=== PATIENT | male | born 1960 | race Hispanic/Latino ===

== ENCOUNTER 2017-09-05 22:15 | Emergency (ER) | payer MEDICARE ==
[2017-09-05 23:22] LABS: #Eosinphils 0.1 thou/uL (0.0-0.7); #Lymphocytes 0.7 thou/uL (1.20-3.40); #Monocytes 0.5 thou/uL (0.11-0.59); #Neutrophils 9.5 thou/uL (1.40-6.50); %Basophils 0.3 % (0.0-1.0); %Eosinophils 0.7 % (0.0-10.0); %Lymphocytes 6.1 % (21.0-51.0); %Monocytes 4.8 % (0.0-10.0); Hematocrit 33.8 % (42.0-52.0); Mean Platelet Volume 7.9 fL (7.4-10.4); Red Blood Cell (RBC) Count 3.98 mill/uL (4.70-6.10); White Blood Cell (WBC) Count 10.8 thou/uL (4.8-10.8)
[2017-09-05 23:44] LABS: ALT (SGPT) 11 U/L (8-55); AST (SGOT) 11 U/L (5-34); Alkaline Phosphatase 149 U/L (40-150); Anion Gap 16 mmol/L (10-20); BUN (Urea Nitrogen) 24 mg/dL (8.4-25.7); Bilirubin, Total 0.8 mg/dL (0.2-1.2); Calc. Creatinine Clearance 0 mL/min (70-130); Calcium 9.4 mg/dL (7.8-10.44); Carbon Dioxide 32 mmol/L (22-29); Chloride 92 mmol/L (98-107); Estimated GFR-MDRD 13; Globulin 4.5 g/dL (2.4-3.5); Protein, Total 8.4 g/dL (6.0-8.3)
[2017-09-05 23:46] LABS: Lactic Acid - Sepsis 1.7 mmol/L (0.5-2.2)
--- NOTE | 2017-09-05 23:46 | RAD ---
TWO VIEWS RIGHT HIP: History: Trauma. FINDINGS: AP and frogleg views obtained. No evidence of right hip fractures, subluxations, or bony lesions see n. IMPRESSION: Normal two views right hip. POS: [facility]
--- NOTE | 2017-09-05 23:46 | RAD ---
AP CHEST: History: Fever. FINDINGS: There is a right subclavian endovascular stent in place. The lungs are well aerated. No evidence of active intrathoracic disease seen. No evidence of effusio ns, pneumonia or pneumothorax seen. IMPRESSION: Cardiomegaly. POS: [facility]
== END 2017-09-06 00:24 | disposition home or self-care (01) ==
LOC: ERS 22:15
DX: R53.1 Weakness (principal); R50.9 Fever, unspecified; E11.9 Type 2 diabetes mellitus without complications; I10 Essential (primary) hypertension; Z86.73 Personal history of transient ischemic attack (TIA), and cerebral infarction without residual deficits; Z99.2 Dependence on renal dialysis
CPT/HCPCS: 71010; 80053; 83605; 85025; 87040

== ENCOUNTER 2017-10-08 13:02 | Emergency (ER) | payer MEDICARE ==
--- NOTE | 2017-10-08 15:43 | RAD ---
THREE VIEWS LEFT FOOT: DATE: 10/08/17. HISTORY: Left foot injury. FINDINGS: Lisfranc joint is normally aligned. There is no evidence of a fracture or dislocation. Mild osteoar thritis involving the interphalangeal joint of the great toe with nonspecific minimal soft tissue pro minence adjacent to the interphalangeal joint of the great toe. No other osseous abnormality is seen . Vascular calcifications are seen about the ankle and foot. IMPRESSION: 1. No acute osseous abnormality of the left foot. 2. Vascular calcifications. POS: [facility]
--- NOTE | 2017-10-08 16:08 | RAD ---
TWO VIEWS LEFT TIBIA AND FIBULA 10/08/17 HISTORY: Injury to distal left lower extremity and foot after losing balance and falling at home last p.m. Pat ient complains of left foot pain. FINDINGS: There is a nondisplaced fracture involving the proximal left fibula. No additional fracture is apprec iated. There is no evidence of a dislocation. Vascular calcifications are seen about the knee. IMPRESSION: Nondisplaced obliquely oriented fracture involving the proximal left fibula. POS: [facility]
== END 2017-10-08 16:05 | disposition home or self-care (01) ==
LOC: ERS 13:02
DX: S82.832A Other fracture of upper and lower end of left fibula, initial encounter for closed fracture (principal); E11.9 Type 2 diabetes mellitus without complications; I10 Essential (primary) hypertension; W18.30XA Fall on same level, unspecified, initial encounter
CPT/HCPCS: 29505

== ENCOUNTER 2018-06-06 10:46 | Inpatient (IN) | payer MEDICARE ==
[2018-06-06] MEDS ORDERED: Ondansetron HCl/PF 4 MG/2 ML Vial ONE (11:48)
[2018-06-06] MEDS ORDERED: Fentanyl 100 MCG/2 ML VIAL ONE (11:48)
[2018-06-06 12:00] LABS: #Basophils 0.1 thou/uL (0.0-0.2); #Eosinphils 0.2 thou/uL (0.0-0.7); #Lymphocytes 1.4 thou/uL (1.20-3.40); #Neutrophils 13.6 thou/uL (1.40-6.50); %Basophils 0.5 % (0.0-1.0); %Eosinophils 1.3 % (0.0-10.0); %Lymphocytes 8.9 % (21.0-51.0); %Monocytes 5.9 % (0.0-10.0); %Neutrophils 83.5 % (42.0-75.0); Hemoglobin 9.8 g/dL (14.0-18.0); Mean Corpuscular HGB CONC 30.2 g/dL (32.0-36.0); Mean Corpuscular Volume 89.2 fL (78.0-98.0); Mean Platelet Volume 6.3 fL (7.4-10.4); Platelet Count 454 thou/uL (130-400); RBC Distribution Width 14.3 % (11.5-14.5); Red Blood Cell (RBC) Count 3.64 mill/uL (4.70-6.10); White Blood Cell (WBC) Count 16.3 thou/uL (4.8-10.8)
[2018-06-06 12:23] LABS: ALT (SGPT) 20 U/L (8-55); AST (SGOT) 15 U/L (5-34); Albumin 3.3 g/dL (3.5-5.0); Alkaline Phosphatase 361 U/L (40-150); Anion Gap 16 mmol/L (10-20); BUN (Urea Nitrogen) 25 mg/dL (8.4-25.7); Bilirubin, Total 0.6 mg/dL (0.2-1.2); CK (CPK) 65 U/L (30-200); Calc. Creatinine Clearance 0 mL/min (70-130); Calcium 9.7 mg/dL (7.8-10.44); Carbon Dioxide 34 mmol/L (22-29); Chloride 92 mmol/L (98-107); Estimated GFR-MDRD 10; Globulin 4.5 g/dL (2.4-3.5); Glucose 163 mg/dL (70-105); Lipase 10 U/L (8-78); Potassium 4.3 mmol/L (3.5-5.1); Protein, Total 7.8 g/dL (6.0-8.3); Sodium 138 mmol/L (136-145)
[2018-06-06 12:26] LABS: CKMB 0.9 ng/mL (0-6.6); Troponin I Less than 0.010 ng/mL (< 0.028)
[2018-06-06] MEDS ORDERED: Sodium Chloride 0.9% 100 ML ONE (12:37)
[2018-06-06] MEDS ORDERED: Cefepime 2 GM VIAL ONE (12:37)
--- NOTE | 2018-06-06 12:43 | RAD ---
PA AND LATERAL CHEST X-RAY: 06/06/2018 HISTORY: Right-sided pneumonia. Dyspnea. COMPARISON: 06/06/2018 at 1008 hours. FINDINGS: Again noted are patchy parenchymal changes in the right upper lobe, likely related to pneumonia. The re is also a patchy parenchymal opacity seen at the medial aspect of the left lung base, within the l eft lower lobe, also worrisome for pneumonia. The cardiac silhouette and pulmonary vasculature are w ithin normal limits. A vascular stent overlies the right subclavian vessels. IMPRESSION: Multifocal pneumonia within the right upper lobe and left lower lobe. Followup to complete resolutio n is recommended to exclude the possibility of a neoplastic process. POS: [facility]
--- NOTE | 2018-06-06 15:55 | NM ---
RADIONUCLIDE VENTILATION PERFUSION LUNG SCAN 06/06/18 HISTORY: Chest pain. Dyspnea. FINDINGS: Ventilation images show heterogeneous uptake throughout each lung. No significant air trapping. Perfusion images show poor perfusion gradient and heterogeneous uptake. Subsegmental perfusion defect is noted at the medial aspect of the right lung apex in region of opacity on corresponding chest rad iograph. IMPRESSION: Small subsegmental triple match at the medial aspect of the right lung apex. While there is certainly an abnormality at the right apex, the exam remains low probability for clinically significant pulmon licha embolus. POS: [facility]
[2018-06-06] MEDS ORDERED: Bisacodyl 5 MG TAB PO PRN (16:34)
[2018-06-06] MEDS ORDERED: Dextrose 5% in Water 1,000 ML IV PRN (16:34)
[2018-06-06] MEDS ORDERED: Dextrose 50% Abboject 50 ML SYRINGE SLOW IVP PRN (16:34)
[2018-06-06] MEDS ORDERED: Acetaminophen 325 MG TAB PO PRN (16:34)
[2018-06-06] MEDS ORDERED: Benzonatate 100 MG CAP PO PRN (16:36)
[2018-06-06] MEDS ORDERED: Vancomycin HCl 1 GM in Premix Bag 1 BAG IVPB SCH (16:45)
--- NOTE | 2018-06-06 16:51 | HP ---
PRIMARY CARE PROVIDER: Dr. Zhang Schneider. CHIEF COMPLAINT: Cough. HISTORY OF PRESENT ILLNESS: Mr. Pacheco is a pleasant 57-year-old gentleman who was seen at [facility] on 06/06/2018. Approximately 1.5-2 weeks ago, he developed a runny nose whi ch was followed by cough and diarrhea. He subsequently started having fevers and chills as well as s weating. He also developed fatigue and poor appetite. The cough was initially nonproductive, but he is productive of brownish sputum since yesterday. One week ago, [facility] and received cough medications. He was advised to go back if there was no improvement. They returned to [facility] and they did a chest x-ray th . He was told to go to the emergency room because of an abnormality of the chest x-ray. REVIEW OF SYSTEMS: All other systems reviewed and found to be negative. PAST MEDICAL HISTORY: Significant for end-stage renal disease on hemodialysis Tuesday, Tuesday, Tue, had dialysis yesterday afternoon, hypertension, dyslipidemia, cerebrovascular accident, diabetes mellitus type 2, bacteremia with Staphylococcus lugdunensis as well as bacteremia with Enterococcus faecalis. PAST SURGICAL HISTORY: Appendectomy, cholecystectomy, tonsillectomy, right toe amputation, right arm fistula SOCIAL HISTORY: The patient denies any tobacco use, alcohol use or recreational drug use. FAMILY HISTORY: His father from myocardial infarction at age 59. ALLERGIES: CODEINE, HEPARIN and PHENERGAN. CURRENT MEDICATIONS: Tramadol 50-100 mg every 4 hours as needed, metoprolol 100 mg 2 times a day, gl ipizide 20 mg 2 times a day, clonidine 0.2 mg as needed, Valium 5 mg every 6 hours as needed, meclizi ne 25 mg every 4 hours as needed, nifedipine 30 mg daily, vitamin D3 2000 units daily, atorvastatin 4 0 mg daily, Jacky aspirin 325 mg daily and Tessalon Perles 100 mg 3 times a day. PHYSICAL EXAMINATION: GENERAL: On examination, Mr. Pacheco is awake and alert, not in acute distress. VITAL SIGNS: Blood pressure is 151/62, pulse 83, respiratory rate 17 currently, was 22 earlier today in the emergency room, temperature 98 degrees Fahrenheit, and oxygen saturation 99% on room air. EYES: No scleral icterus. No conjunctival pallor. ENT: Moist mucosal membranes, no oropharyngeal erythema or exudates. NECK: Supple, nontender, trachea is midline. RESPIRATORY: Accessory muscles of breathing are not active. Chest wall movements are symmetric bila terally. LUNGS: Reveals bilateral bronchial breathing. CARDIOVASCULAR: S1 and S2 are heard, regular. Peripheral pulses palpable. No carotid bruit, no per icardial rub. ABDOMEN: Soft, nontender, bowel sounds are heard, no hepatomegaly, no splenomegaly. NEUROLOGIC: Cranial nerves II-XII intact. Deep tendon reflexes are 2+. MUSCULOSKELETAL: Power is 5/5 in all 4 extremities. SKIN: He has a firm subcutaneous mass over the neck. It is erythematous. The patient reports that the mass has been present there for a while, but the erythema is new. LYMPHATIC: No cervical lymphadenopathy. PSYCHIATRIC: Normal mood, normal affect. The patient is oriented to person, place and time. IMAGING DATA AND LABORATORY DATA: Mr. Pacheco's labs and investigations were reviewed. I reviewed hi s electrocardiogram, which shows normal sinus rhythm, no ST changes to suggest an acute coronary synd marissa. I also reviewed his chest x-ray, which shows multifocal pulmonary infiltrates. He has leukocy tosis with 16,300 white cells, of which 83.5% are neutrophils, normocytic anemia with hemoglobin 9.8, elevated platelet count of 454,000, he had normal platelet count in 08/2017. D-dimer elevated at 2. 08, normal sodium, normal potassium, normal blood urea nitrogen and elevated creatinine of 5.93. BNP is elevated at 445. Alkaline phosphatase is elevated at 361, was elevated in the past as well, but the last value was normal in 08/2017. Lipase is normal. Troponin I is normal. ASSESSMENT AND PLAN: Mr. Pacheco is a pleasant 57-year-old gentleman who was seen at [facility] on 06/06/2018. His problem list includes: 1. Sepsis: Mr. Pacheco is presenting with sepsis, most likely secondary to pneumonia. He will be ad mitted to the hospital for further management. 2. Pneumonia: We will treat him with levofloxacin, cefepime and vancomycin. We will follow culture s and narrow down antibiotic coverage as needed. 3. Neck mass: Appears to be a benign mass. He does not feel fluctuant. The skin overlying the mas s is erythematous. We will consult General Surgery for opinion. 4. Hypertension: Monitor vital signs, titrate antihypertensives as needed. 5. Dyslipidemia: Continue statin. Many thanks for allowing me to participate in your patient's care. Please feel free to contact me wi th any questions or concerns. LEVEL OF RISK: High. LEVEL OF COMPLEXITY: High.
[2018-06-06 16:54] LABS: Troponin I Less than 0.010 ng/mL (< 0.028)
[2018-06-06 19:39] VITALS: BMI 33.0
[2018-06-06 20:08] LABS: Troponin I Less than 0.010 ng/mL (< 0.028)
[2018-06-06] MEDS ORDERED: Ondansetron HCl/PF 4 MG/2 ML Vial IVP PRN (21:21)
[2018-06-06] MEDS: cloNIDine 0.2 MG TAB PO SCH (21:47)
[2018-06-06] MEDS: Atorvastatin Calcium 40 MG TAB PO SCH (21:48)
[2018-06-06] MEDS: Metoprolol Tartrate 100 MG TAB PO SCH (21:48)
--- NOTE | 2018-06-07 01:59 | CON ---
DATE OF CONSULTATION: 06/06/2018 CONSULTING PHYSICIAN: Violeta Haq MD REQUESTING PHYSICIAN: Galileo Barnes MD REASON FOR CONSULTATION: Need for maintenance hemodialysis. IMPRESSION: 1. End-stage renal disease; hemodialysis dependent on a Tuesday, Tuesday, Tuesday schedule. 2. Multifocal pneumonia, on treatment. 3. History of cerebrovascular accident. 4. Possible infected cyst overlying the neck area. PLAN: 1. Renal replacement therapy; Tuesday, Tuesday, Tuesday per patient's schedule with ultrafiltration as tolerated by hemodynamics. 2. Renally dose all medications. 3. Consider surgical consult to evaluate the lump on the neck of this patient, as it seems to be inf ected. HISTORY OF PRESENT ILLNESS: History is that of a 57-year-old gentleman with end-stage renal disease, hemodialysis dependent on a Tuesday, Tuesday, Tuesday who presented here with cough persistent and g ot diagnosed with multifocal pneumonia. The patient also does have an area of tenderness that is lum py overlying the neck area, red, somewhat erythematous and tender to touch. As a result of the need for maintenance hemodialysis, decision has been taken to involve Renal in the management of this case . PAST MEDICAL HISTORY: Significant for end-stage renal disease, type 2 diabetes, CVA, dyslipidemia, h ypertension. MEDICATIONS: Reviewed as documented on [employer]. SOCIAL HISTORY: . No alcohol, no tobacco, no illicit drug use. FAMILY HISTORY: None significantly related to presenting illness. ALLERGIES: CODEINE, HEPARIN and PHENERGAN. REVIEW OF SYSTEMS: As documented in the body of the history. All the other systems were reviewed an d found not to be significantly related to presenting illness. PHYSICAL EXAMINATION: GENERAL: The patient was noted to be coughing persistently and noted with the following vital signs. VITAL SIGNS: Afebrile with temperature 99.4, pulse 83, respiratory rate of 18, O2 sat of 93% with a blood pressure 115/73. HEENT: Unremarkable with moist oral mucosa. NECK: Supple. No conjunctival injection or icterus. CARDIOVASCULAR SYSTEM: First and second heart sounds were heard. RESPIRATORY SYSTEM: Showed some rales. DIGESTIVE SYSTEM: Revealed a benign abdomen. EXTREMITIES: No peripheral edema. SKIN/MUSCULOSKELETAL SYSTEM: Revealed a 2 x 4 lump overlying the neck area that is erythematous and tender to touch. SUMMARY: A 57-year-old gentleman with end-stage renal disease, hemodialysis dependent, who presented here with multifocal pneumonia. Thank you for this consultation. We will follow with you.
[2018-06-07 05:37] LABS: #Basophils 0.1 thou/uL (0.0-0.2); #Eosinphils 0.1 thou/uL (0.0-0.7); #Lymphocytes 1.6 thou/uL (1.20-3.40); #Monocytes 0.7 thou/uL (0.11-0.59); #Neutrophils 12.4 thou/uL (1.40-6.50); %Basophils 0.5 % (0.0-1.0); %Eosinophils 0.9 % (0.0-10.0); %Lymphocytes 10.4 % (21.0-51.0); %Neutrophils 83.2 % (42.0-75.0); Hemoglobin 9.6 g/dL (14.0-18.0); Mean Corpuscular HGB CONC 31.8 g/dL (32.0-36.0); Mean Corpuscular Hemoglobin 27.9 pg (27.0-31.0); Mean Corpuscular Volume 87.6 fL (78.0-98.0); Platelet Count 460 thou/uL (130-400); RBC Distribution Width 14.4 % (11.5-14.5); Red Blood Cell (RBC) Count 3.43 mill/uL (4.70-6.10); White Blood Cell (WBC) Count 14.9 thou/uL (4.8-10.8)
[2018-06-07 05:45] LABS: Anion Gap 19 mmol/L (10-20); BUN (Urea Nitrogen) 38 mg/dL (8.4-25.7); Calc. Creatinine Clearance 15 mL/min (70-130); Calcium 9.4 mg/dL (7.8-10.44); Carbon Dioxide 29 mmol/L (22-29); Chloride 91 mmol/L (98-107); Estimated GFR-MDRD 8; Glucose 209 mg/dL (70-105); Potassium 3.7 mmol/L (3.5-5.1); Sodium 135 mmol/L (136-145)
[2018-06-07] MEDS: HumaLOG 300 UNITS/3 ML VIAL SC PRN ×2 (06:40→20:37)
[2018-06-07] MEDS: NIFEdipine XL 30 MG TAB PO SCH (09:06)
[2018-06-07] MEDS: Metoprolol Tartrate 100 MG TAB PO SCH ×2 (09:06→20:31)
[2018-06-07] MEDS: Aspirin 325 mg Enteric Coated Tablet PO SCH (09:06)
[2018-06-07] MEDS: cloNIDine 0.2 MG TAB PO SCH ×3 (09:07→20:32)
[2018-06-07] MEDS ORDERED: Vancomycin HCl 1.25 GM in Sodium Chloride 0.9% 250 ML 250 ML IVPB SCH (11:00)
[2018-06-07] MEDS ORDERED: Vancomycin HCl 750 MG in Sodium Chloride 0.9% 250 ML 250 ML IVPB SCH (11:00)
[2018-06-07] MEDS ORDERED: Vancomycin HCl 1 GM in Premix Bag 1 BAG IVPB SCH (11:00)
[2018-06-07] MEDS ORDERED: Vancomycin HCl 500 MG in Sodium Chloride 0.9% 100 ML IVPB SCH (11:00)
[2018-06-07] MEDS ORDERED: HOLD VANCOMYCIN FOR LEVEL >20 FS SCH (11:00)
[2018-06-07 12:43] LABS: Vancomycin, Random 22.9 ug/mL (See Comment)
--- NOTE | 2018-06-07 14:35 | PDOC.PN ---
- Subjective Encounter Start Date: 06/07/18 Encounter Start Time: 07:00 Patient seen for followup re: sepsis. Denies chest pain, shortness of breath, fevers or chills. - Objective MAR Reviewed: Yes Vital Signs & Weight: Vital Signs (12 hours) Temp Pulse Resp BP BP Pulse Ox 06/07/18 09:07 139/62 06/07/18 09:06 74 139/62 06/07/18 08:32 74 16 96 06/07/18 08:05 99.4 F 74 16 92 L 06/07/18 07:51 99.4 F 97 16 139/62 92 L 06/07/18 04:00 99.6 F 77 20 141/65 H 98 Weight Weight 217 lb 1.6 oz I&O: 06/06/18 06/07/18 06/08/18 06:59 06:59 06:59 Intake Total 502 Balance 502 Result Diagrams: 06/07/18 05:17 06/07/18 05:17 Additional Labs: Accuchecks 06/07/18 06/06/18 06:06 21:34 POC Glucose 196 H 204 H Labs reviewed by me Phys Exam - Physical Examination Obese HEENT: moist MMs, sclera anicteric, oral pharynx no lesions, 2+ tonsils Neck: no nodes, no JVD, supple, full ROM neck mass Respiratory: no wheezing, no rhonchi jared crackles Cardiovascular: RRR, no rub S1, S2 Gastrointestinal: soft, non-tender, no distention, positive bowel sounds Neurological: moves all 4 limbs Psychiatric: normal affect, A&O x 3 Deviation from normal: erythema over neck mass Dx/Plan (1) Sepsis Code(s): A41.9 - SEPSIS, UNSPECIFIED ORGANISM Status: Acute Comment: secondary to pneumonia/cellulitis (2) Pneumonia Code(s): J18.9 - PNEUMONIA, UNSPECIFIED ORGANISM Status: Acute Comment: continue IV cefepime, levaquin and vancomycin (3) Cellulitis Code(s): L03.90 - CELLULITIS, UNSPECIFIED Status: Acute Comment: continue IV cefepime, levaquin and vancomycin (4) Neck mass Code(s): R22.1 - LOCALIZED SWELLING, MASS AND LUMP, NECK Status: Acute Comment: consult surgery (5) Diabetes Code(s): E11.9 - TYPE 2 DIABETES MELLITUS WITHOUT COMPLICATIONS Status: Chronic Comment: continue accuchecks, insulin sliding scale (6) ESRD (end stage renal disease) on dialysis Code(s): N18.6 - END STAGE RENAL DISEASE; Z99.2 - DEPENDENCE ON RENAL DIALYSIS Status: Chronic Comment: dialysis per nephrology service (7) HLD (hyperlipidemia) Code(s): E78.5 - HYPERLIPIDEMIA, UNSPECIFIED Status: Chronic Comment: continue statin (8) HTN (hypertension) Code(s): I10 - ESSENTIAL (PRIMARY) HYPERTENSION Status: Chronic Comment: controlled - Plan continue antibiotics, out of bed/ambulate * . Review of Systems - Review of Systems Constitutional: negative: fever, chills, sweats, weakness, malaise Respiratory: Cough, Sputum. negative: Dry, Shortness of Breath, Hemoptysis, SOB with Excertion, Pleuritic Pain, Wheezing Cardiovascular: negative: chest pain, palpitations, orthopnea, paroxysmal nocturnal dyspnea, edema, light headedness Gastrointestinal: negative: Nausea, Vomiting, Abdominal Pain, Diarrhea, Constipation, Melena, Hematochezia Genitourinary: negative: Dysuria, Frequency, Incontinence, Hematuria, Retention Skin: negative: Rash, Lesions, Charly, Bruising - Medications/Allergies Allergies/Adverse Reactions: Allergies Allergy/AdvReac Type Severity Reaction Status Date / Time codeine Allergy Nausea Verified 06/06/18 19:54 heparin Allergy EYES Verified 06/06/18 19:54 BLEEDING promethazine [From Phenergan] Allergy Verified 06/06/18 19:55 Medications: Current Medications Acetaminophen (Tylenol) 650 mg PO Q4H PRN PRN Reason: Headache/Fever or Pain Albuterol/Ipratropium (Duoneb) 3 ml NEB [id number] [facility] Last Admin: 06/07/18 11:22 Dose: 3 ml Albuterol/Ipratropium (Duoneb) 3 ml NEB Q6H PRN PRN Reason: SOB &/or Wheezing Last Admin: 06/06/18 21:39 Dose: 3 ml Aspirin (Ecotrin) 325 mg PO QAM [facility] Last Admin: 06/07/18 09:06 Dose: 325 mg Atorvastatin Calcium (Lipitor) 40 mg PO HS [facility] Last Admin: 06/06/18 21:48 Dose: 40 mg Benzonatate (Tessalon) 100 mg PO TIDPRN PRN PRN Reason: Cough Bisacodyl (Dulcolax) 10 mg PO DAILYPRN PRN PRN Reason: Constipation Clonidine (Catapres) 0.2 mg PO TID [facility] Last Admin: 06/07/18 09:07 Dose: Not Given Dextrose/Water (Dextrose 50%) 25 gm SLOW IVP PRN PRN PRN Reason: Hypoglycemia Glucagon (Glucagon) 1 mg IM PRN PRN PRN Reason: Hypoglycemia Cefepime HCl 1 gm/ Sodium (Chloride) 100 mls @ 200 mls/hr IVPB 1800 HANSA Levofloxacin 500 mg/ Device 100 mls @ 100 mls/hr IVPB Q2D@1600 HANSA Dextrose/Water (D5w) 1,000 mls @ 0 mls/hr IV .Q0M PRN; As Directed PRN Reason: Hypoglycemia Vancomycin HCl 1.25 gm/ Sodium (Chloride) 250 mls @ 166.667 mls/hr IVPB WILLCALL [facility] Vancomycin HCl 1 gm/ Device 200 mls @ 200 mls/hr IVPB WILLCALL [facility] Vancomycin HCl 750 mg/ Sodium (Chloride) 250 mls @ 250 mls/hr IVPB WILLCALL [facility] Vancomycin HCl 500 mg/ Sodium (Chloride) 100 mls @ 100 mls/hr IVPB WILLCALL [facility] Insulin Human Lispro (Humalog) 0 units SC .MILD SLIDING SCALE PRN PRN Reason: Mild Correctional Scale Last Admin: 06/07/18 06:40 Dose: 2 unit Metoprolol Tartrate (Lopressor) 100 mg PO BID [facility] Last Admin: 06/07/18 09:06 Dose: 100 mg Miscellaneous Medication (Pharmacy To Dose) 1 each IVPB ONE PRN PRN Reason: Pharmacy to dose Stop: 07/06/18 16:32 Nifedipine (Procardia Xl) 30 mg PO DAILY [facility] Last Admin: 06/07/18 09:06 Dose: 30 mg Hold Vancomycin For (Level >20) 0 each FS .AT DIALYSIS [facility] Ondansetron HCl (Zofran) 4 mg IVP Q6H PRN PRN Reason: Nausea/Vomiting Last Admin: 06/06/18 21:35 Dose: 4 mg Sodium Chloride (Flush - Normal Saline) 10 ml IVF Q12HR [facility] Last Admin: 06/07/18 09:07 Dose: 10 ml Sodium Chloride (Flush - Normal Saline) 10 ml IVF PRN PRN PRN Reason: Saline Flush
[2018-06-07] MEDS: Cefepime 1 GM in Sodium Chloride 0.9% 100 ML IVPB SCH (17:44)
--- NOTE | 2018-06-07 18:05 | HP ---
HISTORY OF PRESENT ILLNESS: Jose Guadalupe Pacheco is a 57-year-old male dialyzes Tuesday, Tuesday, and Tue, end-stage renal disease. I placed a right arm fistula in 2010, amputated one of his toes in and have not seen him since that time. He is admitted on this occasion for pneumonia. He is insul in dependent diabetic. He has been treated with vancomycin and Levaquin. I have been treated with v ancomycin, Levaquin, and cefepime. I have been asked to see him regarding a right shoulder/base of n timbo tender mass. He has had this for many years, but has become larger and more painful. PHYSICAL EXAMINATION: 6-8 cm infected sebaceous cyst base of neck over the right trapezius. We woul d recommend continued intravenous antibiotics in the hospital, converted to oral antibiotics as an ou tpatient and follow up in my office in a week and a half to 2 weeks for excision in the office. If t his gets worse over the next few days, please call us back and he may need incision and drainage in [facility], but hopefully this can be done as an outpatient with formal excision.
[2018-06-07] MEDS: Atorvastatin Calcium 40 MG TAB PO SCH (20:31)
--- NOTE | 2018-06-07 23:13 | PRG ---
DATE OF SERVICE: 06/06/2018 SUBJECTIVE: The patient was seen and examined today at dialysis, seems to be doing much better, note d with the following vital signs. PHYSICAL EXAMINATION: VITAL SIGNS: Afebrile with temperature 98.2, pulse 78, respiratory rate of 18, O2 saturation of 97%, blood pressure 141/56. HEENT: Unremarkable. CARDIOVASCULAR: First and second heart sounds were heard. RESPIRATORY: Clear to auscultation. DIGESTIVE: Revealed a benign abdomen with positive bowel sounds. EXTREMITIES: No peripheral edema. SKIN: No new gross rash. LYMPHATICS: No peripheral lymphadenopathy. LABORATORY INVESTIGATION: Showed a white count of 14,900, hemoglobin 9.6. Chemistry showed a creati nine of 7.18 with BUN of 38. IMPRESSION: 1. End-stage renal disease, on hemodialysis. 2. Pneumonia. PLAN: 1. The patient to continue with current regimen of hemodialysis. 2. Further management to be dependent on the clinical course.
[2018-06-08] MEDS ORDERED: Fentanyl 100 MCG/2 ML VIAL SLOW IVP SCH ×2 (02:45→06:45)
[2018-06-08] MEDS: HumaLOG 300 UNITS/3 ML VIAL SC PRN ×2 (06:25→17:05)
[2018-06-08] MEDS: Metoprolol Tartrate 100 MG TAB PO SCH ×2 (08:05→21:41)
[2018-06-08] MEDS: cloNIDine 0.2 MG TAB PO SCH ×3 (08:06→21:42)
[2018-06-08] MEDS: NIFEdipine XL 30 MG TAB PO SCH (08:06)
[2018-06-08] MEDS: Aspirin 325 mg Enteric Coated Tablet PO SCH (08:06)
--- NOTE | 2018-06-08 09:33 | PQF ---
CLINICAL DOCUMENTATION IMPROVEMENT CLARIFICATION FORM: ICD-10 Updated PLEASE DO AN ADDENDUM TO THE PROGRESS NOTE WITH ANY DOCUMENTATION UPDATES OR ADDITIONS AND CARRY THROUGH TO DC SUMMARY. THANK YOU. DATE: 06/08, 06/09 ATTN: DR. MONIE NAVARRO / DR. Case PALOMINO Please exercise your independent, professional judgment in responding to the clarification form. Clinical indicators are provided on the bottom of this form for your review. Please check appropriate box(s): [ x ] Empirically treating Gram Negative Pneumonia [ ] Empirically treating Anaerobic Pneumonia [ ] Pneumonia secondary to (specify organism / underlying disease) [ ] Simple Pneumonia (community acquired - nosocomial) [ ] Bronchopneumonia [ ] Pneumonia of unknown etiology [ ] Other diagnosis [ ] Unable to determine For continuity of documentation, please document condition throughout progress notes and discharge summary. Thank You. CLINICAL INDICATORS - SIGNS / SYMPTOMS / LABS ER PHYSICIAN DIAGNOSES 06/06: MULTILOBAR PNEUMONIA CXR 06/06: IMPRESSION: MULTIFOCAL PNEUMONIA WITHIN THE RUL & LLL PHYSICIAN H&P 06/06: HX OF PRESENT ILLNESS: APPROXIMATELY 1.5 - 2 WEEKS AGO DEVELOPED RUNNY NOSE FOLLOWED BY COUGH & DIARRHEA. ...THE COUGH WAS INITIALLY NONPRODUCTIVE, BUT HE IS PRODUCTIVE OF BROWNISH SPUTUM SINCE YESTERDAY. IMPRESSION: 2) PNEUMONIA, WE WILL TREAT HIM WITH LEVOFLOXACIN, CEFEPIME & VANCOMYCIN PN 06/07: DX/PLAN: 2) PNEUMONIA, UNSPECIFIED ORGANISM; CONTINUE IV CEFEPIME, LEVAQUIN & VANCOMYCIN RISK FACTORS: ESRD ON DIALYSIS TREATMENTS: IV ANTIBIOTICS (CEFEPIME, LEVOFLOXACIN, VANCOMYCIN 06/06 - PRESENT) THANK YOU! Kaylie (This form is maintained as a part of the permanent medical record) 2014 [employer]. All Rights Reserved Kaylie Fortune RN, BSN [email or web address] Office: [phone] [facility]
[2018-06-08] MEDS ORDERED: Fentanyl 100 MCG/2 ML VIAL SLOW IVP PRN ×2 (10:06→15:33)
[2018-06-08] MEDS: traMADol HCl 50 MG TAB PO PRN (16:35)
[2018-06-08] MEDS: Cefepime 1 GM in Sodium Chloride 0.9% 100 ML IVPB SCH (18:28)
[2018-06-08] MEDS: Atorvastatin Calcium 40 MG TAB PO SCH (21:41)
--- NOTE | 2018-06-08 22:59 | PDOC.PN ---
- Subjective Encounter Start Date: 06/08/18 Encounter Start Time: 18:00 Subjective: nsg notes rev shayne ovn, and son at bedside, no new c/o -: pt seen s/p I&D by Dr. Robles, states neck pain is now sig improv - Objective Vital Signs & Weight: Vital Signs (12 hours) Temp Pulse Resp BP BP BP Pulse Ox 06/08/18 21:42 179/73 H 06/08/18 20:00 98.1 F 77 16 95 06/08/18 19:46 98.1 F 77 16 160/70 H 95 06/08/18 16:00 98.1 F 69 20 169/75 H 93 L 06/08/18 15:31 179/73 H 06/08/18 12:00 97.5 F L 68 20 179/73 H 96 Weight Weight 217 lb 1.6 oz I&O: 06/07/18 06/08/18 06/09/18 06:59 06:59 06:59 Intake Total 502 840 Output Total 3000 Balance 502 -2160 Result Diagrams: 06/07/18 05:17 06/07/18 05:17 Additional Labs: Accuchecks 06/08/18 06/08/18 06/08/18 20:11 16:14 11:36 POC Glucose 171 H 307 H 172 H 06/08/18 06/07/18 05:43 11:52 POC Glucose 208 H 251 H Phys Exam - Physical Examination Constitutional: NAD seated in hospital chair HEENT: PERRLA, moist MMs Respiratory: no wheezing, no rales, no rhonchi, clear to auscultation bilateral no conversational dyspnea on RA Cardiovascular: RRR, no rub 3/5 MERY murmur LSB Gastrointestinal: positive bowel sounds Psychiatric: normal affect Dx/Plan - Plan cont current plan of care, plan discussed w/ family, continue antibiotics (1) Sepsis Code(s): A41.9 - SEPSIS, UNSPECIFIED ORGANISM Status: Acute Comment: secondary to pneumonia/cellulitis will likely need o/p abx either with HD or orally (2) Pneumonia Code(s): J18.9 - PNEUMONIA, UNSPECIFIED ORGANISM Status: Acute Comment: continue IV cefepime, levaquin and vancomycin (3) Cellulitis Code(s): L03.90 - CELLULITIS, UNSPECIFIED Status: Acute Comment: continue IV cefepime, levaquin and vancomycin (4) Neck mass Code(s): R22.1 - LOCALIZED SWELLING, MASS AND LUMP, NECK Status: Acute Comment: consult surgery apprec sig imprv pain s/p I&D (5) Diabetes Code(s): E11.9 - TYPE 2 DIABETES MELLITUS WITHOUT COMPLICATIONS Status: Chronic Comment: continue accuchecks, insulin sliding scale (6) ESRD (end stage renal disease) on dialysis Code(s): N18.6 - END STAGE RENAL DISEASE; Z99.2 - DEPENDENCE ON RENAL DIALYSIS Status: Chronic Comment: dialysis per nephrology service (7) HLD (hyperlipidemia) Code(s): E78.5 - HYPERLIPIDEMIA, UNSPECIFIED Status: Chronic Comment: continue statin (8) HTN (hypertension) Code(s): I10 - ESSENTIAL (PRIMARY) HYPERTENSION Status: Chronic Comment: controlled d/w pt and family. if continued improvement w/o further IV pain regimen, t/c d/ c with o/p abx Review of Systems - Medications/Allergies Allergies/Adverse Reactions: Allergies Allergy/AdvReac Type Severity Reaction Status Date / Time codeine Allergy Nausea Verified 06/06/18 19:54 heparin Allergy EYES Verified 06/06/18 19:54 BLEEDING promethazine [From Phenergan] Allergy Verified 06/06/18 19:55 Medications: Current Medications Acetaminophen (Tylenol) 650 mg PO Q4H PRN PRN Reason: Headache/Fever or Pain Last Admin: 06/07/18 23:53 Dose: 650 mg Albuterol/Ipratropium (Duoneb) 3 ml NEB [id number] SCH Last Admin: 06/07/18 17:52 Dose: Not Given Albuterol/Ipratropium (Duoneb) 3 ml NEB Q6H PRN PRN Reason: SOB &/or Wheezing Last Admin: 06/07/18 19:48 Dose: 3 ml Aspirin (Ecotrin) 325 mg PO QAM [facility] Last Admin: 06/08/18 08:06 Dose: 325 mg Atorvastatin Calcium (Lipitor) 40 mg PO HS [facility] Last Admin: 06/08/18 21:41 Dose: 40 mg Benzonatate (Tessalon) 100 mg PO TIDPRN PRN PRN Reason: Cough Bisacodyl (Dulcolax) 10 mg PO DAILYPRN PRN PRN Reason: Constipation Clonidine (Catapres) 0.2 mg PO TID [facility] Last Admin: 06/08/18 21:42 Dose: Not Given Dextrose/Water (Dextrose 50%) 25 gm SLOW IVP PRN PRN PRN Reason: Hypoglycemia Fentanyl (Sublimaze) 5 mcg SLOW IVP ONE PRN PRN Reason: Pain Stop: 06/08/18 23:59 Last Admin: 06/08/18 16:35 Dose: 5 mcg Glucagon (Glucagon) 1 mg IM PRN PRN PRN Reason: Hypoglycemia Cefepime HCl 1 gm/ Sodium (Chloride) 100 mls @ 200 mls/hr IVPB 1800 [facility] Last Admin: 06/08/18 18:28 Dose: 100 mls Levofloxacin 500 mg/ Device 100 mls @ 100 mls/hr IVPB Q2D@1600 [facility] Last Admin: 06/08/18 16:36 Dose: 100 mls Dextrose/Water (D5w) 1,000 mls @ 0 mls/hr IV .Q0M PRN; As Directed PRN Reason: Hypoglycemia Vancomycin HCl 1.25 gm/ Sodium (Chloride) 250 mls @ 166.667 mls/hr IVPB [facility] Vancomycin HCl 1 gm/ Device 200 mls @ 200 mls/hr [facility] Vancomycin HCl 750 mg/ Sodium (Chloride) 250 mls @ 250 mls/hr [facility] Vancomycin HCl 500 mg/ Sodium (Chloride) 100 mls @ 100 mls/hr IVPB [facility] Insulin Human Lispro (Humalog) 0 units SC .MILD SLIDING SCALE PRN PRN Reason: Mild Correctional Scale Last Admin: 06/08/18 17:05 Dose: 5 unit Metoprolol Tartrate (Lopressor) 100 mg PO BID [facility] Last Admin: 06/08/18 21:41 Dose: 100 mg Miscellaneous Medication (Pharmacy To Dose) 1 each IVPB ONE PRN PRN Reason: Pharmacy to dose Stop: 07/06/18 16:32 Nifedipine (Procardia Xl) 30 mg PO DAILY [facility] Last Admin: 06/08/18 08:06 Dose: 30 mg Hold Vancomycin For (Level >20) 0 each FS .AT DIALYSIS [facility] Ondansetron HCl (Zofran) 4 mg IVP Q6H PRN PRN Reason: Nausea/Vomiting Last Admin: 06/06/18 21:35 Dose: 4 mg Sodium Chloride (Flush - Normal Saline) 10 ml IVF Q12HR [facility] Last Admin: 06/08/18 21:42 Dose: 10 ml Sodium Chloride (Flush - Normal Saline) 10 ml IVF PRN PRN PRN Reason: Saline Flush Last Admin: 06/07/18 17:44 Dose: 10 ml Tramadol HCl (Ultram) 25 mg PO Q12HR PRN PRN Reason: Pain Last Admin: 06/08/18 16:35 Dose: 25 mg
[2018-06-09] MEDS: traMADol HCl 50 MG TAB PO PRN (06:21)
[2018-06-09] MEDS: HumaLOG 300 UNITS/3 ML VIAL SC PRN ×3 (06:26→21:52)
[2018-06-09] MEDS: Aspirin 325 mg Enteric Coated Tablet PO SCH (08:41)
[2018-06-09] MEDS: Metoprolol Tartrate 100 MG TAB PO SCH ×2 (08:42→20:30)
[2018-06-09] MEDS: NIFEdipine XL 30 MG TAB PO SCH (08:42)
[2018-06-09] MEDS: cloNIDine 0.2 MG TAB PO SCH ×3 (08:42→20:29)
--- NOTE | 2018-06-09 09:00 | OP ---
PREOPERATIVE DIAGNOSIS: Infected sebaceous cyst, right trapezius area. POSTOPERATIVE DIAGNOSIS: Infected sebaceous cyst, right trapezius area. PROCEDURE: Incision and drainage of infected sebaceous cyst through the previous area. ANESTHESIA: 0.5% Marcaine with epinephrine, 20 mL, mixed with 1% Xylocaine with epinephrine, 20 mL PROCEDURE: At the patient's bedside in his room, his right shoulder trapezius area base of the neck prepared with alcohol pad. Local anesthetic infiltrated into skin and subcutaneous tissue. Incision made, carried down to skin and subcutaneous tissue into the infected sebaceous cyst, evacuating the sebaceous material and purulent material and saline wet-to-dry and a gauze dressing. Plans for hemos tasis. The patient tolerated the procedure well without complications.
--- NOTE | 2018-06-09 14:06 | PDOC.PN ---
- Subjective Encounter Start Date: 06/09/18 Encounter Start Time: 07:00 Pt seen for followup re: pneumonia. Cough is better. Sputum+. No nausea or vomiting. - Objective MAR Reviewed: Yes Vital Signs & Weight: Vital Signs (12 hours) Temp Pulse Resp BP BP Pulse Ox 06/09/18 12:00 98 F 76 20 163/72 H 96 06/09/18 09:50 80 16 94 L 06/09/18 08:42 72 144/64 H 06/09/18 08:00 98.0 F 72 20 144/64 H 95 06/09/18 06:23 78 18 Weight Admit Weight 217 lb 1.6 oz Weight 217 lb 1.6 oz I&O: 06/08/18 06/09/18 06/10/18 06:59 06:59 06:59 Intake Total 840 480 Output Total 3000 Balance -2160 480 Result Diagrams: 06/10/18 05:16 06/10/18 05:16 Additional Labs: Accuchecks 06/09/18 06/09/18 06/08/18 11:12 05:45 20:11 POC Glucose 204 H 198 H 171 H 06/08/18 06/07/18 16:14 11:52 POC Glucose 307 H 251 H Labs reviewed by me Phys Exam - Physical Examination Obese HEENT: moist MMs Neck: supple Eliezer crackles Cardiovascular: RRR Gastrointestinal: soft Neurological: moves all 4 limbs Psychiatric: normal affect Dx/Plan (1) Pneumonia Code(s): J18.9 - PNEUMONIA, UNSPECIFIED ORGANISM Status: Acute Qualifiers: Pneumonia type: due to other aerobic Gram-negative bacteria Comment: continue IV cefepime, levaquin and vancomycin, follow cultures. (2) Cellulitis Code(s): L03.90 - CELLULITIS, UNSPECIFIED Status: Acute Comment: s/p I&D of underlying sebaceous cyst yesterday (3) Neck mass Code(s): R22.1 - LOCALIZED SWELLING, MASS AND LUMP, NECK Status: Resolved Comment: s/p I&D of sebaceous cyst (4) Diabetes Code(s): E11.9 - TYPE 2 DIABETES MELLITUS WITHOUT COMPLICATIONS Status: Chronic Comment: accuchecks, insulin sliding scale (5) ESRD (end stage renal disease) on dialysis Code(s): N18.6 - END STAGE RENAL DISEASE; Z99.2 - DEPENDENCE ON RENAL DIALYSIS Status: Chronic Comment: dialysis per nephrology service (6) HLD (hyperlipidemia) Code(s): E78.5 - HYPERLIPIDEMIA, UNSPECIFIED Status: Chronic Comment: on statin (7) HTN (hypertension) Code(s): I10 - ESSENTIAL (PRIMARY) HYPERTENSION Status: Chronic Comment: monitor vital signs, titrate antihypertensives as needed (8) Sepsis Code(s): A41.9 - SEPSIS, UNSPECIFIED ORGANISM Status: Resolved Comment: secondary to pneumonia and cellulitis - Plan continue antibiotics, out of bed/ambulate * . Review of Systems - Review of Systems Respiratory: Cough, Sputum. negative: Dry, Shortness of Breath, Hemoptysis, SOB with Excertion, Pleuritic Pain, Wheezing Cardiovascular: negative: chest pain, palpitations, orthopnea, paroxysmal nocturnal dyspnea, edema, light headedness Gastrointestinal: negative: Nausea, Vomiting, Abdominal Pain, Diarrhea, Constipation, Melena, Hematochezia - Medications/Allergies Allergies/Adverse Reactions: Allergies Allergy/AdvReac Type Severity Reaction Status Date / Time codeine Allergy Nausea Verified 06/06/18 19:54 heparin Allergy EYES Verified 06/06/18 19:54 BLEEDING promethazine [From Phenergan] Allergy Verified 06/06/18 19:55 Medications: Current Medications Acetaminophen (Tylenol) 650 mg PO Q4H PRN PRN Reason: Headache/Fever or Pain Last Admin: 06/07/18 23:53 Dose: 650 mg Albuterol/Ipratropium (Duoneb) 3 ml NEB [id number] SCH Last Admin: 06/09/18 09:50 Dose: 3 ml Albuterol/Ipratropium (Duoneb) 3 ml NEB Q6H PRN PRN Reason: SOB &/or Wheezing Last Admin: 06/07/18 19:48 Dose: 3 ml Aspirin (Ecotrin) 325 mg PO QAM [facility] Last Admin: 06/09/18 08:41 Dose: 325 mg Atorvastatin Calcium (Lipitor) 40 mg PO HS [facility] Last Admin: 06/08/18 21:41 Dose: 40 mg Benzonatate (Tessalon) 100 mg PO TIDPRN PRN PRN Reason: Cough Bisacodyl (Dulcolax) 10 mg PO DAILYPRN PRN PRN Reason: Constipation Clonidine (Catapres) 0.2 mg PO TID [facility] Last Admin: 06/09/18 08:42 Dose: Not Given Dextrose/Water (Dextrose 50%) 25 gm SLOW IVP PRN PRN PRN Reason: Hypoglycemia Glucagon (Glucagon) 1 mg IM PRN PRN PRN Reason: Hypoglycemia Cefepime HCl 1 gm/ Sodium (Chloride) 100 mls @ 200 mls/hr IVPB 1800 [facility] Last Admin: 06/08/18 18:28 Dose: 100 mls Levofloxacin 500 mg/ Device 100 mls @ 100 mls/hr IVPB Q2D@1600 [facility] Last Admin: 06/08/18 16:36 Dose: 100 mls Dextrose/Water (D5w) 1,000 mls @ 0 mls/hr IV .Q0M PRN; As Directed PRN Reason: Hypoglycemia Vancomycin HCl 1.25 gm/ Sodium (Chloride) 250 mls @ 166.667 mls/hr IVPB [facility] Vancomycin HCl 1 gm/ Device 200 mls @ 200 mls/hr [facility] Vancomycin HCl 750 mg/ Sodium (Chloride) 250 mls @ 250 mls/hr [facility] Vancomycin HCl 500 mg/ Sodium (Chloride) 100 mls @ 100 mls/hr IVPB [facility] Insulin Human Lispro (Humalog) 0 units SC .MILD SLIDING SCALE PRN PRN Reason: Mild Correctional Scale Last Admin: 06/09/18 11:26 Dose: 3 unit Metoprolol Tartrate (Lopressor) 100 mg PO BID [facility] Last Admin: 06/09/18 08:42 Dose: 100 mg Miscellaneous Medication (Pharmacy To Dose) 1 each IVPB ONE PRN PRN Reason: Pharmacy to dose Stop: 07/06/18 16:32 Nifedipine (Procardia Xl) 30 mg PO DAILY [facility] Last Admin: 06/09/18 08:42 Dose: 30 mg Hold Vancomycin For (Level >20) 0 each FS .AT DIALYSIS [facility] Ondansetron HCl (Zofran) 4 mg IVP Q6H PRN PRN Reason: Nausea/Vomiting Last Admin: 06/06/18 21:35 Dose: 4 mg Sodium Chloride (Flush - Normal Saline) 10 ml IVF Q12HR [facility] Last Admin: 06/08/18 21:42 Dose: 10 ml Sodium Chloride (Flush - Normal Saline) 10 ml IVF PRN PRN PRN Reason: Saline Flush Last Admin: 06/07/18 17:44 Dose: 10 ml Tramadol HCl (Ultram) 25 mg PO Q12HR PRN PRN Reason: Pain Last Admin: 06/09/18 06:21 Dose: 25 mg
[2018-06-09 15:10] LABS: Vancomycin, Random 15.9 ug/mL (See Comment)
[2018-06-09] MEDS: Cefepime 1 GM in Sodium Chloride 0.9% 100 ML IVPB SCH (18:58)
[2018-06-09] MEDS: Atorvastatin Calcium 40 MG TAB PO SCH (20:30)
[2018-06-10 05:27] LABS: #Basophils 0.1 thou/uL (0.0-0.2); #Eosinphils 0.3 thou/uL (0.0-0.7); #Lymphocytes 1.5 thou/uL (1.20-3.40); #Monocytes 0.7 thou/uL (0.11-0.59); #Neutrophils 10.1 thou/uL (1.40-6.50); %Basophils 0.6 % (0.0-1.0); %Eosinophils 2.1 % (0.0-10.0); %Lymphocytes 12.1 % (21.0-51.0); %Monocytes 5.1 % (0.0-10.0); %Neutrophils 80.1 % (42.0-75.0); Hemoglobin 10.2 g/dL (14.0-18.0); Mean Corpuscular HGB CONC 31.8 g/dL (32.0-36.0); Mean Corpuscular Hemoglobin 27.9 pg (27.0-31.0); Mean Corpuscular Volume 87.7 fL (78.0-98.0); Mean Platelet Volume 6.1 fL (7.4-10.4); Platelet Count 436 thou/uL (130-400); RBC Distribution Width 14.5 % (11.5-14.5); Red Blood Cell (RBC) Count 3.65 mill/uL (4.70-6.10); White Blood Cell (WBC) Count 12.7 thou/uL (4.8-10.8)
[2018-06-10 05:39] LABS: Anion Gap 16 mmol/L (10-20); BUN (Urea Nitrogen) 28 mg/dL (8.4-25.7); Calc. Creatinine Clearance 21 mL/min (70-130); Calcium 9.7 mg/dL (7.8-10.44); Carbon Dioxide 30 mmol/L (22-29); Chloride 93 mmol/L (98-107); Estimated GFR-MDRD 11; Glucose 275 mg/dL (70-105); Potassium 4.2 mmol/L (3.5-5.1); Sodium 135 mmol/L (136-145)
[2018-06-10] MEDS: HumaLOG 300 UNITS/3 ML VIAL SC PRN ×2 (06:05→11:40)
[2018-06-10] MEDS: NIFEdipine XL 30 MG TAB PO SCH (08:42)
[2018-06-10] MEDS: Metoprolol Tartrate 100 MG TAB PO SCH (08:42)
[2018-06-10] MEDS: Aspirin 325 mg Enteric Coated Tablet PO SCH (08:42)
[2018-06-10] MEDS: cloNIDine 0.2 MG TAB PO SCH ×2 (08:44→15:00)
[2018-06-10 13:00] VITALS: TEMP 97.8
--- NOTE | 2018-06-10 13:49 | PDOC.PN ---
- Subjective Encounter Start Date: 06/10/18 Encounter Start Time: 07:00 Pt seen for followup re: pneumonia. Feels better. Still coughing, still has sputum. No nausea or vomiting or diarrhea. - Objective MAR Reviewed: Yes Vital Signs & Weight: Vital Signs (12 hours) Temp Pulse Resp BP BP BP Pulse Ox 06/10/18 12:00 97.8 F 77 16 158/68 H 97 06/10/18 10:10 73 20 06/10/18 08:44 155/77 H 06/10/18 08:42 83 155/77 H 06/10/18 08:00 97.9 F 83 18 155/77 H 93 L 06/10/18 06:05 74 12 06/10/18 03:24 97.9 F 79 16 143/67 H 97 Weight Admit Weight 217 lb 1.6 oz Weight 217 lb 1.6 oz I&O: 06/09/18 06/10/18 06/11/18 06:59 06:59 06:59 Intake Total 480 1400 Balance 480 1400 Result Diagrams: 06/10/18 05:16 06/10/18 05:16 Additional Labs: Accuchecks 06/10/18 06/10/18 06/09/18 11:33 05:18 21:25 POC Glucose 251 H 259 H 337 H 06/09/18 18:55 POC Glucose 140 H Labs reviewed by me Phys Exam - Physical Examination Constitutional: NAD HEENT: moist MMs Neck: supple Respiratory: clear to auscultation bilateral Cardiovascular: RRR Gastrointestinal: soft Neurological: moves all 4 limbs Psychiatric: normal affect Dx/Plan (1) Pneumonia Code(s): J18.9 - PNEUMONIA, UNSPECIFIED ORGANISM Status: Acute Qualifiers: Pneumonia type: due to other aerobic Gram-negative bacteria Comment: blood cultures negative so far, deescalate antibiotics. Pt has been afebrile. (2) Cellulitis Code(s): L03.90 - CELLULITIS, UNSPECIFIED Status: Acute Comment: continue levaquin (3) Diabetes Code(s): E11.9 - TYPE 2 DIABETES MELLITUS WITHOUT COMPLICATIONS Status: Chronic Comment: change to moderate sliding scale (4) ESRD (end stage renal disease) on dialysis Code(s): N18.6 - END STAGE RENAL DISEASE; Z99.2 - DEPENDENCE ON RENAL DIALYSIS Status: Chronic Comment: dialysis per nephrology service (5) HLD (hyperlipidemia) Code(s): E78.5 - HYPERLIPIDEMIA, UNSPECIFIED Status: Chronic Comment: on statin (6) HTN (hypertension) Code(s): I10 - ESSENTIAL (PRIMARY) HYPERTENSION Status: Chronic Comment: monitor vital signs, titrate antihypertensives as needed (7) Sepsis Code(s): A41.9 - SEPSIS, UNSPECIFIED ORGANISM Status: Resolved Comment: secondary to pneumonia and cellulitis (8) Neck mass Code(s): R22.1 - LOCALIZED SWELLING, MASS AND LUMP, NECK Status: Resolved - Plan * . Review of Systems - Review of Systems Respiratory: Cough, Sputum. negative: Dry, Shortness of Breath, Hemoptysis, SOB with Excertion, Pleuritic Pain, Wheezing Cardiovascular: negative: chest pain, palpitations, orthopnea, paroxysmal nocturnal dyspnea, edema, light headedness - Medications/Allergies Allergies/Adverse Reactions: Allergies Allergy/AdvReac Type Severity Reaction Status Date / Time codeine Allergy Nausea Verified 06/06/18 19:54 heparin Allergy EYES Verified 06/06/18 19:54 BLEEDING promethazine [From Phenergan] Allergy Verified 06/06/18 19:55 Medications: Current Medications Acetaminophen (Tylenol) 650 mg PO Q4H PRN PRN Reason: Headache/Fever or Pain Last Admin: 06/07/18 23:53 Dose: 650 mg Albuterol/Ipratropium (Duoneb) 3 ml NEB [id number] SCH Last Admin: 06/10/18 10:10 Dose: 3 ml Albuterol/Ipratropium (Duoneb) 3 ml NEB Q6H PRN PRN Reason: SOB &/or Wheezing Last Admin: 06/07/18 19:48 Dose: 3 ml Aspirin (Ecotrin) 325 mg PO QAM [facility] Last Admin: 06/10/18 08:42 Dose: 325 mg Atorvastatin Calcium (Lipitor) 40 mg PO HS [facility] Last Admin: 06/09/18 20:30 Dose: 40 mg Benzonatate (Tessalon) 100 mg PO TIDPRN PRN PRN Reason: Cough Bisacodyl (Dulcolax) 10 mg PO DAILYPRN PRN PRN Reason: Constipation Clonidine (Catapres) 0.2 mg PO TID [facility] Last Admin: 06/10/18 08:44 Dose: Not Given Dextrose/Water (Dextrose 50%) 25 gm SLOW IVP PRN PRN PRN Reason: Hypoglycemia Glucagon (Glucagon) 1 mg IM PRN PRN PRN Reason: Hypoglycemia Cefepime HCl 1 gm/ Sodium (Chloride) 100 mls @ 200 mls/hr IVPB 1800 [facility] Last Admin: 06/09/18 18:58 Dose: 100 mls Levofloxacin 500 mg/ Device 100 mls @ 100 mls/hr IVPB Q2D@1600 [facility] Last Admin: 06/08/18 16:36 Dose: 100 mls Dextrose/Water (D5w) 1,000 mls @ 0 mls/hr IV .Q0M PRN; As Directed PRN Reason: Hypoglycemia Vancomycin HCl 1.25 gm/ Sodium (Chloride) 250 mls @ 166.667 mls/hr IVPB [facility] Vancomycin HCl 1 gm/ Device 200 mls @ 200 mls/hr [facility] Vancomycin HCl 750 mg/ Sodium (Chloride) 250 mls @ 250 mls/hr IVPB [facility] Vancomycin HCl 500 mg/ Sodium (Chloride) 100 mls @ 100 mls/hr IVPB [facility] Last Admin: 06/09/18 17:28 Dose: 100 mls Insulin Human Lispro (Humalog) 0 units SC .MILD SLIDING SCALE PRN PRN Reason: Mild Correctional Scale Last Admin: 06/10/18 11:40 Dose: 4 unit Metoprolol Tartrate (Lopressor) 100 mg PO BID [facility] Last Admin: 06/10/18 08:42 Dose: 100 mg Miscellaneous Medication (Pharmacy To Dose) 1 each IVPB ONE PRN PRN Reason: Pharmacy to dose Stop: 07/06/18 16:32 Nifedipine (Procardia Xl) 30 mg PO DAILY [facility] Last Admin: 06/10/18 08:42 Dose: 30 mg Hold Vancomycin For (Level >20) 0 each FS .AT DIALYSIS [facility] Ondansetron HCl (Zofran) 4 mg IVP Q6H PRN PRN Reason: Nausea/Vomiting Last Admin: 06/06/18 21:35 Dose: 4 mg Sodium Chloride (Flush - Normal Saline) 10 ml IVF Q12HR [facility] Last Admin: 06/10/18 11:42 Dose: 10 ml Sodium Chloride (Flush - Normal Saline) 10 ml IVF PRN PRN PRN Reason: Saline Flush Last Admin: 06/07/18 17:44 Dose: 10 ml Tramadol HCl (Ultram) 25 mg PO Q12HR PRN PRN Reason: Pain Last Admin: 06/09/18 06:21 Dose: 25 mg
--- NOTE | 2018-06-10 13:56 | EKG ---
Test Reason : Blood Pressure : / mmHG Vent. Rate : 069 BPM Atrial Rate : 069 BPM P-R Int : 182 ms QRS Dur : 106 ms QT Int : 464 ms P-R-T Axes : -03 -50 049 degrees QTc Int : 497 ms Normal sinus rhythm Left anterior fascicular block Prolonged QT Abnormal ECG Confirmed by ELICEO OG D.O. ([id number]), editor newspaper MARTITA EDEN ([id number]) on 06/10/2018 1:56:25 PM Referred By: Confirmed By:ELICEO OG D.O.
[2018-06-10] MEDS ORDERED: HumaLOG 300 UNITS/3 ML VIAL SC PRN ×2 (13:58)
[2018-06-10] MEDS ORDERED: RENALLY ADJUST ABX IVPB PRN (15:00)
[2018-06-10 15:01] VITALS: BP 155/77
--- NOTE | 2018-06-11 00:55 | DIS ---
PRIMARY CARE PROVIDER: Zhang Schneider M.D. DATE OF ADMISSION: 06/06/2018 DATE OF DISCHARGE: 06/10/2018 DISCHARGE DIAGNOSES: 1. Sepsis. 2. Pneumonia secondary to presumed gram-negative bacteria. 3. Infected sebaceous cyst. CONSULTATIONS DURING THIS HOSPITALIZATION: Nephrology, Dr. Haq; General Surgery, Dr. Robles. CONDITION OF PATIENT ON THE DAY OF DISCHARGE: Stable. I assessed Mr. Pacheco on the day of discharge . Please refer to my daily progress note for further details regarding this [id number] encounter. HOSPITAL COURSE: Mr. Pacheco is a pleasant 57-year-old gentleman who was admitted to [facility] on 06/06/2018 for pneumonia and sepsis. He also had a VQ scan on the day of admiss ion, which showed a small subsegmental triple match at the medial aspect of the right lung apex. The exam still remained low probability for clinically significant pulmonary embolus. He was initially treated with intravenous antibiotics. He continued to improve clinically. He is be ing discharged home in a stable condition. Mr. Pacheco underwent incision and drainage of an infected sebaceous cyst on his neck by General Surge ry Service. He also received maintenance hemodialysis from Nephrology Service. DISCHARGE MEDICATIONS: Levofloxacin 500 mg every other day, 5 more doses. Otherwise, no change was made to his home medications as dictated on my history and physical note dated 06/06/2018. On the day of discharge, he has white count 12,700, hemoglobin 10.2, platelet count 436,000, sodium 1 35, blood urea nitrogen 28 and creatinine 5.18. At the time of this dictation, final blood cultures are pending. Preliminary blood cultures are nega tive at 48 hours. Final respiratory culture showed normal respiratory adan. He is advised to follo w up with his primary care provider for final blood culture result. Many thanks for allowing me to participate in your patient's care. Please feel free to contact me wi th any questions or concerns. DISCHARGE DESTINATION: Home. TOTAL AMOUNT OF TIME SPENT COORDINATING THIS DISCHARGE: 33 minutes.
== END 2018-06-10 16:26 | disposition home or self-care (01) | DRG 853 ==
LOC: ERS 10:46 → ONC 17:17
PROVIDERS: ADMIT Internal Medicine; ATTEND Internal Medicine
PROC: 5A1D70Z Performance of Urinary Filtration, Intermittent, Less than 6 Hours Per Day (ICD-10-PCS; 2018-06-07)
PROC: 0J970ZZ Drainage of Back Subcutaneous Tissue and Fascia, Open Approach (ICD-10-PCS; principal; 2018-06-08)
PROC: 5A1D70Z Performance of Urinary Filtration, Intermittent, Less than 6 Hours Per Day (ICD-10-PCS; 2018-06-09)
DX: A41.50 Gram-negative sepsis, unspecified (principal); N18.6 End stage renal disease; J15.6 Pneumonia due to other Gram-negative bacteria; I12.0 Hypertensive chronic kidney disease with stage 5 chronic kidney disease or end stage renal disease; L03.312 Cellulitis of back [any part except buttock and flank]; L72.3 Sebaceous cyst; E11.22 Type 2 diabetes mellitus with diabetic chronic kidney disease; E78.5 Hyperlipidemia, unspecified; Z99.2 Dependence on renal dialysis; Z88.5 Allergy status to narcotic agent; Z88.8 Allergy status to other drugs, medicaments and biological substances; Z86.73 Personal history of transient ischemic attack (TIA), and cerebral infarction without residual deficits
CPT/HCPCS: 36415; 36416; 71046; 78582; 80048; 80053; 80202; 82550; 82553; 83605; 83690; 83880; 84484; 85025; 85379; 87040; 87070; 87102; 87205; 87206; 93005; 94640; 96361; 96365; A4216; A9540; A9558; J0692; J1956; J2405; J3010; J3370; J7050; J7620

== ENCOUNTER 2018-11-22 20:24 | Inpatient (IN) | payer MEDICARE ==
[2018-11-22] MEDS ORDERED: Piperacillin/Tazobactam 4.5 GM VIAL ONE ×2 (20:59→21:24)
--- NOTE | 2018-11-22 21:07 | RAD ---
PORTABLE CHEST 11/22/18 PROVIDED CLINICAL HISTORY: Fever. FINDINGS: Comparison 09/05/17. The cardiac and mediastinal silhouette is unchanged in appearance. Vascular stent material overlies t he right upper lung zone. No focal consolidation, pleural fluid or pneumothorax apparent. IMPRESSION: No evidence for an acute cardiopulmonary process. POS: [facility]
[2018-11-22 21:10] LABS: Lactate 2.11 mmol/L (0.50-2.20)
[2018-11-22 21:12] LABS: Mean Corpuscular HGB CONC 33.7 g/dL (32.0-36.0); Mean Corpuscular Hemoglobin 30.1 pg (27.0-31.0); Mean Corpuscular Volume 89.2 fL (78.0-98.0); Mean Platelet Volume 9.1 fL (7.4-10.4); Platelet Count 268 thou/uL (130-400); RBC Distribution Width 15.2 % (11.5-14.5); Red Blood Cell (RBC) Count 3.67 mill/uL (4.70-6.10); White Blood Cell (WBC) Count 19.5 thou/uL (4.8-10.8)
[2018-11-22 21:27] LABS: Band 10 % (5-11); Lymphocytes 5 % (21-51); MDiff Complete? YES; Monocytes 2 % (0-10); Neutrophil 83 % (42-75)
[2018-11-22 21:31] LABS: ALT (SGPT) 16 U/L (8-55); AST (SGOT) 39 U/L (5-34); Albumin 3.9 g/dL (3.5-5.0); Alkaline Phosphatase 142 U/L (40-150); Anion Gap 21 mmol/L (10-20); BUN (Urea Nitrogen) 25 mg/dL (8.4-25.7); Bilirubin, Total 1.2 mg/dL (0.2-1.2); CK (CPK) 72 U/L (30-200); Calc. Creatinine Clearance 0 mL/min (70-130); Calcium 9.3 mg/dL (7.8-10.44); Carbon Dioxide 27 mmol/L (22-29); Chloride 91 mmol/L (98-107); Estimated GFR-MDRD 11; Globulin 4.6 g/dL (2.4-3.5); Glucose 176 mg/dL (70-105); Lipase 18 U/L (8-78); Potassium 4.7 mmol/L (3.5-5.1); Protein, Total 8.5 g/dL (6.0-8.3); Sodium 134 mmol/L (136-145)
[2018-11-23] MEDS ORDERED: Acetaminophen 325 MG TAB PO PRN (00:13)
[2018-11-23] MEDS ORDERED: Ondansetron PF 4 MG/2 ML Vial IVP PRN (00:13)
[2018-11-23] MEDS ORDERED: Ondansetron ODT 4 MG TAB SL PRN (00:13)
[2018-11-23] MEDS ORDERED: Acetaminophen 500 MG TAB PO PRN (00:21)
[2018-11-23] MEDS ORDERED: traMADol HCl 50 MG TAB PO PRN (00:21)
[2018-11-23] MEDS ORDERED: Diazepam 5 MG TAB PO PRN (00:21)
[2018-11-23] MEDS ORDERED: Meclizine HCl 25 MG TAB PO PRN (00:21)
[2018-11-23] MEDS ORDERED: Senokot S 8.6-50 MG TAB PO PRN (00:22)
[2018-11-23] MEDS ORDERED: Zolpidem Tartrate 5 MG TAB PO PRN (00:22)
[2018-11-23] MEDS ORDERED: Dextrose 50% Abboject 50 ML SYRINGE SLOW IVP PRN (00:22)
[2018-11-23] MEDS ORDERED: Guaifenesin DM 100-10/5 ML UDCUP PO PRN (00:22)
[2018-11-23] MEDS ORDERED: Bisacodyl 5 MG TAB PO PRN (00:22)
[2018-11-23] MEDS ORDERED: Dextrose 5% in Water 1,000 ML IV PRN (00:22)
[2018-11-23] MEDS ORDERED: Vancomycin HCl 750 MG in Sodium Chloride 0.9% 250 ML 250 ML IVPB SCH (01:15)
[2018-11-23] MEDS ORDERED: Vancomycin HCl 1.25 GM in Sodium Chloride 0.9% 250 ML 250 ML IVPB SCH (01:15)
[2018-11-23] MEDS ORDERED: HOLD VANCOMYCIN FOR LEVEL >20 FS SCH (01:15)
[2018-11-23] MEDS ORDERED: Vancomycin HCl 1.5 GM in Sodium Chloride 0.9% 250 ML 300 ML IVPB SCH (01:15)
[2018-11-23] MEDS ORDERED: Vancomycin HCl 1 GM in Premix Bag 1 BAG IVPB SCH (01:15)
[2018-11-23 01:47] LABS: Lactic Acid 1.6 mmol/L (0.5-2.2)
[2018-11-23] MEDS ORDERED: Ondansetron PF 4 MG/2 ML Vial ONE (03:24)
[2018-11-23 03:56] LABS: ALT (SGPT) 13 U/L (8-55); AST (SGOT) 16 U/L (5-34); Albumin 3.6 g/dL (3.5-5.0); Alkaline Phosphatase 133 U/L (40-150); Anion Gap 19 mmol/L (10-20); BUN (Urea Nitrogen) 30 mg/dL (8.4-25.7); Bilirubin, Total 1.5 mg/dL (0.2-1.2); Calc. Creatinine Clearance 0 mL/min (70-130); Calcium 9.1 mg/dL (7.8-10.44); Carbon Dioxide 29 mmol/L (22-29); Chloride 93 mmol/L (98-107); Estimated GFR-MDRD 10; Globulin 3.8 g/dL (2.4-3.5); Glucose 208 mg/dL (70-105); Potassium 4.2 mmol/L (3.5-5.1); Protein, Total 7.4 g/dL (6.0-8.3); Sodium 137 mmol/L (136-145)
[2018-11-23 03:58] LABS: #Lymphocytes 1.1 thou/uL (1.20-3.40); #Monocytes 0.6 thou/uL (0.11-0.59); #Neutrophils 16.3 thou/uL (1.40-6.50); %Basophils 0.2 % (0.0-1.0); %Eosinophils 0.2 % (0.0-10.0); %Lymphocytes 6.2 % (21.0-51.0); %Monocytes 3.2 % (0.0-10.0); %Neutrophils 90.2 % (42.0-75.0); Hemoglobin 10.8 g/dL (14.0-18.0); Mean Corpuscular Hemoglobin 30.1 pg (27.0-31.0); Mean Corpuscular Volume 91.1 fL (78.0-98.0); Mean Platelet Volume 9.1 fL (7.4-10.4); Platelet Count 223 thou/uL (130-400); RBC Distribution Width 15.3 % (11.5-14.5); White Blood Cell (WBC) Count 18.1 thou/uL (4.8-10.8)
[2018-11-23] MEDS ORDERED: Sodium Chloride 0.65% Nasal 44 ML BOT EA NARE PRN (07:28)
[2018-11-23] MEDS ORDERED: Cepastat Lozenges 1 LOZ PO PRN (07:28)
[2018-11-23] MEDS ORDERED: hydrALAZINE 20 MG/ML VIAL SLOW IVP PRN (07:28)
[2018-11-23] MEDS ORDERED: Loperamide HCl 2 MG CAP PO PRN (07:28)
[2018-11-23] MEDS ORDERED: Loratadine 10 MG TAB PO PRN (07:28)
[2018-11-23] MEDS ORDERED: Artificial Tears 18 DROP/0.9 ML EA EYE PRN (07:28)
[2018-11-23] MEDS ORDERED: Diabetic Tussin 200 MG/10 ML UDCUP PO PRN (07:28)
[2018-11-23] MEDS ORDERED: Eucerin (Mineral Oil/Petrolatum,White) 30 gm Jar TOP PRN (07:28)
[2018-11-23] MEDS ORDERED: Piperacillin/Tazobactam 2.25 GM in Sodium Chloride 0.9% 100 ML IVPB SCH (09:00)
[2018-11-23] MEDS ORDERED: NIFEdipine XL 30 MG TAB PO SCH (09:00)
[2018-11-23] MEDS: Saccharomyces boulardii 250 MG CAP PO SCH (09:25)
[2018-11-23] MEDS: Metoprolol Tartrate 100 MG TAB PO SCH ×2 (09:25→20:06)
[2018-11-23] MEDS: cloNIDine 0.2 MG TAB PO SCH ×3 (09:25→15:39)
[2018-11-23] MEDS: Piperacillin/Tazobactam 2.25 GM in Sodium Chloride 0.9% 100 ML IVPB SCH ×2 (09:27→20:06)
--- NOTE | 2018-11-23 09:48 | HP ---
CHIEF COMPLAINT: Fever during dialysis. 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 Per the patient, during dialysis, he spiked a fever of 101.6 and he started getting chills and he vomited during dialysis. Due to this, the patient was sent to the hospital to be evaluated. In addition to the patient's acute symptoms of fever, the patient is also endorsing hematuria, which has been going on for a couple of days prior to this visit. The patient states that he has been urinating blood and this was also witnessed in our ED when the nurse tried to straight cath the patient. The patient has gross hematuria, which was noted. At this time, the patient denies any shortness of breath, chest pain, palpitations, abdominal pain, nausea, vomiting, dysuria, hematochezia, or melena. REVIEW OF SYSTEMS: Positive for hematuria, fever, chills, vomitus x1. Otherwise as documented in the HPI. All other systems have been reviewed and are negative. 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 FAMILY HISTORY: Reviewed and noncontributory to this visit. PAST SURGICAL HISTORY: Right great toe amputation in 2011, appendectomy, cholecystectomy, tonsillectomy, right upper arm fistula. PSYCHIATRIC HISTORY: No psych history. SOCIAL HISTORY: The patient denies any illicit drug use and the patient denies any smoking history. CURRENT MEDICATIONS: The patient takes; 1. Ultram 50 mg. 2. Metoprolol 100 mg. 3. Glipizide 20 mg. 4. Clonidine 0.2 mg. 5. Valium. 6. Meclizine. 7. Nifedipine 30 mg. 8. Vitamin D3. 9. Atorvastatin 40 mg. 10. Aspirin 325 mg. 11. Tessalon Perles. ALLERGIES: THE PATIENT IS ALLERGIC TO CODEINE, SULFATE, AND PHENERGAN. PHYSICAL EXAMINATION: VITAL SIGNS: The patient's blood pressure is 139/57, pulse of 81, respiratory rate of 20, temperature 99.7, oxygen saturation of 94. GENERAL: The patient is a morbidly obese male, lying in bed on his right side. The patient does not appear to be in any distress. The patient is able to speak to me in full sentences. HEENT: Normocephalic, atraumatic. Pupils are equally round and reactive to light. Extraocular movements are intact. Mucous Membranes are moist. NECK: The patient does have a large neck circumference. Trachea is midline. Full range of motion. No JVD. LUNGS: Clear to auscultation bilaterally. No wheezing, no rales, no rhonchi appreciated. CARDIAC: Positive S1 and S2. Regular rate and rhythm. No murmurs, no gallops, no rubs appreciated. ABDOMEN: Obese abdomen. Soft, nontender, and nondistended. Positive bowel sounds in all quadrants. GENITOURINARY: The patient does have some gross blood at the penile meatus and the patient has mild erythema at the meatus. There is no ulceration noted. EXTREMITIES: The patient has a right upper arm AV fistula with a palpable thrill. The patient is able to move both extremities bilaterally. The patient does have some weakness that is noted in the right upper extremity. The patient has good radial pulses bilaterally. Lower extremity; the patient has 5/5 lower extremity strength and trace edema noted at the lower extremity. The weakness that are noted was on the right hand. The patient has weakness at the right arm. SKIN: Warm, dry, and intact. NEUROLOGIC: Cranial nerves 2 through 12 grossly intact. No neurologic deficits noted. IMAGING DATA: EKG that was done showed sinus rhythm with a rate of 81 with premature supraventricular complexes. LABORATORY DATA: WBC is 19.5, hemoglobin is 11, hematocrit is 32.8, platelet count is 268. Sodium is 134, potassium is 4.7, chloride is 91, carbon dioxide of 27, anion gap of 21, BUN is 25, creatinine is 5.4, glucose is 176. AST is 39, and ALT 16. Troponin is 0.014. BNP is 276. ASSESSMENT AND PLAN: This is a 58-year-old male being admitted for; 1. Sepsis likely due to possible infection. At this point, we do not have a source of infection at this time, we have ordered cultures, we follow up on cultures, and we will continue the patient on broad-spectrum antibiotics. We are giving the patient gentle hydration. We will just complete a bag of fluids and we will hold off all fluids at this time since the patient is an end-stage renal disease patient. Nephrology has been consulted. We will follow up with their recommendation regarding any further treatment. 2. Hematuria: The patient has been having gross blood in his urine. At this time, we have consulted Urology for further workup. We will follow up with Urology regarding any further treatment. 3. End-stage renal disease, on hemodialysis Tuesday, Wednesdays and Fridays. At this time, Nephrology has been consulted. We will keep the patient in the hospital and we will dialyze the patient based on his hemodialysis schedule. 4. History of diabetes mellitus type 2. We will continue the patient on insulin sliding scale. We will monitor the patient closely. We will keep the patient's blood glucose between 140 to 180. 5. Hypertension. We will monitor the patient's blood pressure closely and we will treat accordingly. 6. Deep vein thrombosis and gastrointestinal prophylaxis. Job ID: [id number]
--- NOTE | 2018-11-23 10:10 | PDOC.PN ---
- Subjective Encounter Start Date: 11/23/18 Encounter Start Time: 09:55 -: old records requested/rev Patient seen and examined. No new complaints. No overnight events he has gross hematuria - Objective Resuscitation Status - Order Detail: 11/23/18 00:22 Resuscitation Status Routine Resuscitation Status: FULL: Full Resuscitation MAR Reviewed: Yes Result Diagrams: 11/23/18 00:52 11/23/18 00:52 Additional Labs: Accuchecks 11/23/18 06:40 POC Glucose 157 H EKG Reviewed by me: Yes (nsr) Phys Exam - Physical Examination Constitutional: NAD HEENT: PERRLA, moist MMs, sclera anicteric Neck: no JVD, supple Respiratory: no wheezing, no rales, no rhonchi Cardiovascular: RRR, no significant murmur, no rub Gastrointestinal: soft, non-tender, no distention, positive bowel sounds Musculoskeletal: no edema, pulses present Neurological: non-focal, normal sensation Lymphatic: no nodes Psychiatric: normal affect, A&O x 3 Skin: no rash, normal turgor Dx/Plan (1) Gross hematuria Status: Acute (2) Sepsis Code(s): A41.9 - SEPSIS, UNSPECIFIED ORGANISM Status: Acute (3) Diabetes type 2, controlled Code(s): E11.9 - TYPE 2 DIABETES MELLITUS WITHOUT COMPLICATIONS Status: Chronic (4) ESRD (end stage renal disease) on dialysis Code(s): N18.6 - END STAGE RENAL DISEASE; Z99.2 - DEPENDENCE ON RENAL DIALYSIS Status: Chronic Comment: dialysis per nephrology service (5) HLD (hyperlipidemia) Code(s): E78.5 - HYPERLIPIDEMIA, UNSPECIFIED Status: Chronic Comment: on statin (6) HTN (hypertension) Code(s): I10 - ESSENTIAL (PRIMARY) HYPERTENSION Status: Chronic Comment: monitor vital signs, titrate antihypertensives as needed - Plan cont current plan of care, continue antibiotics * medication reviewed as below * symptomatic treatment * continue vancomycin and zosyn * urology consulted, may need cysto * nephrology consulted for HD * will follow culture * hemodynemically stable * repeat labs tomorrow. Review of Systems - Review of Systems ENT: negative: Ear Pain, Ear Discharge, Nose Pain, Nose Discharge, Nose Congestion, Mouth Pain, Mouth Swelling, Throat Pain, Throat Swelling, Other Respiratory: negative: Cough, Dry, Shortness of Breath, Hemoptysis, SOB with Excertion, Pleuritic Pain, Sputum, Wheezing Cardiovascular: negative: chest pain, palpitations, orthopnea, paroxysmal nocturnal dyspnea, edema, light headedness, other Gastrointestinal: negative: Nausea, Vomiting, Abdominal Pain, Diarrhea, Constipation, Melena, Hematochezia, Other Genitourinary: Hematuria. negative: Dysuria, Frequency, Incontinence, Retention , Other Musculoskeletal: negative: Neck Pain, Shoulder Pain, Arm Pain, Back Pain, Hand Pain, Leg Pain, Foot Pain, Other - Medications/Allergies Allergies/Adverse Reactions: Allergies Allergy/AdvReac Type Severity Reaction Status Date / Time codeine Allergy Nausea Verified 06/06/18 19:54 heparin Allergy EYES Verified 06/06/18 19:54 BLEEDING promethazine [From Phenergan] Allergy Verified 06/06/18 19:55 Medications: Current Medications Acetaminophen (Tylenol) 500 mg PO Q4H PRN PRN Reason: Mild Pain (1-3) Artificial Tears (Tears Naturale) 2 drop EA EYE PRN PRN PRN Reason: Dry Eyes Atorvastatin Calcium (Lipitor) 40 mg PO HS HANSA Bisacodyl (Dulcolax) 10 mg PO DAILYPRN PRN PRN Reason: Constipation Cholecalciferol (Vitamin D3) 2,000 units PO DAILY [facility] Clonidine (Catapres) 0.2 mg PO TID [facility] Last Admin: 11/23/18 09:30 Dose: Not Given Dextrose/Water (Dextrose 50%) 25 gm SLOW IVP PRN PRN PRN Reason: Hypoglycemia Diazepam (Valium) 5 mg PO QIDPRN PRN PRN Reason: Anxiety Glucagon (Glucagon) 1 mg IM PRN PRN PRN Reason: Hypoglycemia Guaifenesin (Robitussin Sf) 200 mg PO Q4H PRN PRN Reason: Cough Guaifenesin/Dextromethorphan (Robitussin Dm) 15 ml PO Q4H PRN PRN Reason: Cough Hydralazine HCl (Apresoline) 10 mg SLOW IVP Q4H PRN PRN Reason: SBP > 180 and HR < 70 Dextrose/Water (D5w) 1,000 mls @ 0 mls/hr IV .Q0M PRN PRN Reason: Hypoglycemia Piperacillin Sod/Tazobactam (Sod 2.25 gm/ Sodium Chloride) 100 mls @ 200 mls/ hr IVPB Q12HR [facility] Last Admin: 11/23/18 09:27 Dose: 100 mls Vancomycin HCl 1.5 gm/ Sodium (Chloride) 300 mls @ 200 mls/hr IVPB WILLCALL [facility] Vancomycin HCl 1.25 gm/ Sodium (Chloride) 250 mls @ 166.667 mls/hr IVPB WILLCALL [facility] Vancomycin HCl 1 gm/ Device 200 mls @ 200 mls/hr IVPB [facility] Vancomycin HCl 750 mg/ Sodium (Chloride) 250 mls @ 250 mls/hr IVPB [facility] Insulin Human Lispro (Humalog) 0 units SC .MILD SLIDING SCALE PRN PRN Reason: Mild Correctional Scale Insulin Human Lispro (Humalog) 0 units SC .BEDTIME SLIDING SC PRN PRN Reason: Bedtime Correctional Scale Loperamide HCl (Imodium) 2 mg PO PRN PRN PRN Reason: Diarrhea/Loose Stools Loratadine (Claritin) 10 mg PO DAILYPRN PRN PRN Reason: Sinus Symptoms Meclizine HCl (Antivert) 25 mg PO QIDPRN PRN PRN Reason: Agitation Metoprolol Tartrate (Lopressor) 100 mg PO BID [facility] Last Admin: 11/23/18 09:25 Dose: 100 mg Mineral Oil/White Petrolatum (Eucerin Cream) 0 gm TOP BIDPRN PRN PRN Reason: Dry Skin Miscellaneous Medication (Pharmacy To Dose) 1 each IVPB PRN PRN PRN Reason: Pharmacy to dose Nifedipine (Procardia Xl) 30 mg PO DAILY [facility] Hold Vancomycin For (Level >20) 0 each FS .AT DIALYSIS [facility] Saccharomyces Boulardii (Florastor) 250 mg PO DAILY [facility] Last Admin: 11/23/18 09:25 Dose: 250 mg Senna/Docusate Sodium (Senokot S) 2 tab PO BIDPRN PRN PRN Reason: Constipation Sodium Chloride (Flush - Normal Saline) 10 ml IVF Q12HR [facility] Last Admin: 11/23/18 09:30 Dose: 10 ml Sodium Chloride (Flush - Normal Saline) 10 ml IVF PRN PRN PRN Reason: Saline Flush Sodium Chloride ([place] Nasal [place] 0.65%) 0 ml EA NARE QIDPRN PRN PRN Reason: Nasal Congestion Throat Lozenges (Cepastat Lozenges) 1 vanessa PO Q2H PRN PRN Reason: Sore Throat Tramadol HCl (Ultram) 50 mg PO Q4H PRN PRN Reason: Moderate Pain (4-6) Zolpidem Tartrate (Ambien) 5 mg PO HSPRN PRN PRN Reason: Insomnia
--- NOTE | 2018-11-23 10:56 | CT ---
CT ABDOMEN AND PELVIS WITHOUT CONTRAST: Date: 11/23/18 COMPARISON: 12/17/15. HISTORY: Hematuria, fever, and vomiting. TECHNIQUE: Multiple contiguous axial images were obtained in a CT of the abdomen and pelvis without contrast. Co kasey reformats were performed. FINDINGS: The patient is status post cholecystectomy. The kidneys are small in size. There are hypodensities in the bilateral kidneys, which are too small to definitely characterize, but likely represent small cy sts. The liver, adrenal glands, spleen, and pancreas are unremarkable. The large and small bowel are unremarkable. The urinary bladder is contracted. There is apparent thickening of the urinary bladder wall with surr ounding stranding change. This could be artifactual, but cystitis is a possibility. No calcifications are seen in either ureter or the urinary bladder. No abdominal or pelvic lymphadenopathy seen. Ather osclerotic calcifications are seen in the aorta. Degenerative changes are seen in the spine. The abdominal wall soft tissues are unremarkable. IMPRESSION: 1. Possible urinary bladder cystitis versus artifact. Correlate with urinalysis. 2. Bilateral renal cysts. POS: TPC
[2018-11-23] MEDS ORDERED: HumaLOG 300 UNITS/3 ML VIAL ONE (11:12)
[2018-11-23] MEDS: HumaLOG 300 UNITS/3 ML VIAL SC PRN ×2 (11:39→21:10)
[2018-11-23] MEDS ORDERED: NIFEdipine XL 30 MG TAB ONE (11:45)
[2018-11-23 13:44] VITALS: BMI 33.3
[2018-11-23] MEDS: Atorvastatin Calcium 40 MG TAB PO SCH (20:06)
--- NOTE | 2018-11-24 00:40 | CON ---
DATE OF CONSULTATION: 11/23/2018 TYPE OF CONSULTATION: Urology Inpatient Consultation. SERVICE: Urology. REASON FOR CONSULTATION: Gross hematuria. HISTORY OF PRESENT ILLNESS: Mr. Pacheco is a 58-year-old male with history of end-stage renal disease secondary to diabetic nephropathy, who presented with a 2-day history of gross hematuria. The patient also states that he has had dysuria throughout this time as well. He has had urinary hesitancy and urgency. He does not void much at home at baseline, describes his urinary stream as a trickle 3 to 4 times throughout the day. He denies any gross hematuria in the past. No smoking history. No family history of genitourinary malignancy. No history of kidney stones. No flank pain. In the emergency department, the patient was started empirically on antibiotic therapy for suspected urinary tract infection. It does not appear that a urine was obtained per the medical record. No other complaints. REVIEW OF SYSTEMS: Full 12-point review of systems was performed. Positive only for hematuria, chills, and nausea and vomiting x1 prior to his presentation to the emergency department. 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 FAMILY HISTORY: Noncontributory. PAST SURGICAL HISTORY: Right great toe amputation in 2011, appendectomy, cholecystectomy, tonsillectomy, right upper arm AV fistula. SOCIAL HISTORY: No alcohol, tobacco, or illicit drugs. MEDICATIONS: 1. Ultram. 2. Metoprolol. 3. Glipizide. 4. Clonidine. 5. Valium. 6. Meclizine. 7. Nifedipine. 8. Vitamin D3. 9. Atorvastatin. 10. Aspirin 325 mg. 11. Tessalon Perles as needed. ALLERGIES: CODEINE, SULFA, PHENERGAN. PHYSICAL EXAMINATION: VITAL SIGNS: Temperature 99, pulse 89, respirations 15, and oxygen saturation 97% on 3.5 L nasal cannula, blood pressure 101/50. GENERAL: He is awake, alert, and oriented x3, in no apparent distress. HEENT: Normocephalic and atraumatic. NECK: Supple, no masses or lymphadenopathy. CARDIAC: Regular rate and rhythm. PULMONARY: Breathing unlabored. ABDOMEN: Obese, soft, nontender/nondistended. No masses or organomegaly. No suprapubic tenderness to palpation. No CVA tenderness. GENITOURINARY: No blood at the meatus, normal penis without concerning lesion, no palpable masses, scrotum normal, testes palpably normal bilaterally other than bilateral atrophy. EXTREMITIES: Warm and well perfused. No edema. Right upper arm AV fistula with palpable thrill. NEUROLOGIC: No focal deficits. LABORATORY DATA: White blood cell count 18.1, hemoglobin 10.8, hematocrit 32.8, and platelets 223. Sodium 137, potassium 4.2, chloride 93, bicarb 29, BUN 30, creatinine 6. RADIOLOGY DATA: CT of the abdomen and pelvis without contrast was reviewed. There is no hydronephrosis, no renal masses. There are bilateral renal cysts present, bilateral renal atrophy is present, bladder wall thickening consistent with possible cystitis. ASSESSMENT: A 58-year-old male with gross hematuria, end-stage renal disease, likely urinary tract infection and cystitis. PLAN: The etiology of the patient's gross hematuria at this point is likely secondary to cystitis. I discussed potential etiologies including infection, inflammation, urolithiasis, malignancy. No stones or masses were identified on his CT scan. His bladder wall does appear to be very thick and have some surrounding inflammatory changes on the CT. I expect his hematuria will resolve with antibiotic therapy. It does not appear that a urine has been obtained to this point. I would suggest sending urine for culture. The patient will require follow up with Urology as an outpatient. If his hematuria worsens, Urology can be reconsulted during this inpatient stay as necessary. Thank you for allowing me to participate in the care of this patient. Job ID: [id number]
--- NOTE | 2018-11-24 01:34 | CON ---
DATE OF CONSULTATION: CONSULTING PHYSICIAN: Violeta Haq MD REQUESTING PHYSICIAN: Dr. Guy. REASON FOR CONSULTATION: End-stage renal disease, need for maintenance hemodialysis. IMPRESSION: 1. End-stage renal disease, on Tuesday, Tuesday, and Tuesday dialysis. 2. Fever, query cause, possibly related to urinary tract infection. 3. Gross hematuria, query cause. Hopefully, this is related to cystitis. However, in a dialysis patient with hematuria, urologic workup strongly recommended to rule out renal malignancy. PLAN: 1. The patient is to continue with the current Tuesday, Tuesday, and Tuesday scheduled dialysis. 2. Urologic evaluation of this hematuria vis-a-vis ruling out renal malignancy. 3. Broad-spectrum antibiotics for now. HISTORY: A 58-year-old gentleman with end-stage renal disease, severe, hemodialysis dependent, who shows some rigors on dialysis and unable to complete his dialysis, necessitating the need to be transfer to the hospital. The patient did give history of having some hematuria for the past couple of days. PAST MEDICAL HISTORY: Significant for type 2 diabetes, hypertension, end-stage renal disease, CVA with right-sided hemiparesis, and hypertension. FAMILY HISTORY: Not significantly related to presenting illness. SOCIAL HISTORY: He is . Denies alcohol, tobacco, or illicit drug use. REVIEW OF SYSTEMS: As documented in the body of history, all other systems were reviewed and found not to be significantly related to present illness. ALLERGIES: 1. CODEINE. 2. PHENERGAN. PHYSICAL EXAMINATION: GENERAL: The patient was found not to be in any obvious distress. VITAL SIGNS: Noted with the following vital signs; afebrile at temperature 99, pulse 89, respiratory rate of 15, O2 saturation 97% with a blood pressure of 84/40. HEENT: Unremarkable. Moist oral mucosa. NECK: Supple. No conjunctival injection or icterus. CARDIOVASCULAR SYSTEM: First and second heart sounds were heard. RESPIRATORY SYSTEM: Clear to auscultation. DIGESTIVE SYSTEM: Revealed a benign abdomen with positive bowel sounds. EXTREMITIES: No peripheral edema. SKIN: No new gross rash. LYMPHATICS: No peripheral lymphadenopathy. SUMMARY: A 58-year-old gentleman with end-stage renal disease, who presented here with chills and rigors and noted with hematuria and somewhat hypotensive. We will recommend holding on all antihypertensive medication in this patient until the hemodynamics improve. Job ID: [id number]
[2018-11-24 06:29] LABS: #Eosinphils 0.1 thou/uL (0.0-0.7); #Lymphocytes 1.1 thou/uL (1.20-3.40); #Monocytes 0.9 thou/uL (0.11-0.59); #Neutrophils 13.5 thou/uL (1.40-6.50); %Basophils 0.2 % (0.0-1.0); %Eosinophils 0.5 % (0.0-10.0); %Lymphocytes 7.3 % (21.0-51.0); %Monocytes 5.8 % (0.0-10.0); %Neutrophils 86.3 % (42.0-75.0); Mean Corpuscular HGB CONC 32.6 g/dL (32.0-36.0); Mean Corpuscular Volume 91.8 fL (78.0-98.0); Platelet Count 208 thou/uL (130-400); RBC Distribution Width 15.3 % (11.5-14.5); Red Blood Cell (RBC) Count 3.35 mill/uL (4.70-6.10); White Blood Cell (WBC) Count 15.7 thou/uL (4.8-10.8)
[2018-11-24 06:48] LABS: ALT (SGPT) 18 U/L (8-55); AST (SGOT) 19 U/L (5-34); Albumin 3.3 g/dL (3.5-5.0); Alkaline Phosphatase 172 U/L (40-150); Anion Gap 24 mmol/L (10-20); BUN (Urea Nitrogen) 56 mg/dL (8.4-25.7); Bilirubin, Total 1.1 mg/dL (0.2-1.2); Calc. Creatinine Clearance 13 mL/min (70-130); Calcium 9.1 mg/dL (7.8-10.44); Carbon Dioxide 23 mmol/L (22-29); Chloride 92 mmol/L (98-107); Estimated GFR-MDRD 6; Globulin 3.8 g/dL (2.4-3.5); Glucose 156 mg/dL (70-105); Potassium 4.5 mmol/L (3.5-5.1); Protein, Total 7.1 g/dL (6.0-8.3); Sodium 134 mmol/L (136-145)
--- NOTE | 2018-11-24 10:29 | PDOC.PN ---
- Subjective Encounter Start Date: 11/24/18 Encounter Start Time: 07:30 -: old records requested/rev pt seen in dialysis room, he is doing well, tolerating HD, now his BP is stable but still relatively low Patient seen and examined. No new complaints. No overnight events still has hematuria - Objective Resuscitation Status - Order Detail: 11/23/18 00:22 Resuscitation Status Routine Resuscitation Status: FULL: Full Resuscitation MAR Reviewed: Yes Vital Signs & Weight: Vital Signs (12 hours) Temp Pulse Resp BP BP Pulse Ox 11/24/18 08:50 100 11/24/18 07:45 98.1 F 107 H 18 105/48 L 100 11/24/18 03:29 98.5 F 73 19 115/55 L 93 L 11/23/18 23:20 99.4 F 72 18 129/59 L 95 Weight Weight 219 lb I&O: 11/23/18 11/24/18 11/25/18 06:59 06:59 06:59 Intake Total 258 Output Total 0 Balance 258 Result Diagrams: 11/24/18 05:43 11/24/18 05:43 Additional Labs: Accuchecks 11/23/18 11/23/18 11/23/18 20:39 16:53 16:34 POC Glucose 252 H 202 H 195 H 11/23/18 11:07 POC Glucose 258 H Radiology Reviewed by me: Yes (CT abdomen reviewed) EKG Reviewed by me: Yes (nsr) Phys Exam - Physical Examination Constitutional: NAD HEENT: moist MMs, sclera anicteric Neck: no JVD, supple Respiratory: no wheezing, no rales, no rhonchi Cardiovascular: RRR, no significant murmur, no rub Gastrointestinal: soft, non-tender, no distention, positive bowel sounds Musculoskeletal: no edema, pulses present Neurological: non-focal, normal sensation, moves all 4 limbs Lymphatic: no nodes Psychiatric: normal affect, A&O x 3 Skin: no rash, normal turgor Dx/Plan (1) Sepsis associated hypotension Code(s): A41.9 - SEPSIS, UNSPECIFIED ORGANISM; I95.9 - HYPOTENSION, UNSPECIFIED Status: Acute (2) Sepsis Code(s): A41.9 - SEPSIS, UNSPECIFIED ORGANISM Status: Acute (3) Gross hematuria Status: Acute Comment: due to likely cystitis (4) Diabetes type 2, controlled Code(s): E11.9 - TYPE 2 DIABETES MELLITUS WITHOUT COMPLICATIONS Status: Chronic (5) ESRD (end stage renal disease) on dialysis Code(s): N18.6 - END STAGE RENAL DISEASE; Z99.2 - DEPENDENCE ON RENAL DIALYSIS Status: Chronic Comment: dialysis per nephrology service (6) HLD (hyperlipidemia) Code(s): E78.5 - HYPERLIPIDEMIA, UNSPECIFIED Status: Chronic Comment: on statin (7) HTN (hypertension) Code(s): I10 - ESSENTIAL (PRIMARY) HYPERTENSION Status: Chronic Comment: (8) Anemia of renal disease Code(s): N18.9 - CHRONIC KIDNEY DISEASE, UNSPECIFIED; D63.1 - ANEMIA IN CHRONIC KIDNEY DISEASE Status: Chronic - Plan cont current plan of care, continue antibiotics * will change antibiotic to rocephin and Cipro IV * will continue to hold all BP meds today and monitor his vitals * medication reviewed as below * symptomatic treatment * HD as per nephrology * ambulate as tolerated. * urology and nephrology recommendation noted * add nephrovite Review of Systems - Review of Systems ENT: negative: Ear Pain, Ear Discharge, Nose Pain, Nose Discharge, Nose Congestion, Mouth Pain, Mouth Swelling, Throat Pain, Throat Swelling, Other Respiratory: negative: Cough, Dry, Shortness of Breath, Hemoptysis, SOB with Excertion, Pleuritic Pain, Sputum, Wheezing Cardiovascular: negative: chest pain, palpitations, orthopnea, paroxysmal nocturnal dyspnea, edema, light headedness, other Gastrointestinal: negative: Nausea, Vomiting, Abdominal Pain, Diarrhea, Constipation, Melena, Hematochezia, Other Genitourinary: Hematuria. negative: Dysuria, Frequency, Incontinence, Retention , Other Musculoskeletal: negative: Neck Pain, Shoulder Pain, Arm Pain, Back Pain, Hand Pain, Leg Pain, Foot Pain, Other Skin: negative: Rash, Lesions, Charly, Bruising, Other - Medications/Allergies Allergies/Adverse Reactions: Allergies Allergy/AdvReac Type Severity Reaction Status Date / Time codeine Allergy Nausea Verified 06/06/18 19:54 heparin Allergy EYES Verified 06/06/18 19:54 BLEEDING promethazine [From Phenergan] Allergy Verified 06/06/18 19:55 Medications: Current Medications Acetaminophen (Tylenol) 500 mg PO Q4H PRN PRN Reason: Mild Pain (1-3) Artificial Tears (Tears Naturale) 2 drop EA EYE PRN PRN PRN Reason: Dry Eyes Atorvastatin Calcium (Lipitor) 40 mg PO HS [facility] Last Admin: 11/23/18 20:06 Dose: 40 mg Bisacodyl (Dulcolax) 10 mg PO DAILYPRN PRN PRN Reason: Constipation Cholecalciferol (Vitamin D3) 2,000 units PO DAILY [facility] Last Admin: 11/23/18 15:38 Dose: Not Given Dextrose/Water (Dextrose 50%) 25 gm SLOW IVP PRN PRN PRN Reason: Hypoglycemia Diazepam (Valium) 5 mg PO QIDPRN PRN PRN Reason: Anxiety Glucagon (Glucagon) 1 mg IM PRN PRN PRN Reason: Hypoglycemia Guaifenesin (Robitussin Sf) 200 mg PO Q4H PRN PRN Reason: Cough Guaifenesin/Dextromethorphan (Robitussin Dm) 15 ml PO Q4H PRN PRN Reason: Cough Hydralazine HCl (Apresoline) 10 mg SLOW IVP Q4H PRN PRN Reason: SBP > 180 and HR < 70 Dextrose/Water (D5w) 1,000 mls @ 0 mls/hr IV .Q0M PRN PRN Reason: Hypoglycemia Ciprofloxacin/Dextrose 200 mg/ (Device) 100 mls @ 100 mls/hr IVPB Q12HR [facility] Ceftriaxone Sodium 1 gm/ (Sodium Chloride) 100 mls @ 200 mls/hr IVPB Q24HR [facility] Insulin Human Lispro (Humalog) 0 units SC .MILD SLIDING SCALE PRN PRN Reason: Mild Correctional Scale Last Admin: 11/23/18 11:39 Dose: 4 unit Insulin Human Lispro (Humalog) 0 units SC .BEDTIME SLIDING SC PRN PRN Reason: Bedtime Correctional Scale Last Admin: 11/23/18 21:10 Dose: 2 unit Loperamide HCl (Imodium) 2 mg PO PRN PRN PRN Reason: Diarrhea/Loose Stools Loratadine (Claritin) 10 mg PO DAILYPRN PRN PRN Reason: Sinus Symptoms Meclizine HCl (Antivert) 25 mg PO QIDPRN PRN PRN Reason: Agitation Mineral Oil/White Petrolatum (Eucerin Cream) 0 gm TOP BIDPRN PRN PRN Reason: Dry Skin Miscellaneous Medication (Pharmacy To Dose) 1 each IVPB PRN PRN PRN Reason: Pharmacy to dose Hold Vancomycin For (Level >20) 0 each FS .AT DIALYSIS [facility] Saccharomyces Boulardii (Florastor) 250 mg PO DAILY [facility] Last Admin: 11/23/18 09:25 Dose: 250 mg Senna/Docusate Sodium (Senokot S) 2 tab PO BIDPRN PRN PRN Reason: Constipation Sodium Chloride (Flush - Normal Saline) 10 ml IVF Q12HR [facility] Last Admin: 11/23/18 20:07 Dose: 10 ml Sodium Chloride (Flush - Normal Saline) 10 ml IVF PRN PRN PRN Reason: Saline Flush Sodium Chloride ([place] Nasal [place] 0.65%) 0 ml EA NARE QIDPRN PRN PRN Reason: Nasal Congestion Throat Lozenges (Cepastat Lozenges) 1 vanessa PO Q2H PRN PRN Reason: Sore Throat Tramadol HCl (Ultram) 50 mg PO Q4H PRN PRN Reason: Moderate Pain (4-6) Vitamin B Complex/Vit C/Folic Acid (Nephro-Rosey Tablet) 1 tab PO DAILY [facility] Zolpidem Tartrate (Ambien) 5 mg PO HSPRN PRN PRN Reason: Insomnia
[2018-11-24] MEDS: Acetaminophen 500 MG TAB PO PRN (11:52)
[2018-11-24] MEDS: cefTRIAXone\\ROCEPHIN 1 GM in Sodium Chloride 0.9% 100 ML IVPB SCH (13:11)
[2018-11-24] MEDS: Saccharomyces boulardii 250 MG CAP PO SCH (13:11)
[2018-11-24] MEDS: Folic Acid/Vit B Comp W-C PO SCH (13:11)
[2018-11-24] MEDS: Ciprofloxacin Lactate/D5W 200 MG in Premix Bag 1 BAG IVPB SCH ×2 (13:17→19:52)
[2018-11-24] MEDS: HumaLOG 300 UNITS/3 ML VIAL SC PRN ×2 (17:30→20:56)
[2018-11-24] MEDS: Atorvastatin Calcium 40 MG TAB PO SCH (19:52)
--- NOTE | 2018-11-24 20:14 | PRG ---
DATE OF SERVICE: 11/24/2018 SUBJECTIVE: The patient was seen and examined with no new complaint noted with the following vital signs. OBJECTIVE: VITAL SIGNS: Afebrile. Temperature 97.7, pulse 70, respiratory rate of 16, O2 saturations are 96%. HEENT: Unremarkable. CARDIOVASCULAR SYSTEM: First and second heart sounds were heard. RESPIRATORY SYSTEM: Clear to auscultation. DIGESTIVE SYSTEM: Revealed a benign abdomen. Positive bowel sounds. EXTREMITIES: No peripheral edema. SKIN: No new gross rash. LYMPHATICS: No peripheral lymphadenopathy. IMPRESSION: 1. End-stage renal disease, hemodialysis dependent. 2. Hematuria. 3. Urinary tract infection. PLAN: 1. The patient to continue dialysis on a Tuesday, Tuesday, and Tuesday schedule. 2. Further management will be dependent on the clinical course. Job ID: [id number]
[2018-11-25] MEDS: Acetaminophen 500 MG TAB PO PRN (00:51)
[2018-11-25 06:29] LABS: #Eosinphils 0.1 thou/uL (0.0-0.7); #Lymphocytes 1.3 thou/uL (1.20-3.40); #Monocytes 0.8 thou/uL (0.11-0.59); #Neutrophils 5.8 thou/uL (1.40-6.50); %Basophils 0.2 % (0.0-1.0); %Eosinophils 1.4 % (0.0-10.0); %Lymphocytes 16.4 % (21.0-51.0); %Monocytes 9.8 % (0.0-10.0); %Neutrophils 72.2 % (42.0-75.0); Mean Corpuscular HGB CONC 32.9 g/dL (32.0-36.0); Mean Corpuscular Hemoglobin 30.2 pg (27.0-31.0); Mean Corpuscular Volume 91.7 fL (78.0-98.0); Mean Platelet Volume 8.6 fL (7.4-10.4); Platelet Count 220 thou/uL (130-400); RBC Distribution Width 15.2 % (11.5-14.5); Red Blood Cell (RBC) Count 3.31 mill/uL (4.70-6.10); White Blood Cell (WBC) Count 8.1 thou/uL (4.8-10.8)
[2018-11-25 06:50] LABS: Albumin 3.1 g/dL (3.5-5.0); Anion Gap 16 mmol/L (10-20); BUN (Urea Nitrogen) 38 mg/dL (8.4-25.7); BUN/Creatinine Ratio 6.53; Calc. Creatinine Clearance 19 mL/min (70-130); Calcium 8.9 mg/dL (7.8-10.44); Carbon Dioxide 26 mmol/L (22-29); Chloride 97 mmol/L (98-107); Estimated GFR-MDRD 10; Glucose 190 mg/dL (70-105); Phosphorus 4.9 mg/dL (2.3-4.7); Potassium 4.3 mmol/L (3.5-5.1); Sodium 135 mmol/L (136-145)
[2018-11-25] MEDS ORDERED: Metoclopramide HCl 10 MG/2 ML VIAL IVP PRN (07:35)
[2018-11-25] MEDS ORDERED: cloNIDine 0.1 MG TAB PO PRN (07:35)
[2018-11-25] MEDS: Folic Acid/Vit B Comp W-C PO SCH (10:08)
[2018-11-25] MEDS: Saccharomyces boulardii 250 MG CAP PO SCH (10:09)
[2018-11-25] MEDS: NIFEdipine XL 30 MG TAB PO SCH (10:10)
[2018-11-25] MEDS: Metoprolol Tartrate 50 MG TAB PO SCH ×2 (10:10→21:30)
[2018-11-25] MEDS: Ciprofloxacin Lactate/D5W 200 MG in Premix Bag 1 BAG IVPB SCH ×2 (10:25→21:26)
--- NOTE | 2018-11-25 10:56 | PDOC.PN ---
- Subjective Encounter Start Date: 11/25/18 Encounter Start Time: 07:40 Patient seen and examined. No new complaints. No overnight events he still has hematuria - Objective Resuscitation Status - Order Detail: 11/23/18 00:22 Resuscitation Status Routine Resuscitation Status: FULL: Full Resuscitation MAR Reviewed: Yes Vital Signs & Weight: Vital Signs (12 hours) Temp Pulse Resp BP BP Pulse Ox 11/25/18 10:10 70 11/25/18 07:58 97.5 F L 70 16 164/69 H 98 11/25/18 03:37 98.2 F 76 18 176/72 H 94 L Weight Weight 219 lb I&O: 11/24/18 11/25/18 11/26/18 06:59 06:59 06:59 Intake Total 258 550 100 Output Total 0 2000 Balance 258 -1450 100 Result Diagrams: 11/25/18 05:43 11/25/18 05:43 Additional Labs: Accuchecks 11/24/18 11/24/18 11/24/18 20:37 16:08 05:30 POC Glucose 229 H 258 H 157 H Phys Exam - Physical Examination Constitutional: NAD HEENT: PERRLA, moist MMs, sclera anicteric Neck: no JVD, supple Respiratory: no wheezing, no rales, no rhonchi Cardiovascular: RRR, no significant murmur, no rub Gastrointestinal: soft, non-tender, no distention, positive bowel sounds Musculoskeletal: no edema, pulses present Neurological: non-focal, normal sensation Lymphatic: no nodes Psychiatric: normal affect, A&O x 3 Skin: no rash, normal turgor Dx/Plan (1) Sepsis associated hypotension Code(s): A41.9 - SEPSIS, UNSPECIFIED ORGANISM; I95.9 - HYPOTENSION, UNSPECIFIED Status: Acute (2) Sepsis Code(s): A41.9 - SEPSIS, UNSPECIFIED ORGANISM Status: Acute (3) Gross hematuria Status: Acute Comment: due to likely cystitis (4) Diabetes type 2, controlled Code(s): E11.9 - TYPE 2 DIABETES MELLITUS WITHOUT COMPLICATIONS Status: Chronic (5) ESRD (end stage renal disease) on dialysis Code(s): N18.6 - END STAGE RENAL DISEASE; Z99.2 - DEPENDENCE ON RENAL DIALYSIS Status: Chronic Comment: dialysis per nephrology service (6) HLD (hyperlipidemia) Code(s): E78.5 - HYPERLIPIDEMIA, UNSPECIFIED Status: Chronic Comment: on statin (7) HTN (hypertension) Code(s): I10 - ESSENTIAL (PRIMARY) HYPERTENSION Status: Chronic Comment: (8) Anemia of renal disease Code(s): N18.9 - CHRONIC KIDNEY DISEASE, UNSPECIFIED; D63.1 - ANEMIA IN CHRONIC KIDNEY DISEASE Status: Chronic - Plan cont current plan of care, continue antibiotics * continue rocephin and cipro * now add procardia xl 30 mg and metoprolol 50 mg po bid * he will need eventual cystoscopy once treated for cystitis * medication reviewed as below * symptomatic treatment. * add glipizide 5 mg po bid * dc tele * transfer to medical Review of Systems - Review of Systems Constitutional: negative: fever, chills, sweats, weakness, malaise, other Eyes: negative: Pain, Vision Change, Conjunctivae Inflammation, Eyelid Inflammation, Redness, Other ENT: negative: Ear Pain, Ear Discharge, Nose Pain, Nose Discharge, Nose Congestion, Mouth Pain, Mouth Swelling, Throat Pain, Throat Swelling, Other Respiratory: negative: Cough, Dry, Shortness of Breath, Hemoptysis, SOB with Excertion, Pleuritic Pain, Sputum, Wheezing Cardiovascular: negative: chest pain, palpitations, orthopnea, paroxysmal nocturnal dyspnea, edema, light headedness, other Gastrointestinal: negative: Nausea, Vomiting, Abdominal Pain, Diarrhea, Constipation, Melena, Hematochezia, Other Genitourinary: Hematuria. negative: Dysuria, Frequency, Incontinence, Retention , Other Musculoskeletal: negative: Neck Pain, Shoulder Pain, Arm Pain, Back Pain, Hand Pain, Leg Pain, Foot Pain, Other Skin: negative: Rash, Lesions, Charly, Bruising, Other - Medications/Allergies Allergies/Adverse Reactions: Allergies Allergy/AdvReac Type Severity Reaction Status Date / Time codeine Allergy Nausea Verified 06/06/18 19:54 heparin Allergy EYES Verified 06/06/18 19:54 BLEEDING promethazine [From Phenergan] Allergy Verified 06/06/18 19:55 Medications: Current Medications Acetaminophen (Tylenol) 500 mg PO Q4H PRN PRN Reason: Mild Pain (1-3) Last Admin: 11/25/18 00:51 Dose: 500 mg Artificial Tears (Tears Naturale) 2 drop EA EYE PRN PRN PRN Reason: Dry Eyes Atorvastatin Calcium (Lipitor) 40 mg PO HS [facility] Last Admin: 11/24/18 19:52 Dose: 40 mg Bisacodyl (Dulcolax) 10 mg PO DAILYPRN PRN PRN Reason: Constipation Cholecalciferol (Vitamin D3) 2,000 units PO DAILY [facility] Last Admin: 11/25/18 10:10 Dose: 2,000 units Clonidine (Catapres) 0.1 mg PO Q4H PRN PRN Reason: SBP Greater Than 170 Dextrose/Water (Dextrose 50%) 25 gm SLOW IVP PRN PRN PRN Reason: Hypoglycemia Diazepam (Valium) 5 mg PO QIDPRN PRN PRN Reason: Anxiety Glipizide (Glucotrol) 5 mg PO BID-[facility] Glucagon (Glucagon) 1 mg IM PRN PRN PRN Reason: Hypoglycemia Guaifenesin (Robitussin Sf) 200 mg PO Q4H PRN PRN Reason: Cough Guaifenesin/Dextromethorphan (Robitussin Dm) 15 ml PO Q4H PRN PRN Reason: Cough Hydralazine HCl (Apresoline) 10 mg SLOW IVP Q4H PRN PRN Reason: SBP > 180 and HR < 70 Dextrose/Water (D5w) 1,000 mls @ 0 mls/hr IV .Q0M PRN PRN Reason: Hypoglycemia Ciprofloxacin/Dextrose 200 mg/ (Device) 100 mls @ 100 mls/hr IVPB Q12HR [facility] Last Admin: 11/25/18 10:25 Dose: 100 mls Ceftriaxone Sodium 1 gm/ (Sodium Chloride) 100 mls @ 200 mls/hr IVPB Q24HR [facility] Last Admin: 11/24/18 13:11 Dose: 100 mls Insulin Human Lispro (Humalog) 0 units SC .MILD SLIDING SCALE PRN PRN Reason: Mild Correctional Scale Last Admin: 11/24/18 17:30 Dose: 4 unit Insulin Human Lispro (Humalog) 0 units SC .BEDTIME SLIDING SC PRN PRN Reason: Bedtime Correctional Scale Last Admin: 11/24/18 20:56 Dose: 2 unit Loperamide HCl (Imodium) 2 mg PO PRN PRN PRN Reason: Diarrhea/Loose Stools Loratadine (Claritin) 10 mg PO DAILYPRN PRN PRN Reason: Sinus Symptoms Meclizine HCl (Antivert) 25 mg PO QIDPRN PRN PRN Reason: Agitation Metoclopramide HCl (Reglan) 5 mg IVP Q4H PRN PRN Reason: Nausea Metoprolol Tartrate (Lopressor) 50 mg PO BID [facility] Last Admin: 11/25/18 10:10 Dose: 50 mg Mineral Oil/White Petrolatum (Eucerin Cream) 0 gm TOP BIDPRN PRN PRN Reason: Dry Skin Miscellaneous Medication (Pharmacy To Dose) 1 each IVPB PRN PRN PRN Reason: Pharmacy to dose Nifedipine (Procardia Xl) 30 mg PO DAILY [facility] Last Admin: 11/25/18 10:10 Dose: 30 mg Hold Vancomycin For (Level >20) 0 each FS .AT DIALYSIS [facility] Saccharomyces Boulardii (Florastor) 250 mg PO DAILY [facility] Last Admin: 11/25/18 10:09 Dose: 250 mg Senna/Docusate Sodium (Senokot S) 2 tab PO BIDPRN PRN PRN Reason: Constipation Sodium Chloride (Flush - Normal Saline) 10 ml IVF Q12HR [facility] Last Admin: 11/25/18 10:08 Dose: 10 ml Sodium Chloride (Flush - Normal Saline) 10 ml IVF PRN PRN PRN Reason: Saline Flush Sodium Chloride ([place] Nasal [place] 0.65%) 0 ml EA NARE QIDPRN PRN PRN Reason: Nasal Congestion Throat Lozenges (Cepastat Lozenges) 1 vanessa PO Q2H PRN PRN Reason: Sore Throat Tramadol HCl (Ultram) 50 mg PO Q4H PRN PRN Reason: Moderate Pain (4-6) Vitamin B Complex/Vit C/Folic Acid (Nephro-Rosey Tablet) 1 tab PO DAILY [facility] Last Admin: 11/25/18 10:08 Dose: 1 tab Zolpidem Tartrate (Ambien) 5 mg PO HSPRN PRN PRN Reason: Insomnia Last Admin: 11/25/18 00:51 Dose: 5 mg
[2018-11-25] MEDS: HumaLOG 300 UNITS/3 ML VIAL SC PRN ×3 (13:13→21:25)
[2018-11-25] MEDS: cefTRIAXone\\ROCEPHIN 1 GM in Sodium Chloride 0.9% 100 ML IVPB SCH (13:15)
[2018-11-25] MEDS: glipiZIDE 5 MG TAB PO SCH (17:00)
[2018-11-25] MEDS: Atorvastatin Calcium 40 MG TAB PO SCH (21:29)
--- NOTE | 2018-11-25 23:00 | EKG ---
Test Reason : Blood Pressure : / mmHG Vent. Rate : 081 BPM Atrial Rate : 081 BPM P-R Int : 196 ms QRS Dur : 092 ms QT Int : 418 ms P-R-T Axes : 025 -52 059 degrees QTc Int : 485 ms Sinus rhythm with Premature supraventricular complexes Left anterior fascicular block Prolonged QT Abnormal ECG Confirmed by GRACIELA PARRY, BRETT ([id number]), script editor MICHAEL LUIS ([id number]) on 11/25/2018 10:59:21 PM Referred By: Confirmed By:BRETT OWENS MD
[2018-11-26] MEDS: HumaLOG 300 UNITS/3 ML VIAL SC PRN (06:40)
[2018-11-26 08:25] VITALS: TEMP 97.9
[2018-11-26] MEDS: Metoprolol Tartrate 50 MG TAB PO SCH (08:37)
[2018-11-26] MEDS: glipiZIDE 5 MG TAB PO SCH (08:37)
[2018-11-26] MEDS: NIFEdipine XL 30 MG TAB PO SCH (08:37)
[2018-11-26] MEDS: Saccharomyces boulardii 250 MG CAP PO SCH (08:37)
[2018-11-26] MEDS: Folic Acid/Vit B Comp W-C PO SCH (09:30)
[2018-11-26] MEDS: Ciprofloxacin Lactate/D5W 200 MG in Premix Bag 1 BAG IVPB SCH (09:30)
--- NOTE | 2018-11-26 09:50 | DIS ---
DATE OF ADMISSION: 11/22/2018 DATE OF DISCHARGE: 11/26/2018 PRIMARY CARE PHYSICIAN: Zhang Schneider MD DISCHARGE DISPOSITION: Home. PRIMARY DISCHARGE DIAGNOSES: 1. Gross hematuria, likely due to acute cystitis. 2. Sepsis associated hypotension, resolved. 3. Sepsis due to urinary tract infection. 4. Urinary tract infection due to Serratia. SECONDARY DISCHARGE DIAGNOSES: Hypertension; dyslipidemia; end-stage renal disease on hemodialysis; diabetes type 2; anemia of renal disease. PRIMARY PROCEDURE/OPERATION: Maintenance hemodialysis. RADIOLOGICAL INVESTIGATION: Chest x-ray normal. Abdomen and pelvis CT scan showed cystitis type of picture. SIGNIFICANT LABORATORY DATA: WBC 8.1, hemoglobin 10.0, platelet 212. Sodium 135, potassium 4.3, BUN 38, creatinine 5.82, glucose 190, phosphorus 4.9, albumin 3.1. Urine culture grew Serratia. Blood culture negative. Influenza and respiratory virus panel negative. DISCHARGE MEDICATIONS: 1. Cipro 250 mg p.o. b.i.d. for 10 days. 2. Procardia XL 30 mg daily. 3. Lopressor 100 mg b.i.d. 4. Glucotrol 10 mg two tablets b.i.d. 5. Clonidine 0.2 mg p.r.n. 6. Vitamin D3 of 2000 units p.o. daily. 7. Lipitor 40 mg p.o. daily. 8. Aspirin 325 mg p.o. daily. CONTRAINDICATION: None. CODE STATUS: Full code. INPATIENT MANAGER VEHICLE: Dr. Mcdaniel for maintenance hemodialysis. Dr. Alon Kamara, Urology for hematuria. TEST RESULTS PENDING ON DISCHARGE: None. ALLERGIES: CODEINE, HEPARIN, AND PROMETHAZINE. DISCHARGE PLAN: Posthospital, the patient will follow up with Dr. Alon Kamara in 1 or 2 weeks. He will make appointment with Dr. Zhang Schneider in one week. HOSPITAL COURSE: A 58-year-old male, who was admitted by Dr. Guy, please see his H and P for further details. On admission, he was having sepsis due to UTI. He had gross hematuria. He was also having lower abdominal discomfort and the patient's clinical picture was consistent with UTI and sepsis with hypotension. He was admitted to telemetry floor. We consulted Urology and Urology recommended that this patient will need outpatient cystoscopy once cystitis clears up. Dr. Mcdaniel was following for maintenance hemodialysis. While in the hospital, after admission when he was given clonidine, he developed hypotension and that is why kenisha briceño was called, but that resolved with Trendelenburg position and giving small amount of fluid. We gradually introduced blood pressure medication when his hypotension resolved. He was initially given Zosyn, but subsequently we changed to Rocephin and Cipro based on culture result. While in the hospital, he is hemodynamically stable. He is doing excellent. He will follow up with Dr. Alon Kamara for hematuria workup. The patient wants to go home today. I have seen this patient and examined at bedside. All review of systems reviewed with him and negative. PHYSICAL EXAMINATION: VITAL SIGNS: His vitals currently, temperature 97.9, pulse 65, respiratory rate 16, saturation 94%, blood pressure 164/74, and weight 219 pounds. GENERAL: The patient is currently alert and awake, no obvious acute distress. HEENT: Head; normocephalic and atraumatic. Eyes; pupils are round and reactive to light. Extraocular muscles intact. ENT, oropharynx within normal limits. LUNGS: Clear without any rhonchi or rales. CARDIAC: S1 and S2 regular without any murmur. ABDOMEN: Soft and benign. EXTREMITIES: No edema. NEUROLOGIC: Nonfocal examination. The patient is medically stable for discharge today. Job ID: [id number]
[2018-11-26 11:25] VITALS: BP 168/88
[2018-11-26] MEDS ORDERED: cefTRIAXone\\ROCEPHIN 1 GM in Sodium Chloride 0.9% 100 ML IVPB SCH (13:00)
--- NOTE | 2018-11-27 07:59 | PRG ---
DATE OF SERVICE: 11/26/2018 The patient is noted with the following vital signs. VITAL SIGNS: Afebrile, temperature 97.5, pulse 69, respiratory rate of 18, and O2 saturation 100% . HEENT: Unremarkable. CARDIOVASCULAR SYSTEM: First and second heart sounds were heard. RESPIRATORY SYSTEM: Clear to auscultation. DIGESTIVE SYSTEM: Revealed a benign abdomen. EXTREMITIES: No peripheral edema. SKIN: No new gross rash. LYMPHATIC: No peripheral lymphadenopathy. IMPRESSION: 1. End-stage renal disease, on hemodialysis. 2. Hematuria, likely in the context of cystitis. 3. Hypertension. PLAN: 1. We will continue current renal replacement therapy schedule. 2. Hematuria management by Urology. 3. Further management will be dependent on the clinical course. Job ID: [id number]
== END 2018-11-26 11:40 | disposition home or self-care (01) | DRG 871 ==
LOC: ERS 20:24 → 2NO 22:29 → ERHOLD 22:29 → 2NO 11-23 13:28 → ONC 11-25 16:08
PROVIDERS: ADMIT Internal Medicine; ATTEND Internal Medicine
PROC: 5A1D70Z Performance of Urinary Filtration, Intermittent, Less than 6 Hours Per Day (ICD-10-PCS; principal; 2018-11-24)
DX: A41.53 Sepsis due to Serratia (principal); N18.6 End stage renal disease; I12.0 Hypertensive chronic kidney disease with stage 5 chronic kidney disease or end stage renal disease; N30.01 Acute cystitis with hematuria; E11.22 Type 2 diabetes mellitus with diabetic chronic kidney disease; D63.1 Anemia in chronic kidney disease; I95.9 Hypotension, unspecified; E78.5 Hyperlipidemia, unspecified; I69.331 Monoplegia of upper limb following cerebral infarction affecting right dominant side; Z99.2 Dependence on renal dialysis; Z88.5 Allergy status to narcotic agent; Z88.8 Allergy status to other drugs, medicaments and biological substances; Z79.84 Long term (current) use of oral hypoglycemic drugs; Z79.82 Long term (current) use of aspirin; Z79.899 Other long term (current) drug therapy; Z89.411 Acquired absence of right great toe
CPT/HCPCS: 36415; 36416; 51701; 71045; 74176; 80053; 80069; 80202; 82550; 83605; 83690; 83880; 84484; 85025; 87040; 87077; 87086; 87186; 87633; 87804; 93005; 96365; 96366; 96367; 96368; 96375; J0696; J0744; J1956; J2405; J2543; J3370; J7050

== ENCOUNTER 2018-12-10 12:40 | Inpatient (IN) | payer MEDICARE ==
[2018-12-10 13:41] LABS: #Basophils 0.2 thou/uL (0.0-0.2); #Eosinphils 0.3 thou/uL (0.0-0.7); #Lymphocytes 1.6 thou/uL (1.20-3.40); #Monocytes 0.8 thou/uL (0.11-0.59); #Neutrophils 8.8 thou/uL (1.40-6.50); %Basophils 1.3 % (0.0-1.0); %Eosinophils 2.4 % (0.0-10.0); %Monocytes 6.4 % (0.0-10.0); %Neutrophils 75.9 % (42.0-75.0); Mean Corpuscular HGB CONC 32.2 g/dL (32.0-36.0); Mean Corpuscular Volume 93.2 fL (78.0-98.0); Mean Platelet Volume 8.5 fL (7.4-10.4); Platelet Count 279 thou/uL (130-400); RBC Distribution Width 15.6 % (11.5-14.5); Red Blood Cell (RBC) Count 3.32 mill/uL (4.70-6.10); White Blood Cell (WBC) Count 11.6 thou/uL (4.8-10.8)
[2018-12-10 13:47] LABS: PTT 24.6 SEC (22.9-36.1); Prothrombin Time 13.4 SEC (12.0-14.7)
[2018-12-10 13:59] LABS: Anion Gap 18 mmol/L (10-20); BUN (Urea Nitrogen) 47 mg/dL (8.4-25.7); Calc. Creatinine Clearance 0 mL/min (70-130); Carbon Dioxide 27 mmol/L (22-29); Chloride 97 mmol/L (98-107); Estimated GFR-MDRD 6; Glucose 215 mg/dL (70-105); Potassium 5.3 mmol/L (3.5-5.1); Sodium 137 mmol/L (136-145)
[2018-12-10] MEDS ORDERED: CEFAZOLIN/Water 2 GM/20 ML SYRINGE SLOW IVP SCH (16:00)
[2018-12-10] MEDS ORDERED: CEFAZOLIN 2 GM/50 ML-DEXTROSE 2 GM in Premix Bag 1 BAG IVPB SCH (16:00)
[2018-12-10 22:12] VITALS: BMI 34.2
--- NOTE | 2018-12-10 22:41 | HP ---
CHIEF COMPLAINT: Bleeding. HISTORY: Mr. Pacheco is a 58-year-old diabetic male with end-stage renal failure on dialysis. He has had problems with bleeding and oozing from his right upper arm AV fistula off and on for the past week or so. Dr. Mcdaniel saw him last week and put a stitch in the area and planning to take [facility] for procedure. While he was at home today working on his computer, the stitch "popped off" and he had profuse arterial bleeding from the site. He had a large amount of blood loss. EMS arrived and placed the tourniquet above the bleeding site, which transiently made the bleeding worse and then placed a second tourniquet and apparently got control of it. He was brought to the emergency room and by the time Dr. Mcdaniel saw him and was no longer bleeding. He dressed the site with Coban and the patient still has good thrill in his fistula. The patient states that his nurses were concerned about the appearance of the site last week and thought that it might be infected, but he has not had any fevers or chills. He was in the hospital 2 weeks ago with sepsis, but this was attributed to UTI. He had gross hematuria and a urine culture that was positive for Serratia. His fistula has been present for about 7 years and was placed by Dr. Rangel Robles originally and has not really caused any problems with bleeding prior to this. He has not had any solid food today, had a few sips of coffee without creamer at 11:30. PAST MEDICAL HISTORY: Diabetes, stroke with fairly dense right hemiparesis, although he is able to ambulate with a cane, hypertension, and end-stage renal failure. MEDICATIONS: Metoprolol, glipizide, clonidine, Valium, meclizine, nifedipine, vitamin D, atorvastatin, aspirin, Tessalon Perles, and Ultram. ALLERGIES: ADVERSE DRUG REACTIONS TO CODEINE, HEPARIN, AND PHENERGAN. PAST SURGICAL HISTORY: Right great toe amputation in 2011, appendectomy, cholecystectomy, tonsillectomy, and right upper arm fistula. SOCIAL HISTORY: The patient does not smoke, drink, or use illicit drugs. FAMILY HISTORY: Heart disease and a brother on dialysis who has since received a kidney transplant. REVIEW OF SYSTEMS: Ten-system review of systems is negative except per HPI and the following, the patient does report some lightheadedness since the bleeding episode. He denies any chest pain or shortness of breath however. PHYSICAL EXAMINATION: VITAL SIGNS: Heart rate 68, blood pressure 177/78, respirations 18, 98% saturated on room air, and temperature 98.1. GENERAL: Reveals a pleasant gentleman, in no acute distress. He does appear somewhat pale and tired. HEENT: Unremarkable. NECK: Supple without lymphadenopathy or thyroid nodules. He has a left EJ IV in place. HEART: Regular in its rate and rhythm without murmurs, rubs, or gallops. LUNGS: Clear to auscultation bilaterally. ABDOMEN: Soft, nontender, nondistended without palpable masses or hernias. EXTREMITIES: Warm and well perfused. His right arm is swollen, which his family states is chronic. The previous bleeding area is no longer bleeding, but the skin is very unhealthy and eroded, and there was an adherent clot. There was a good thrill above and below this area. He has normal capillary refill but dense weakness in his right hand, which is also chronic. LABORATORY DATA: White count 11.6, hematocrit 31. Potassium 5.3, BUN and creatinine 47 and 8.79. He last dialyzed on Tuesday. ASSESSMENT: Right arteriovenous fistula with bleeding and eroded skin. This will require revision and repair. The underlying fistula appears to be salvageable. He does not have a large pseudoaneurysm at this location and hopefully, this can be primarily repaired although a patch may be necessary. I believe that we will be able to get primary coverage with a Z-plasty and simply exclude this area from dialysis access until he heals. If the fistula appears to be compromised, then placement of a tunneled dialysis catheter may be necessary, but hopefully the fistula can be salvaged. The procedure and its inherent risks were discussed with the patient and his family. These risks include, but are not limited to, bleeding, infection, risks of anesthesia, damage to the fistula, and loss of the fistula. Risks of the tunneled catheter include hemothorax, pneumothorax, and blood clots. They understand and accept these risks and wished to proceed. All other questions were answered. He has been proceeded for the operating room. Job ID: [id number]
[2018-12-11] MEDS: Metoprolol Tartrate 100 MG TAB PO SCH ×2 (05:54→21:07)
[2018-12-11 06:40] LABS: #Basophils 0.1 thou/uL (0.0-0.2); #Eosinphils 0.2 thou/uL (0.0-0.7); #Lymphocytes 1.6 thou/uL (1.20-3.40); #Monocytes 0.5 thou/uL (0.11-0.59); %Basophils 1.4 % (0.0-1.0); %Eosinophils 2.4 % (0.0-10.0); %Lymphocytes 16.4 % (21.0-51.0); %Monocytes 5.6 % (0.0-10.0); %Neutrophils 74.2 % (42.0-75.0); Mean Corpuscular HGB CONC 31.7 g/dL (32.0-36.0); Mean Corpuscular Hemoglobin 29.4 pg (27.0-31.0); Mean Corpuscular Volume 92.9 fL (78.0-98.0); Mean Platelet Volume 8.8 fL (7.4-10.4); Platelet Count 277 thou/uL (130-400); RBC Distribution Width 15.5 % (11.5-14.5); Red Blood Cell (RBC) Count 3.05 mill/uL (4.70-6.10); White Blood Cell (WBC) Count 9.4 thou/uL (4.8-10.8)
[2018-12-11 07:02] LABS: Anion Gap 20 mmol/L (10-20); BUN (Urea Nitrogen) 56 mg/dL (8.4-25.7); Calc. Creatinine Clearance 11 mL/min (70-130); Calcium 8.9 mg/dL (7.8-10.44); Carbon Dioxide 27 mmol/L (22-29); Chloride 95 mmol/L (98-107); Estimated GFR-MDRD 5; Glucose 402 mg/dL (70-105); Potassium 5.3 mmol/L (3.5-5.1); Sodium 137 mmol/L (136-145)
[2018-12-11] MEDS ORDERED: CEFAZOLIN 2 GM/50 ML BAG ONE (08:05)
[2018-12-11] MEDS ORDERED: Lidocaine 2% PF 5 ML VIAL ONE (08:37)
[2018-12-11] MEDS ORDERED: Bupivacaine HCl 0.25%/Epi 0.0005/PF 10 ML VIAL FS ONE (08:37)
[2018-12-11] MEDS ORDERED: Protamine Sulfate 50 MG/5 ML VIAL ONE (08:37)
[2018-12-11] MEDS ORDERED: Heparin 5,000 UNITS/ML VIAL ONE (08:37)
[2018-12-11] MEDS ORDERED: Ioversol 68 % 50 ML VIAL ONE (08:37)
[2018-12-11] MEDS ORDERED: Fentanyl 100 MCG/2 ML VIAL ONE (08:40)
[2018-12-11] MEDS ORDERED: Famotidine/PF 20 mg/2ml Vial ONE (08:40)
[2018-12-11] MEDS ORDERED: Ondansetron HCl/PF 4 MG/2 ML Vial IVP PRN (11:15)
[2018-12-11] MEDS ORDERED: traMADol HCl 50 MG TAB PO PRN ×2 (11:55→12:12)
[2018-12-11] MEDS ORDERED: Ondansetron PF 4 MG/2 ML Vial SLOW IVP PRN (13:47)
[2018-12-11] MEDS ORDERED: Ondansetron PF 4 MG/2 ML Vial SLOW IVP SCH (14:15)
[2018-12-11] MEDS ORDERED: PHENYLEPHRINE-NS 100 MCG/ML 10 ML SYRINGE ONE (14:20)
[2018-12-11] MEDS ORDERED: PROPOFOL 200 MG/20 ML VIAL ONE (14:20)
[2018-12-11] MEDS ORDERED: Ondansetron PF 4 MG/2 ML Vial ONE (14:20)
[2018-12-11] MEDS ORDERED: ePHEDrine/0.9% NaCl/PF SYRINGE 50 mg/10 ml ONE (14:20)
[2018-12-11] MEDS ORDERED: Lidocaine 1% PF 5 ML VIAL ONE (14:20)
[2018-12-12 08:15] LABS: #Basophils 0.1 thou/uL (0.0-0.2); #Eosinphils 0.2 thou/uL (0.0-0.7); #Lymphocytes 1.2 thou/uL (1.20-3.40); #Monocytes 0.5 thou/uL (0.11-0.59); %Basophils 1.4 % (0.0-1.0); %Eosinophils 1.9 % (0.0-10.0); %Lymphocytes 14.8 % (21.0-51.0); %Neutrophils 75.9 % (42.0-75.0); Hemoglobin 8.4 g/dL (14.0-18.0); Mean Corpuscular HGB CONC 30.9 g/dL (32.0-36.0); Mean Corpuscular Hemoglobin 28.9 pg (27.0-31.0); Mean Corpuscular Volume 93.7 fL (78.0-98.0); Mean Platelet Volume 8.6 fL (7.4-10.4); Platelet Count 227 thou/uL (130-400); RBC Distribution Width 15.4 % (11.5-14.5); Red Blood Cell (RBC) Count 2.91 mill/uL (4.70-6.10); White Blood Cell (WBC) Count 7.9 thou/uL (4.8-10.8)
[2018-12-12 08:25] VITALS: BP 180/78; TEMP 97.8
[2018-12-12] MEDS: Metoprolol Tartrate 100 MG TAB PO SCH (08:29)
[2018-12-12 08:40] LABS: Anion Gap 16 mmol/L (10-20); BUN (Urea Nitrogen) 24 mg/dL (8.4-25.7); Calc. Creatinine Clearance 18 mL/min (70-130); Calcium 8.9 mg/dL (7.8-10.44); Carbon Dioxide 30 mmol/L (22-29); Chloride 99 mmol/L (98-107); Estimated GFR-MDRD 9; Glucose 135 mg/dL (70-105); Sodium 140 mmol/L (136-145)
--- NOTE | 2018-12-12 09:02 | PDOC.OP ---
Operative Note - Operative Note Operative Note: PROCEDURE: Right fifth toe ray amputation DATE OF PROCEDURE: 12/11/2018 SURGEON: Sheeba Leon M.D. PREOPERATIVE DIAGNOSES: Chronic ulcer with exposed bone at base of right fifth toe POSTOPERATIVE DIAGNOSIS: Chronic ulcer with exposed bone at base of right fifth toe HISTORY: Patient with chronic callus at the site of a right fifth metatarsal head amputation. This began to crack and drain recently and once the callus was debrided and an underlying ulcer was identified. After couple days of mechanical debridement of the wound with dressing changes, bone was visible in the base of the wound and amputation was recommended. PROCEDURE IN DETAIL: After informed consent was obtained and appropriate preoperative antibiotics continued the patient was taken to the operating room she was placed in supine position and general anesthesia was administered. She was prepped and draped in a standard sterile fashion and local anesthesia was infused the skin and subcutaneous tissues around the base of her right fifth toe for a field block. A paddle-shaped incision was made incorporating the toe and the ulcer and dissection carried down to the level of the metatarsal head. This was transected with bone louisa and the specimen was passed from the table. The metatarsal bone at this level was somewhat spongy so this was rongeured back to healthy-appearing cancellous bone with normal texture. Bone chips were sent at this level for bone culture. Electrocautery was used to obtain hemostasis. The tissues appeared pink and viable but there was no pulsatile bleeding from the digital artery. The wound was copiously irrigated and the soft tissues partially reapproximated at each end of the wound. The skin incision was partially closed at each end and a VAC dressing was placed to the open central portion. The patient was extubated and taken to recovery in good condition. Estimated blood loss was minimal. There were no complications. Specimen is right fifth toe and metatarsal bone chips for bone culture.
--- NOTE | 2018-12-12 11:19 | PDOC.OP ---
Operative Note - Operative Note Operative Note: PROCEDURE: Repair of eroded pseudoaneurysm of right arm AV fistula repair of eroded pseudoaneurysm of right arm AV fistula DATE OF PROCEDURE: 12/11/2018 SURGEON: Sheeba Leon M.D. PREOPERATIVE DIAGNOSES: Bleeding AV fistula due to skin erosion. POSTOPERATIVE DIAGNOSIS: Bleeding AV fistula due to skin erosion from underlying pseudoaneurysm HISTORY: Patient with intermittent bleeding from an area near the antecubital fossa of his right AV fistula. This was sutured last week. The overlying skin has become quite unhealthy in appearance and he suddenly began bleeding at home with a large amount of blood loss. EMS was called and the bleeding was controlled when I saw him in the emergency room there was no ongoing bleeding. He was admitted and placed on the operating room schedule for repair of the bleeding AV fistula. PROCEDURE IN DETAIL: After informed consent was obtained and appropriate preoperative antibiotics administered the patient was taken to the operating room he was placed in a supine position and general anesthesia by LMA was administered. He was prepped and draped in standard sterile fashion and local anesthesia infused circumferentially for a field block. Elliptical incision was made around the eroded skin in the direction of the underlying fistula. Dissection was carried down proximal to the erosion to identify the inflow. The patient was found to have a large pseudoaneurysm underlying with the inflow coming from directly beneath. It was felt that a payment poster vein had been used to create the arteriovenous anastomosis. A second branch into the forearm cephalic vein was identified and the outflow into the upper arm cephalic vein was identified distally. Dissection in this area was very difficult due to being in a previously operated field which had been multiply accessed in dialysis. There was a large amount of fibrosis but all of the structures of note were able to be identified. The upper part of the pseudoaneurysm appeared to be eroding through the skin, but there was enough redundant vein that a clamp was able to be placed across the top of the pseudoaneurysm without disrupting the flow through the fistula itself. The entire pseudoaneurysm could not be resected due to the underlying anatomy, but the portion adjacent to the skin was resected. The resulting defect in the vein wall was closed with a running 4-0 Prolene suture with excellent technical result. The pseudoaneurysm was rotated slightly and the closure site was tacked down to the subcutaneous tissues proximally to avoid having the suture line directly underlying the skin. The skin was then incised proximally and distally at 45 degree angles for a Z-plasty closure and the 2 resulting triangles of skin rotated past each other and secured with 3-0 subcutaneous and deep dermal sutures. The entire skin incision was then closed with a running subcuticular 4-0 Monocryl suture and Dermabond dressings applied. An Sloan wrap was placed and the patient was extubated and taken to recovery in good condition. Estimated blood loss was minimal. There were no complications. Specimen is eroded pseudoaneurysm.
== END 2018-12-12 10:25 | disposition home or self-care (01) | DRG 252 ==
LOC: ERS 12:40 → SURG A 20:09
PROVIDERS: ADMIT Surgery; ATTEND Surgery
PROC: 03LY0ZZ Occlusion of Upper Artery, Open Approach (ICD-10-PCS; principal; 2018-12-11)
PROC: 0Y6X0Z0 Detachment at Right 5th Toe, Complete, Open Approach (ICD-10-PCS; 2018-12-11)
DX: T82.838A Hemorrhage due to vascular prosthetic devices, implants and grafts, initial encounter (principal); N18.6 End stage renal disease; I69.351 Hemiplegia and hemiparesis following cerebral infarction affecting right dominant side; I12.0 Hypertensive chronic kidney disease with stage 5 chronic kidney disease or end stage renal disease; Z99.2 Dependence on renal dialysis; E11.22 Type 2 diabetes mellitus with diabetic chronic kidney disease; Z79.899 Other long term (current) drug therapy; Z79.82 Long term (current) use of aspirin; Z79.891 Long term (current) use of opiate analgesic; Z89.411 Acquired absence of right great toe; L89.899 Pressure ulcer of other site, unspecified stage
CPT/HCPCS: 36415; 80048; 85025; 85610; 85730; 88304; 89060; 99285; J1644; J2001; J2405; J2704; J2720; J3010; Q9967; S0028

== ENCOUNTER 2019-04-10 20:56 | Observation (INO) | payer MEDICARE ==
--- NOTE | 2019-04-10 22:46 | RAD ---
RIGHT SHOULDER 2 VIEWS: Date: 04/10/19 HISTORY: Fall with injury to right shoulder. FINDINGS: The glenohumeral joint appears normally positioned with degenerative change present. The AC joint is normally aligned. The scapula Y view shows evidence of a fracture involving the blade of the scapula. Recommend dedicat ed scapula exam. IMPRESSION: Evidence of fracture of the blade of the scapula seen on the scapula Y view only. POS: [facility]
[2019-04-10] MEDS ORDERED: Fentanyl 100 MCG/2 ML VIAL ONE (22:55)
--- NOTE | 2019-04-10 23:52 | CT ---
CT HEAD WITHOUT CONTRAST: Date: 04/10/19 Multiple axial tomograms obtained through head without IV enhancement. INDICATION: Fall. COMPARISON: 03/31/17. FINDINGS: Mild cortical volume loss. Ventricles have normal size and position. No intracranial hemorrhage ident ified. No mass or infarct. IMPRESSION: No acute findings. POS: [facility]
--- NOTE | 2019-04-10 23:53 | CT ---
CT CERVICAL SPINE: Date: 04/10/19 Multiple axial tomograms obtained through cervical spine with multiplanar reconstruction. INDICATION: Fall with injury to neck. FINDINGS: Cervical vertebral maintain height and alignment. No evidence of fracture. Posterior spondylosis is p rominent at C4, C5, and C6. These changes impinge on the anterior thecal sac. No acute fracture identified. IMPRESSION: Degenerative changes. No acute fracture. POS: [facility]
--- NOTE | 2019-04-10 23:55 | CT ---
CT THORACIC SPINEE: Date: 04/10/19 Multiple axial tomograms obtained through thoracic spine with multiplanar reconstructions. INDICATION: Fall with back pain. FINDINGS: Thoracic vertebra maintain normal height and alignment. There is scattered lucency seen throughout numerous thoracic vertebra. These punched out lucencies ar e worrisome for infiltrative process such as multiple myeloma. This should be excluded medically. There is no evidence of acute compression fracture. Degenerative changes are noted. IMPRESSION: No evidence of acute fracture. There are scattered focal lucencies seen in several thoracic vertebra. Multiple myeloma should be excluded clinically. POS: [facility]
--- NOTE | 2019-04-11 07:02 | CT ---
CT RIGHT UPPER EXTREMITY WITHOUT CONTRAST: Date: 04/10/19 HISTORY: 58-year-old male status post fall with right shoulder pain. COMPARISON: Right shoulder radiographs dated 04/10/19. FINDINGS: The mildly displaced right scapular body fracture is unchanged in position to the comparison radiogra ph. Glenohumeral joint alignment appears within normal limits. The proximal right humerus is intact. There is no evidence of fracture extension into the glenoid region nor into the acromial spine. The r ight clavicle is intact. Visualized right lung is clear. There is an endovascular stent within the ri ght subclavian vein and proximal right axillary vein. There is some subsegmental volume loss within t he right lower lobe. IMPRESSION: Stable mildly displaced inferior right scapular body fracture. POS: [facility]
[2019-04-11] MEDS ORDERED: Acetaminophen 325 MG TAB PO PRN (07:17)
[2019-04-11] MEDS ORDERED: Ondansetron ODT 4 MG TAB PO PRN (07:17)
[2019-04-11] MEDS ORDERED: Ondansetron PF 4 MG/2 ML Vial IVP PRN (07:17)
[2019-04-11 07:37] VITALS: BMI 34.0
[2019-04-11] MEDS ORDERED: cloNIDine 0.2 MG TAB PO PRN (09:17)
[2019-04-11] MEDS ORDERED: NIFEdipine XL 30 MG TAB PO SCH (10:15)
[2019-04-11] MEDS ORDERED: Metoprolol Tartrate 100 MG TAB PO SCH ×2 (10:15→21:00)
[2019-04-11] MEDS ORDERED: Dextrose 50% Abboject 50 ML SYRINGE SLOW IVP PRN (11:01)
[2019-04-11] MEDS ORDERED: Dextrose 5% in Water 1,000 ML IV PRN (11:01)
[2019-04-11] MEDS ORDERED: HumaLOG 300 UNITS/3 ML VIAL SC PRN ×2 (11:01)
--- NOTE | 2019-04-11 12:15 | RAD ---
RIGHT HUMERUS 2 VIEWS HISTORY: Fall right arm pain FINDINGS: The right humerus is intact.
[2019-04-11 16:14] VITALS: BP 147/67; TEMP 98.3
--- NOTE | 2019-04-11 20:32 | CON ---
DATE OF CONSULTATION: CONSULTING PHYSICIAN: Violeta Haq MD REQUESTING PHYSICIAN: Hospitalist Program. REASON FOR CONSULTATION: Need for maintenance dialysis. IMPRESSION: 1. End-stage renal disease, on hemodialysis Tuesday, Tuesday, and Tuesday due for dialysis today. 2. Couple of fracture, status post fall. 3. History of cerebrovascular accident. PLAN: 1. Arrangements are to be made to have this patient dialyzed as an outpatient, but this cannot be pulled off and the patient will receive hemodialysis here prior to being discharged. 2. Further management will be dependent on the clinical course. HISTORY OF PRESENT ILLNESS: History is that of 58-year-old gentleman with end-stage renal disease on hemodialysis, who took a fall at home and sustained fracture of the right scapula blade. The patient's right upper extremity is in splint and the need for maintenance hemodialysis necessitated this Renal consultation. PAST MEDICAL HISTORY: Significant for CVA, hypertension, dyslipidemia, end-stage renal disease, and diabetes. MEDICATIONS: Reviewed as documented on [facility]. ALLERGIES: HEPARIN, CODEINE, AND PROMETHAZINE. REVIEW OF SYSTEMS: As documented in the body of the history. All the other systems were reviewed and found not to be significantly related to present illness. FAMILY HISTORY: Not significantly with presenting complaint. SOCIAL HISTORY: . No alcohol. No tobacco. No illicit drug use. PHYSICAL EXAMINATION: GENERAL: The patient was found not to be in any respiratory distress. VITAL SIGNS: Noted with the following vital signs; afebrile, temperature 97.7, pulse 65, respiratory rate of 16, O2 saturations are 94% with blood pressure 152/68. HEENT: Unremarkable. Moist oral mucosa. NECK: Supple. No conjunctival injection or icterus. CARDIOVASCULAR SYSTEM: First and second heart sounds were heard. RESPIRATORY SYSTEM: Clear to auscultation. DIGESTIVE SYSTEM: Revealed a benign abdomen with positive bowel sounds. EXTREMITIES: No peripheral edema. SKIN: No new gross rash. LYMPHATICS: No peripheral lymphadenopathy. SUMMARY: A 58-year-old gentleman with end-stage renal disease, who took a fall and sustained right scapular blade fracture. Thank you for this consultation. We will follow with you. Job ID: [id number]
[2019-04-11] MEDS ORDERED: Atorvastatin Calcium 40 MG TAB PO SCH (21:00)
[2019-04-11] MEDS ORDERED: Famotidine 20 MG TAB PO SCH (21:00)
[2019-04-12] MEDS ORDERED: NIFEdipine XL 30 MG TAB PO SCH (09:00)
--- NOTE | 2019-04-12 12:10 | CON ---
DATE OF CONSULTATION: 04/11/2019 CONSULTING PHYSICIAN: Sp Joyce MD REASON FOR CONSULTATION: Right inferior scapular wing fracture. BRIEF CLINICAL HISTORY: Jose Guadalupe is a 58-year-old male, who was admitted to the Medicine Service after he fell earlier today, resulting in a right-sided inferior scapular wing nondisplaced fracture. We were consulted for orthopedic management of this problem. The patient incidentally has had a stroke on the right side, which has left him with a right hemiparesis. This happened in 2008. Otherwise, the fall he remembers very well. He remembers falling backwards down the stairs because he forgot to put his AFO on and apparently tripped and fell. RADIOGRAPHS: CT scan had been obtained and also incidentally noted on CT of the thoracic spine with some lytic lesions in vertebral body with a question of myeloma. PHYSICAL EXAMINATION: Visual inspection of right upper extremity demonstrates tenderness noted inferiorly at the wing of the scapula. Range of motion of the shoulders, limited. They also have discomfort in the brachium. Some fullness of the skin consistent with edema is noted in the distal third lateral arm just above the elbow and is slightly tender, but he has limited range of motion of the digits due to underlying hemiparesis. No breaks in skin are identified, and I get no crepitus or limited range of motion due to limited shoulder excursion. IMAGING STUDIES: Two-view right shoulder demonstrates inferior third scapular body fracture. No involvement of the neck. CT examination confirms this finding. IMPRESSION: Nondisplaced inferior scapular wing fracture in a patient with residual hemiparesis on the right side. PLAN: Sling for comfort. Try to limit weightbearing as possible. He can be discharged home when stable from Medicine standpoint. We will see him back in clinic in 3 to 4 weeks for repeat radiographs. Job ID: [id number]
== END 2019-04-11 16:19 | disposition home or self-care (01) ==
LOC: ERS 20:56 → 2SW 04-11 04:08
PROVIDERS: ADMIT Hospitalist; ATTEND Hospitalist
DX: S42.111A Displaced fracture of body of scapula, right shoulder, initial encounter for closed fracture (principal); I69.351 Hemiplegia and hemiparesis following cerebral infarction affecting right dominant side; M47.812 Spondylosis without myelopathy or radiculopathy, cervical region; I12.0 Hypertensive chronic kidney disease with stage 5 chronic kidney disease or end stage renal disease; E11.22 Type 2 diabetes mellitus with diabetic chronic kidney disease; N18.6 End stage renal disease; M21.379 Foot drop, unspecified foot; E78.5 Hyperlipidemia, unspecified; Z79.82 Long term (current) use of aspirin; Z79.84 Long term (current) use of oral hypoglycemic drugs; Z79.899 Other long term (current) drug therapy; Z88.5 Allergy status to narcotic agent; Z88.8 Allergy status to other drugs, medicaments and biological substances; Z99.2 Dependence on renal dialysis; W10.9XXA Fall (on) (from) unspecified stairs and steps, initial encounter
CPT/HCPCS: 70450; 72125; 72128; 73030; 73060; 73200; 82962; 96372; 97139; 99285; G0378 ×2; 36416; J3010

== ENCOUNTER 2020-11-24 19:40 | Inpatient (IN) | payer MEDICARE, OTHER ==
[~2020-11-24 19:40] MED LIST: Iopamidol-370 76% 500 ML 1 ML ONE; PROPOFOL 200 MG/20 ML VIAL ONE; Succinylcholine 200 MG/10 ml SYRINGE FS ONE
--- NOTE | 2020-11-24 20:14 | RAD ---
Frontal radiograph chest: 11/24/2020 COMPARISON: 11/22/2018 HISTORY: Shortness of breath FINDINGS: Vascular stent material noted in the right subclavian region. There is new dense airspace d isease in the left perihilar region and the lateral aspect of the left upper and left mid lung zones. In the right perihilar/suprahilar region there is new airspace disease/groundglass opacity. No pneumothorax or pleural fluid. IMPRESSION: Extensive prominent left-sided airspace disease and subtle right perihilar groundglass op acity. These findings are nonspecific and are suspicious for multi lobar infectious pneumonitis, including Covid pneumonia.
[2020-11-24 20:29] LABS: #Lymphocytes 0.6 thou/uL (1.20-3.40); #Monocytes 0.2 thou/uL (0.11-0.59); %Basophils 0.2 % (0.0-1.0); %Eosinophils 0.1 % (0.0-10.0); %Lymphocytes 10.4 % (21.0-51.0); %Monocytes 2.8 % (0.0-10.0); %Neutrophils 86.6 % (42.0-75.0); Hemoglobin 11.9 g/dL (14.0-18.0); Mean Corpuscular HGB CONC 32.6 g/dL (32.0-36.0); Mean Corpuscular Hemoglobin 29.5 pg (27.0-31.0); Mean Corpuscular Volume 90.4 fL (78.0-98.0); Mean Platelet Volume 8.5 fL (7.4-10.4); Platelet Count 206 thou/uL (130-400); RBC Distribution Width 14.2 % (11.5-14.5); Red Blood Cell (RBC) Count 4.03 mill/uL (4.70-6.10); White Blood Cell (WBC) Count 5.8 thou/uL (4.8-10.8)
[2020-11-24 20:49] LABS: ALT (SGPT) 27 U/L (8-55); AST (SGOT) 43 U/L (5-34); Albumin 3.9 g/dL (3.4-4.8); Alkaline Phosphatase 287 U/L (40-110); Anion Gap 21 mmol/L (10-20); BUN (Urea Nitrogen) 27 mg/dL (8.4-25.7); Bilirubin, Total 0.6 mg/dL (0.2-1.2); CK (CPK) 259 U/L (30-200); Calc. Creatinine Clearance 0 mL/min (70-130); Carbon Dioxide 33 mmol/L (23-31); Chloride 91 mmol/L (98-107); Globulin 3.9 g/dL (2.4-3.5); Glucose 179 mg/dL (80-115); Lipase 56 U/L (8-78); Potassium 3.8 mmol/L (3.5-5.1); Protein, Total 7.8 g/dL (5.8-8.1); Sodium 141 mmol/L (136-145)
[2020-11-24] MEDS ORDERED: Aspirin Chewable 81 MG TAB ONE (21:12)
[2020-11-24] MEDS ORDERED: Enoxaparin Sodium 100 MG/ML SYRINGE ONE (21:12)
[2020-11-24] MEDS ORDERED: Cefepime 2 GM VIAL ONE (21:12)
[2020-11-24] MEDS ORDERED: Levofloxacin 500 mg/D5W 100 ml Premix Bag ONE (21:12)
[2020-11-24 21:20] LABS: CKMB 1.7 ng/mL (0-6.6)
--- NOTE | 2020-11-24 22:04 | CT ---
CT angiogram of the chest: 11/24/2020 HISTORY: Shortness of breath, assess for pulmonary arterial embolism TECHNIQUE: Axial CT imaging at 2.5 mm intervals from the thoracic inlet through the upper abdomen wit h IV contrast using CT angiogram protocol with coronal and sagittal 3-D reformatted imaging FINDINGS: The visualized upper abdomen demonstrates cholecystectomy clips. There is epiglottic calcif ication of the abdominal aorta and its branches. No axillary mediastinal or hilar lymphadenopathy. No pleural, pericardial, or mediastinal fluid. Coronary arterial calcification noted. Extensive dense consolidation within the left upper lobe noted with a posterior superior predominance . There is multifocal consolidative change within the right and the left lower lobe, most prominent on the left. Extensive multifocal airspace disease/groundglass opacity noted within the medial aspect of the right middle lobe and extensively involving the right upper lobe. No evidence for pulmonary arterial embolism. No acute osseous abnormality. There are T7-8 erosive end plate changes present, progressed since the 04/10/2019 examination, nonspecific in nature. The slow progression since March 2019 are used against an acute inflammatory process. This could be related to a myloidosis given history of hemodialysis. IMPRESSION: Extensive multifocal severe airspace disease/consolidation. No evidence for pulmonary art erial embolism. These findings are suspicious for but not specific for severe multilobar Covid pneumonia.
[2020-11-24 23:59] LABS: SARS-CoV-2 NAA Rapid Test DETECTED (NotDetected)
[2020-11-25] MEDS ORDERED: Vancomycin 1 GM/200 ML BAG ONE (00:02)
[2020-11-25] MEDS ORDERED: Acetaminophen 325 MG TAB PO PRN (01:15)
[2020-11-25] MEDS ORDERED: Ondansetron PF 4 MG/2 ML Vial IVP PRN (01:15)
[2020-11-25] MEDS ORDERED: Ondansetron ODT 4 MG TAB SL PRN (01:15)
[2020-11-25] MEDS ORDERED: Acetaminophen 650 MG Suppository PR PRN (02:07)
[2020-11-25] MEDS ORDERED: Dextrose 5% in Water 1,000 ML IV PRN (02:24)
[2020-11-25] MEDS ORDERED: Dexamethasone 4 mg/ml Vial SLOW IVP SCH ×2 (02:30→09:00)
--- NOTE | 2020-11-25 02:39 | PDOC.HHP ---
Hospitalist HPI - History of Present Illness History of Present Illness: ADMISSION DATE: 11/25/2020 TIME OF ASSESSMENT: 0100 CHIEF COMPLAINT: Shortness of breath HPI: This is a 60-year-old gentleman who was brought into the emergency department from dialysis due to shortness of breath with hypoxia. The patient states he was undergoing dialysis when he began to feel generally unwell. His sats were checked and he was noted to be hypoxic to 70% on room air therefore placed on 3 L by nasal cannula but his O2 sat improved to 87% therefore oxygen was bumped up further to 6 L after which he was maintaining at 93%. He had 1.8 L removed with dialysis today. Denies having any difficulties in the last few days. States that he was in his usual state of health when he got up this morning. He has had an occasional cough that is nonproductive. Denies any chest pain or palpitations. No recent fevers chills or sweats. No headaches or dizziness. He reports having a normal appetite. Denies any nausea or vomiting. No abdominal pain or cramping. Has not had any lower extremity swelling or edema. Denies any urinary symptoms or bowel changes. All other review systems are negative. ED COURSE: He had an EKG done which showed a normal sinus rhythm with a incomplete right bundle branch block. No ST changes or T wave abnormalities present. Heart rate of 96. Labs showed a white cell count of 5.8, hemoglobin 11.9, hematocrit 36.4, platelets 206, neutrophils 86.6%. Sodium 141, BUN 27, creatinine 5.17, GFR 11, glucose 179, alkaline phosphatase 37, AST 43, ALT 27, total bilirubin 0.6. D- dimer elevated at 1.36. CK 259. Lipase 56. Lactic acid 1.9. Troponin 0 0.217. Chest x-ray showed extensive prominent left-sided airspace disease and subtle right perihilar groundglass opacity. Findings nonspecific but suspicious for multi lobar infectious pneumonitis including Covid pneumonia. CT angiogram of the chest showed extensive multifocal severe airspace disease/consolidation. No evidence of PE. Findings are suspicious but not specific for severe multilobar Covid pneumonia. The patient was started on IV antibiotics with vancomycin and cefepime as well as Levaquin. He was given full dose Lovenox and 324 mg of aspirin. PAST MEDICAL HISTORY: 1. Type 2 diabetes mellitus 2. Hypertension 3. History of CVA with residual right-sided paralysis 4. End-stage renal disease on hemodialysis PAST SURGICAL HISTORY: 1. Right great toe surgery 2. Amputations of 3 toes total 3. Appendectomy 4. Cholecystectomy 5. Tonsillectomy 6. Right arm fistula for dialysis 7. Bilateral cataract surgery SOCIAL HISTORY: Patient states he lives with his . He is able to walk with the help of a cane. Denies any tobacco use, alcohol consumption or drug use FAMILY HISTORY: Noncontributory ALLERGIES: Codeine sulfate, heparin, Phenergan and promethazine CURRENT MEDICATIONS: Glipizide 20 mg p.o. twice daily Clonidine 0.2 mg p.o. as needed Nifedipine 30 mg p.o. daily Vitamin D3 2000 units p.o. daily Atorvastatin 40 mg p.o. daily Aspirin 325 mg p.o. daily Apple cider vinegar 300 mg p.o. twice daily Calcium acetate 667 mg p.o. 3 times daily Fish oil 1000 mg p.o. daily Lisinopril 20 mg p.o. twice daily Metoprolol succinate ER 100 mg p.o. twice daily Simvastatin 5 mg p.o. daily - Exam General Appearance: NAD General - other findings: VS: Temp 99.6, HR 75, RR 20, O2 sat 94% on high flow Eye: PERRL, anicteric sclera ENT: normocephalic atraumatic, no oropharyngeal lesions Neck: supple, no lymphadenopathy Heart: RRR, normal peripheral pulses Respiratory: CTAB, no wheezes, no rales, normal chest expansion, no tachypnea Gastrointestinal: soft, non-tender, non-distended, normal bowel sounds Extremities: no edema Skin: normal turgor, no rashes Neurological: cranial nerve grossly intact, normal sensation to touch Musculoskeletal - other findings: right sided weakness due to hx of CVA Psychiatric: normal affect, normal behavior, A&O x 3 Hospitalist Results - Labs Result Diagrams: 11/24/20 20:16 11/24/20 20:16 Lab results: WBC 5.8 thou/uL (4.8-10.8) 11/24/20 20:16 Hgb 11.9 g/dL (14.0-18.0) L 11/24/20 20:16 Hct 36.4 % (42.0-52.0) L 11/24/20 20:16 MCV 90.4 fL (78.0-98.0) 11/24/20 20:16 Plt Count 206 thou/uL (130-400) 11/24/20 20:16 Neutrophils % 86.6 % (42.0-75.0) H 11/24/20 20:16 Sodium 141 mmol/L (136-145) 11/24/20 20:16 Potassium 3.8 mmol/L (3.5-5.1) 11/24/20 20:16 Chloride 91 mmol/L (98-107) L 11/24/20 20:16 Carbon Dioxide 33 mmol/L (23-31) H 11/24/20 20:16 BUN 27 mg/dL (8.4-25.7) H 11/24/20 20:16 Creatinine 5.17 mg/dL (0.7-1.3) H 11/24/20 20:16 Glucose 179 mg/dL (80-115) H 11/24/20 20:16 Lactic Acid 1.9 mmol/L (0.5-2.2) 11/24/20 20:43 Calcium 9.0 mg/dL (7.8-10.44) 11/24/20 20:16 Total Bilirubin 0.6 mg/dL (0.2-1.2) 11/24/20 20:16 AST 43 U/L (5-34) H 11/24/20 20:16 ALT 27 U/L (8-55) 11/24/20 20:16 Alkaline Phosphatase 287 U/L (40-110) H 11/24/20 20:16 Creatine Kinase 259 U/L (30-200) H 11/24/20 20:16 CK-MB (CK-2) 1.7 ng/mL (0-6.6) 11/24/20 20:16 Troponin I 0.200 ng/mL (< 0.028) H 11/25/20 00:49 B-Natriuretic Peptide 413.1 pg/mL (0-100) H 11/24/20 20:16 Serum Total Protein 7.8 g/dL (5.8-8.1) 11/24/20 20:16 Albumin 3.9 g/dL (3.4-4.8) 11/24/20 20:16 Lipase 56 U/L (8-78) 11/24/20 20:16 - Radiology Interpretation CT scan - chest Status: report reviewed by me Hospitalist H&P A/P - Problem (1) Hypoxia Code(s): R09.02 - HYPOXEMIA Status: Acute (2) Pneumonia due to COVID-19 virus Code(s): U07.1 - COVID-19; J12.82 - PNEUMONIA DUE TO CORONAVIRUS DISEASE 2018 Status: Acute (3) History of CVA with residual deficit Code(s): I69.30 - UNSPECIFIED SEQUELAE OF CEREBRAL INFARCTION Status: Chronic (4) Diabetes type 2, controlled Code(s): E11.9 - TYPE 2 DIABETES MELLITUS WITHOUT COMPLICATIONS Status: Chronic (5) ESRD (end stage renal disease) on dialysis Code(s): N18.6 - END STAGE RENAL DISEASE; Z99.2 - DEPENDENCE ON RENAL DIALYSIS Status: Chronic (6) HLD (hyperlipidemia) Code(s): E78.5 - HYPERLIPIDEMIA, UNSPECIFIED Status: Chronic (7) HTN (hypertension) Code(s): I10 - ESSENTIAL (PRIMARY) HYPERTENSION Status: Chronic - Plan Plan: Continuous O2 sat monitoring Dexamethasone 6 mg IV Hold further antibiotics, afebrile, normal lactic acid Albuterol INH prn Vitamin C and Zinc started Nephrology consult placed for ESRD/HD Monitor margarita Accu-cheks ISS initiated Venous doppler DVT Prophylaxis with Lovenox Resume home meds as appropriate once verified CODE STATUS FULL Case discussed with attending who agrees with plan as above.
[2020-11-25] MEDS: Acetaminophen 325 MG TAB PO PRN ×2 (03:24→08:45)
[2020-11-25 04:55] LABS: #Lymphocytes 0.5 thou/uL (1.20-3.40); #Monocytes 0.2 thou/uL (0.11-0.59); #Neutrophils 3.9 thou/uL (1.40-6.50); %Lymphocytes 10.3 % (21.0-51.0); %Monocytes 4.6 % (0.0-10.0); Hemoglobin 10.1 g/dL (14.0-18.0); Mean Corpuscular HGB CONC 32.4 g/dL (32.0-36.0); Mean Corpuscular Hemoglobin 29.3 pg (27.0-31.0); Mean Corpuscular Volume 90.4 fL (78.0-98.0); Mean Platelet Volume 8.3 fL (7.4-10.4); Platelet Count 195 thou/uL (130-400); Red Blood Cell (RBC) Count 3.45 mill/uL (4.70-6.10); White Blood Cell (WBC) Count 4.6 thou/uL (4.8-10.8)
[2020-11-25 05:06] LABS: Lactic Acid 1.2 mmol/L (0.5-2.2)
[2020-11-25 05:15] LABS: Troponin I 0.223 ng/mL (< 0.028)
[2020-11-25 05:17] LABS: Anion Gap 21 mmol/L (10-20); BUN (Urea Nitrogen) 32 mg/dL (8.4-25.7); Calc. Creatinine Clearance 17 mL/min (70-130); Calcium 8.5 mg/dL (7.8-10.44); Carbon Dioxide 26 mmol/L (23-31); Chloride 92 mmol/L (98-107); Glucose 183 mg/dL (80-115); Magnesium 1.8 mg/dL (1.6-2.6); Potassium 3.5 mmol/L (3.5-5.1); Sodium 135 mmol/L (136-145)
[2020-11-25] MEDS: HumaLOG 300 UNITS/3 ML VIAL SC PRN ×4 (06:14→20:14)
[2020-11-25] MEDS: Ascorbic Acid 500 mg Chewable Tablet PO SCH (08:41)
[2020-11-25] MEDS: Enoxaparin Sodium 30 MG/0.3 ML SYRINGE SC SCH (08:42)
[2020-11-25] MEDS ORDERED: Zinc Sulfate 220 MG CAP PO SCH (09:00)
--- NOTE | 2020-11-25 09:55 | ULT ---
US Venous Doppler Bilat History: Pain and edema Comparison: None. Findings: Real-time grayscale, color and spectral analysis of the bilateral lower extremity venous sy stem was performed. The common femoral, femoral, proximal portions greater saphenous and deep femoral veins as well as the popliteal and posterior tibial veins were interrogated. Normal flow, augmentation and compression. Impression: No deep venous thrombosis.
--- NOTE | 2020-11-25 13:31 | CON ---
DATE OF CONSULTATION: HISTORY OF PRESENT ILLNESS: Jose Guadalupe Pacheco is a 60-year-old end-stage renal disease patient who developed shortness of breath during dialysis. Apparently, he is hypoxic, sats are 70s, eventually placed on 3 L, improved to 87. X-ray in the ER shows diffuse pulmonary infiltrates, unclear whether this is fluid overload, but he was positive for coronavirus, now in the hospital. No coughing or wheezing. PAST MEDICAL HISTORY: Pertinent for end-stage renal disease, diabetes, dialysis. History of fracture of the scapula. Previous CVA with right-sided weakness. Hypertension. PREVIOUS SURGERIES: Access, appendix, gallbladder, tonsils. SOCIAL HISTORY: No alcohol or tobacco. HOME MEDICATIONS: 1. Amlodipine 5. 2. Lisinopril 20. 3. Glucotrol 2 tablets. 4. Catapres. 5. Nifedipine. 6. Metoprolol. 7. Aspirin. ALLERGIES: CODEINE, HEPARIN. PHYSICAL EXAMINATION: VITAL SIGNS: His sats on flow rate 40, 60% FiO2 are 95%, temperature 99, pulse 72, respirations 18. CHEST: No wheezing. No crackles. CARDIAC: Normal S1. No gallops. ABDOMEN: No masses. LABORATORY DATA: White count 4000, H and H 10.1 and 31.2, platelet count 185. Creatinine is 6. ASSESSMENT AND PLAN: Respiratory failure secondary to urias positive pneumonia, end-stage renal disease, markedly elevated C-reactive protein of 33. Empiric antibiotics, convalescent plasma, high-dose steroids, supportive care. Consultation note, 70 minutes, 50% direct patient care. Job ID: [id number]
--- NOTE | 2020-11-25 14:57 | PDOC.HOSPP ---
- Subjective Encounter Date: 11/25/20 Encounter Time: 12:00 Subjective: sob is better on high flow O2 says he got sob during HD, his children x 2 were +ve last tuesday and he tested -ve then - Objective Vital Signs & Weight: Vital Signs (12 hours) Temp Pulse Resp BP Pulse Ox 11/25/20 11:17 98.6 F 75 20 152/67 H 92 L 11/25/20 08:00 95 11/25/20 07:35 99.0 F 72 18 152/61 H 95 11/25/20 06:02 99.0 F 74 20 144/63 H 93 L Weight Admit Weight 210 lb 15.68 oz Weight 210 lb 15.718 oz I&O: 11/24/20 11/25/20 11/26/20 06:59 06:59 06:59 Intake Total 500 0 Balance 500 0 Result Diagrams: 11/25/20 04:41 11/25/20 04:41 Additional Labs: Accuchecks 11/25/20 11/25/20 11:19 04:33 POC Glucose 198 H 171 H Hospitalist ROS - Medication Medications: Active Medications Generic Name Dose Route Start Last Admin Trade Name Freq PRN Reason Stop Dose Admin Acetaminophen 650 mg 11/25/20 02:07 11/25/20 08:45 Acetaminophen 325 Mg Tab PO 650 mg Q4H PRN Administration Headache/Fever/Mild Pain (1-3) Ascorbic Acid 1,000 mg 11/25/20 09:00 11/25/20 08:41 Ascorbic Acid 500 Mg Chewable Tablet PO 1,000 mg DAILY HANSA Administration Enoxaparin Sodium 30 mg 11/25/20 09:00 11/25/20 08:42 Enoxaparin Sodium 30 Mg/0.3 Ml Syringe SC 30 mg 0900 HANSA Administration Doxycycline Hyclate 100 mg/ 100 mls @ 100 mls/hr 11/25/20 11:00 11/25/20 11:58 Sodium Chloride IVPB 100 mls 1100,2300 HANSA Administration Insulin Human Lispro 0 units 11/25/20 02:24 11/25/20 12:10 Humalog 300 Units/3 Ml Vial SC 2 unit .MILD SLIDING SCALE PRN Administration Mild Correctional Scale - Exam General Appearance: awake alert Eye: PERRL, anicteric sclera ENT: no oropharyngeal lesions, moist mucosa Neck: supple, no JVD Heart: RRR, no murmur Respiratory: no wheezes, rales, rhonchi Gastrointestinal: soft, non-tender, non-distended, normal bowel sounds Extremities - other findings: right UE edema++, has HD access right UE Neurological: cranial nerve grossly intact, no new deficit Neurological - other findings: chronic right hemiparesis Psychiatric: normal affect, A&O x 3 Hosp A/P (1) Acute respiratory failure with hypoxia Code(s): J96.01 - ACUTE RESPIRATORY FAILURE WITH HYPOXIA Status: Acute (2) Pneumonia due to COVID-19 virus Code(s): U07.1 - COVID-19; J12.82 - PNEUMONIA DUE TO CORONAVIRUS DISEASE 2018 Status: Acute (3) History of CVA with residual deficit Code(s): I69.30 - UNSPECIFIED SEQUELAE OF CEREBRAL INFARCTION Status: Chronic (4) Anemia of renal disease Code(s): N18.9 - CHRONIC KIDNEY DISEASE, UNSPECIFIED; D63.1 - ANEMIA IN CHRONIC KIDNEY DISEASE Status: Chronic (5) Diabetes type 2, controlled Code(s): E11.9 - TYPE 2 DIABETES MELLITUS WITHOUT COMPLICATIONS Status: Chronic Qualifiers: Diabetes mellitus fci insulin use: without fci use Diabetes mellitus complication status: with kidney complications Diabetes mellitus complication detail: with chronic kidney disease Chronic kidney disease stage: on chronic dialysis Qualified Code(s): E11.22 - Type 2 diabetes mellitus with diabetic chronic kidney disease; N18.6 - End stage renal disease; Z99.2 - Dependence on renal dialysis (6) ESRD (end stage renal disease) on dialysis Code(s): N18.6 - END STAGE RENAL DISEASE; Z99.2 - DEPENDENCE ON RENAL DIALYSIS Status: Chronic (7) HLD (hyperlipidemia) Code(s): E78.5 - HYPERLIPIDEMIA, UNSPECIFIED Status: Chronic (8) HTN (hypertension) Code(s): I10 - ESSENTIAL (PRIMARY) HYPERTENSION Status: Chronic Qualifiers: Hypertension type: essential hypertension Qualified Code(s): I10 - Essential (primary) hypertension - Plan is on high flow O2, dexamethasone, alb inh, dulera inh, convalescent plasma, is not a candidate for remdesivir due to esrd appreciate help from [employer] as tolerated d/w patient and Mrs.Ybarra Ruiz over phone and gave full updates, discussed codes status, they want to be full code for now hemostable
[2020-11-25] MEDS: Mometasone 200 MCG/Formoterol 5 MCG 120 PUFF INHALER INH SCH (17:49)
[2020-11-25] MEDS: Dexamethasone 4 mg/ml Vial SLOW IVP SCH (20:14)
[2020-11-26] MEDS: Albuterol 200 PUFF (6.7GM INHALER) INH PRN ×2 (05:00→08:38)
[2020-11-26] MEDS: Mometasone 200 MCG/Formoterol 5 MCG 120 PUFF INHALER INH SCH ×2 (05:55→17:43)
[2020-11-26] MEDS: HumaLOG 300 UNITS/3 ML VIAL SC PRN ×3 (05:56→16:26)
--- NOTE | 2020-11-26 07:10 | CON ---
DATE OF CONSULTATION: CONSULTING PHYSICIAN: Violeta Haq MD REQUESTING PHYSICIAN: Hospitalist program, Dr. Muniz. REASON FOR CONSULTATION: Need for maintenance hemodialysis. IMPRESSION: 1. End-stage renal disease, on hemodialysis, on Tuesday, Tuesday, and Tuesday, but missed dialysis yesterday. 2. Respiratory failure in the context of #3. 3. COVID pneumonitis. 4. Hypertension. PLAN: 1. The patient to be dialyzed today on ultrafiltration and then tomorrow the patient will go back to his regular scheduled dialysis with ultrafiltration as tolerated by hemodynamics. 2. Further management to be dependent on the clinical course. HISTORY OF PRESENT ILLNESS: History is that of 60-year-old gentleman with end-stage renal disease, on dialysis, who presented for regular dialysis on Tuesday and was noted to be altered and very lethargic. Clinical evaluation of the oxygen saturation proved to be in the hypoxic range. As a result, I did advise the dialysis personnel to send the patient to the ER for proper evaluation. On further clinical evaluation in the hospital, the patient was noted to have evidence of COVID pneumonitis and is now being admitted. The patient could not undergo any dialysis because of the respiratory status. The need for continued hemodialysis has now necessitated Renal consultation. PAST MEDICAL HISTORY: As documented in the body of the history. Others include type 2 diabetes, hypertension, CVA with right-sided paralysis, hemiparesis. MEDICATIONS: Reviewed as documented on [employer]. SOCIAL HISTORY: . No alcohol. No tobacco. No illicit drug use. FAMILY HISTORY: Nonsignificantly related to present illness. ALLERGIES: CODEINE, HEPARIN, PHENERGAN AND PROMETHAZINE. REVIEW OF SYSTEMS: As documented in the body of history. All the other systems were reviewed and found not to be significantly related to presenting illness. PHYSICAL EXAMINATION: GENERAL: The patient is noted with the following vital signs; afebrile, temperature 98.6, pulse 75, respiratory rate of 20, O2 saturation of 92% to 99% on 60% high-flow nasal cannula, blood pressure 152/67. HEENT: Unremarkable. CARDIOVASCULAR SYSTEM: First and second heart sounds were heard. RESPIRATORY SYSTEM: Clear to auscultation. DIGESTIVE SYSTEM: Revealed a benign abdomen with positive bowel sounds. EXTREMITIES: No peripheral edema. SKIN: No new gross rash. LYMPHATICS: No peripheral lymphadenopathy. SUMMARY: A 60-year-old gentleman with end-stage renal disease, who presented here due to respiratory failure in the context of COVID pneumonitis. Thank you for this consultation. We will follow with you. Job ID: [id number]
[2020-11-26] MEDS: Ascorbic Acid 500 mg Chewable Tablet PO SCH (08:37)
[2020-11-26] MEDS: Dexamethasone 4 mg/ml Vial SLOW IVP SCH ×2 (08:38→20:22)
[2020-11-26] MEDS: Enoxaparin Sodium 30 MG/0.3 ML SYRINGE SC SCH (08:40)
--- NOTE | 2020-11-26 12:39 | PRG ---
DATE OF SERVICE: 11/26/2020 OBJECTIVE: VITAL SIGNS: Temperature 98, pulse 70, respiratory rate 20, sats 92% on flow rate of 40 at 60%. Blood pressure . CHEST: No wheezing. No crackles. CARDIAC: Normal S1, S2. IMPRESSION: Hair positive pneumonia, respiratory failure, renal failure. PLAN: He is going to get a bag of plasma. Otherwise, continue supportive care. Renal is following the patient. Continue Decadron and steroids. Job ID: [id number]
--- NOTE | 2020-11-26 15:10 | PDOC.HOSPP ---
- Subjective Encounter Date: 11/26/20 Encounter Time: 08:15 Subjective: is comfortable on high flow O2 feels better had HD yesterday and will have another one today - Objective Vital Signs & Weight: Vital Signs (12 hours) Temp Pulse Resp BP Pulse Ox Pulse Ox Pulse Ox 11/26/20 11:28 97.9 F 73 22 H 159/70 H 92 L 11/26/20 10:31 90 L 90 L 11/26/20 08:00 92 L 11/26/20 07:23 98.0 F 73 20 159/73 H 92 L 11/26/20 05:29 98.5 F 73 20 137/70 90 L Weight Admit Weight 210 lb 15.68 oz Weight 210 lb 15.718 oz I&O: 11/25/20 11/26/20 11/27/20 06:59 06:59 06:59 Intake Total 500 240 Balance 500 240 Result Diagrams: 11/25/20 04:41 11/25/20 04:41 Additional Labs: Accuchecks 11/25/20 11/25/20 19:58 15:39 POC Glucose 307 H 265 H Hospitalist ROS - Medication Medications: Active Medications Generic Name Dose Route Start Last Admin Trade Name Freq PRN Reason Stop Dose Admin Acetaminophen 650 mg 11/25/20 02:07 11/25/20 08:45 Acetaminophen 325 Mg Tab PO 650 mg Q4H PRN Administration Headache/Fever/Mild Pain (1-3) Albuterol Sulfate 2 puff 11/25/20 02:18 11/26/20 08:38 Albuterol 200 Puff (6.7gm Inhaler) INH 2 puff [id number] PRN Administration Wheezing Ascorbic Acid 1,000 mg 11/25/20 09:00 11/26/20 08:37 Ascorbic Acid 500 Mg Chewable Tablet PO 1,000 mg DAILY HANSA Administration Dexamethasone 6 mg 11/25/20 21:00 11/26/20 08:38 Dexamethasone 4 Mg/Ml Vial SLOW IVP 6 mg BID HANSA Administration Enoxaparin Sodium 30 mg 11/25/20 09:00 11/26/20 08:40 Enoxaparin Sodium 30 Mg/0.3 Ml Syringe SC 30 mg 0900 HANSA Administration Doxycycline Hyclate 100 mg/ 100 mls @ 100 mls/hr 11/25/20 11:00 11/26/20 11:12 Sodium Chloride IVPB 100 mls 1100,2300 HANSA Administration Insulin Human Lispro 0 units 11/25/20 02:24 11/26/20 11:59 Humalog 300 Units/3 Ml Vial SC 5 unit .MILD SLIDING SCALE PRN Administration Mild Correctional Scale Insulin Human Lispro 0 units 11/25/20 02:24 11/25/20 20:14 Humalog 300 Units/3 Ml Vial SC 4 unit .BEDTIME SLIDING SC PRN Administration Bedtime Correctional Scale Mometasone Furoate/Formoterol Fumar 2 puff 11/25/20 18:30 11/26/20 05:55 Mometasone 200 Mcg/Formoterol 5 Mcg 120 Puff Inhaler INH 2 puff BID-RT HANSA Administration Sodium Chloride 10 ml 11/25/20 02:07 11/25/20 20:44 Flush - Normal Saline 10 Ml Syringe IVF 10 ml Q12HR PRN Administration Saline Flush - Exam General Appearance: awake alert Eye: PERRL, anicteric sclera ENT: no oropharyngeal lesions, moist mucosa Neck: supple, no JVD Heart: RRR, no murmur Respiratory: no wheezes, rales, rhonchi Gastrointestinal: soft, non-tender, non-distended, normal bowel sounds Extremities: no cyanosis, no edema Neurological: cranial nerve grossly intact Neurological - other findings: right hemiparesis, right UE edema chronic Psychiatric: normal affect, A&O x 3 Hosp A/P (1) Acute respiratory failure with hypoxia Code(s): J96.01 - ACUTE RESPIRATORY FAILURE WITH HYPOXIA Status: Acute (2) Pneumonia due to COVID-19 virus Code(s): U07.1 - COVID-19; J12.82 - PNEUMONIA DUE TO CORONAVIRUS DISEASE 2019 Status: Acute (3) History of CVA with residual deficit Code(s): I69.30 - UNSPECIFIED SEQUELAE OF CEREBRAL INFARCTION Status: Chronic (4) Anemia of renal disease Code(s): N18.9 - CHRONIC KIDNEY DISEASE, UNSPECIFIED; D63.1 - ANEMIA IN CHRONIC KIDNEY DISEASE Status: Chronic (5) Diabetes type 2, controlled Code(s): E11.9 - TYPE 2 DIABETES MELLITUS WITHOUT COMPLICATIONS Status: Chronic Qualifiers: Diabetes mellitus halfway insulin use: without halfway use Diabetes mellitus complication status: with kidney complications Diabetes mellitus complication detail: with chronic kidney disease Chronic kidney disease stage: on chronic dialysis Qualified Code(s): E11.22 - Type 2 diabetes mellitus with diabetic chronic kidney disease; N18.6 - End stage renal disease; Z99.2 - Dependence on renal dialysis (6) ESRD (end stage renal disease) on dialysis Code(s): N18.6 - END STAGE RENAL DISEASE; Z99.2 - DEPENDENCE ON RENAL DIALYSIS Status: Chronic (7) HLD (hyperlipidemia) Code(s): E78.5 - HYPERLIPIDEMIA, UNSPECIFIED Status: Chronic (8) HTN (hypertension) Code(s): I10 - ESSENTIAL (PRIMARY) HYPERTENSION Status: Chronic Qualifiers: Hypertension type: essential hypertension Qualified Code(s): I10 - Ess ential (primary) hypertension - Plan is on high flow O2, dexamethasone, alb inh, dulera inh, doxy, convalescent plasma, is not a candidate for remdesivir due to esrd appreciate help from [employer] as tolerated d/w patient and Mrs.Ybarra Ruiz over phone and gave full updates, discussed codes status, they want to be full code for now, 11/25, 11/26. hemostable cxr in am to see if volume removal with back to back hemodialysis made any change.
--- NOTE | 2020-11-26 17:52 | PRG ---
DATE OF SERVICE: 11/26/2020 OBJECTIVE: VITAL SIGNS: The patient noted with following vital signs; temperature 97.9, pulse 67, respiratory rate 20, blood pressure 117/67, O2 saturation 90% on high-flow nasal cannula. HEENT: Unremarkable. CARDIOVASCULAR: First and second heart sounds. RESPIRATORY SYSTEM: Revealed a lot of transmitted sounds. DIGESTIVE SYSTEM: Revealed a benign abdomen. EXTREMITIES: No peripheral edema. SKIN: No new gross rash. LYMPHATICS: No peripheral lymphadenopathy. IMPRESSION: 1. End-stage renal disease, on dialysis. 2. COVID pneumonitis. 3. Respiratory failure. PLAN: 1. The patient to be dialyzed today with ultrafiltration as tolerated by hemodynamics. 2. Further management will be dependent on the clinical course. Job ID: [id number]
[2020-11-26] MEDS: Acetaminophen 325 MG TAB PO PRN (20:25)
[2020-11-26] MEDS ORDERED: Famotidine 20 MG TAB PO SCH (21:00)
[2020-11-27] MEDS: HumaLOG 300 UNITS/3 ML VIAL SC PRN ×4 (04:47→20:22)
--- NOTE | 2020-11-27 06:12 | PRG ---
DATE OF SERVICE: 11/26/2020 SUBJECTIVE: Jose Guadalupe Pacheco is a 60-year-old gentleman, urias positive pneumonia. OBJECTIVE: VITAL SIGNS: Temperature is 97, pulse 73, respirations 22, sats are 92% on 60, FiO2 , blood pressure 159/70. He was dialyzed, he received plasma. CHEST: No wheezing. No crackles. CARDIAC: Normal S1, S2. IMPRESSION AND PLAN: Renal failure, on dialysis, urias positive pneumonia, respiratory failure. Continue steroids, supportive care, PT. We will follow. Job ID: [id number]
[2020-11-27] MEDS: Mometasone 200 MCG/Formoterol 5 MCG 120 PUFF INHALER INH SCH ×2 (06:18→17:55)
[2020-11-27 06:42] LABS: #Lymphocytes 0.5 thou/uL (1.20-3.40); #Monocytes 0.3 thou/uL (0.11-0.59); #Neutrophils 7.6 thou/uL (1.40-6.50); %Basophils 0.2 % (0.0-1.0); %Lymphocytes 5.8 % (21.0-51.0); %Monocytes 3.5 % (0.0-10.0); %Neutrophils 90.5 % (42.0-75.0); Hemoglobin 11.6 g/dL (14.0-18.0); Mean Corpuscular HGB CONC 30.6 g/dL (32.0-36.0); Mean Corpuscular Hemoglobin 27.5 pg (27.0-31.0); Mean Corpuscular Volume 89.9 fL (78.0-98.0); Mean Platelet Volume 8.4 fL (7.4-10.4); Platelet Count 301 thou/uL (130-400); RBC Distribution Width 14.4 % (11.5-14.5); Red Blood Cell (RBC) Count 4.23 mill/uL (4.70-6.10); White Blood Cell (WBC) Count 8.4 thou/uL (4.8-10.8)
[2020-11-27 07:04] LABS: Anion Gap 23 mmol/L (10-20); BUN (Urea Nitrogen) 48 mg/dL (8.4-25.7); CRP (Inflammatory) 26.33 mg/dL (= or < 0.5); Calc. Creatinine Clearance 17 mL/min (70-130); Calcium 9.7 mg/dL (7.8-10.44); Carbon Dioxide 24 mmol/L (23-31); Chloride 91 mmol/L (98-107); Glucose 353 mg/dL (80-115); Sodium 134 mmol/L (136-145)
[2020-11-27] MEDS: Ondansetron PF 4 MG/2 ML Vial IVP PRN (08:20)
--- NOTE | 2020-11-27 08:39 | RAD ---
Exam: Chest one view HISTORY:COVID pneumonia. Follow-up exam. Comparison: 11/24/2020 FINDINGS: Cardiac silhouette: Normal Aorta: Unremarkable Pulmonary vessels: Normal Costophrenic angles: Clear LUNGS: Improved aeration left lung parenchyma. Worsening opacification of the right lung. Persistent multi lobar interstitial and alveolar opacities. Pneumothorax: None Osseous abnormalities: None IMPRESSION: Improved aeration left lung. However, there are increased interstitial and alveolar opaci ties in the right lung. Multi lobar COVID pneumonia.
[2020-11-27] MEDS ORDERED: Metoprolol Tartrate 100 MG TAB PO SCH (09:00)
[2020-11-27] MEDS: Dexamethasone 4 mg/ml Vial SLOW IVP SCH ×2 (09:23→20:19)
[2020-11-27] MEDS: Enoxaparin Sodium 30 MG/0.3 ML SYRINGE SC SCH (09:24)
[2020-11-27] MEDS: Insulin Glargine 15 UNITS in Pre-Filled Syringe 1 EACH SC SCH ×2 (09:24→21:37)
[2020-11-27] MEDS: NIFEdipine XL 30 MG TAB PO SCH (09:39)
[2020-11-27] MEDS: glipiZIDE 5 MG TAB PO SCH (09:39)
[2020-11-27] MEDS: Aspirin 325 mg Enteric Coated Tablet PO SCH (09:39)
[2020-11-27] MEDS: Metoprolol Tartrate 25 MG TAB PO SCH ×2 (09:40→20:30)
[2020-11-27] MEDS: Ascorbic Acid 500 mg Chewable Tablet PO SCH (09:40)
--- NOTE | 2020-11-27 10:08 | PRG ---
DATE OF SERVICE: 11/27/2020 SUBJECTIVE: Jose Guadalupe Pacheco is a 60-year-old gentleman. OBJECTIVE: VITAL SIGNS: Temperature , saturations 90% on flow rate of 55, FiO2 of 70%, blood pressure 140/65. GENERAL: Sitting on the side of the bed. LUNGS: No wheezing, no crackles. CARDIAC: Normal S1, S2. No gallops. LABORATORY DATA: Pertinent for creatinine 5.9. ASSESSMENT: Hair positive pneumonia, respiratory failure, renal failure. PLAN: Continue high-dose steroids, Lovenox, supportive care, PT, empiric antibiotics. We will follow. Job ID: [id number]
--- NOTE | 2020-11-27 14:47 | PDOC.HOSPP ---
- Subjective Encounter Date: 11/27/20 Encounter Time: 08:15 Subjective: is on high flow O2, feels better had some nausea this am, feels better now - Objective Vital Signs & Weight: Vital Signs (12 hours) Temp Pulse Resp BP Pulse Ox 11/27/20 08:33 22 H 90 L 11/27/20 08:00 90 L 11/27/20 07:04 98.6 F 76 22 H 146/65 H 87 L 11/27/20 04:55 98 F 79 20 146/64 H 96 Weight Admit Weight 210 lb 15.68 oz Weight 210 lb 15.718 oz I&O: 11/26/20 11/27/20 11/28/20 06:59 06:59 06:59 Intake Total 240 510 Balance 240 510 Result Diagrams: 11/27/20 06:01 11/27/20 06:01 Additional Labs: Accuchecks 11/27/20 11/27/20 11/26/20 11:19 04:27 19:29 POC Glucose 331 H 308 H 195 H 11/26/20 15:54 POC Glucose 285 H Hospitalist ROS - Medication Medications: Active Medications Generic Name Dose Route Start Last Admin Trade Name Freq PRN Reason Stop Dose Admin Acetaminophen 650 mg 11/25/20 02:07 11/26/20 20:25 Acetaminophen 325 Mg Tab PO 650 mg Q4H PRN Administration Headache/Fever/Mild Pain (1-3) Albuterol Sulfate 2 puff 11/25/20 02:18 11/26/20 08:38 Albuterol 200 Puff (6.7gm Inhaler) INH 2 puff [id number] PRN Administration Wheezing Ascorbic Acid 1,000 mg 11/25/20 09:00 11/27/20 09:40 Ascorbic Acid 500 Mg Chewable Tablet PO 1,000 mg DAILY HANSA Administration Aspirin 325 mg 11/27/20 09:00 11/27/20 09:39 Aspirin 325 Mg Enteric Coated Tablet PO 325 mg QAM HANSA Administration Dexamethasone 6 mg 11/25/20 21:00 11/27/20 09:23 Dexamethasone 4 Mg/Ml Vial SLOW IVP 6 mg BID HANSA Administration Enoxaparin Sodium 30 mg 11/25/20 09:00 11/27/20 09:24 Enoxaparin Sodium 30 Mg/0.3 Ml Syringe SC 30 mg 0900 HANSA Administration Famotidine 20 mg 11/26/20 21:00 11/26/20 20:21 Famotidine 20 Mg Tab PO 20 mg HS HANSA Administration Glipizide 5 mg 11/27/20 09:00 11/27/20 09:39 Glipizide 5 Mg Tab PO 5 mg DAILY HANSA Administration Doxycycline Hyclate 100 mg/ 100 mls @ 100 mls/hr 11/25/20 11:00 11/27/20 10:42 Sodium Chloride IVPB 100 mls 1100,2300 HANSA Administration Insulin Glargine 15 units/ 0.15 mls @ 0 mls/hr 11/27/20 09:00 11/27/20 09:24 Miscellaneous Medication SC 0.15 mls BID HANSA Administration Insulin Human Lispro 0 units 11/25/20 02:24 11/27/20 04:47 Humalog 300 Units/3 Ml Vial SC 5 unit .MILD SLIDING SCALE PRN Administration Mild Correctional Scale Insulin Human Lispro 0 units 11/25/20 02:24 11/25/20 20:14 Humalog 300 Units/3 Ml Vial SC 4 unit .BEDTIME SLIDING SC PRN Administration Bedtime Correctional Scale Metoprolol Tartrate 25 mg 11/27/20 09:00 11/27/20 09:40 Metoprolol Tartrate 25 Mg Tab PO 25 mg BID HANSA Administration Mometasone Furoate/Formoterol Fumar 2 puff 11/25/20 18:30 11/27/20 06:18 Mometasone 200 Mcg/Formoterol 5 Mcg 120 Puff Inhaler INH 2 puff BID-RT HANSA Administration Nifedipine 30 mg 11/27/20 09:00 11/27/20 09:39 Nifedipine Xl 30 Mg Tab PO 30 mg DAILY HANSA Administration Ondansetron HCl 4 mg 11/27/20 08:20 11/27/20 08:20 Ondansetron Pf 4 Mg/2 Ml Vial IVP 4 mg Q6H PRN Administration Nausea/Vomiting Sodium Chloride 10 ml 11/25/20 02:07 11/25/20 20:44 Flush - Normal Saline 10 Ml Syringe IVF 10 ml Q12HR PRN Administration Saline Flush - Exam General Appearance: awake alert Eye: PERRL, anicteric sclera ENT: no oropharyngeal lesions, moist mucosa Neck: supple, no JVD Heart: RRR, no murmur Respiratory: no wheezes, rales, rhonchi Gastrointestinal: soft, non-tender, non-distended, normal bowel sounds Extremities: no cyanosis Extremities - other findings: right UE edema++ Neurological: cranial nerve grossly intact Neurological - other findings: right hemiparesis Psychiatric: normal affect, A&O x 3 Hosp A/P (1) Acute respiratory failure with hypoxia Code(s): J96.01 - ACUTE RESPIRATORY FAILURE WITH HYPOXIA Status: Acute (2) Pneumonia due to COVID-19 virus Code(s): U07.1 - COVID-19; J12.82 - PNEUMONIA DUE TO CORONAVIRUS DISEASE 2018 Status: Acute (3) History of CVA with residual deficit Code(s): I69.30 - UNSPECIFIED SEQUELAE OF CEREBRAL INFARCTION Status: Chronic (4) Anemia of renal disease Code(s): N18.9 - CHRONIC KIDNEY DISEASE, UNSPECIFIED; D63.1 - ANEMIA IN CHRONIC KIDNEY DISEASE Status: Chronic (5) Diabetes type 2, controlled Code(s): E11.9 - TYPE 2 DIABETES MELLITUS WITHOUT COMPLICATIONS Status: [employer] Qualifiers: Diabetes mellitus fpc insulin use: without fpc use Diabetes mellitus complication status: with kidney complications Diabetes mellitus complication detail: with chronic kidney disease Chronic kidney disease stage: on chronic dialysis Qualified Code(s): E11.22 - Type 2 diabetes mellitus with diabetic chronic kidney disease; N18.6 - End stage renal disease; Z99.2 - Dependence on renal dialysis (6) ESRD (end stage renal disease) on dialysis Code(s): N18.6 - END STAGE RENAL DISEASE; Z99.2 - DEPENDENCE ON RENAL DIALYSIS Status: Chronic (7) HLD (hyperlipidemia) Code(s): E78.5 - HYPERLIPIDEMIA, UNSPECIFIED Status: Chronic (8) HTN (hypertension) Code(s): I10 - ESSENTIAL (PRIMARY) HYPERTENSION Status: Chronic Qualifiers: Hypertension type: essential hypertension Qualified Code(s): I10 - Essential (primary) hypertension - Plan is on high flow O2, dexamethasone, alb inh, dulera inh, doxy, convalescent plasma, is not a candidate for remdesivir due to esrd appreciate help from Dr.Amin rosas as tolerated d/w patient and Mrs.Ybarra Ruiz over phone and gave full updates, discussed codes status, they want to be full code for now, 11/25, 11/26, 11/27. hemostable cxr done today shows improvement in aeration, crp is slowly trending down, his ferritin is severely elevated? (not sure if he is getting iron infusion with HD in the outpt setting)
--- NOTE | 2020-11-27 18:09 | PRG ---
DATE OF SERVICE: 11/27/2020 OBJECTIVE: VITAL SIGNS: The patient is noted with the following vital signs; afebrile, temperature 98.6, pulse 76, respiratory rate of 22, blood pressure 142/65, O2 saturations of 98%. HEENT: Unremarkable. CARDIOVASCULAR SYSTEM: First and second heart sounds were heard. RESPIRATORY SYSTEM: Clear to auscultation. DIGESTIVE SYSTEM: Revealed a benign abdomen. EXTREMITIES: No peripheral edema. SKIN: No new gross rash. LYMPHATICS: No peripheral lymphadenopathy. IMPRESSION: 1. End-stage renal disease, on hemodialysis. 2. Respiratory failure in the context to coronavirus disease pneumonitis. 3. Coronavirus disease pneumonitis. PLAN: We will continue hemodialysis per schedule Tuesday, Tuesday, Tuesday with ultrafiltration as tolerated by hemodynamics. Further management will be dependent on the clinical course. Job ID: [id number]
[2020-11-27] MEDS: Atorvastatin Calcium 40 MG TAB PO SCH (20:19)
[2020-11-27] MEDS: Acetaminophen 325 MG TAB PO PRN (20:19)
[2020-11-28] MEDS: HumaLOG 300 UNITS/3 ML VIAL SC PRN ×4 (05:36→20:31)
[2020-11-28] MEDS: Mometasone 200 MCG/Formoterol 5 MCG 120 PUFF INHALER INH SCH ×2 (06:10→17:45)
[2020-11-28 06:20] LABS: #Lymphocytes 0.5 thou/uL (1.20-3.40); #Monocytes 0.5 thou/uL (0.11-0.59); #Neutrophils 8.7 thou/uL (1.40-6.50); %Eosinophils 0.1 % (0.0-10.0); %Lymphocytes 5.6 % (21.0-51.0); %Monocytes 5.2 % (0.0-10.0); %Neutrophils 89.2 % (42.0-75.0); Mean Corpuscular Hemoglobin 28.7 pg (27.0-31.0); Mean Corpuscular Volume 89.6 fL (78.0-98.0); Platelet Count 309 thou/uL (130-400); RBC Distribution Width 14.2 % (11.5-14.5); Red Blood Cell (RBC) Count 3.84 mill/uL (4.70-6.10); White Blood Cell (WBC) Count 9.8 thou/uL (4.8-10.8)
[2020-11-28 06:44] LABS: Anion Gap 26 mmol/L (10-20); BUN (Urea Nitrogen) 83 mg/dL (8.4-25.7); Calc. Creatinine Clearance 14 mL/min (70-130); Calcium 9.2 mg/dL (7.8-10.44); Carbon Dioxide 23 mmol/L (23-31); Chloride 88 mmol/L (98-107); Glucose 385 mg/dL (80-115); Iron 123 ug/dL (65-175); Iron Binding Capacity, Total 123 mcg/dL (261-462); Potassium 4.6 mmol/L (3.5-5.1); Sodium 132 mmol/L (136-145)
[2020-11-28 06:45] LABS: Iron 122 ug/dL (65-175); Iron Binding Capacity, Total 123 mcg/dL (261-462)
[2020-11-28] MEDS: NIFEdipine XL 30 MG TAB PO SCH (08:39)
[2020-11-28] MEDS: Enoxaparin Sodium 30 MG/0.3 ML SYRINGE SC SCH (08:39)
[2020-11-28] MEDS: Insulin Glargine 15 UNITS in Pre-Filled Syringe 1 EACH SC SCH ×2 (08:40→20:30)
[2020-11-28] MEDS: Dexamethasone 4 mg/ml Vial SLOW IVP SCH ×2 (08:40→20:30)
[2020-11-28] MEDS: glipiZIDE 5 MG TAB PO SCH (13:19)
[2020-11-28] MEDS: Metoprolol Tartrate 25 MG TAB PO SCH ×2 (13:19→20:30)
[2020-11-28] MEDS: Aspirin 325 mg Enteric Coated Tablet PO SCH (13:19)
[2020-11-28] MEDS: Ascorbic Acid 500 mg Chewable Tablet PO SCH (13:19)
--- NOTE | 2020-11-28 14:44 | PDOC.HOSPP ---
- Subjective Encounter Date: 11/28/20 Encounter Time: 08:15 Subjective: saw him around 8 am, he was feeling better, was sitting with legs dangling and comfortable kenisha briceño was called around 11 with pt accidentally removing his high flow, momentary desaturations and confusion, he is slowly coming around and is moving all extremities following verbal stimuli has finished HD around the time kenisha briceño was called. - Objective Vital Signs & Weight: Vital Signs (12 hours) Temp Pulse Resp BP Pulse Ox 11/28/20 12:12 70 22 H 124/74 91 L 11/28/20 12:00 73 24 H 164/66 H 91 L 11/28/20 08:00 97.6 F 73 22 H 130/62 88 L Weight Admit Weight 210 lb 15.68 oz Weight 210 lb 15.718 oz I&O: 11/27/20 11/28/20 11/29/20 06:59 06:59 06:59 Intake Total 510 Balance 510 Result Diagrams: 11/28/20 06:01 11/28/20 06:01 Additional Labs: Accuchecks 11/28/20 11/28/20 11/28/20 12:12 11:49 04:32 POC Glucose 261 H 193 H 367 H 11/27/20 11/27/20 19:28 16:34 POC Glucose 269 H 277 H Hospitalist ROS - Medication Medications: Active Medications Generic Name Dose Route Start Last Admin Trade Name Freq PRN Reason Stop Dose Admin Acetaminophen 650 mg 11/25/20 02:07 11/27/20 20:19 Acetaminophen 325 Mg Tab PO 650 mg Q4H PRN Administration Headache/Fever/Mild Pain (1-3) Albuterol Sulfate 2 puff 11/25/20 02:18 11/26/20 08:38 Albuterol 200 Puff (6.7gm Inhaler) INH 2 puff [id number] PRN Administration Wheezing Ascorbic Acid 1,000 mg 11/25/20 09:00 11/28/20 13:19 Ascorbic Acid 500 Mg Chewable Tablet PO 1,000 mg DAILY HANSA Administration Aspirin 325 mg 11/27/20 09:00 11/28/20 13:19 Aspirin 325 Mg Enteric Coated Tablet PO 325 mg QAM HANSA Administration Atorvastatin Calcium 40 mg 11/27/20 21:00 11/27/20 20:19 Atorvastatin Calcium 40 Mg Tab PO 40 mg HS HANSA Administration Dexamethasone 6 mg 11/25/20 21:00 11/28/20 08:40 Dexamethasone 4 Mg/Ml Vial SLOW IVP 6 mg BID HANSA Administration Enoxaparin Sodium 30 mg 11/25/20 09:00 11/28/20 08:39 Enoxaparin Sodium 30 Mg/0.3 Ml Syringe SC 30 mg 0900 HANSA Administration Glipizide 5 mg 11/27/20 09:00 11/28/20 13:19 Glipizide 5 Mg Tab PO 5 mg DAILY HANSA Administration Doxycycline Hyclate 100 mg/ 100 mls @ 100 mls/hr 11/25/20 11:00 11/27/20 22:49 Sodium Chloride IVPB 100 mls 1100,2300 HANSA Administration Insulin Glargine 15 units/ 0.15 mls @ 0 mls/hr 11/27/20 09:00 11/28/20 08:40 Miscellaneous Medication SC 0.15 mls BID HANSA Administration Insulin Human Lispro 0 units 11/25/20 02:24 11/28/20 13:20 Humalog 300 Units/3 Ml Vial SC 4 unit .MILD SLIDING SCALE PRN Administration Mild Correctional Scale Insulin Human Lispro 0 units 11/25/20 02:24 11/27/20 20:22 Humalog 300 Units/3 Ml Vial SC 3 unit .BEDTIME SLIDING SC PRN Administration Bedtime Correctional Scale Metoprolol Tartrate 25 mg 11/27/20 09:00 11/28/20 13:19 Metoprolol Tartrate 25 Mg Tab PO 25 mg BID HANSA Administration Mometasone Furoate/Formoterol Fumar 2 puff 11/25/20 18:30 11/28/20 06:10 Mometasone 200 Mcg/Formoterol 5 Mcg 120 Puff Inhaler INH 2 puff BID-RT HANSA Administration Nifedipine 30 mg 11/27/20 09:00 11/28/20 08:39 Nifedipine Xl 30 Mg Tab PO 30 mg DAILY HANSA Administration Ondansetron HCl 4 mg 11/27/20 08:20 11/27/20 08:20 Ondansetron Pf 4 Mg/2 Ml Vial IVP 4 mg Q6H PRN Administration Nausea/Vomiting Pantoprazole Sodium 40 mg 11/28/20 09:00 11/28/20 13:19 Pantoprazole 40 Mg Tab PO 40 mg DAILY HANSA Administration Sodium Chloride 10 ml 11/25/20 02:07 11/27/20 20:20 Flush - Normal Saline 10 Ml Syringe IVF 10 ml Q12HR PRN Administration Saline Flush - Exam General Appearance: awake alert Eye: PERRL, anicteric sclera ENT: no oropharyngeal lesions, moist mucosa Neck: supple, no JVD Heart: RRR, no murmur Respiratory: no wheezes, rales, rhonchi Gastrointestinal: soft, non-tender, non-distended, normal bowel sounds Extremities - other findings: right UE edema is slowly resolving with elevation over pillows Neurological: cranial nerve grossly intact Neurological - other findings: chr right hemiparesis Hosp A/P (1) Acute respiratory failure with hypoxia Code(s): J96.01 - ACUTE RESPIRATORY FAILURE WITH HYPOXIA Status: Acute (2) Pneumonia due to COVID-19 virus Code(s): U07.1 - COVID-19; J12.82 - PNEUMONIA DUE TO CORONAVIRUS DISEASE 2018 Status: Acute (3) History of CVA with residual deficit Code(s): I69.30 - UNSPECIFIED SEQUELAE OF CEREBRAL INFARCTION Status: Chronic (4) Anemia of renal disease Code(s): N18.9 - CHRONIC KIDNEY DISEASE, UNSPECIFIED; D63.1 - ANEMIA IN CHRONIC KIDNEY DISEASE Status: Chronic (5) Diabetes type 2, controlled Code(s): E11.9 - TYPE 2 DIABETES MELLITUS WITHOUT COMPLICATIONS Status: Chronic Qualifiers: Diabetes mellitus long term care phlebotomist insulin use: without penitentiary use Diabetes mellitus complication status: with kidney complications Diabetes mellitus complication detail: with chronic kidney disease Chronic kidney disease stage: on chronic dialysis Qualified Code(s): E11.22 - Type 2 diabetes mellitus with diabetic chronic kidney disease; N18.6 - End stage renal disease; Z99.2 - Dependence on renal dialysis (6) ESRD (end stage renal disease) on dialysis Code(s): N18.6 - END STAGE RENAL DISEASE; Z99.2 - DEPENDENCE ON RENAL DIALYSIS Status: Chronic (7) HLD (hyperlipidemia) Code(s): E78.5 - HYPERLIPIDEMIA, UNSPECIFIED Status: Chronic (8) HTN (hypertension) Code(s): I10 - ESSENTIAL (PRIMARY) HYPERTENSION Status: Chronic Qualifiers: Hypertension type: essential hypertension Qualified Code(s): I10 - Essential (primary) hypertension - Plan is on high flow O2, dexamethasone, alb inh, dulera inh, doxy, convalescent plasma, is not a candidate for remdesivir due to esrd Post code green this am he is slowly coming around and oriented back to baseline. 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 d/w patient and Mrs.Ybarra Ruiz over phone and gave full updates, discussed codes status, they want to be full code for now, 11/25, 11/26, 11/27, gave her regular update plus informed about code green with pt removing his high flow accidentally and desaturating. hemostable crp is slowly trending down, his ferritin is severely elevated? DELBERT with reflux pending, tibc is 123, % sat is high at 100, will need outpt w/u.
--- NOTE | 2020-11-28 16:58 | PRG ---
DATE OF SERVICE: 11/28/2020 SUBJECTIVE: The patient noted with the following vital signs. OBJECTIVE: VITAL SIGNS: Afebrile, temperature 97.6, pulse 70, respiratory rate of 22, O2 saturation of 91% on 60% high-flow nasal cannula. HEENT: Unremarkable. CARDIOVASCULAR SYSTEM: First and second heart sounds were heard. RESPIRATORY SYSTEM: Clear to auscultation. DIGESTIVE SYSTEM: Revealed a benign abdomen with positive bowel sounds. EXTREMITIES: No peripheral edema. SKIN: No new gross rash. LYMPHATICS: No peripheral lymphadenopathy. IMPRESSION: 1. End-stage renal disease, hemodialysis dependent. 2. COVID pneumonitis. 3. Respiratory failure. PLAN: 1. The patient will be dialyzed today in accordance with his schedule dialysis. 2. Further management will be dependent on the clinical course. Job ID: [id number]
[2020-11-28] MEDS: Acetaminophen 325 MG TAB PO PRN (20:29)
[2020-11-28] MEDS: Atorvastatin Calcium 40 MG TAB PO SCH (20:30)
[2020-11-29] MEDS: HumaLOG 300 UNITS/3 ML VIAL SC PRN ×4 (05:47→20:56)
[2020-11-29] MEDS: Mometasone 200 MCG/Formoterol 5 MCG 120 PUFF INHALER INH SCH ×2 (06:06→17:43)
--- NOTE | 2020-11-29 06:40 | PRG ---
DATE OF SERVICE: 11/28/2020 SUBJECTIVE: Jose Guadalupe Pacheco is a 60-year-old gentleman. OBJECTIVE: Vitals: Temperature 97, pulse 73, respiratory rate 22, sats are 88 in 60% flow rate, 90% FiO2, blood pressure 130/62. CHEST: No wheezing. No crackles. CARDIAC: Normal S1. ABDOMEN: No masses. LABORATORY DATA: Creatinine 7, BUN 83. IMPRESSION: 1. Renal failure. 2. Hair positive pneumonia, respiratory failure, still requiring high-flow. PLAN: Hopefully, with hemodialysis, oxygen requirement will decrease. Otherwise, we are going to continue supportive care with steroids, antibiotics. X-ray still shows bilateral infiltrates. Job ID: [id number]
[2020-11-29] MEDS: Dexamethasone 4 mg/ml Vial SLOW IVP SCH ×2 (08:06→20:54)
[2020-11-29] MEDS: Aspirin 325 mg Enteric Coated Tablet PO SCH (08:06)
[2020-11-29] MEDS: Enoxaparin Sodium 30 MG/0.3 ML SYRINGE SC SCH (08:06)
[2020-11-29] MEDS: glipiZIDE 5 MG TAB PO SCH (08:06)
[2020-11-29] MEDS: Ascorbic Acid 500 mg Chewable Tablet PO SCH (08:06)
[2020-11-29] MEDS: Metoprolol Tartrate 25 MG TAB PO SCH ×2 (08:06→20:54)
[2020-11-29] MEDS: NIFEdipine XL 30 MG TAB PO SCH (08:07)
[2020-11-29] MEDS: Insulin Glargine 15 UNITS in Pre-Filled Syringe 1 EACH SC SCH (08:07)
[2020-11-29 08:14] LABS: #Lymphocytes 0.7 thou/uL (1.20-3.40); #Monocytes 0.6 thou/uL (0.11-0.59); #Neutrophils 13.1 thou/uL (1.40-6.50); %Basophils 0.1 % (0.0-1.0); %Eosinophils 0.1 % (0.0-10.0); %Lymphocytes 4.6 % (21.0-51.0); %Monocytes 4.1 % (0.0-10.0); %Neutrophils 91.1 % (42.0-75.0); Hemoglobin 12.3 g/dL (14.0-18.0); Mean Corpuscular HGB CONC 32.3 g/dL (32.0-36.0); Mean Corpuscular Hemoglobin 28.8 pg (27.0-31.0); Mean Corpuscular Volume 89.3 fL (78.0-98.0); Mean Platelet Volume 8.1 fL (7.4-10.4); Platelet Count 303 thou/uL (130-400); RBC Distribution Width 14.2 % (11.5-14.5); Red Blood Cell (RBC) Count 4.28 mill/uL (4.70-6.10); White Blood Cell (WBC) Count 14.3 thou/uL (4.8-10.8)
[2020-11-29 08:30] LABS: Anion Gap 26 mmol/L (10-20); BUN (Urea Nitrogen) 72 mg/dL (8.4-25.7); CRP (Inflammatory) 10.74 mg/dL (= or < 0.5); Calc. Creatinine Clearance 16 mL/min (70-130); Calcium 9.4 mg/dL (7.8-10.44); Carbon Dioxide 20 mmol/L (23-31); Chloride 94 mmol/L (98-107); Glucose 295 mg/dL (80-115); Potassium 4.2 mmol/L (3.5-5.1); Sodium 136 mmol/L (136-145)
--- NOTE | 2020-11-29 14:47 | PDOC.HOSPP ---
- Subjective Encounter Date: 11/29/20 Encounter Time: 14:45 Subjective: Mr. Pacheco was seen today in follow-up of COVID pneumonia and respiratory failure. He says he is feeling better. He is sitting up in bed on high flow oxygen. He denies chest pain, denies diarrhea. He says his appetite is ok. - Objective Vital Signs & Weight: Vital Signs (12 hours) Temp Pulse Resp BP BP Pulse Ox 11/29/20 12:19 98.1 F 72 20 148/62 H 100 11/29/20 08:25 93 L 11/29/20 08:07 69 145/69 H 11/29/20 07:34 97.7 F 69 20 145/69 H 93 L Weight Admit Weight 210 lb 15.68 oz Weight 210 lb 15.718 oz I&O: 11/28/20 11/29/20 11/30/20 06:59 06:59 06:59 Intake Total 300 Balance 300 Result Diagrams: 11/29/20 08:02 11/29/20 08:02 Additional Labs: Accuchecks 11/29/20 11/29/20 11/28/20 11:35 05:39 19:49 POC Glucose 437 H 338 H 356 H 11/28/20 15:51 POC Glucose 305 H Hospitalist ROS - Medication Medications: Active Medications Generic Name Dose Route Start Last Admin Trade Name Freq PRN Reason Stop Dose Admin Acetaminophen 650 mg 11/25/20 02:07 11/27/20 20:19 Acetaminophen 325 Mg Tab PO 650 mg Q4H PRN Administration Headache/Fever/Mild Pain (1-3) Albuterol Sulfate 2 puff 11/25/20 02:18 11/26/20 08:38 Albuterol 200 Puff (6.7gm Inhaler) INH 2 puff [id number] PRN Administration Wheezing Ascorbic Acid 1,000 mg 11/25/20 09:00 11/29/20 08:06 Ascorbic Acid 500 Mg Chewable Tablet PO 1,000 mg DAILY HANSA Administration Aspirin 325 mg 11/27/20 09:00 11/29/20 08:06 Aspirin 325 Mg Enteric Coated Tablet PO 325 mg QAM HANSA Administration Atorvastatin Calcium 40 mg 11/27/20 21:00 11/28/20 20:30 Atorvastatin Calcium 40 Mg Tab PO 40 mg HS HANSA Administration Dexamethasone 6 mg 11/25/20 21:00 11/29/20 08:06 Dexamethasone 4 Mg/Ml Vial SLOW IVP 6 mg BID HANSA Administration Enoxaparin Sodium 30 mg 11/25/20 09:00 11/29/20 08:06 Enoxaparin Sodium 30 Mg/0.3 Ml Syringe SC 30 mg 0900 HANSA Administration Glipizide 5 mg 11/27/20 09:00 11/29/20 08:06 Glipizide 5 Mg Tab PO 5 mg DAILY HANSA Administration Insulin Glargine 15 units/ 0.15 mls @ 0 mls/hr 11/27/20 09:00 11/29/20 08:07 Miscellaneous Medication SC 0.15 mls BID HANSA Administration Doxycycline Hyclate 100 mg/ 100 mls @ 100 mls/hr 11/28/20 16:00 11/29/20 03:32 Sodium Chloride IVPB 100 mls 0400,1600 HANSA Administration Insulin Human Lispro 0 units 11/25/20 02:24 11/29/20 12:39 Humalog 300 Units/3 Ml Vial SC 6 unit .MILD SLIDING SCALE PRN Administration Mild Correctional Scale Insulin Human Lispro 0 units 11/25/20 02:24 11/28/20 20:31 Humalog 300 Units/3 Ml Vial SC 5 unit .BEDTIME SLIDING SC PRN Administration Bedtime Correctional Scale Metoprolol Tartrate 25 mg 11/27/20 09:00 11/29/20 08:06 Metoprolol Tartrate 25 Mg Tab PO 25 mg BID HANSA Administration Mometasone Furoate/Formoterol Fumar 2 puff 11/25/20 18:30 11/29/20 06:06 Mometasone 200 Mcg/Formoterol 5 Mcg 120 Puff Inhaler INH 2 puff BID-RT HANSA Administration Nifedipine 30 mg 11/27/20 09:00 11/29/20 08:07 Nifedipine Xl 30 Mg Tab PO 30 mg DAILY HANSA Administration Ondansetron HCl 4 mg 11/27/20 08:20 11/27/20 08:20 Ondansetron Pf 4 Mg/2 Ml Vial IVP 4 mg Q6H PRN Administration Nausea/Vomiting Pantoprazole Sodium 40 mg 11/28/20 09:00 11/29/20 08:06 Pantoprazole 40 Mg Tab PO 40 mg DAILY HANSA Administration Sodium Chloride 10 ml 11/25/20 02:07 11/27/20 20:20 Flush - Normal Saline 10 Ml Syringe IVF 10 ml Q12HR PRN Administration Saline Flush - Exam Eye: PERRL, anicteric sclera ENT: normocephalic atraumatic Heart: RRR, no murmur, no gallops, no rubs, normal peripheral pulses Respiratory: no wheezes, no ronchi, rales (at both bases) Gastrointestinal: soft, non-tender, non-distended, normal bowel sounds, no palpable masses, no hepatomegaly Extremities: no cyanosis, no edema (pulses are absent, bilaterally, but his feet are warm, no lesions. he is missing the !st,3rd abd 4th toes on the right foot) Hosp A/P (1) Acute respiratory failure with hypoxia Code(s): J96.01 - ACUTE RESPIRATORY FAILURE WITH HYPOXIA Status: Acute (2) Pneumonia due to COVID-19 virus Code(s): U07.1 - COVID-19; J12.82 - PNEUMONIA DUE TO CORONAVIRUS DISEASE 2019 Status: Acute (3) History of CVA with residual deficit Code(s): I69.30 - UNSPECIFIED SEQUELAE OF CEREBRAL INFARCTION Status: Chronic (4) Anemia of renal disease Code(s): N18.9 - CHRONIC KIDNEY DISEASE, UNSPECIFIED; D63.1 - ANEMIA IN CHRONIC KIDNEY DISEASE Status: Chronic (5) Diabetes type 2, controlled Code(s): E11.9 - TYPE 2 DIABETES MELLITUS WITHOUT COMPLICATIONS Status: Chronic Qualifiers: Diabetes mellitus fci insulin use: without fci use Diabetes mellitus complication status: with kidney complications Diabetes mellitus complication detail: with chronic kidney disease Chronic kidney disease stage: on chronic dialysis Qualified Code(s): E11.22 - Type 2 diabetes mellitus with diabetic chronic kidney disease; N18.6 - End stage renal disease; Z99.2 - Dependence on renal dialysis (6) ESRD (end stage renal disease) on dialysis Code(s): N18.6 - END STAGE RENAL DISEASE; Z99.2 - DEPENDENCE ON RENAL DIALYSIS Status: Chronic (7) HLD (hyperlipidemia) Code(s): E78.5 - HYPERLIPIDEMIA, UNSPECIFIED Status: Chronic (8) HTN (hypertension) Code(s): I10 - ESSENTIAL (PRIMARY) HYPERTENSION Status: Chronic Qualifiers: Hypertension type: essential hypertension Qualified Code(s): I10 - Essential (primary) hypertension - Plan * Acute respiratory failure due to COVID pneumonia- continue Decadron IV * He remains on high flow oxygen * Continue DVT prophylaxis, but will change to Heparin due to dialysis * HTN- blood pressure is stable * DM - blood glucose is elevated- will titrate the dose of Lantus * ESRD- continue dialysis per Nephrology
[2020-11-29] MEDS ORDERED: Heparin 5,000 UNITS/ML VIAL SC SCH (15:00)
[2020-11-29 16:32] LABS: ANA Symphony (Qualitative) Negative (Negative); ANA Symphony (Quantitative) 0.3 Ratio (< 0.7 Negative)
--- NOTE | 2020-11-29 19:00 | PRG ---
DATE OF SERVICE: 11/29/2020 OBJECTIVE: VITAL SIGNS: The patient noted with the following vital signs. Afebrile, temperature 98.1, pulse 72, respiratory rate of 20, O2 saturation of 100%, blood pressure 148/62. HEENT: Unremarkable. CARDIOVASCULAR SYSTEM: First and second heart sounds were heard. RESPIRATORY SYSTEM: Clear to auscultation. DIGESTIVE SYSTEM: Revealed a benign abdomen with positive bowel sounds. EXTREMITIES: No peripheral edema. SKIN: No new gross rash. LYMPHATICS: No peripheral lymphadenopathy. IMPRESSION: 1. End-stage renal disease, on dialysis. 2. COVID pneumonitis. PLAN: 1. The patient to be continued with dialysis with ultrafiltration as tolerated by hemodynamics based on schedule of this patient. 2. Further management to be dependent on the clinical course. Job ID: [id number]
[2020-11-29] MEDS: Atorvastatin Calcium 40 MG TAB PO SCH (20:54)
[2020-11-29] MEDS: Insulin Glargine 25 UNITS in Pre-Filled Syringe 1 EACH SC SCH (20:54)
[2020-11-30] MEDS: HumaLOG 300 UNITS/3 ML VIAL SC PRN ×3 (05:17→16:59)
[2020-11-30] MEDS: Mometasone 200 MCG/Formoterol 5 MCG 120 PUFF INHALER INH SCH ×2 (05:17→20:11)
[2020-11-30] MEDS: NIFEdipine XL 30 MG TAB PO SCH (08:46)
[2020-11-30] MEDS: Ascorbic Acid 500 mg Chewable Tablet PO SCH (08:46)
[2020-11-30] MEDS: Aspirin 325 mg Enteric Coated Tablet PO SCH (08:46)
[2020-11-30] MEDS: glipiZIDE 5 MG TAB PO SCH (08:46)
[2020-11-30] MEDS: Dexamethasone 4 mg/ml Vial SLOW IVP SCH ×2 (08:46→20:12)
[2020-11-30] MEDS: Insulin Glargine 25 UNITS in Pre-Filled Syringe 1 EACH SC SCH ×2 (08:47→20:11)
[2020-11-30] MEDS: Metoprolol Tartrate 25 MG TAB PO SCH ×2 (08:47→20:12)
--- NOTE | 2020-11-30 17:27 | PDOC.HOSPP ---
- Subjective Encounter Date: 11/30/20 Encounter Time: 17:25 Subjective: Mr. Pacheco was seen today in follow-up of COVID pneumonia. He says he is beginning to feel better. He is less short of breath and wants to be downgraded off high flow oxygen. He does not have any other complaints. - Objective Vital Signs & Weight: Vital Signs (12 hours) Temp Pulse Resp BP BP BP Pulse Ox 11/30/20 12:00 98.0 F 71 20 142/62 H 100 11/30/20 08:54 92 L 11/30/20 08:46 71 153/69 H 11/30/20 08:15 97.8 F 71 20 153/69 H 92 L Weight Admit Weight 210 lb 15.68 oz Weight 210 lb 15.718 oz I&O: 11/29/20 11/30/20 12/01/20 06:59 06:59 06:59 Intake Total 300 1490 Balance 300 1490 Result Diagrams: 11/29/20 08:02 11/29/20 08:02 Additional Labs: Accuchecks 11/30/20 11/30/20 11/30/20 16:32 11:06 04:59 POC Glucose 199 H 184 H 244 H 11/29/20 19:48 POC Glucose 398 H Hospitalist ROS - Medication Medications: Active Medications Generic Name Dose Route Start Last Admin Trade Name Freq PRN Reason Stop Dose Admin Acetaminophen 650 mg 11/25/20 02:07 11/27/20 20:19 Acetaminophen 325 Mg Tab PO 650 mg Q4H PRN Administration Headache/Fever/Mild Pain (1-3) Albuterol Sulfate 2 puff 11/25/20 02:18 11/26/20 08:38 Albuterol 200 Puff (6.7gm Inhaler) INH 2 puff [id number] PRN Administration Wheezing Ascorbic Acid 1,000 mg 11/25/20 09:00 11/30/20 08:46 Ascorbic Acid 500 Mg Chewable Tablet PO 1,000 mg DAILY HANSA Administration Aspirin 325 mg 11/27/20 09:00 11/30/20 08:46 Aspirin 325 Mg Enteric Coated Tablet PO 325 mg QAM HANSA Administration Atorvastatin Calcium 40 mg 11/27/20 21:00 11/29/20 20:54 Atorvastatin Calcium 40 Mg Tab PO 40 mg HS HANSA Administration Dexamethasone 6 mg 11/25/20 21:00 11/30/20 08:46 Dexamethasone 4 Mg/Ml Vial SLOW IVP 6 mg BID HANSA Administration Glipizide 5 mg 11/27/20 09:00 11/30/20 08:46 Glipizide 5 Mg Tab PO 5 mg DAILY HANSA Administration Doxycycline Hyclate 100 mg/ 100 mls @ 100 mls/hr 11/28/20 16:00 11/30/20 15:43 Sodium Chloride IVPB 100 mls 0400,1600 HANSA Administration Insulin Glargine 25 units/ 0.25 mls @ 0 mls/hr 11/29/20 21:00 11/29/20 20:54 Miscellaneous Medication SC 0.25 mls HS HANSA Administration Insulin Glargine 25 units/ 0.25 mls @ 0 mls/hr 11/30/20 09:00 11/30/20 08:47 Miscellaneous Medication SC 0.25 mls QAM HANSA Administration Insulin Human Lispro 0 units 11/25/20 02:24 11/30/20 16:59 Humalog 300 Units/3 Ml Vial SC 2 unit .MILD SLIDING SCALE PRN Administration Mild Correctional Scale Insulin Human Lispro 0 units 11/25/20 02:24 11/29/20 20:56 Humalog 300 Units/3 Ml Vial SC 5 unit .BEDTIME SLIDING SC PRN Administration Bedtime Correctional Scale Metoprolol Tartrate 25 mg 11/27/20 09:00 11/30/20 08:47 Metoprolol Tartrate 25 Mg Tab PO 25 mg BID HANSA Administration Mometasone Furoate/Formoterol Fumar 2 puff 11/25/20 18:30 11/30/20 05:17 Mometasone 200 Mcg/Formoterol 5 Mcg 120 Puff Inhaler INH 2 puff BID-RT HANSA Administration Nifedipine 30 mg 11/27/20 09:00 11/30/20 08:46 Nifedipine Xl 30 Mg Tab PO 30 mg DAILY HANSA Administration Ondansetron HCl 4 mg 11/27/20 08:20 11/27/20 08:20 Ondansetron Pf 4 Mg/2 Ml Vial IVP 4 mg Q6H PRN Administration Nausea/Vomiting Pantoprazole Sodium 40 mg 11/28/20 09:00 11/30/20 08:46 Pantoprazole 40 Mg Tab PO 40 mg DAILY HANSA Administration Sodium Chloride 10 ml 11/25/20 02:07 11/27/20 20:20 Flush - Normal Saline 10 Ml Syringe IVF 10 ml Q12HR PRN Administration Saline Flush - Exam Eye: PERRL, anicteric sclera Heart: RRR, no murmur, no gallops, no rubs, normal peripheral pulses Respiratory: CTAB, no wheezes, no rales, no ronchi, normal chest expansion, no tachypnea, normal percussion Gastrointestinal: soft, non-tender, non-distended, normal bowel sounds, no palpable masses, no hepatomegaly Extremities: no cyanosis, no edema Hosp A/P (1) Acute respiratory failure with hypoxia Code(s): J96.01 - ACUTE RESPIRATORY FAILURE WITH HYPOXIA Status: Acute (2) Pneumonia due to COVID-19 virus Code(s): U07.1 - COVID-19; J12.82 - PNEUMONIA DUE TO CORONAVIRUS DISEASE 2019 Status: Acute (3) History of CVA with residual deficit Code(s): I69.30 - UNSPECIFIED SEQUELAE OF CEREBRAL INFARCTION Status: Chronic (4) Anemia of renal disease Code(s): N18.9 - CHRONIC KIDNEY DISEASE, UNSPECIFIED; D63.1 - ANEMIA IN CHRONIC KIDNEY DISEASE Status: Chronic (5) Diabetes type 2, controlled Code(s): E11.9 - TYPE 2 DIABETES MELLITUS WITHOUT COMPLICATIONS Status: Chronic Qualifiers: Diabetes mellitus snf insulin use: without terminologist use Diabetes mellitus complication status: with kidney complications Diabetes mellitus complication detail: with chronic kidney disease Chronic kidney disease stage: on chronic dialysis Qualified Code(s): E11.22 - Type 2 diabetes mellitus with diabetic chronic kidney disease; N18.6 - End stage renal disease; Z99.2 - Dependence on renal dialysis (6) ESRD (end stage renal disease) on dialysis Code(s): N18.6 - END STAGE RENAL DISEASE; Z99.2 - DEPENDENCE ON RENAL DIALYSIS Status: Chronic (7) HLD (hyperlipidemia) Code(s): E78.5 - HYPERLIPIDEMIA, UNSPECIFIED Status: Chronic (8) HTN (hypertension) Code(s): I10 - ESSENTIAL (PRIMARY) HYPERTENSION Status: Chronic Qualifiers: Hypertension type: essential hypertension Qualified Code(s): I10 - Essential (primary) hypertension - Plan * Acute respiratory failure due to COVID pneumonia- continue Decadron IV * Wean oxygen as tolerated * Continue DVT prophylaxis, He says he is allergic to Heparin. He says it cau ses his eyes to bleed. He tells me it happened when he was on dialysis. He can't remember all of the details. I spoke with the pharmacist regarding the use of Lovenox. There is no guidance regarding patient's on hemodilaysis, as it is not removed via dialysis and can accumulate, as per Fundoparinux, and Eliquis is not recommended for use. Will consult Hematology for the safest option for DVT prophylaxis * HTN- blood pressure is stable * DM - blood glucose is elevated- but trending down- will monitor * ESRD- continue dialysis per Nephrology
--- NOTE | 2020-11-30 17:37 | PRG ---
DATE OF SERVICE: 11/30/2020 OBJECTIVE: VITAL SIGNS: The patient noted with the following vital signs; afebrile, temperature 98.0, pulse 71, respiratory rate of 20, O2 saturation 100%, blood pressure 142/62. HEENT: Unremarkable. CARDIOVASCULAR SYSTEM: First and second heart sounds were heard. RESPIRATORY SYSTEM: Clear to auscultation. DIGESTIVE SYSTEM: Benign abdomen. Positive bowel sounds. EXTREMITIES: No peripheral edema. SKIN: No new gross rash. LYMPHATICS: No peripheral lymphadenopathy. IMPRESSION: 1. End-stage renal disease, on dialysis. 2. COVID pneumonitis. 3. Respiratory failure in the context of #2. PLAN: 1. The patient to continue with hemodialysis schedule of Tuesday, Tuesday and Tuesday with ultrafiltration as tolerated by hemodynamics. 2. Further management will be dependent on the clinical course. Job ID: [id number]
[2020-11-30] MEDS: Atorvastatin Calcium 40 MG TAB PO SCH (20:12)
[2020-12-01] MEDS: Mometasone 200 MCG/Formoterol 5 MCG 120 PUFF INHALER INH SCH ×2 (06:17→19:51)
[2020-12-01] MEDS: Dexamethasone 4 mg/ml Vial SLOW IVP SCH ×2 (08:16→19:58)
[2020-12-01] MEDS: NIFEdipine XL 30 MG TAB PO SCH (08:17)
[2020-12-01] MEDS: glipiZIDE 5 MG TAB PO SCH (08:17)
[2020-12-01] MEDS: Aspirin 325 mg Enteric Coated Tablet PO SCH (08:17)
[2020-12-01] MEDS: Ascorbic Acid 500 mg Chewable Tablet PO SCH (08:17)
[2020-12-01] MEDS: Metoprolol Tartrate 25 MG TAB PO SCH ×2 (08:17→19:57)
[2020-12-01] MEDS: Insulin Glargine 25 UNITS in Pre-Filled Syringe 1 EACH SC SCH ×2 (09:40→21:44)
--- NOTE | 2020-12-01 11:13 | PRG ---
DATE OF SERVICE: 12/01/2020 OBJECTIVE: VITAL SIGNS: Temperature 97, pulse 70, respirations 15, saturations are 95% on high-flow 60 with FiO2 of 75%, blood pressure 120/75. CHEST: No wheezing. No crackles. CARDIAC: Normal S1, normal S2. IMPRESSION: Hair positive pneumonia, respiratory failure, renal failure. PLAN: Continue supportive care and high-dose steroids. Hopefully can get him down to lesser requirement of FiO2. Job ID: [id number]
[2020-12-01] MEDS: HumaLOG 300 UNITS/3 ML VIAL SC PRN (12:48)
--- NOTE | 2020-12-01 15:41 | CON ---
DATE OF CONSULTATION: REASON FOR CONSULT: Anticoagulation. HISTORY OF PRESENT ILLNESS: Mr. Pacheco is a 60-year-old gentleman, who presented to the emergency room with shortness of breath and hypoxia. He was diagnosed with COVID pneumonia. He remains on high-dose steroids. He is requiring anticoagulation DVT prophylaxis. He apparently has an allergy to heparin. PAST MEDICAL HISTORY: 1. End-stage renal disease, on dialysis. 2. Type 2 diabetes. 3. Hypertension. 4. History of CVA with residual right-sided paralysis. PAST SURGICAL HISTORY: Toe surgery with amputation, appendectomy, cholecystectomy, fistula placement, cataract surgery. ALLERGIES: TO CODEINE, SULFA, HEPARIN, PHENERGAN. HOME MEDICATIONS: 1. Glipizide. 2. Clonidine. 3. Nifedipine. 4. Vitamin D. 5. Atorvastatin. 6. Aspirin. 7. Calcium. 8. Fish oil. 9. Lisinopril. 10. Metoprolol. 11. Simvastatin. FAMILY HISTORY: Noncontributory. SOCIAL HISTORY: Lives with his . PHYSICAL EXAMINATION: VITAL SIGNS: Temperature is 97.8, pulse is 70, respiratory rate 15, blood pressure is 153/71. ASSESSMENT: Prolonged hospitalization requiring anticoagulation for DVT prophylaxis in the setting of adverse event with heparin. DISCUSSION: According to medical record review, the patient had heparin in the past and it has made his eyes bleed. We will avoid heparin at this time, although it is not a true allergy but a unusual side effect. Would recommend renal dosed Xarelto 15 mg daily. Case has been discussed in detail with Dr. Fontana. Thank you for the consult. Job ID: [id number] MTDD
--- NOTE | 2020-12-01 16:58 | PDOC.HOSPP ---
- Subjective Encounter Date: 12/01/20 Encounter Time: 16:56 Subjective: Mr. Pacheco was seen today in follow-up of COVID pneumonia. He says he is feeling better. He is asking about his son, who is next dose admitted with COVID pneumonia as well. - Objective Vital Signs & Weight: Vital Signs (12 hours) Temp Pulse Resp BP BP Pulse Ox 12/01/20 15:23 20 93 L 12/01/20 11:44 70 153/71 H 89 L 12/01/20 08:18 95 12/01/20 08:17 70 12/01/20 07:28 97.8 F 70 15 149/75 H 95 Weight Admit Weight 210 lb 15.68 oz Weight 210 lb 15.718 oz I&O: 11/30/20 12/01/20 12/02/20 06:59 06:59 06:59 Intake Total 1490 610 Balance 1490 610 Result Diagrams: 11/29/20 08:02 11/29/20 08:02 Additional Labs: Accuchecks 12/01/20 12/01/20 12/01/20 16:24 11:47 03:42 POC Glucose 148 H 197 H 150 H 11/30/20 19:37 POC Glucose 227 H Hospitalist ROS - Medication Medications: Active Medications Generic Name Dose Route Start Last Admin Trade Name Freq PRN Reason Stop Dose Admin Acetaminophen 650 mg 11/25/20 02:07 11/27/20 20:19 Acetaminophen 325 Mg Tab PO 650 mg Q4H PRN Administration Headache/Fever/Mild Pain (1-3) Albuterol Sulfate 2 puff 11/25/20 02:18 11/26/20 08:38 Albuterol 200 Puff (6.7gm Inhaler) INH 2 puff [id number] PRN Administration Wheezing Ascorbic Acid 1,000 mg 11/25/20 09:00 12/01/20 08:17 Ascorbic Acid 500 Mg Chewable Tablet PO 1,000 mg DAILY HANSA Administration Aspirin 325 mg 11/27/20 09:00 12/01/20 08:17 Aspirin 325 Mg Enteric Coated Tablet PO 325 mg QAM HANSA Administration Atorvastatin Calcium 40 mg 11/27/20 21:00 11/30/20 20:12 Atorvastatin Calcium 40 Mg Tab PO 40 mg HS HANSA Administration Dexamethasone 6 mg 11/25/20 21:00 12/01/20 08:16 Dexamethasone 4 Mg/Ml Vial SLOW IVP 6 mg BID HANSA Administration Glipizide 5 mg 11/27/20 09:00 12/01/20 08:17 Glipizide 5 Mg Tab PO 5 mg DAILY HANSA Administration Doxycycline Hyclate 100 mg/ 100 mls @ 100 mls/hr 11/28/20 16:00 12/01/20 04:33 Sodium Chloride IVPB 100 mls 0400,1600 HANSA Administration Insulin Glargine 25 units/ 0.25 mls @ 0 mls/hr 11/29/20 21:00 11/30/20 20:11 Miscellaneous Medication SC 0.25 mls HS HNASA Administration Insulin Glargine 25 units/ 0.25 mls @ 0 mls/hr 11/30/20 09:00 12/01/20 09:40 Miscellaneous Medication SC 0.25 mls QAM HANSA Administration Insulin Human Lispro 0 units 11/25/20 02:24 12/01/20 12:48 Humalog 300 Units/3 Ml Vial SC 2 unit .MILD SLIDING SCALE PRN Administration Mild Correctional Scale Insulin Human Lispro 0 units 11/25/20 02:24 11/29/20 20:56 Humalog 300 Units/3 Ml Vial SC 5 unit .BEDTIME SLIDING SC PRN Administration Bedtime Correctional Scale Metoprolol Tartrate 25 mg 11/27/20 09:00 12/01/20 08:17 Metoprolol Tartrate 25 Mg Tab PO 25 mg BID HANSA Administration Mometasone Furoate/Formoterol Fumar 2 puff 11/25/20 18:30 12/01/20 06:17 Mometasone 200 Mcg/Formoterol 5 Mcg 120 Puff Inhaler INH 2 puff BID-RT HANSA Administration Nifedipine 30 mg 11/27/20 09:00 12/01/20 08:17 Nifedipine Xl 30 Mg Tab PO 30 mg DAILY HANSA Administration Ondansetron HCl 4 mg 11/27/20 08:20 11/27/20 08:20 Ondansetron Pf 4 Mg/2 Ml Vial IVP 4 mg Q6H PRN Administration Nausea/Vomiting Pantoprazole Sodium 40 mg 11/28/20 09:00 12/01/20 08:17 Pantoprazole 40 Mg Tab PO 40 mg DAILY HANSA Administration Sodium Chloride 10 ml 11/25/20 02:07 11/27/20 20:20 Flush - Normal Saline 10 Ml Syringe IVF 10 ml Q12HR PRN Administration Saline Flush - Exam Eye: PERRL, anicteric sclera Heart: RRR, no murmur, no gallops, no rubs, normal peripheral pulses Respiratory: no wheezes, no ronchi, rales (at both bases) Gastrointestinal: soft, non-tender, non-distended, normal bowel sounds, no palpable masses, no hepatomegaly Extremities: no cyanosis, no edema Neurological: hemiplegia (right upper extremity weakness) Hosp A/P (1) Acute respiratory failure with hypoxia Code(s): J96.01 - ACUTE RESPIRATORY FAILURE WITH HYPOXIA Status: Acute (2) Pneumonia due to COVID-19 virus Code(s): U07.1 - COVID-19; J12.82 - PNEUMONIA DUE TO CORONAVIRUS DISEASE 2019 Status: Acute (3) History of CVA with residual deficit Code(s): I69.30 - UNSPECIFIED SEQUELAE OF CEREBRAL INFARCTION Status: Chronic (4) Anemia of renal disease Code(s): N18.9 - CHRONIC KIDNEY DISEASE, UNSPECIFIED; D63.1 - ANEMIA IN CHRONIC KIDNEY DISEASE Status: Chronic (5) Diabetes type 2, controlled Code(s): E11.9 - TYPE 2 DIABETES MELLITUS WITHOUT COMPLICATIONS Status: Chronic Qualifiers: Diabetes mellitus fci insulin use: without fci use Diabetes mellitus complication status: with kidney complications Diabetes mellitus complication detail: with chronic kidney disease Chronic kidney disease stage: on chronic dialysis Qualified Code(s): E11.22 - Type 2 diabetes mellitus with diabetic chronic kidney disease; N18.6 - End stage renal disease; Z99.2 - Dependence on renal dialysis (6) ESRD (end stage renal disease) on dialysis Code(s): N18.6 - END STAGE RENAL DISEASE; Z99.2 - DEPENDENCE ON RENAL DIALYSIS Status: Chronic (7) HLD (hyperlipidemia) Code(s): E78.5 - HYPERLIPIDEMIA, UNSPECIFIED Status: Chronic (8) HTN (hypertension) Code(s): I10 - ESSENTIAL (PRIMARY) HYPERTENSION Status: Chronic Qualifiers: Hypertension type: essential hypertension Qualified Code(s): I10 - Essential (primary) hypertension - Plan * Acute respiratory failure due to COVID pneumonia- continue Decadron IV- He continues to require high flow oxygen * Wean oxygen as tolerated * Continue DVT prophylaxis- Will place him on Xarelto 15 mg a day as per Hematology recommendations. Will lower the dose of aspirin to 81 mg a day * HTN- blood pressure is stable * DM - blood glucose is elevated- better- continue the current regimen * ESRD- continue dialysis per Nephrology
--- NOTE | 2020-12-01 18:52 | PRG ---
DATE OF SERVICE: 12/01/2020 SUBJECTIVE: The patient noted with the following vital signs. OBJECTIVE: Afebrile, blood pressure 165/71, O2 sat of 89% to 93% on 75% FiO2 high-flow nasal cannula. IMPRESSION: 1. End-stage renal disease, on dialysis. 2. COVID pneumonitis. 3. Respiratory failure. PLAN: 1. We will continue with hemodialysis with ultrafiltration as tolerated by hemodynamics. 2. Continue other renal supportive measures. 3. COVID infection as per the primary team. 4. Further management will be dependent on the clinical course. Job ID: [id number]
[2020-12-01] MEDS: Atorvastatin Calcium 40 MG TAB PO SCH (19:57)
[2020-12-01] MEDS: Acetaminophen 325 MG TAB PO PRN (19:58)
[2020-12-02] MEDS: HumaLOG 300 UNITS/3 ML VIAL SC PRN ×4 (05:54→20:04)
[2020-12-02] MEDS: Mometasone 200 MCG/Formoterol 5 MCG 120 PUFF INHALER INH SCH ×2 (06:00→17:47)
[2020-12-02] MEDS: NIFEdipine XL 30 MG TAB PO SCH (07:53)
[2020-12-02] MEDS: Ascorbic Acid 500 mg Chewable Tablet PO SCH (07:53)
[2020-12-02] MEDS: glipiZIDE 5 MG TAB PO SCH (07:53)
[2020-12-02] MEDS: Metoprolol Tartrate 25 MG TAB PO SCH ×2 (07:53→20:02)
[2020-12-02] MEDS: Aspirin 81 mg Enteric Coated Tablet PO SCH (07:53)
[2020-12-02] MEDS: Dexamethasone 4 mg/ml Vial SLOW IVP SCH ×2 (07:53→20:03)
[2020-12-02] MEDS: Rivaroxaban 15 MG TAB PO SCH (07:54)
[2020-12-02] MEDS: Insulin Glargine 25 UNITS in Pre-Filled Syringe 1 EACH SC SCH ×2 (08:00→20:05)
[2020-12-02 09:47] LABS: Hemoglobin 11.2 g/dL (14.0-18.0); Mean Corpuscular Hemoglobin 28.9 pg (27.0-31.0); Mean Corpuscular Volume 90.3 fL (78.0-98.0); Mean Platelet Volume 8.4 fL (7.4-10.4); Platelet Count 322 thou/uL (130-400); RBC Distribution Width 14.5 % (11.5-14.5); Red Blood Cell (RBC) Count 3.87 mill/uL (4.70-6.10); White Blood Cell (WBC) Count 20.8 thou/uL (4.8-10.8)
[2020-12-02 10:01] LABS: Anion Gap 27 mmol/L (10-20); BUN (Urea Nitrogen) 97 mg/dL (8.4-25.7); Calc. Creatinine Clearance 14 mL/min (70-130); Calcium 8.8 mg/dL (7.8-10.44); Carbon Dioxide 18 mmol/L (23-31); Chloride 94 mmol/L (98-107); Glucose 272 mg/dL (80-115); Potassium 4.4 mmol/L (3.5-5.1); Sodium 135 mmol/L (136-145)
[2020-12-02 10:15] LABS: Band 1 % (5-11); Lymphocytes 3 % (21-51); MDiff Complete? YES; Metamyelocyte 3 % (0-0); Monocytes 6 % (0-10); Myelocyte 3 % (0-0); Neutrophil 83 % (42-75); Platelet Morphology Comment Appears Adequate; Polychromasia SLIGHT = 2-3 cells (100X) (0-2/hpf); Reactive Lymphocytes 1 % (0-10)
--- NOTE | 2020-12-02 10:30 | PRG ---
DATE OF SERVICE: 12/02/2020 SUBJECTIVE: Jose Guadalupe Berger is sitting on the side of the bed without much distress. Still on high-flow. OBJECTIVE: VITAL SIGNS: Temperature 98, pulse 70, respiratory rate 20, sats are 93%, flow rate is 55, FiO2 65, blood pressure 156/67. CHEST: No wheezing. No crackles. CARDIAC: Normal S1 and S2. SUBJECTIVE: White count 20,000. Creatinine is 7, BUN is 97. ASSESSMENT: Renal failure, dialysis, respiratory failure, leukocytosis. X-ray is being ordered tomorrow. Otherwise, high-dose steroids, supportive care, empiric antibiotics. Job ID: [id number]
--- NOTE | 2020-12-02 17:48 | PRG ---
DATE OF SERVICE: 12/02/2020 OBJECTIVE: VITAL SIGNS: The patient noted with the following vital signs. Afebrile, temperature 98, pulse 78, respiratory rate of 20, O2 saturation of 93, blood pressure 150/87. HEENT: Remarkable for high-flow nasal cannula in place. CARDIOVASCULAR SYSTEM: First and second heart sounds were heard. RESPIRATORY SYSTEM: Transmitted sounds. IMPRESSION: 1. End-stage renal disease, on dialysis, due tomorrow. 2. COVID infection. 3. Respiratory failure requiring high-flow oxygen. PLAN: 1. The patient to be dialyzed tomorrow with ultrafiltration as tolerated by hemodynamics. 2. Further management to be dependent on the clinical course. Job ID: [id number]
[2020-12-02] MEDS: Atorvastatin Calcium 40 MG TAB PO SCH (20:02)
[2020-12-02] MEDS: Acetaminophen 325 MG TAB PO PRN (20:02)
[2020-12-02] MEDS: Albuterol 200 PUFF (6.7GM INHALER) INH PRN (20:03)
--- NOTE | 2020-12-02 23:53 | PDOC.BPN ---
- Brief Progress Note Encounter Date: 12/02/20 CODE BLUE was called patient was becoming hypoxic on maximal high flow oxygen- saturation was in the 60s. Respiratory therapy was consulted he was changed to BiPAP and saturation adequately. Patient was otherwise awake and alert. ANO x4 Decision was made to transfer him to [facility] for close monitoring. Basic labs CMP and CBC ordered.
--- NOTE | 2020-12-03 08:00 | RAD ---
Exam: Chest one view HISTORY:Virus. COVID pneumonia. Comparison: 11/27/2020 FINDINGS: Cardiac silhouette:Normal cardiac silhouette. Stable vascular stent projecting over the right clavicl e. Aorta: Unremarkable Pulmonary vessels: Normal Costophrenic angles: Clear LUNGS: Interstitial opacities, similar to the previous examination. Pneumothorax: None Osseous abnormalities: None IMPRESSION: Scattered interstitial opacities. Correlate for multi lobar COVID pneumonia.
[2020-12-03 08:30] LABS: Hemoglobin 10.4 g/dL (14.0-18.0); Mean Corpuscular HGB CONC 32.2 g/dL (32.0-36.0); Mean Corpuscular Volume 89.9 fL (78.0-98.0); Mean Platelet Volume 8.8 fL (7.4-10.4); Platelet Count 373 thou/uL (130-400); RBC Distribution Width 14.7 % (11.5-14.5); Red Blood Cell (RBC) Count 3.59 mill/uL (4.70-6.10); White Blood Cell (WBC) Count 20.1 thou/uL (4.8-10.8)
[2020-12-03] MEDS: glipiZIDE 5 MG TAB PO SCH (08:42)
[2020-12-03] MEDS: Aspirin 81 mg Enteric Coated Tablet PO SCH (08:42)
[2020-12-03] MEDS: Insulin Glargine 25 UNITS in Pre-Filled Syringe 1 EACH SC SCH ×2 (08:42→21:24)
[2020-12-03] MEDS: Dexamethasone 4 mg/ml Vial SLOW IVP SCH ×2 (08:42→20:41)
[2020-12-03] MEDS: Metoprolol Tartrate 25 MG TAB PO SCH ×2 (08:42→21:25)
[2020-12-03] MEDS: Ascorbic Acid 500 mg Chewable Tablet PO SCH (08:42)
[2020-12-03] MEDS: NIFEdipine XL 30 MG TAB PO SCH (08:42)
[2020-12-03 08:48] LABS: Anion Gap 29 mmol/L (10-20); Calc. Creatinine Clearance 12 mL/min (70-130); Calcium 8.8 mg/dL (7.8-10.44); Carbon Dioxide 19 mmol/L (23-31); Chloride 95 mmol/L (98-107); Glucose 114 mg/dL (80-115); Potassium 4.5 mmol/L (3.5-5.1); Sodium 138 mmol/L (136-145)
[2020-12-03 09:00] LABS: BUN (Urea Nitrogen) 127 mg/dL (8.4-25.7)
[2020-12-03 09:02] LABS: Band 6 % (5-11); Lymphocytes 4 % (21-51); MDiff Complete? YES; Metamyelocyte 2 % (0-0); Monocytes 1 % (0-10); Neutrophil 87 % (42-75); Platelet Morphology Comment Appears Adequate; Polychromasia SLIGHT = 2-3 cells (100X) (0-2/hpf)
[2020-12-03] MEDS: Rivaroxaban 15 MG TAB PO SCH (09:16)
--- NOTE | 2020-12-03 09:22 | PRG ---
DATE OF SERVICE: SUBJECTIVE: Day 9 in the hospital, transferred last night to the MICU having difficulty breathing. OBJECTIVE: VITAL SIGNS: His temperature is 98, pulse 70, sats on BiPAP 60%, low PEEP of 7, about 90%. Blood pressure 174/70. CHEST: Rhonchi and crackles. CARDIAC: Normal S1 and S2. No gallops. ABDOMEN: No masses. LABORATORY DATA: Creatinine 8.3, BUN 27. White count 10,000. X-ray still shows bilateral infiltrates. ASSESSMENT: Respiratory failure, Hair positive pneumonia, renal failure. PLAN: Continue broad-spectrum antibiotics. Supportive care, PT. One-half hour of critical care time. Job ID: [id number]
[2020-12-03] MEDS: Cefepime 0.5 GM in Sodium Chloride 0.9% 100 ML IVPB SCH ×2 (09:40→21:04)
--- NOTE | 2020-12-03 10:08 | PDOC.HOSPP ---
- Subjective Encounter Date: 12/03/20 Encounter Time: 10:07 Subjective: Mr. Pacheco was seen today in follow-up of COVID pneumonia. He is complaining of being hungry. He feels he is breathing ok. - Objective Vital Signs & Weight: Vital Signs (12 hours) Temp Pulse Resp BP Pulse Ox 12/03/20 08:42 70 12/03/20 08:00 92 L 12/03/20 07:49 70 12/03/20 01:00 98 12/02/20 23:45 80 96 12/02/20 23:25 98 F 98 22 H 180/87 H 95 12/02/20 22:12 92 L Weight Admit Weight 210 lb 15.68 oz Weight 210 lb 15.718 oz Most Recent Monitor Data Heart Rate from ECG 73 NIBP 184/75 NIBP BP-Mean 111 Respiration from ECG 19 SpO2 91 I&O: 12/02/20 12/03/20 12/04/20 06:59 06:59 06:59 Intake Total 800 720 100 Output Total 3000 0 Balance -2200 720 100 Result Diagrams: 12/03/20 08:00 12/03/20 08:00 Additional Labs: Accuchecks 12/03/20 12/03/20 12/02/20 09:39 05:34 19:53 POC Glucose 71 160 H 307 H 12/02/20 12/02/20 16:46 11:07 POC Glucose 284 H 277 H Hospitalist ROS - Medication Medications: Active Medications Generic Name Dose Route Start Last Admin Trade Name Freq PRN Reason Stop Dose Admin Acetaminophen 650 mg 11/25/20 02:07 12/02/20 20:02 Acetaminophen 325 Mg Tab PO 650 mg Q4H PRN Administration Headache/Fever/Mild Pain (1-3) Albuterol Sulfate 2 puff 11/25/20 02:18 12/02/20 20:03 Albuterol 200 Puff (6.7gm Inhaler) INH 2 puff [id number] PRN Administration Wheezing Ascorbic Acid 1,000 mg 11/25/20 09:00 12/03/20 08:42 Ascorbic Acid 500 Mg Chewable Tablet PO 1,000 mg DAILY HANSA Administration Aspirin 81 mg 12/02/20 09:00 12/03/20 08:42 Aspirin 81 Mg Enteric Coated Tablet PO 81 mg DAILY HANSA Administration Atorvastatin Calcium 40 mg 11/27/20 21:00 12/02/20 20:02 Atorvastatin Calcium 40 Mg Tab PO 40 mg HS HANSA Administration Dexamethasone 6 mg 11/25/20 21:00 12/03/20 08:42 Dexamethasone 4 Mg/Ml Vial SLOW IVP 6 mg BID HANSA Administration Glipizide 5 mg 11/27/20 09:00 12/03/20 08:42 Glipizide 5 Mg Tab PO 5 mg DAILY HANSA Administration Doxycycline Hyclate 100 mg/ 100 mls @ 100 mls/hr 11/28/20 16:00 12/03/20 04:31 Sodium Chloride IVPB 100 mls 0400,1600 HANSA Administration Insulin Glargine 25 units/ 0.25 mls @ 0 mls/hr 11/29/20 21:00 12/02/20 20:05 Miscellaneous Medication SC 0.25 mls HS HANSA Administration Insulin Glargine 25 units/ 0.25 mls @ 0 mls/hr 11/30/20 09:00 12/03/20 08:42 Miscellaneous Medication SC 0.25 mls QAM HANSA Administration Cefepime HCl 0.5 gm/ Sodium 100 mls @ 0 mls/hr 12/03/20 09:00 12/03/20 09:40 Chloride IVPB 100 mls Q12HR HANSA Administration Insulin Human Lispro 0 units 11/25/20 02:24 12/02/20 17:36 Humalog 300 Units/3 Ml Vial SC 4 unit .MILD SLIDING SCALE PRN Administration Mild Correctional Scale Insulin Human Lispro 0 units 11/25/20 02:24 12/02/20 20:04 Humalog 300 Units/3 Ml Vial SC 4 unit .BEDTIME SLIDING SC PRN Administration Bedtime Correctional Scale Metoprolol Tartrate 25 mg 11/27/20 09:00 12/03/20 08:42 Metoprolol Tartrate 25 Mg Tab PO 25 mg BID HANSA Administration Mometasone Furoate/Formoterol Fumar 2 puff 11/25/20 18:30 12/02/20 17:47 Mometasone 200 Mcg/Formoterol 5 Mcg 120 Puff Inhaler INH 2 puff BID-RT HANSA Administration Nifedipine 30 mg 11/27/20 09:00 12/03/20 08:42 Nifedipine Xl 30 Mg Tab PO 30 mg DAILY HANSA Administration Ondansetron HCl 4 mg 11/27/20 08:20 11/27/20 08:20 Ondansetron Pf 4 Mg/2 Ml Vial IVP 4 mg Q6H PRN Administration Nausea/Vomiting Pantoprazole Sodium 40 mg 11/28/20 09:00 12/03/20 08:42 Pantoprazole 40 Mg Tab PO 40 mg DAILY HANSA Administration Rivaroxaban 15 mg 12/02/20 09:00 12/03/20 09:16 Rivaroxaban 15 Mg Tab PO Not Given DAILY HANSA Sodium Chloride 10 ml 11/25/20 02:07 11/27/20 20:20 Flush - Normal Saline 10 Ml Syringe IVF 10 ml Q12HR PRN Administration Saline Flush - Exam Eye: PERRL, anicteric sclera Heart: RRR, no murmur, no gallops, no rubs, normal peripheral pulses Respiratory: no wheezes, no ronchi, rales (at both bases) Gastrointestinal: soft, non-tender, non-distended, normal bowel sounds, no palpable masses, no hepatomegaly Extremities: no cyanosis (pulses are palpable), 1+ LE edema Hosp A/P (1) Acute respiratory failure with hypoxia Code(s): J96.01 - ACUTE RESPIRATORY FAILURE WITH HYPOXIA Status: Acute (2) Pneumonia due to COVID-19 virus Code(s): U07.1 - COVID-19; J12.82 - PNEUMONIA DUE TO CORONAVIRUS DISEASE 2019 Status: Acute (3) History of CVA with residual deficit Code(s): I69.30 - UNSPECIFIED SEQUELAE OF CEREBRAL INFARCTION Status: Chronic (4) Anemia of renal disease Code(s): N18.9 - CHRONIC KIDNEY DISEASE, UNSPECIFIED; D63.1 - ANEMIA IN CHRONIC KIDNEY DISEASE Status: Chronic (5) Diabetes type 2, controlled Code(s): E11.9 - TYPE 2 DIABETES MELLITUS WITHOUT COMPLICATIONS Status: Chronic Qualifiers: Diabetes mellitus group home insulin use: without wax pattern repairer use Diabetes mellitus complication status: with kidney complications Diabetes mellitus complication detail: with chronic kidney disease Chronic kidney disease stage: on chronic dialysis Qualified Code(s): E11.22 - Type 2 diabetes mellitus with diabetic chronic kidney disease; N18.6 - End stage renal disease; Z99.2 - Dependence on renal dialysis (6) ESRD (end stage renal disease) on dialysis Code(s): N18.6 - END STAGE RENAL DISEASE; Z99.2 - DEPENDENCE ON RENAL DIALYSIS Status: Chronic (7) HLD (hyperlipidemia) Code(s): E78.5 - HYPERLIPIDEMIA, UNSPECIFIED Status: Chronic (8) HTN (hypertension) Code(s): I10 - ESSENTIAL (PRIMARY) HYPERTENSION Status: Chronic Qualifiers: Hypertension type: essential hypertension Qualified Code(s): I10 - Essential (primary) hypertension - Plan * Acute respiratory failure due to COVID pneumonia- He decompensated some last night. He began to require an increased level of oxygenation. He has been moved to the [facility], and has been placed on BiPAP. * Continue Decadron and * Continue DVT prophylaxis- Continue Xarelto * HTN- blood pressure is elevated- will increase the dose of Nifedipine, and add Labetolol prn * DM - blood glucose is elevated- better- continue the current regimen * ESRD- continue dialysis per Nephrology
[2020-12-03] MEDS ORDERED: NIFEdipine XL 30 MG TAB PO SCH (10:10)
[2020-12-03] MEDS ORDERED: Labetalol HCl 100 MG/20 ML VIAL SLOW IVP PRN (10:10)
[2020-12-03] MEDS ORDERED: NIFEdipine XL 60 MG TAB PO SCH (10:15)
--- NOTE | 2020-12-03 18:20 | PRG ---
DATE OF SERVICE: SUBJECTIVE: The patient noted with the following vital signs. OBJECTIVE: VITAL SIGNS: Blood pressure 146/66, heart rate of 67, O2 saturations are 97%. HEENT: Remarkable for high-flow nasal cannula in place. CARDIOVASCULAR SYSTEM: First and second heart sounds were heard. RESPIRATORY SYSTEM: Revealed a lot of transmitted sounds. DIGESTIVE SYSTEM: Revealed a benign abdomen. EXTREMITIES: No peripheral edema. IMPRESSION: 1. End-stage renal disease, hemodialysis dependent. 2. COVID pneumonitis. 3. Respiratory failure in the context of problem #2. PLAN: 1. The patient to be dialyzed today with emphasis on ultrafiltration. My target today will be to get 5 L of fluid off this patient; therefore, we will modify the dialysis prescription to achieve this goal. 2. Renally dose all medications. 3. Further management to be dependent on the clinical course. Job ID: [id number]
[2020-12-03] MEDS: Mometasone 200 MCG/Formoterol 5 MCG 120 PUFF INHALER INH SCH ×2 (19:33→19:46)
[2020-12-03] MEDS: Atorvastatin Calcium 40 MG TAB PO SCH (21:24)
[2020-12-04] MEDS: Dextrose 50% Abboject 50 ML SYRINGE SLOW IVP PRN ×2 (06:30→21:01)
[2020-12-04] MEDS: Mometasone 200 MCG/Formoterol 5 MCG 120 PUFF INHALER INH SCH ×2 (06:35→19:37)
[2020-12-04 07:51] LABS: Hemoglobin 11.2 g/dL (14.0-18.0); Mean Corpuscular HGB CONC 32.5 g/dL (32.0-36.0); Mean Corpuscular Hemoglobin 29.3 pg (27.0-31.0); Mean Corpuscular Volume 90.2 fL (78.0-98.0); Mean Platelet Volume 7.7 fL (7.4-10.4); Platelet Count 333 thou/uL (130-400); RBC Distribution Width 14.8 % (11.5-14.5); Red Blood Cell (RBC) Count 3.81 mill/uL (4.70-6.10); White Blood Cell (WBC) Count 17.5 thou/uL (4.8-10.8)
[2020-12-04 08:01] LABS: Anion Gap 25 mmol/L (10-20); BUN (Urea Nitrogen) 93 mg/dL (8.4-25.7); Calc. Creatinine Clearance 14 mL/min (70-130); Calcium 8.8 mg/dL (7.8-10.44); Carbon Dioxide 23 mmol/L (23-31); Chloride 96 mmol/L (98-107); Glucose 91 mg/dL (80-115); Potassium 4.7 mmol/L (3.5-5.1); Sodium 139 mmol/L (136-145)
[2020-12-04 08:31] LABS: Band 2 % (5-11); Lymphocytes 4 % (21-51); MDiff Complete? YES; Metamyelocyte 2 % (0-0); Monocytes 5 % (0-10); Myelocyte 1 % (0-0); Neutrophil 86 % (42-75); Platelet Morphology Comment Appears Adequate; Polychromasia SLIGHT = 2-3 cells (100X) (0-2/hpf)
[2020-12-04] MEDS: Dexamethasone 4 mg/ml Vial SLOW IVP SCH ×2 (08:32→20:41)
[2020-12-04] MEDS: Cefepime 0.5 GM in Sodium Chloride 0.9% 100 ML IVPB SCH ×2 (08:32→20:41)
[2020-12-04] MEDS: Ascorbic Acid 500 mg Chewable Tablet PO SCH (08:56)
[2020-12-04] MEDS: Metoprolol Tartrate 25 MG TAB PO SCH ×2 (08:57→22:19)
[2020-12-04] MEDS: NIFEdipine XL 60 MG TAB PO SCH (08:57)
[2020-12-04] MEDS: Rivaroxaban 15 MG TAB PO SCH (08:57)
[2020-12-04] MEDS: Aspirin 81 mg Enteric Coated Tablet PO SCH (08:57)
[2020-12-04] MEDS: Insulin Glargine 25 UNITS in Pre-Filled Syringe 1 EACH SC SCH (08:57)
[2020-12-04] MEDS: glipiZIDE 5 MG TAB PO SCH (08:57)
--- NOTE | 2020-12-04 09:43 | PDOC.HOSPP ---
- Subjective Encounter Date: 12/04/20 Encounter Time: 09:41 Subjective: Mr. Pacheco was seen today in follow-up of COVID pneumonia. He has been stable on BiPAP. His nurse noted some trouble with his swallowing. Mr. Pacheco appears fatigued. - Objective Vital Signs & Weight: Vital Signs (12 hours) Temp Pulse Resp Pulse Ox 12/04/20 08:57 81 12/04/20 07:36 93 L 12/04/20 06:35 81 20 91 L 12/04/20 06:33 83 91 L 12/04/20 04:00 98.3 F 12/04/20 02:50 63 12/04/20 00:00 98.6 F 12/03/20 22:21 71 Weight Admit Weight 210 lb 15.68 oz Weight 201 lb 0.985 oz Most Recent Monitor Data Heart Rate from ECG 68 NIBP 152/46 NIBP BP-Mean 81 Respiration from ECG 19 SpO2 95 I&O: 12/03/20 12/04/20 12/05/20 06:59 06:59 06:59 Intake Total 720 400 100 Output Total 0 0 Balance 720 400 100 Result Diagrams: 12/04/20 07:32 12/04/20 07:32 Additional Labs: Accuchecks 12/04/20 12/03/20 12/03/20 08:40 21:09 09:39 POC Glucose 72 68 L 71 Hospitalist ROS - Medication Medications: Active Medications Generic Name Dose Route Start Last Admin Trade Name Freq PRN Reason Stop Dose Admin Acetaminophen 650 mg 11/25/20 02:07 12/02/20 20:02 Acetaminophen 325 Mg Tab PO 650 mg Q4H PRN Administration Headache/Fever/Mild Pain (1-3) Albuterol Sulfate 2 puff 11/25/20 02:18 12/02/20 20:03 Albuterol 200 Puff (6.7gm Inhaler) INH 2 puff [id number] PRN Administration Wheezing Ascorbic Acid 1,000 mg 11/25/20 09:00 12/04/20 08:56 Ascorbic Acid 500 Mg Chewable Tablet PO Not Given DAILY HANSA Aspirin 81 mg 12/02/20 09:00 12/04/20 08:57 Aspirin 81 Mg Enteric Coated Tablet PO Not Given DAILY HANSA Atorvastatin Calcium 40 mg 11/27/20 21:00 12/03/20 21:24 Atorvastatin Calcium 40 Mg Tab PO Not Given HS HANSA Dexamethasone 6 mg 11/25/20 21:00 12/04/20 08:32 Dexamethasone 4 Mg/Ml Vial SLOW IVP 6 mg BID HANSA Administration Dextrose/Water 25 gm 11/25/20 02:24 12/04/20 06:30 Dextrose 50% Abboject 50 Ml Syringe SLOW IVP 25 gm PRN PRN Administration Hypoglycemia Glipizide 5 mg 11/27/20 09:00 12/04/20 08:57 Glipizide 5 Mg Tab PO Not Given DAILY HANSA Doxycycline Hyclate 100 mg/ 100 mls @ 100 mls/hr 11/28/20 16:00 12/04/20 03:05 Sodium Chloride IVPB 100 mls 0400,1600 HANSA Administration Insulin Glargine 25 units/ 0.25 mls @ 0 mls/hr 11/29/20 21:00 12/03/20 21:24 Miscellaneous Medication SC Not Given HS HANSA Insulin Glargine 25 units/ 0.25 mls @ 0 mls/hr 11/30/20 09:00 12/04/20 08:57 Miscellaneous Medication SC Not Given QAM HANSA Cefepime HCl 0.5 gm/ Sodium 100 mls @ 0 mls/hr 12/03/20 09:00 12/04/20 08:32 Chloride IVPB 100 mls Q12HR HANSA Administration Insulin Human Lispro 0 units 11/25/20 02:24 12/02/20 17:36 Humalog 300 Units/3 Ml Vial SC 4 unit .MILD SLIDING SCALE PRN Administration Mild Correctional Scale Insulin Human Lispro 0 units 11/25/20 02:24 12/02/20 20:04 Humalog 300 Units/3 Ml Vial SC 4 unit .BEDTIME SLIDING SC PRN Administration Bedtime Correctional Scale Metoprolol Tartrate 25 mg 11/27/20 09:00 12/04/20 08:57 Metoprolol Tartrate 25 Mg Tab PO Not Given BID HANSA Mometasone Furoate/Formoterol Fumar 2 puff 11/25/20 18:30 12/04/20 06:35 Mometasone 200 Mcg/Formoterol 5 Mcg 120 Puff Inhaler INH 2 puff BID-RT HANSA Administration Nifedipine 60 mg 12/04/20 09:00 12/04/20 08:57 Nifedipine Xl 60 Mg Tab PO Not Given DAILY [facility] Ondansetron HCl 4 mg 11/27/20 08:20 11/27/20 08:20 Ondansetron Pf 4 Mg/2 Ml Vial IVP 4 mg Q6H PRN Administration Nausea/Vomiting Pantoprazole Sodium 40 mg 11/28/20 09:00 12/04/20 08:57 Pantoprazole 40 Mg Tab PO Not Given DAILY [facility] Rivaroxaban 15 mg 12/02/20 09:00 12/04/20 08:57 Rivaroxaban 15 Mg Tab PO Not Given DAILY [facility] Sodium Chloride 10 ml 11/25/20 02:07 11/27/20 20:20 Flush - Normal Saline 10 Ml Syringe IVF 10 ml Q12HR PRN Administration Saline Flush - Exam Eye: PERRL, anicteric sclera Heart: RRR, no murmur, no gallops, no rubs, normal peripheral pulses Respiratory: no wheezes, no ronchi, rales Respiratory - other findings: at both bases Gastrointestinal: soft, non-tender, non-distended, normal bowel sounds, no palpable masses, no hepatomegaly Extremities: no cyanosis, 1+ LE edema Extremities - other findings: palpable pulses bilaterally Hosp A/P (1) Acute respiratory failure with hypoxia Code(s): J96.01 - ACUTE RESPIRATORY FAILURE WITH HYPOXIA Status: Acute (2) Pneumonia due to COVID-19 virus Code(s): U07.1 - COVID-19; J12.82 - PNEUMONIA DUE TO CORONAVIRUS DISEASE 2019 Status: Acute (3) History of CVA with residual deficit Code(s): I69.30 - UNSPECIFIED SEQUELAE OF CEREBRAL INFARCTION Status: Chronic (4) Anemia of renal disease Code(s): N18.9 - CHRONIC KIDNEY DISEASE, UNSPECIFIED; D63.1 - ANEMIA IN CHRONIC KIDNEY DISEASE Status: Chronic (5) Diabetes type 2, controlled Code(s): E11.9 - TYPE 2 DIABETES MELLITUS WITHOUT COMPLICATIONS Status: Chronic Qualifiers: Diabetes mellitus long term care phlebotomist insulin use: without fdc use Diabetes mellitus complication status: with kidney complications Diabetes mellitus complication detail: with chronic kidney disease Chronic kidney disease stage: on chronic dialysis Qualified Code(s): E11.22 - Type 2 diabetes mellitus with diabetic chronic kidney disease; N18.6 - End stage renal disease; Z99.2 - Dependence on renal dialysis (6) ESRD (end stage renal disease) on dialysis Code(s): N18.6 - END STAGE RENAL DISEASE; Z99.2 - DEPENDENCE ON RENAL DIALYSIS Status: Chronic (7) HLD (hyperlipidemia) Code(s): E78.5 - HYPERLIPIDEMIA, UNSPECIFIED Status: Chronic (8) HTN (hypertension) Code(s): I10 - ESSENTIAL (PRIMARY) HYPERTENSION Status: Chronic Qualifiers: Hypertension type: essential hypertension Qualified Code(s): I10 - Essential (primary) hypertension - Plan * Acute respiratory failure due to COVID pneumonia- continue BiPAP * Continue Decadron and other supportive care * Continue DVT prophylaxis- Continue Xarelto * Dysphagia- this may be due to muscle fatigue- will consult Speech Therapy- he may need alternate means of nutrition * HTN- blood pressure is elevated- will increase the dose of Nifedipine, and add Labetolol prn * DM - blood glucose is stable, but beginning to run on the lower side- will decrease the dose of Lantus * ESRD- continue dialysis per Nephrology
--- NOTE | 2020-12-04 09:47 | PRG ---
DATE OF SERVICE: 12/04/2020 SUBJECTIVE: Status post urias virus positive pneumonia, on BiPAP. OBJECTIVE: VITAL SIGNS: Saturations are 95%, blood pressure 140/46, respiratory rate 18. CHEST: No wheezing. No crackles. CARDIAC: Normal S1 and S2. No gallops. ABDOMEN: No masses. LABORATORY DATA: White count 17,000. Creatinine 6. ASSESSMENT: 1. Chronic renal failure, being dialyzed 3 times a week. 2. Respiratory failure with urias positive pneumonia. His x-ray looks somewhat stable. PLAN: We will continue empiric antibiotics and high-dose steroids. Job ID: [id number]
--- NOTE | 2020-12-04 17:11 | PRG ---
DATE OF SERVICE: 12/04/2020 SUBJECTIVE: The patient seems to be in ICU on BiPAP. OBJECTIVE: VITAL SIGNS: Noted with the following vital signs: Temperature 98.3, pulse 81 respiratory rate of 20, O2 saturation of 91% to 93%, blood pressure HEENT: Unremarkable. CARDIOVASCULAR SYSTEM: First and second heart sounds were heard. RESPIRATORY SYSTEM: . DIGESTIVE SYSTEM: Revealed a benign abdomen. Positive bowel sounds. EXTREMITIES: No peripheral edema. SKIN: No new gross rash. LYMPHATICS: No peripheral lymphadenopathy. IMPRESSION: 1. End-stage renal disease, on dialysis. 2. COVID pneumonitis, resolved. 3. Hypoxic respiratory failure. PLAN: 1. The patient is to continue with hemodialysis with ultrafiltration as tolerated by hemodynamics. 2. Further management to be dependent on the clinical course. Job ID: [id number]
[2020-12-04] MEDS: Albuterol 200 PUFF (6.7GM INHALER) INH PRN (19:36)
[2020-12-04] MEDS: Atorvastatin Calcium 40 MG TAB PO SCH (22:19)
[2020-12-04] MEDS: Insulin Glargine 15 UNITS in Pre-Filled Syringe 1 EACH SC SCH (22:19)
[2020-12-04] MEDS ORDERED: Dextrose 10% in Water 1,000 ML IV SCH (22:45)
[2020-12-05 04:21] LABS: Anion Gap 27 mmol/L (10-20); BUN (Urea Nitrogen) 122 mg/dL (8.4-25.7); Calc. Creatinine Clearance 12 mL/min (70-130); Calcium 8.7 mg/dL (7.8-10.44); Carbon Dioxide 19 mmol/L (23-31); Chloride 95 mmol/L (98-107); Glucose 139 mg/dL (80-115); Potassium 5.1 mmol/L (3.5-5.1); Sodium 136 mmol/L (136-145)
[2020-12-05 04:47] LABS: Hemoglobin 10.9 g/dL (14.0-18.0); Hypochromia SLIGHT = 6-15 cells (100X) (0-5/hpf); Lymphocytes 13 % (21-51); MDiff Complete? YES; Mean Corpuscular HGB CONC 33.3 g/dL (32.0-36.0); Mean Corpuscular Hemoglobin 30.1 pg (27.0-31.0); Mean Corpuscular Volume 90.3 fL (78.0-98.0); Mean Platelet Volume 7.9 fL (7.4-10.4); Monocytes 10 % (0-10); Neutrophil 77 % (42-75); Platelet Count 345 thou/uL (130-400); Platelet Morphology Comment Appears Adequate; RBC Distribution Width 14.6 % (11.5-14.5); Red Blood Cell (RBC) Count 3.63 mill/uL (4.70-6.10); White Blood Cell (WBC) Count 18.2 thou/uL (4.8-10.8)
--- NOTE | 2020-12-05 08:58 | PDOC.HOSPP ---
- Subjective Encounter Date: 12/05/20 Encounter Time: 08:53 Subjective: Mr. Pacheco was seen today in follow-up of COVID pneumonia. He says he is breathing better. He wants to eat. I have discussed with him the risks of doing so. - Objective Vital Signs & Weight: Vital Signs (12 hours) Temp Pulse Ox 12/05/20 04:00 98.8 F 12/05/20 02:09 93 L 12/05/20 00:00 98.5 F 12/04/20 22:56 89 L Weight Admit Weight 210 lb 15.68 oz Weight 201 lb 0.985 oz Most Recent Monitor Data Heart Rate from ECG 73 NIBP 160/81 NIBP BP-Mean 107 Respiration from ECG 22 SpO2 100 I&O: 12/04/20 12/05/20 12/06/20 06:59 06:59 06:59 Intake Total 400 562 Output Total 0 0 Balance 400 562 Result Diagrams: 12/05/20 03:43 12/05/20 03:30 Additional Labs: Accuchecks 12/05/20 12/05/20 12/04/20 05:36 01:13 20:57 POC Glucose 141 H 112 H 42 L* 12/04/20 12/04/20 16:19 06:16 POC Glucose 61 L 53 L* Hospitalist ROS - Medication Medications: Active Medications Generic Name Dose Route Start Last Admin Trade Name Freq PRN Reason Stop Dose Admin Acetaminophen 650 mg 11/25/20 02:07 12/02/20 20:02 Acetaminophen 325 Mg Tab PO 650 mg Q4H PRN Administration Headache/Fever/Mild Pain (1-3) Albuterol Sulfate 2 puff 11/25/20 02:18 12/04/20 19:36 Albuterol 200 Puff (6.7gm Inhaler) INH 2 puff [id number] PRN Administration Wheezing Ascorbic Acid 1,000 mg 11/25/20 09:00 12/04/20 08:56 Ascorbic Acid 500 Mg Chewable Tablet PO Not Given DAILY [facility]ANSA Aspirin 81 mg 12/02/20 09:00 12/04/20 08:57 Aspirin 81 Mg Enteric Coated Tablet PO Not Given DAILY [facility]ANSA Atorvastatin Calcium 40 mg 11/27/20 21:00 12/04/20 22:19 Atorvastatin Calcium 40 Mg Tab PO Not Given HS HANSA Dexamethasone 6 mg 11/25/20 21:00 12/04/20 20:41 Dexamethasone 4 Mg/Ml Vial SLOW IVP 6 mg BID HANSA Administration Dextrose/Water 25 gm 11/25/20 02:24 12/04/20 21:01 Dextrose 50% Abboject 50 Ml Syringe SLOW IVP 25 gm PRN PRN Administration Hypoglycemia Glipizide 5 mg 11/27/20 09:00 12/04/20 08:57 Glipizide 5 Mg Tab PO Not Given DAILY [facility]ANSA Doxycycline Hyclate 100 mg/ 100 mls @ 100 mls/hr 11/28/20 16:00 12/05/20 03:27 Sodium Chloride IVPB 100 mls 0400,1600 HANSA Administration Cefepime HCl 0.5 gm/ Sodium 100 mls @ 0 mls/hr 12/03/20 09:00 12/04/20 20:41 Chloride IVPB 100 mls Q12HR HANSA Administration Insulin Glargine 15 units/ 0.15 mls @ 0 mls/hr 12/04/20 21:00 12/04/20 22:19 Miscellaneous Medication SC Not Given HS HANSA Dextrose/Water 1,000 mls @ 50 mls/hr 12/04/20 22:45 12/04/20 22:48 Dextrose 10% In Water IV 1,000 mls .Q20H HANSA Administration Insulin Human Lispro 0 units 11/25/20 02:24 12/02/20 17:36 Humalog 300 Units/3 Ml Vial SC 4 unit .MILD SLIDING SCALE PRN Administration Mild Correctional Scale Insulin Human Lispro 0 units 11/25/20 02:24 12/02/20 20:04 Humalog 300 Units/3 Ml Vial SC 4 unit .BEDTIME SLIDING SC PRN Administration Bedtime Correctional Scale Metoprolol Tartrate 25 mg 11/27/20 09:00 12/04/20 22:19 Metoprolol Tartrate 25 Mg Tab PO Not Given BID HANSA Mometasone Furoate/Formoterol Fumar 2 puff 11/25/20 18:30 12/04/20 19:37 Mometasone 200 Mcg/Formoterol 5 Mcg 120 Puff Inhaler INH 2 puff BID-RT HANSA Administration Nifedipine 60 mg 12/04/20 09:00 12/04/20 08:57 Nifedipine Xl 60 Mg Tab PO Not Given DAILY [facility] Ondansetron HCl 4 mg 11/27/20 08:20 11/27/20 08:20 Ondansetron Pf 4 Mg/2 Ml Vial IVP 4 mg Q6H PRN Administration Nausea/Vomiting Pantoprazole Sodium 40 mg 11/28/20 09:00 12/04/20 08:57 Pantoprazole 40 Mg Tab PO Not Given DAILY [facility] Rivaroxaban 15 mg 12/02/20 09:00 12/04/20 08:57 Rivaroxaban 15 Mg Tab PO Not Given DAILY [facility] Sodium Chloride 10 ml 11/25/20 02:07 11/27/20 20:20 Flush - Normal Saline 10 Ml Syringe IVF 10 ml Q12HR PRN Administration Saline Flush - Exam Eye: PERRL, anicteric sclera Heart: RRR, no murmur, no gallops, no rubs, normal peripheral pulses Respiratory: no ronchi, rales (at the bases) Gastrointestinal: soft, non-tender, non-distended, normal bowel sounds, no palpable masses, no hepatomegaly Extremities: no cyanosis, no edema Hosp A/P (1) Acute respiratory failure with hypoxia Code(s): J96.01 - ACUTE RESPIRATORY FAILURE WITH HYPOXIA Status: Acute (2) Pneumonia due to COVID-19 virus Code(s): U07.1 - COVID-19; J12.82 - PNEUMONIA DUE TO CORONAVIRUS DISEASE 2019 Status: Acute (3) History of CVA with residual deficit Code(s): I69.30 - UNSPECIFIED SEQUELAE OF CEREBRAL INFARCTION Status: Chronic (4) Anemia of renal disease Code(s): N18.9 - CHRONIC KIDNEY DISEASE, UNSPECIFIED; D63.1 - ANEMIA IN CHRONIC KIDNEY DISEASE Status: Chronic (5) Diabetes type 2, controlled Code(s): E11.9 - TYPE 2 DIABETES MELLITUS WITHOUT COMPLICATIONS Status: Chronic Qualifiers: 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: without 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 installer use Diabetes mellitus complication status: with kidney complications Diabetes mellitus comp lication detail: with chronic kidney disease Chronic kidney disease stage: on chronic dialysis Qualified Code(s): E11.22 - Type 2 diabetes mellitus with diabetic chronic kidney disease; N18.6 - End stage renal disease; Z99.2 - Dependence on renal dialysis (6) ESRD (end stage renal disease) on dialysis Code(s): N18.6 - END STAGE RENAL DISEASE; Z99.2 - DEPENDENCE ON RENAL DIALYSIS Status: Chronic (7) HLD (hyperlipidemia) Code(s): E78.5 - HYPERLIPIDEMIA, UNSPECIFIED Status: Chronic (8) HTN (hypertension) Code(s): I10 - ESSENTIAL (PRIMARY) HYPERTENSION Status: Chronic Qualifiers: Hypertension type: essential hypertension Qualified Code(s): I10 - Essential (primary) hypertension - Plan * Acute respiratory failure due to COVID pneumonia- He has been wean off BiPAP, and now is on high flow * Continue Decadron and other supportive care * Continue DVT prophylaxis- Continue Xarelto * Dysphagia- this may be due to muscle fatigue- will consult Speech Therapy- he may need alternate means of nutrition * HTN- blood pressure is elevated- will increase the dose of Nifedipine, and add Labetolol prn * DM - monitor closely. Lantus dose was decreased. He had a low value last night. May need continued decrease, or increase his oral intake * ESRD- continue dialysis per Nephrology * Nutrition- He has not done well so far with swallowing- probably due to muscle weakness from the extended hospital stay. He has high flow oxygen which removes the option of placing a DHT. We have discussed this at length, and he still wants to eat. I have discussed the risk of possible aspiration, and . He would like to proceed with a diet with risks. Will see what diet is the "safest" from the Speech therapy team.
[2020-12-05] MEDS ORDERED: hydrALAZINE 25 MG TAB PER TUBE SCH (09:00)
[2020-12-05] MEDS: Mometasone 200 MCG/Formoterol 5 MCG 120 PUFF INHALER INH SCH ×2 (09:11→19:33)
[2020-12-05] MEDS: Aspirin 81 mg Enteric Coated Tablet PO SCH (09:38)
[2020-12-05] MEDS: NIFEdipine XL 60 MG TAB PO SCH (09:38)
[2020-12-05] MEDS: glipiZIDE 5 MG TAB PO SCH (09:38)
[2020-12-05] MEDS: Rivaroxaban 15 MG TAB PO SCH (09:38)
[2020-12-05] MEDS: Dexamethasone 4 mg/ml Vial SLOW IVP SCH ×2 (09:39→20:58)
[2020-12-05] MEDS: Metoprolol Tartrate 25 MG TAB PO SCH ×2 (09:39→20:58)
[2020-12-05] MEDS: Ascorbic Acid 500 mg Chewable Tablet PO SCH (09:39)
[2020-12-05] MEDS: Insulin Glargine 15 UNITS in Pre-Filled Syringe 1 EACH SC SCH ×2 (09:40→21:18)
--- NOTE | 2020-12-05 10:01 | PRG ---
DATE OF SERVICE: 12/05/2020 SUBJECTIVE: This morning, sitting on the side of the bed. OBJECTIVE: VITAL SIGNS: He is on high-flow FiO2 of 76, 60% flow rate, pulse 72, temperature is 98. GENERAL: He is in no distress . He is being dialyzed. CHEST: No wheezing. No crackles. CARDIAC: Normal S1 and S2. No gallops. ABDOMEN: No masses. LABORATORY DATA: WBCs 18.2. IMPRESSION: Hair positive pneumonia, respiratory failure, renal failure, deconditioning. PLAN: He is on empiric antibiotics, high-dose steroids. Appears to be stable enough to be transferred out of the MICU to monitored bed. Job ID: [id number]
[2020-12-05] MEDS: Cefepime 0.5 GM in Sodium Chloride 0.9% 100 ML IVPB SCH (10:31)
[2020-12-05] MEDS: HumaLOG 300 UNITS/3 ML VIAL SC PRN ×2 (16:41→23:59)
[2020-12-05] MEDS: Albuterol 200 PUFF (6.7GM INHALER) INH PRN (19:33)
[2020-12-05] MEDS: Cefepime 0.5 GM, Admixture Fee 1 EACH in Sodium Chloride 0.9% 100 ML IVPB SCH (20:58)
[2020-12-05] MEDS: Atorvastatin Calcium 40 MG TAB PO SCH (20:58)
[2020-12-06 04:25] LABS: Anion Gap 25 mmol/L (10-20); BUN (Urea Nitrogen) 89 mg/dL (8.4-25.7); Calc. Creatinine Clearance 16 mL/min (70-130); Carbon Dioxide 21 mmol/L (23-31); Chloride 95 mmol/L (98-107); Potassium 4.8 mmol/L (3.5-5.1); Sodium 136 mmol/L (136-145)
[2020-12-06 04:26] LABS: Calcium 8.6 mg/dL (7.8-10.44); Glucose 202 mg/dL (80-115)
[2020-12-06 05:25] LABS: Eosinophils 1 % (0-10); Hemoglobin 10.9 g/dL (14.0-18.0); Lymphocytes 3 % (21-51); MDiff Complete? YES; Mean Corpuscular HGB CONC 32.7 g/dL (32.0-36.0); Mean Corpuscular Hemoglobin 29.2 pg (27.0-31.0); Mean Corpuscular Volume 89.3 fL (78.0-98.0); Mean Platelet Volume 7.9 fL (7.4-10.4); Metamyelocyte 1 % (0-0); Monocytes 2 % (0-10); Neutrophil 93 % (42-75); Platelet Count 336 thou/uL (130-400); Platelet Morphology Comment Appears Adequate; RBC Distribution Width 14.4 % (11.5-14.5); RBC Morphology Normal; Red Blood Cell (RBC) Count 3.72 mill/uL (4.70-6.10); White Blood Cell (WBC) Count 21.7 thou/uL (4.8-10.8)
[2020-12-06] MEDS: Ondansetron PF 4 MG/2 ML Vial IVP PRN (05:30)
--- NOTE | 2020-12-06 05:34 | PRG ---
DATE OF SERVICE: 12/05/2020 SUBJECTIVE: The patient is noted with the following vital signs. OBJECTIVE: VITAL SIGNS: Blood pressure 117/101, heart rate of 76, afebrile, temperature 98.6. HEENT: Unremarkable. CARDIOVASCULAR SYSTEM: First and second heart sounds were heard. RESPIRATORY SYSTEM: Revealed transmitted sounds from the high-flow nasal oxygen. EXTREMITIES: No peripheral edema. SKIN: No new gross rash. LYMPHATICS: No peripheral lymphadenopathy. IMPRESSION: 1. End-stage renal disease, on dialysis. 2. Acute hypoxic respiratory failure secondary to problem #3. 3. COVID pneumonitis. 4. Dysphagia. 5. hypoglycemia due to poor p.o. intake. PLAN: 1. We will advise cautious use of antihypertensive medications so that his blood pressure does not get lower to the point that we will not be able to ultrafiltrate fluid out of this patient during dialysis. It is okay to allow the blood pressure to rise a little bit to create room for the ultrafiltration that is needed to help with his pulmonary status. 2. Renally dose all medications. 3. Further management to be dependent on the clinical course. 4. We will discontinue the 50% dextrose. We will recommend to team lowering the insulin supplementation until the patient resumes adequate p.o. intake. Job ID: [id number]
[2020-12-06] MEDS: Mometasone 200 MCG/Formoterol 5 MCG 120 PUFF INHALER INH SCH ×2 (07:59→18:47)
[2020-12-06] MEDS: NIFEdipine XL 60 MG TAB PO SCH (08:07)
[2020-12-06] MEDS: Rivaroxaban 15 MG TAB PO SCH (08:07)
[2020-12-06] MEDS: Aspirin 81 mg Enteric Coated Tablet PO SCH (08:08)
[2020-12-06] MEDS: Metoprolol Tartrate 25 MG TAB PO SCH ×2 (08:08→21:54)
[2020-12-06] MEDS: Ascorbic Acid 500 mg Chewable Tablet PO SCH (08:08)
[2020-12-06] MEDS: Insulin Glargine 15 UNITS in Pre-Filled Syringe 1 EACH SC SCH ×2 (08:08→21:53)
[2020-12-06] MEDS: Dexamethasone 4 mg/ml Vial SLOW IVP SCH ×2 (08:08→21:53)
[2020-12-06] MEDS: HumaLOG 300 UNITS/3 ML VIAL SC PRN (11:08)
[2020-12-06] MEDS ORDERED: Fentanyl CADD 100 ML ONE (13:53)
[2020-12-06] MEDS: Vecuronium 10 MG VIAL IV PRN (13:56)
[2020-12-06] MEDS: Propofol 1,000 MG/100 ML VIAL IV PRN ×2 (13:57→17:55)
[2020-12-06] MEDS: Lorazepam 2 MG/ML VIAL SLOW IVP PRN ×2 (13:57→16:13)
[2020-12-06] MEDS ORDERED: Propofol BOLUS 1,000 MG/100 ML VIAL IV PRN (14:00)
[2020-12-06] MEDS ORDERED: DISCONTINUE PREVIOUS NARCOTIC PAIN MEDICATIONS AND BENZODIAZEPINES FS SCH (14:00)
[2020-12-06] MEDS ORDERED: Fentanyl BOLUS 250 ML IVPB PRN (14:00)
--- NOTE | 2020-12-06 17:21 | PDOC.HOSPP ---
- Subjective Encounter Date: 12/06/20 Encounter Time: 17:25 Subjective: f/u for COVID PNA/hypoxic resp failure with mech ventilation after intubation this am. - Objective Vital Signs & Weight: Vital Signs (12 hours) Temp Pulse Resp BP Pulse Ox 12/06/20 16:00 20 100 12/06/20 14:15 63 97/43 L 12/06/20 11:28 67 12/06/20 09:05 77 12/06/20 08:07 75 12/06/20 08:00 92 L 12/06/20 07:00 98.8 F 12/06/20 06:06 99 F 12/06/20 06:00 99 F Weight Admit Weight 210 lb 15.68 oz Weight 201 lb 0.985 oz Most Recent Monitor Data Heart Rate from ECG 59 NIBP 111/32 NIBP BP-Mean 58 Respiration from ECG 20 SpO2 100 I&O: 12/05/20 12/06/20 12/07/20 06:59 06:59 06:59 Intake Total 562 635 600.5 Output Total 0 150 Balance 562 485 600.5 Result Diagrams: 12/06/20 03:27 12/06/20 03:27 Additional Labs: Accuchecks 12/06/20 12/06/20 12/05/20 11:04 05:37 21:00 POC Glucose 217 H 180 H 244 H Laboratory Tests 11/24/20 11/24/20 11/29/20 20:16 22:50 08:02 WBC D-Dimer 1.36 H Carbon Dioxide 20 L Ferritin Influenza A RNA INAAT Not Detected Influenza B RNA INAAT Not Detected SARS-CoV-2 Rap RNA(RT-PCR) DETECTED A* 11/29/20 11/30/20 11/30/20 08:02 11:48 11:48 WBC D-Dimer 5.04 H Carbon Dioxide Ferritin 6388.72 H 5310.39 H Influenza A RNA INAAT Influenza B RNA INAAT SARS-CoV-2 Rap RNA(RT-PCR) 12/02/20 12/02/20 12/02/20 09:16 09:16 09:16 WBC D-Dimer Greater than 20.00 H Carbon Dioxide 18 L Ferritin 5191.73 H Influenza A RNA INAAT Influenza B RNA INAAT SARS-CoV-2 Rap RNA(RT-PCR) 12/03/20 12/03/20 12/04/20 08:00 08:00 07:32 WBC 20.1 H D-Dimer Carbon Dioxide 19 L Ferritin 4062.41 H Influenza A RNA INAAT Influenza B RNA INAAT SARS-CoV-2 Rap RNA(RT-PCR) 12/04/20 12/04/20 12/04/20 07:32 07:32 07:32 WBC 17.5 H D-Dimer Greater than 20.00 H Carbon Dioxide 23 Ferritin Influenza A RNA INAAT Influenza B RNA INAAT SARS-CoV-2 Rap RNA(RT-PCR) 12/05/20 12/05/20 03:30 03:43 WBC 18.2 H D-Dimer Carbon Dioxide 19 L Ferritin Influenza A RNA INAAT Influenza B RNA INAAT SARS-CoV-2 Rap RNA(RT-PCR) EKG Reviewed by me: Yes (Tele - SR) Hospitalist ROS - Medication Medications: Active Medications Generic Name Dose Route Start Last Admin Trade Name Freq PRN Reason Stop Dose Admin Acetaminophen 650 mg 11/25/20 02:07 12/02/20 20:02 Acetaminophen 325 Mg Tab PO 650 mg Q4H PRN Administration Headache/Fever/Mild Pain (1-3) Albuterol Sulfate 2 puff 11/25/20 02:18 12/05/20 19:33 Albuterol 200 Puff (6.7gm Inhaler) INH 2 puff [id number] PRN Administration Wheezing Ascorbic Acid 1,000 mg 11/25/20 09:00 12/06/20 08:08 Ascorbic Acid 500 Mg Chewable Tablet PO 1,000 mg DAILY [facility]AN[facility] Administration Aspirin 81 mg 12/02/20 09:00 12/06/20 08:08 Aspirin 81 Mg Enteric Coated Tablet PO 81 mg DAILY [facility]ANSA Administration Atorvastatin Calcium 40 mg 11/27/20 21:00 12/05/20 20:58 Atorvastatin Calcium 40 Mg Tab PO 40 mg HS HANSA Administration Dexamethasone 6 mg 11/25/20 21:00 12/06/20 08:08 Dexamethasone 4 Mg/Ml Vial SLOW IVP 6 mg BID HANSA Administration Dextrose/Water 25 gm 11/25/20 02:24 12/04/20 21:01 Dextrose 50% Abboject 50 Ml Syringe SLOW IVP 25 gm PRN PRN Administration Hypoglycemia Doxycycline Hyclate 100 mg/ 100 mls @ 100 mls/hr 11/28/20 16:00 12/06/20 16:13 Sodium Chloride IVPB 12/08/20 04:59 100 mls 0400,1600 HANSA Administration Insulin Glargine 15 units/ 0.15 mls @ 0 mls/hr 12/04/20 21:00 12/05/20 21:18 Miscellaneous Medication SC 0.15 mls HS HANSA Administration Insulin Glargine 15 units/ 0.15 mls @ 0 mls/hr 12/05/20 09:00 12/06/20 08:08 Miscellaneous Medication SC 0.15 mls QAM HANSA Administration Cefepime HCl 0.5 gm/ 100 mls @ 0 mls/hr 12/05/20 21:00 12/05/20 20:58 Miscellaneous Medication 1 IVPB 100 mls each/ Sodium Chloride 2100 HANSA Administration Insulin Human Lispro 0 units 11/25/20 02:24 12/06/20 11:08 Humalog 300 Units/3 Ml Vial SC 3 unit .MILD SLIDING SCALE PRN Administration Mild Correctional Scale Insulin Human Lispro 0 units 11/25/20 02:24 12/05/20 23:59 Humalog 300 Units/3 Ml Vial SC 3 unit .BEDTIME SLIDING SC PRN Administration Bedtime Correctional Scale Lorazepam 2 mg 12/06/20 14:00 12/06/20 16:13 Lorazepam 2 Mg/Ml Vial SLOW IVP 01/05/21 14:00 2 mg Q1H PRN Administration Breakthrough agitation Metoprolol Tartrate 25 mg 11/27/20 09:00 12/06/20 08:08 Metoprolol Tartrate 25 Mg Tab PO 25 mg BID HANSA Administration Mometasone Furoate/Formoterol Fumar 2 puff 11/25/20 18:30 12/06/20 07:59 Mometasone 200 Mcg/Formoterol 5 Mcg 120 Puff Inhaler INH 2 puff BID-RT HANSA Administration Nifedipine 60 mg 12/04/20 09:00 12/06/20 08:07 Nifedipine Xl 60 Mg Tab PO 60 mg DAILY [facility]ANSA Administration Ondansetron HCl 4 mg 11/27/20 08:20 12/06/20 05:30 Ondansetron Pf 4 Mg/2 Ml Vial IVP 4 mg Q6H PRN Administration Nausea/Vomiting Pantoprazole Sodium 40 mg 11/28/20 09:00 12/06/20 08:07 Pantoprazole 40 Mg Tab PO 40 mg DAILY [facility]ANSA Administration Propofol 1,000 mg 12/06/20 14:00 12/06/20 13:57 Propofol 1,000 Mg/100 Ml Vial IV 01/05/21 14:00 1,000 mg INF PRN Administration TO ACHIEVE GOAL RASS Protocol Rivaroxaban 15 mg 12/02/20 09:00 12/06/20 08:07 Rivaroxaban 15 Mg Tab PO 15 mg DAILY HANSA Administration Sodium Chloride 10 ml 11/25/20 02:07 11/27/20 20:20 Flush - Normal Saline 10 Ml Syringe IVF 10 ml Q12HR PRN Administration Saline Flush Vecuronium [place] 10 mg 12/06/20 13:47 12/06/20 13:56 Vecuronium 10 Mg Vial IV 10 mg Q1H PRN Administration SEDATION/MOVEMENT - Exam General - other findings: sedate on mech vent Eye: anicteric sclera ENT: normocephalic atraumatic, no oropharyngeal lesions ENT - other findings: ETT in place Neck: supple, symmetric, no JVD, no thyromegaly Heart: RRR, no gallops, no rubs, normal peripheral pulses Heart - other findings: S1, S2 Respiratory: no wheezes Respiratory - other findings: diminished in base, occ rhonchi Gastrointestinal: soft, non-distended, normal bowel sounds Extremities: no cyanosis, no clubbing, no edema Skin: normal turgor Neurological - other findings: sedate on mech vent Musculoskeletal: generalized weakness Psychiatric: somnolent, lethargic Hosp A/P (1) Pneumonia due to COVID-19 virus Code(s): U07.1 - COVID-19; J12.82 - PNEUMONIA DUE TO CORONAVIRUS DISEASE 2019 Status: Acute Plan: Continue Cefepime/Doxycycline/Dexamethasone/Xarelto/Vit C/Zinc/Albuterol/Mech ventilation (2) Acute respiratory failure with hypoxia Code(s): J96.01 - ACUTE RESPIRATORY FAILURE WITH HYPOXIA Status: Acute Plan: Continue mech ventilation/serial PCXR/ABG's (3) ESRD (end stage renal disease) on dialysis Code(s): N18.6 - END STAGE RENAL DISEASE; Z99.2 - DEPENDENCE ON RENAL DIALYSIS Status: Chronic Plan: HD per Renal service (4) Anemia of renal disease Code(s): N18.9 - CHRONIC KIDNEY DISEASE, UNSPECIFIED; D63.1 - ANEMIA IN CHRONIC KIDNEY DISEASE Status: Chronic Plan: Stable, continue serial monitoring H/H (5) Diabetes type 2, controlled Code(s): E11.9 - TYPE 2 DIABETES MELLITUS WITHOUT COMPLICATIONS Status: Chronic Qualifiers: Diabetes mellitus mcfp insulin use: without mcfp use Diabetes mellitus complication status: with kidney complications Diabetes mellitus complication detail: with chronic kidney disease Chronic kidney disease stage: on chronic dialysis Qualified Code(s): E11.22 - Type 2 diabetes mellitus with diabetic chronic kidney disease; N18.6 - End stage renal disease; Z99.2 - Dependence on renal dialysis Plan: Intermittent hypoglycemia, monitor glucose trend closely, labile overall given Dexamethasone (6) HTN (hypertension) Code(s): I10 - ESSENTIAL (PRIMARY) HYPERTENSION Status: Chronic Qualifiers: Hypertension type: essential hypertension Qualified Code(s): I10 - Essential (primary) hypertension - Plan continue antibiotics, PT/OT, social psychologist, respiratory therapy, DVT proph w/SCDs Consults: Palliative Care Continue critical support Continue mech ventilation/prone position Continue Cefepime/Doxycycline Continue Dexamethasone continue Xarelto HD per Renal service AM lab: BMP, CBC
--- NOTE | 2020-12-06 18:00 | PRG ---
DATE OF SERVICE: 12/06/2020 SUBJECTIVE: Jose Guadalupe Pacheco is very tenuous this morning. Intubation was recommended. His hemodynamics have been stable since then. OBJECTIVE: VITAL SIGNS: Blood pressure 111/32, heart rate 60, respiratory rate is 20, oximetry is 100%. LUNGS: Remarkable for equal breath sounds. HEART: Regular rhythm. ABDOMEN: Soft. LABORATORY DATA: White count 21, hemoglobin 10, platelets 336. Sodium 136, potassium 4.8, chloride 95, bicarb 21, BUN 89, creatinine 6.37. IMPRESSION: 1. End-stage renal disease. 2. COVID pneumonia, requiring mechanical ventilation. 3. Diabetes. 4. Deconditioning. PLAN: Continue supportive care. Job ID: [id number]
[2020-12-06] MEDS: Atorvastatin Calcium 40 MG TAB PO SCH (21:53)
[2020-12-06] MEDS: Cefepime 0.5 GM, Admixture Fee 1 EACH in Sodium Chloride 0.9% 100 ML IVPB SCH (21:56)
[2020-12-07 04:38] LABS: Anion Gap 24 mmol/L (10-20); BUN (Urea Nitrogen) 116 mg/dL (8.4-25.7); Calc. Creatinine Clearance 13 mL/min (70-130); Calcium 8.6 mg/dL (7.8-10.44); Carbon Dioxide 24 mmol/L (23-31); Chloride 94 mmol/L (98-107); Glucose 117 mg/dL (80-115); Potassium 5.5 mmol/L (3.5-5.1); Sodium 136 mmol/L (136-145)
[2020-12-07 05:01] LABS: Band 3 % (5-11); Hemoglobin 10.2 g/dL (14.0-18.0); Hypochromia SLIGHT = 6-15 cells (100X) (0-5/hpf); MDiff Complete? YES; Mean Corpuscular HGB CONC 31.9 g/dL (32.0-36.0); Mean Corpuscular Hemoglobin 28.6 pg (27.0-31.0); Mean Corpuscular Volume 89.9 fL (78.0-98.0); Mean Platelet Volume 8.1 fL (7.4-10.4); Monocytes 24 % (0-10); Neutrophil 73 % (42-75); Platelet Count 298 thou/uL (130-400); Platelet Morphology Comment Appears Adequate; RBC Distribution Width 14.6 % (11.5-14.5); Red Blood Cell (RBC) Count 3.58 mill/uL (4.70-6.10); White Blood Cell (WBC) Count 19.1 thou/uL (4.8-10.8)
--- NOTE | 2020-12-07 05:38 | PRG ---
DATE OF SERVICE: 12/06/2020 SUBJECTIVE: The patient was seen and noted with the following vial signs. OBJECTIVE: VITAL SIGNS: Afebrile, temperature 98.1, pulse , respiratory rate is 16, O2 saturation with blood pressure . HEENT: Unremarkable. CARDIOVASCULAR SYSTEM: First and second heart sounds were heard. RESPIRATORY SYSTEM: . DIGESTIVE SYSTEM: Revealed a benign abdomen. Positive bowel sounds. EXTREMITIES: . IMPRESSION: 1. End-stage renal disease, on hemodialysis. 2. Respiratory failure . 3. . PLAN: 1. The patient got intubated because of worsening hypoxic respiratory failure. 2. hemodialysis . 3. Further management to be dependent on the clinical course. Job ID: [id number]
[2020-12-07] MEDS: Mometasone 200 MCG/Formoterol 5 MCG 120 PUFF INHALER INH SCH ×2 (07:35→18:35)
[2020-12-07] MEDS: Vecuronium 10 MG VIAL IV PRN ×4 (08:11→13:56)
[2020-12-07] MEDS: Lorazepam 2 MG/ML VIAL SLOW IVP PRN ×3 (08:11→21:28)
[2020-12-07] MEDS: Aspirin 81 mg Enteric Coated Tablet PO SCH (08:59)
[2020-12-07] MEDS: Metoprolol Tartrate 25 MG TAB PO SCH ×2 (09:00→21:28)
[2020-12-07] MEDS: Ascorbic Acid 500 mg Chewable Tablet PO SCH (09:00)
[2020-12-07] MEDS: NIFEdipine XL 60 MG TAB PO SCH (09:01)
[2020-12-07] MEDS: Insulin Glargine 15 UNITS in Pre-Filled Syringe 1 EACH SC SCH ×2 (09:01→21:30)
[2020-12-07] MEDS: Rivaroxaban 15 MG TAB PO SCH (09:01)
[2020-12-07] MEDS: Dexamethasone 4 mg/ml Vial SLOW IVP SCH ×2 (09:02→21:28)
[2020-12-07] MEDS ORDERED: Fentanyl CADD 100 ML ONE (10:06)
[2020-12-07] MEDS: Propofol 1,000 MG/100 ML VIAL IV PRN (12:18)
--- NOTE | 2020-12-07 15:57 | PRG ---
DATE OF SERVICE: 12/07/2020 SUBJECTIVE: Jose Guadalupe Pacheco remains mechanically ventilated. OBJECTIVE: VITAL SIGNS: Heart rates in the 60s, blood pressure 115/35, FiO2 is 45. Intake and outputs, positive 1101. LUNGS: Remarkable for equal breath sounds. HEART: Regular rhythm. ABDOMEN: Soft. EXTREMITIES: Without edema. LABORATORY DATA: White count 19.1, hemoglobin 10.2, platelets 298. Sodium 136, potassium 5.5, chloride 94, bicarb 24, BUN 116, creatinine 7.63. IMPRESSION: COVID pneumonia with respiratory failure. Needs to start daily chest x-rays again. He needs daily lab since we are not doing blood gases everyday. Continue with supportive care. Job ID: [id number]
--- NOTE | 2020-12-07 17:23 | PDOC.HOSPP ---
- Subjective Encounter Date: 12/07/20 Encounter Time: 17:05 Subjective: f/u for COVID PNA/[facility]oxic [facility] current FIO2 45%. Remains in supine position after approx 24h prone ventilation. - Objective Vital Signs & Weight: Vital Signs (12 hours) Temp Pulse Resp BP Pulse Ox 12/07/20 17:00 93.3 F L 12/07/20 16:00 20 12/07/20 15:09 61 115/35 L 12/07/20 14:00 95.5 F L 20 12/07/20 12:15 61 136/47 L 12/07/20 12:00 20 12/07/20 10:00 94.4 F L 12/07/20 09:01 52 L 12/07/20 08:00 20 100 12/07/20 07:34 52 L 12/07/20 06:00 20 Weight Admit Weight 210 lb 15.68 oz Weight 201 lb 0.985 oz Most Recent Monitor Data Heart Rate from ECG 61 NIBP 127/46 NIBP BP-Mean 73 Respiration from ECG 20 SpO2 100 I&O: 12/06/20 12/07/20 12/08/20 06:59 06:59 06:59 Intake Total 635 1101.7 336.5 Output Total 150 200 Balance 485 1101.7 136.5 Result Diagrams: 12/07/20 03:45 12/07/20 03:45 Additional Labs: Accuchecks 12/07/20 12/07/20 12/06/20 10:20 06:08 20:02 POC Glucose 108 H 112 H 119 H Laboratory Tests 11/24/20 11/24/20 11/29/20 20:16 22:50 08:02 WBC D-Dimer 1.36 H Carbon Dioxide 20 L Ferritin Influenza A RNA INAAT Not Detected Influenza B RNA INAAT Not Detected SARS-CoV-2 Rap RNA(RT-PCR) DETECTED A* 11/29/20 11/30/20 11/30/20 08:02 11:48 11:48 WBC D-Dimer 5.04 H Carbon Dioxide Ferritin 6388.72 H 5310.39 H Influenza A RNA INAAT Influenza B RNA INAAT SARS-CoV-2 Rap RNA(RT-PCR) 12/02/20 12/02/20 12/02/20 09:16 09:16 09:16 WBC D-Dimer Greater than 20.00 H Carbon Dioxide 18 L Ferritin 5191.73 H Influenza A RNA INAAT Influenza B RNA INAAT SARS-CoV-2 Rap RNA(RT-PCR) 12/03/20 12/03/20 12/04/20 08:00 08:00 07:32 WBC 20.1 H D-Dimer Carbon Dioxide 19 L Ferritin 4062.41 H Influenza A RNA INAAT Influenza B RNA INAAT SARS-CoV-2 Rap RNA(RT-PCR) 12/04/20 12/04/20 12/04/20 07:32 07:32 07:32 WBC 17.5 H D-Dimer Greater than 20.00 H Carbon Dioxide 23 Ferritin Influenza A RNA INAAT Influenza B RNA INAAT SARS-CoV-2 Rap RNA(RT-PCR) 12/05/20 12/05/20 03:30 03:43 WBC 18.2 H D-Dimer Carbon Dioxide 19 L Ferritin Influenza A RNA INAAT Influenza B RNA INAAT SARS-CoV-2 Rap RNA(RT-PCR) EKG Reviewed by me: Yes (Tele - SR) Hospitalist ROS - Medication Medications: Active Medications Generic Name Dose Route Start Last Admin Trade Name Freq PRN Reason Stop Dose Admin Acetaminophen 650 mg 11/25/20 02:07 12/02/20 20:02 Acetaminophen 325 Mg Tab PO 650 mg Q4H PRN Administration Headache/Fever/Mild Pain (1-3) Albuterol Sulfate 2 puff 11/25/20 02:18 12/05/20 19:33 Albuterol 200 Puff (6.7gm Inhaler) INH 2 puff [id number] PRN Administration Wheezing Ascorbic Acid 1,000 mg 11/25/20 09:00 12/07/20 09:00 Ascorbic Acid 500 Mg Chewable Tablet PO 1,000 mg DAILY HANSA Administration Aspirin 81 mg 12/02/20 09:00 12/07/20 08:59 Aspirin 81 Mg Enteric Coated Tablet PO 81 mg DAILY HANSA Administration Atorvastatin Calcium 40 mg 11/27/20 21:00 12/06/20 21:53 Atorvastatin Calcium 40 Mg Tab PO 40 mg HS HANSA Administration Dexamethasone 6 mg 11/25/20 21:00 12/07/20 09:02 Dexamethasone 4 Mg/Ml Vial SLOW IVP 6 mg BID HANSA Administration Dextrose/Water 25 gm 11/25/20 02:24 12/04/20 21:01 Dextrose 50% Abboject 50 Ml Syringe SLOW IVP 25 gm PRN PRN Administration Hypoglycemia Doxycycline Hyclate 100 mg/ 100 mls @ 100 mls/hr 11/28/20 16:00 12/07/20 15:58 Sodium Chloride IVPB 12/08/20 04:59 100 mls 0400,1600 HANSA Administration Insulin Glargine 15 units/ 0.15 mls @ 0 mls/hr 12/04/20 21:00 12/06/20 21:53 Miscellaneous Medication SC 0.15 mls HS HANSA Administration Insulin Glargine 15 units/ 0.15 mls @ 0 mls/hr 12/05/20 09:00 12/07/20 09:01 Miscellaneous Medication SC 0.15 mls QAM HANSA Administration Cefepime HCl 0.5 gm/ 100 mls @ 0 mls/hr 12/05/20 21:00 12/06/20 21:56 Miscellaneous Medication 1 IVPB 100 mls each/ Sodium Chloride 2100 HANSA Administration Insulin Human Lispro 0 units 11/25/20 02:24 12/06/20 11:08 Humalog 300 Units/3 Ml Vial SC 3 unit .MILD SLIDING SCALE PRN Administration Mild Correctional Scale Insulin Human Lispro 0 units 11/25/20 02:24 12/05/20 23:59 Humalog 300 Units/3 Ml Vial SC 3 unit .BEDTIME SLIDING SC PRN Administration Bedtime Correctional Scale Lorazepam 2 mg 12/06/20 14:00 12/07/20 13:56 Lorazepam 2 Mg/Ml Vial SLOW IVP 01/05/21 14:00 2 mg Q1H PRN Administration Breakthrough agitation Metoprolol Tartrate 25 mg 11/27/20 09:00 12/07/20 09:00 Metoprolol Tartrate 25 Mg Tab PO Not Given BID HANSA Mometasone Furoate/Formoterol Fumar 2 puff 11/25/20 18:30 12/07/20 07:35 Mometasone 200 Mcg/Formoterol 5 Mcg 120 Puff Inhaler INH 2 puff BID-RT HANSA Administration Nifedipine 60 mg 12/04/20 09:00 12/07/20 09:01 Nifedipine Xl 60 Mg Tab PO 60 mg DAILY HANSA Administration Ondansetron HCl 4 mg 11/27/20 08:20 12/06/20 05:30 Ondansetron Pf 4 Mg/2 Ml Vial IVP 4 mg Q6H PRN Administration Nausea/Vomiting Pantoprazole Sodium 40 mg 11/28/20 09:00 12/07/20 09:01 Pantoprazole 40 Mg Tab PO 40 mg DAILY HANSA Administration Propofol 1,000 mg 12/06/20 14:00 12/07/20 12:18 Propofol 1,000 Mg/100 Ml Vial IV 01/05/21 14:00 1,000 mg INF PRN Administration TO ACHIEVE GOAL RASS Protocol Rivaroxaban 15 mg 12/02/20 09:00 12/07/20 09:01 Rivaroxaban 15 Mg Tab PO 15 mg DAILY HANSA Administration Sodium Chloride 10 ml 11/25/20 02:07 11/27/20 20:20 Flush - Normal Saline 10 Ml Syringe IVF 10 ml Q12HR PRN Administration Saline Flush Vecuronium [place] 10 mg 12/06/20 13:47 12/07/20 13:56 Vecuronium 10 Mg Vial IV 10 mg Q1H PRN Administration SEDATION/MOVEMENT - Exam General - other findings: sedate on mech ventilation Eye: anicteric sclera ENT: normocephalic atraumatic, no oropharyngeal lesions ENT - other findings: ETT/OGT in place Neck: supple, symmetric, no JVD, no thyromegaly, no lymphadenopathy Heart: RRR, no gallops, no rubs, normal peripheral pulses Heart - other findings: S1, S2 Respiratory - other findings: diminished bibasilar segments, occ rhonchi Gastrointestinal: soft, non-tender, non-distended, normal bowel sounds, no palpable masses Gastrointestinal - other findings: obese Extremities: no cyanosis, no clubbing, no edema Skin: normal turgor Neurological - other findings: sedate on mech vent Musculoskeletal: generalized weakness Psychiatric: somnolent, lethargic Hosp A/P (1) Pneumonia due to COVID-19 virus Code(s): U07.1 - COVID-19; J12.82 - PNEUMONIA DUE TO CORONAVIRUS DISEASE 2019 Status: Acute Plan: Continue Cefepime/Doxycycline/Dexamethasone/Vit C/Zinc/Xarelto (2) Acute respiratory failure with hypoxia Code(s): J96.01 - ACUTE RESPIRATORY FAILURE WITH HYPOXIA Status: Acute Plan: Continue mech ventilation with SIMV (3) ESRD (end stage renal disease) on dialysis Code(s): N18.6 - END STAGE RENAL DISEASE; Z99.2 - DEPENDENCE ON RENAL DIALYSIS Status: Chronic Plan: HD per Renal service, plan for next HD 12/08/20 (4) Anemia of renal disease Code(s): N18.9 - CHRONIC KIDNEY DISEASE, UNSPECIFIED; D63.1 - ANEMIA IN CHRONIC KIDNEY DISEASE Status: Chronic (5) Diabetes type 2, controlled Code(s): E11.9 - TYPE 2 DIABETES MELLITUS WITHOUT COMPLICATIONS Status: Chronic Qualifiers: Diabetes mellitus terminal worker insulin use: without terminal worker use Diabetes mellitus complication status: with kidney complications Diabetes mellitus complication detail: with chronic kidney disease Chronic kidney disease stage: on chronic dialysis Qualified Code(s): E11.22 - Type 2 diabetes mellitus with diabetic chronic kidney disease; N18.6 - End stage renal disease; Z99.2 - Dependence on renal dialysis Plan: Glucose trending downward, start D5NS @ 75ml/h, ISS (6) HTN (hypertension) Code(s): I10 - ESSENTIAL (PRIMARY) HYPERTENSION Status: Chronic Qualifiers: Hypertension type: essential hypertension Qualified Code(s): I10 - Essential (primary) hypertension - Plan continue antibiotics, social service worker, respiratory therapy, DVT proph w/SCDs Consults: Palliative Care Continue critical support [facility]one [facility] Continue Cefepime/Doxycycline Continue Dexamethasone continue Xarelto HD per Renal service AM lab: BMP, CBC
[2020-12-07] MEDS: Dextrose 5 % And 0.9 % NaCl 1,000 ML IV SCH (17:50)
--- NOTE | 2020-12-07 18:42 | PRG ---
DATE OF SERVICE: 12/07/2020 SUBJECTIVE: The patient noted with the following vital signs. OBJECTIVE: VITAL SIGNS: Afebrile, temperature , heart rate of 61, blood pressure 127/86, and O2 saturation of 100% on FiO2 of 45. HEENT: Remarkable for endotracheal tube in place. CARDIOVASCULAR: First and second heart sounds were heard. RESPIRATORY: Revealed vented sounds. DIGESTIVE: Revealed a benign abdomen. EXTREMITIES: No peripheral edema. SKIN: No new gross rash. LYMPHATICS: No peripheral lymphadenopathy. LABORATORY INVESTIGATION: Showed a white count of 19,000 with hemoglobin of 10.2. Chemistry showed a potassium of 5.5, BUN of 116 with creatinine of 7.63, bicarb of 24. IMPRESSION: 1. End-stage renal disease, on hemodialysis, Tuesday, Tuesday, Tuesday schedule. 2. Hyperkalemia. 3. Respiratory failure in the context of problem #4. 4. COVID pneumonitis. PLAN: 1. From tomorrow, the patient is going to remain on daily dialysis with ultrafiltration as tolerated by hemodynamics until the patient comes off ventilator. 2. Renally dose all medications and avoid potentially nephrotoxic agents. 3. Further management to be dependent on the clinical course. Job ID: [id number]
[2020-12-07] MEDS: Atorvastatin Calcium 40 MG TAB PO SCH (21:28)
[2020-12-07] MEDS: Cefepime 0.5 GM, Admixture Fee 1 EACH in Sodium Chloride 0.9% 100 ML IVPB SCH (21:45)
[2020-12-08] MEDS: Propofol 1,000 MG/100 ML VIAL IV PRN ×3 (01:06→17:30)
[2020-12-08] MEDS ORDERED: Fentanyl CADD 100 ML ONE (05:19)
[2020-12-08 05:34] LABS: Band 3 % (5-11); Hemoglobin 9.8 g/dL (14.0-18.0); Lymphocytes 3 % (21-51); MDiff Complete? YES; Mean Corpuscular HGB CONC 32.5 g/dL (32.0-36.0); Mean Corpuscular Hemoglobin 29.2 pg (27.0-31.0); Mean Corpuscular Volume 89.8 fL (78.0-98.0); Mean Platelet Volume 8.6 fL (7.4-10.4); Metamyelocyte 1 % (0-0); Monocytes 1 % (0-10); Neutrophil 92 % (42-75); Platelet Count 321 thou/uL (130-400); Platelet Morphology Comment Appears Adequate; RBC Distribution Width 14.7 % (11.5-14.5); Red Blood Cell (RBC) Count 3.35 mill/uL (4.70-6.10); White Blood Cell (WBC) Count 24.4 thou/uL (4.8-10.8)
[2020-12-08 06:04] LABS: Anion Gap 29 mmol/L (10-20); Calc. Creatinine Clearance 11 mL/min (70-130); Carbon Dioxide 19 mmol/L (23-31); Chloride 96 mmol/L (98-107); Glucose 123 mg/dL (80-115); Potassium 6.4 mmol/L (3.5-5.1); Sodium 138 mmol/L (136-145)
[2020-12-08 06:16] LABS: BUN (Urea Nitrogen) 133 mg/dL (8.4-25.7)
[2020-12-08] MEDS: Mometasone 200 MCG/Formoterol 5 MCG 120 PUFF INHALER INH SCH ×2 (07:42→19:21)
[2020-12-08] MEDS: Aspirin 81 mg Enteric Coated Tablet PO SCH (08:02)
[2020-12-08] MEDS: Ascorbic Acid 500 mg Chewable Tablet PO SCH (08:02)
[2020-12-08] MEDS: NIFEdipine XL 60 MG TAB PO SCH (08:03)
[2020-12-08] MEDS: Dexamethasone 4 mg/ml Vial SLOW IVP SCH (08:03)
[2020-12-08] MEDS: Rivaroxaban 15 MG TAB PO SCH (08:03)
[2020-12-08] MEDS: Metoprolol Tartrate 25 MG TAB PO SCH ×2 (08:03→20:59)
[2020-12-08] MEDS: Dextrose 5 % And 0.9 % NaCl 1,000 ML IV SCH ×2 (08:05→20:59)
[2020-12-08] MEDS: Insulin Glargine 15 UNITS in Pre-Filled Syringe 1 EACH SC SCH ×2 (08:06→21:17)
--- NOTE | 2020-12-08 09:33 | RAD ---
PORTABLE CHEST: HISTORY: COVID pneumonia. COMPARISON: 12/03/2020 study. FINDINGS: Endotracheal and NG tubes are in satisfactory position. Bilateral parenchymal lung changes are felt to be similar given the differences in technique. IMPRESSION: Stable ground-glass infiltrates. POS: LIZETTE
[2020-12-08] MEDS ORDERED: Dexamethasone 4 mg/ml Vial SLOW IVP SCH (10:00)
--- NOTE | 2020-12-08 10:11 | PRG ---
DATE OF SERVICE: 12/08/2020 SUBJECTIVE: Jose Guadalupe Pacheco is a 60-year-old gentleman, who is intubated with progressive respiratory failure over the weekend. He is being dialyzed this morning. OBJECTIVE: VITAL SIGNS: He was placed on bilevel 33/12 with a rate of 20, pressure support of 12, 60% FiO2. He is now on blood pressure 147/89, pulse 76, respiratory rate 18. CHEST: Clear. No wheezing, no crackles. CARDIAC: Normal S1. ABDOMEN: No masses. LABORATORY DATA: White count 24,000, hemoglobin and hematocrit 9 and 30, platelet count is 320. Creatinine is elevated at 8. Potassium 6.3. IMAGING DATA: X-ray looks much improved. ASSESSMENT: Respiratory failure, urias positive pneumonia, chronic renal failure. PLAN: Antibiotics as per Renal. Continue high-dose Decadron. X-ray is much improved. I may start decreasing it to daily. I am going to start nutrition, PT, supportive care, DVT prophylaxis. One-half hour of critical care time. Job ID: [id number]
[2020-12-08 11:39] LABS: Actual Bicarbonate (HCO3a) 24.3 mEq/L (22-28); Base Excess (BEa) -0.8 mEq/L (-2.0 to +3.0); CO2 Tension 41.9 mmHg (35.0-45.0); Carboxyhemoglobin (COHb) 0.9 gm% (0.0-3.0); Hemoglobin (Hb) 13.6 g/dL (14.0-18.0); O2 Tension (PaO2), arterial 61.2 mmHg (> 80.0); Potassium - ABG Lab 4.44 mmol/L (3.70-5.30); pH, Arterial 7.38 (7.35-7.45)
[2020-12-08 11:40] LABS: ALV-art Gradient 169.625 mmHg (0-20); Puncture Site LBA
--- NOTE | 2020-12-08 12:02 | PDOC.HOSPP ---
- Subjective Encounter Date: 12/08/20 Encounter Time: 11:40 Subjective: f/u for COVID PNA/hypoxic resp failure with mech ventilation FIO2 40%. Starting TF's with Nepro this am. - Objective Vital Signs & Weight: Vital Signs (12 hours) Temp Pulse Resp BP Pulse Ox 12/08/20 10:00 69 24 H 134/48 L 12/08/20 08:03 76 147/49 H 12/08/20 08:00 99.1 F 20 12/08/20 07:42 76 147/49 H 12/08/20 07:26 96 12/08/20 06:00 97.2 F L 12/08/20 04:00 96.8 F L 20 12/08/20 02:00 20 12/08/20 01:54 63 119/44 L Weight Admit Weight 210 lb 15.68 oz Weight 201 lb 0.985 oz Most Recent Monitor Data Heart Rate from ECG 74 NIBP 128/50 NIBP BP-Mean 76 Respiration from ECG 0 SpO2 96 I&O: 12/07/20 12/08/20 12/09/20 06:59 06:59 06:59 Intake Total 1101.7 1512.7 60 Output Total 200 50 Balance 1101.7 1312.7 10 Result Diagrams: 12/08/20 04:30 12/08/20 04:30 Additional Labs: Accuchecks 12/08/20 12/08/20 12/07/20 11:33 05:24 20:29 POC Glucose 104 H 99 96 12/07/20 12/05/20 16:34 09:59 POC Glucose 92 152 H Laboratory Tests 11/24/20 11/24/20 11/29/20 20:16 22:50 08:02 WBC D-Dimer 1.36 H Carbon Dioxide 20 L Ferritin Influenza A RNA INAAT Not Detected Influenza B RNA INAAT Not Detected SARS-CoV-2 Rap RNA(RT-PCR) DETECTED A* 11/29/20 11/30/20 11/30/20 08:02 11:48 11:48 WBC D-Dimer 5.04 H Carbon Dioxide Ferritin 6388.72 H 5310.39 H Influenza A RNA INAAT Influenza B RNA INAAT SARS-CoV-2 Rap RNA(RT-PCR) 12/02/20 12/02/20 12/02/20 09:16 09:16 09:16 WBC D-Dimer Greater than 20.00 H Carbon Dioxide 18 L Ferritin 5191.73 H Influenza A RNA INAAT Influenza B RNA INAAT SARS-CoV-2 Rap RNA(RT-PCR) 12/03/20 12/03/20 12/04/20 08:00 08:00 07:32 WBC 20.1 H D-Dimer Carbon Dioxide 19 L Ferritin 4062.41 H Influenza A RNA INAAT Influenza B RNA INAAT SARS-CoV-2 Rap RNA(RT-PCR) 12/04/20 12/04/20 12/04/20 07:32 07:32 07:32 WBC 17.5 H D-Dimer Greater than 20.00 H Carbon Dioxide 23 Ferritin Influenza A RNA INAAT Influenza B RNA INAAT SARS-CoV-2 Rap RNA(RT-PCR) 12/05/20 12/05/20 03:30 03:43 WBC 18.2 H D-Dimer Carbon Dioxide 19 L Ferritin Influenza A RNA INAAT Influenza B RNA INAAT SARS-CoV-2 Rap RNA(RT-PCR) Radiology Reviewed by me: Yes (PCXR - bilat infiltrates similar to prior exam, lines/tubes in place) EKG Reviewed by me: Yes (Tele - SR) Hospitalist ROS - Medication Medications: Active Medications Generic Name Dose Route Start Last Admin Trade Name Freq PRN Reason Stop Dose Admin Acetaminophen 650 mg 11/25/20 02:07 12/02/20 20:02 Acetaminophen 325 Mg Tab PO 650 mg Q4H PRN Administration Headache/Fever/Mild Pain (1-3) Albuterol Sulfate 2 puff 11/25/20 02:18 12/05/20 19:33 Albuterol 200 Puff (6.7gm Inhaler) INH 2 puff [id number] PRN Administration Wheezing Ascorbic Acid 1,000 mg 11/25/20 09:00 12/08/20 08:02 Ascorbic Acid 500 Mg Chewable Tablet PO 1,000 mg DAILY HANSA Administration Atorvastatin Calcium 40 mg 11/27/20 21:00 12/07/20 21:28 Atorvastatin Calcium 40 Mg Tab PO 40 mg HS HANSA Administration Dextrose/Water 25 gm 11/25/20 02:24 12/04/20 21:01 Dextrose 50% Abboject 50 Ml Syringe SLOW IVP 25 gm PRN PRN Administration Hypoglycemia Insulin Glargine 15 units/ 0.15 mls @ 0 mls/hr 12/04/20 21:00 12/07/20 21:30 Miscellaneous Medication SC Not Given HS HANSA Insulin Glargine 15 units/ 0.15 mls @ 0 mls/hr 12/05/20 09:00 12/08/20 08:06 Miscellaneous Medication SC Not Given QAM HANSA Cefepime HCl 0.5 gm/ 100 mls @ 0 mls/hr 12/05/20 21:00 12/07/20 21:45 Miscellaneous Medication 1 IVPB 100 mls each/ Sodium Chloride 2100 HANSA Administration Dextrose/Sodium Chloride 1,000 mls @ 75 mls/hr 12/07/20 17:30 12/08/20 08:05 D5 0.9% Ns IV 1,000 mls .[id number] HANSA Administration Insulin Human Lispro 0 units 11/25/20 02:24 12/06/20 11:08 Humalog 300 Units/3 Ml Vial SC 3 unit .MILD SLIDING SCALE PRN Administration Mild Correctional Scale Insulin Human Lispro 0 units 11/25/20 02:24 12/05/20 23:59 Humalog 300 Units/3 Ml Vial SC 3 unit .BEDTIME SLIDING SC PRN Administration Bedtime Correctional Scale Lorazepam 2 mg 12/06/20 14:00 12/07/20 21:28 Lorazepam 2 Mg/Ml Vial SLOW IVP 01/05/21 14:00 2 mg Q1H PRN Administration Breakthrough agitation Metoprolol Tartrate 25 mg 11/27/20 09:00 12/08/20 08:03 Metoprolol Tartrate 25 Mg Tab PO 25 mg BID HANSA Administration Mometasone Furoate/Formoterol Fumar 2 puff 11/25/20 18:30 12/08/20 07:42 Mometasone 200 Mcg/Formoterol 5 Mcg 120 Puff Inhaler INH 2 puff BID-RT HANSA Administration Ondansetron HCl 4 mg 11/27/20 08:20 12/06/20 05:30 Ondansetron Pf 4 Mg/2 Ml Vial IVP 4 mg Q6H PRN Administration Nausea/Vomiting Propofol 1,000 mg 12/06/20 14:00 12/08/20 01:06 Propofol 1,000 Mg/100 Ml Vial IV 01/05/21 14:00 1,000 mg INF PRN Administration TO ACHIEVE GOAL RASS Protocol Rivaroxaban 15 mg 12/02/20 09:00 12/08/20 08:03 Rivaroxaban 15 Mg Tab PO 15 mg DAILY HANSA Administration Sodium Chloride 10 ml 11/25/20 02:07 11/27/20 20:20 Flush - Normal Saline 10 Ml Syringe IVF 10 ml Q12HR PRN Administration Saline Flush Vecuronium [place] 10 mg 12/06/20 13:47 12/07/20 13:56 Vecuronium 10 Mg Vial IV 10 mg Q1H PRN Administration SEDATION/MOVEMENT - Exam General - other findings: sedate on mech vent Eye: anicteric sclera ENT: normocephalic atraumatic, no oropharyngeal lesions ENT - other findings: ETT in place Neck: supple, symmetric, no JVD, no thyromegaly, no lymphadenopathy Heart: RRR, no murmur, no gallops, no rubs, normal peripheral pulses Heart - other findings: S1, S2 Respiratory: no tachypnea Respiratory - other findings: diminished in bases, scattered coarse sounds Gastrointestinal: soft, non-tender, non-distended, normal bowel sounds, no palpable masses Gastrointestinal - other findings: obese Extremities - other findings: RUE edema, AV fistula in RUE with HD in progress Skin: normal turgor Musculoskeletal: generalized weakness Psychiatric: somnolent, lethargic Hosp A/P (1) Pneumonia due to COVID-19 virus Code(s): U07.1 - COVID-19; J12.82 - PNEUMONIA DUE TO CORONAVIRUS DISEASE 2018 Status: Acute Plan: Continue Vit C/Zinc/D3/Xarelto/Cefepime/mech vent (2) Acute respiratory failure with hypoxia Code(s): J96.01 - ACUTE RESPIRATORY FAILURE WITH HYPOXIA Status: Acute Plan: Continue mech vent with SIMV, slow wean as clinically indicated (3) ESRD (end stage renal disease) on dialysis Code(s): N18.6 - END STAGE RENAL DISEASE; Z99.2 - DEPENDENCE ON RENAL DIALYSIS Status: Chronic Plan: HD in progress today (4) Anemia of renal disease Code(s): N18.9 - CHRONIC KIDNEY DISEASE, UNSPECIFIED; D63.1 - ANEMIA IN CHRONIC KIDNEY DISEASE Status: Chronic (5) Diabetes type 2, controlled Code(s): E11.9 - TYPE 2 DIABETES MELLITUS WITHOUT COMPLICATIONS Status: Chronic Qualifiers: Diabetes mellitus longwall machine operator helper insulin use: without longwall machine operator helper use Diabetes mellitus complication status: with kidney complications Diabetes mellitus complication detail: with chronic kidney disease Chronic kidney disease stage: on chronic dialysis Qualified Code(s): E11.22 - Type 2 diabetes mellitus with diabetic chronic kidney disease; N18.6 - End stage renal disease; Z99.2 - Dependence on renal dialysis (6) HTN (hypertension) Code(s): I10 - ESSENTIAL (PRIMARY) HYPERTENSION Status: Chronic Qualifiers: Hypertension type: essential hypertension Qualified Code(s): I10 - Essential (primary) hypertension - Plan continue antibiotics, social media editor, respiratory therapy, DVT proph w/SCDs Continue critical support Continue mech ventilation, wean as clinically indicated Continue Cefepime Continue Dexamethasone continue Xarelto HD per Renal service Nutritiona support with Jasiel CARDONA lab: BMP, CBC
[2020-12-08] MEDS: Lorazepam 2 MG/ML VIAL SLOW IVP PRN (12:52)
--- NOTE | 2020-12-08 17:27 | PRG ---
DATE OF SERVICE: SUBJECTIVE: The patient examined and noted with the following vital signs. OBJECTIVE: VITAL SIGNS: He is afebrile, temperature 98.8, respiratory rate 22, blood pressure 133/39. HEENT: Unremarkable except endotracheal tube. CARDIOVASCULAR SYSTEM: First and second heart sounds were heard. RESPIRATORY SYSTEM: Revealed vented sounds. DIGESTIVE SYSTEM: Revealed a benign abdomen. EXTREMITIES: No peripheral edema. SKIN: No new gross rash. LYMPHATICS: No peripheral lymphadenopathy. LABORATORY INVESTIGATION: Significant for potassium of 6.4, BUN of 133 with creatinine of 8.77. IMPRESSION: 1. End-stage renal disease. 2. Respiratory failure in the context of problem #3. 3. COVID pneumonitis. 4. Hyperkalemia. PLAN: 1. The patient to be dialyzed today and from today, the patient will be on daily dialysis with ultrafiltration as tolerated by hemodynamics until the patient is off the ventilator. 2. Further management to be dependent on the clinical course. Job ID: [id number]
[2020-12-08] MEDS: Cefepime 0.5 GM, Admixture Fee 1 EACH in Sodium Chloride 0.9% 100 ML IVPB SCH (20:58)
[2020-12-08] MEDS: Atorvastatin Calcium 40 MG TAB PO SCH (20:58)
[2020-12-08] MEDS: Morphine 2 MG/ML VIAL SLOW IVP PRN (22:55)
[2020-12-09] MEDS: Lorazepam 2 MG/ML VIAL SLOW IVP PRN ×2 (00:43→16:54)
[2020-12-09] MEDS ORDERED: Fentanyl CADD 100 ML ONE ×2 (00:57→21:43)
[2020-12-09 03:24] LABS: Actual Bicarbonate (HCO3a) 20.7 mEq/L (22-28); CO2 Tension 40.9 mmHg (35.0-45.0); Calcium, Ionized (arterial) 1.01 mmol/L (1.12-1.30); Carboxyhemoglobin (COHb) 1.2 gm% (0.0-3.0); Hemoglobin (Hb) 11.2 g/dL (14.0-18.0); Potassium - ABG Lab 5.41 mmol/L (3.70-5.30); pH, Arterial 7.32 (7.35-7.45)
[2020-12-09 03:27] LABS: ALV-art Gradient 179.175 mmHg (0-20); O2 Tension (PaO2), arterial 54.9 mmHg (> 80.0); Puncture Site LRA
[2020-12-09 04:10] LABS: Band 1 % (5-11); Hemoglobin 10.5 g/dL (14.0-18.0); Hypochromia SLIGHT = 6-15 cells (100X) (0-5/hpf); Lymphocytes 1 % (21-51); MDiff Complete? YES; Mean Corpuscular HGB CONC 31.9 g/dL (32.0-36.0); Mean Corpuscular Hemoglobin 28.9 pg (27.0-31.0); Mean Corpuscular Volume 90.6 fL (78.0-98.0); Mean Platelet Volume 8.6 fL (7.4-10.4); Monocytes 16 % (0-10); Neutrophil 82 % (42-75); Platelet Count 343 thou/uL (130-400); Platelet Morphology Comment Appears Adequate; Red Blood Cell (RBC) Count 3.65 mill/uL (4.70-6.10); White Blood Cell (WBC) Count 32.8 thou/uL (4.8-10.8)
[2020-12-09 04:20] LABS: Anion Gap 27 mmol/L (10-20); BUN (Urea Nitrogen) 93 mg/dL (8.4-25.7); Calc. Creatinine Clearance 15 mL/min (70-130); Calcium 7.8 mg/dL (7.8-10.44); Carbon Dioxide 19 mmol/L (23-31); Chloride 96 mmol/L (98-107); Glucose 245 mg/dL (80-115); Potassium 5.6 mmol/L (3.5-5.1); Sodium 136 mmol/L (136-145)
[2020-12-09] MEDS: HumaLOG 300 UNITS/3 ML VIAL SC PRN ×2 (05:42→21:51)
[2020-12-09] MEDS: Mometasone 200 MCG/Formoterol 5 MCG 120 PUFF INHALER INH SCH ×2 (07:24→19:43)
--- NOTE | 2020-12-09 08:02 | RAD ---
EXAM: Portable chest PROVIDED CLINICAL HISTORY: Respiratory insufficiency COMPARISON: 12/08/2020 FINDINGS: Significant interval change with respect to the prior examination is not apparent. IMPRESSION: As above.
[2020-12-09] MEDS: Ascorbic Acid 500 mg Chewable Tablet PO SCH (08:27)
[2020-12-09] MEDS: Dexamethasone 4 mg/ml Vial SLOW IVP SCH (08:27)
[2020-12-09] MEDS: Aspirin Chewable 81 MG TAB PO SCH (08:27)
[2020-12-09] MEDS: Amlodipine 5 MG TAB PO SCH (08:28)
[2020-12-09] MEDS: Pantoprazole 40 MG GRANULES PACKET PO SCH (08:28)
[2020-12-09] MEDS: Insulin Glargine 15 UNITS in Pre-Filled Syringe 1 EACH SC SCH ×2 (09:14→21:33)
[2020-12-09] MEDS: Metoprolol Tartrate 25 MG TAB PO SCH ×2 (09:19→21:34)
[2020-12-09] MEDS: Dextrose 5 % And 0.9 % NaCl 1,000 ML IV SCH (09:26)
--- NOTE | 2020-12-09 09:33 | PRG ---
DATE OF SERVICE: 12/09/2020 SUBJECTIVE: Being dialyzed this morning. OBJECTIVE: VITAL SIGNS: Pulse 90, blood pressure 155/53, sats are 97%. CHEST: No wheezing, no crackles. CARDIAC: Normal S1. No masses. LABORATORY DATA: White count 32,000. His pO2 is 54, pCO2 40.32, 40%, PEEP of 7, %. His creatinine is elevated. X-ray still shows minimal pulmonary infiltrates. IMPRESSION: Leukocytosis, respiratory failure, chronic renal failure. PLAN: Unclear why he has significant leukocytosis in spite of being on aggressive antibiotics. I see no evidence of obvious infection. We may have to consider re-culturing him and starting on anti-Staph medication. Continue nutrition, PT in the meantime. One-half hour of critical time. Job ID: [id number]
[2020-12-09] MEDS: Rivaroxaban 15 MG TAB PO SCH (10:44)
[2020-12-09] MEDS ORDERED: Norepinephrine 8 MG/0.9% NS 250 ML ONE (12:24)
[2020-12-09] MEDS ORDERED: Digoxin 0.5 MG/2 ML AMP ONE (12:54)
[2020-12-09 13:03] LABS: Actual Bicarbonate (HCO3a) 18.4 mEq/L (22-28); Base Excess (BEa) -10.3 mEq/L (-2.0 to +3.0); CO2 Tension 53.1 mmHg (35.0-45.0); Calcium, Ionized (arterial) 1.04 mmol/L (1.12-1.30); Hemoglobin (Hb) 11.5 g/dL (14.0-18.0); O2 Tension (PaO2), arterial 110.8 mmHg (> 80.0); Potassium - ABG Lab 4.18 mmol/L (3.70-5.30)
[2020-12-09 13:05] LABS: pH, Arterial 7.16 (7.35-7.45)
[2020-12-09 13:06] LABS: Puncture Site LFA
[2020-12-09 13:07] LABS: ALV-art Gradient 535.825 mmHg (0-20)
[2020-12-09] MEDS ORDERED: Digoxin 0.5 MG/2 ML AMP SLOW IVP SCH (13:30)
[2020-12-09 13:33] LABS: Anion Gap 24 mmol/L (10-20); BUN (Urea Nitrogen) 55 mg/dL (8.4-25.7); Calc. Creatinine Clearance 22 mL/min (70-130); Calcium 8.1 mg/dL (7.8-10.44); Carbon Dioxide 24 mmol/L (23-31); Chloride 96 mmol/L (98-107); Glucose 147 mg/dL (80-115); Magnesium 2.1 mg/dL (1.6-2.6); Phosphorus 8.5 mg/dL (2.3-4.7); Potassium 4.6 mmol/L (3.5-5.1); Sodium 139 mmol/L (136-145)
--- NOTE | 2020-12-09 13:39 | PDOC.HOSPP ---
- Subjective Encounter Date: 12/09/20 Encounter Time: 13:15 Subjective: f/u for COVID PNA/resp failure. Nursing reports pt with A-fib RVR/hypotension 2 1/2hrs into HD session. Received 1L bolus NS and Propofol turned off. - Objective Vital Signs & Weight: Vital Signs (12 hours) Pulse Resp BP Pulse Ox 12/09/20 11:12 85 119/85 12/09/20 10:00 20 12/09/20 08:28 90 155/53 H 12/09/20 08:00 21 H 12/09/20 07:24 90 20 100 12/09/20 06:00 16 12/09/20 04:00 14 12/09/20 02:47 90 12/09/20 02:00 16 Weight Admit Weight 210 lb 15.68 oz Weight 201 lb 0.985 oz Most Recent Monitor Data Heart Rate from ECG 87 NIBP 119/85 NIBP BP-Mean 96 Respiration from ECG 17 SpO2 97 I&O: 12/08/20 12/09/20 12/10/20 06:59 06:59 06:59 Intake Total 1512.7 1301 Output Total 200 Balance 1312.7 1301 Result Diagrams: 12/09/20 03:30 12/09/20 12:47 Additional Labs: Accuchecks 12/08/20 12/08/20 21:05 15:32 POC Glucose 186 H 147 H Laboratory Tests 11/24/20 11/24/20 11/29/20 20:16 22:50 08:02 WBC D-Dimer 1.36 H Bicarbonate Actual ABG pH ABG pCO2 ABG pO2 ABG O2 Sat (Measured) Inspired O2 Carbon Dioxide 20 L Ferritin Influenza A RNA INAAT Not Detected Influenza B RNA INAAT Not Detected SARS-CoV-2 Rap RNA(RT-PCR) DETECTED A* 11/29/20 11/30/20 11/30/20 08:02 11:48 11:48 WBC D-Dimer 5.04 H Bicarbonate Actual ABG pH ABG pCO2 ABG pO2 ABG O2 Sat (Measured) Inspired O2 Carbon Dioxide Ferritin 6388.72 H 5310.39 H Influenza A RNA INAAT Influenza B RNA INAAT SARS-CoV-2 Rap RNA(RT-PCR) 12/02/20 12/02/20 12/02/20 09:16 09:16 09:16 WBC D-Dimer Greater than 20.00 H Bicarbonate Actual ABG pH ABG pCO2 ABG pO2 ABG O2 Sat (Measured) Inspired O2 Carbon Dioxide 18 L Ferritin 5191.73 H Influenza A RNA INAAT Influenza B RNA INAAT SARS-CoV-2 Rap RNA(RT-PCR) 12/03/20 12/03/20 12/04/20 08:00 08:00 07:32 WBC 20.1 H D-Dimer Bicarbonate Actual ABG pH ABG pCO2 ABG pO2 ABG O2 Sat (Measured) Inspired O2 Carbon Dioxide 19 L Ferritin 4062.41 H Influenza A RNA INAAT Influenza B RNA INAAT SARS-CoV-2 Rap RNA(RT-PCR) 12/04/20 12/04/20 12/04/20 07:32 07:32 07:32 WBC 17.5 H D-Dimer Greater than 20.00 H Bicarbonate Actual ABG pH ABG pCO2 ABG pO2 ABG O2 Sat (Measured) Inspired O2 Carbon Dioxide 23 Ferritin Influenza A RNA INAAT Influenza B RNA INAAT SARS-CoV-2 Rap RNA(RT-PCR) 12/05/20 12/05/20 12/08/20 03:30 03:43 04:30 WBC 18.2 H 24.4 H D-Dimer Bicarbonate Actual ABG pH ABG pCO2 ABG pO2 ABG O2 Sat (Measured) Inspired O2 Carbon Dioxide 19 L Ferritin Influenza A RNA INAAT Influenza B RNA INAAT SARS-CoV-2 Rap RNA(RT-PCR) 12/09/20 12:55 WBC D-Dimer Bicarbonate Actual 18.4 L ABG pH 7.16 L* ABG pCO2 53.1 H ABG pO2 110.8 H ABG O2 Sat (Measured) 96.3 Inspired O2 100 Carbon Dioxide Ferritin Influenza A RNA INAAT Influenza B RNA INAAT SARS-CoV-2 Rap RNA(RT-PCR) Radiology Reviewed by me: Yes (PCXR - infiltrates bilat, prominent hilar region) EKG Reviewed by me: Yes (Tele - A-fib RVR) Hospitalist ROS - Medication Medications: Active Medications Generic Name Dose Route Start Last Admin Trade Name Freq PRN Reason Stop Dose Admin Acetaminophen 650 mg 11/25/20 02:07 12/02/20 20:02 Acetaminophen 325 Mg Tab PO 650 mg Q4H PRN Administration Headache/Fever/Mild Pain (1-3) Albuterol Sulfate 2 puff 11/25/20 02:18 12/05/20 19:33 Albuterol 200 Puff (6.7gm Inhaler) INH 2 puff [id number] PRN Administration Wheezing Amlodipine Besylate 5 mg 12/09/20 09:00 12/09/20 08:28 Amlodipine 5 Mg Tab PO 5 mg DAILY HANSA Administration Ascorbic Acid 1,000 mg 11/25/20 09:00 12/09/20 08:27 Ascorbic Acid 500 Mg Chewable Tablet PO 1,000 mg DAILY HANSA Administration Aspirin 81 mg 12/09/20 09:00 12/09/20 08:27 Aspirin Chewable 81 Mg Tab PO 81 mg DAILY HANSA Administration Atorvastatin Calcium 40 mg 11/27/20 21:00 12/08/20 20:58 Atorvastatin Calcium 40 Mg Tab PO 40 mg HS HANSA Administration Dexamethasone 6 mg 12/09/20 09:00 12/09/20 08:27 Dexamethasone 4 Mg/Ml Vial SLOW IVP 6 mg DAILY HANSA Administration Dextrose/Water 25 gm 11/25/20 02:24 12/04/20 21:01 Dextrose 50% Abboject 50 Ml Syringe SLOW IVP 25 gm PRN PRN Administration Hypoglycemia Insulin Glargine 15 units/ 0.15 mls @ 0 mls/hr 12/04/20 21:00 12/08/20 21:17 Miscellaneous Medication SC 0.15 mls HS HANSA Administration Insulin Glargine 15 units/ 0.15 mls @ 0 mls/hr 12/05/20 09:00 12/09/20 09:14 Miscellaneous Medication SC 0.15 mls QAM HANSA Administration Cefepime HCl 0.5 gm/ 100 mls @ 0 mls/hr 12/05/20 21:00 12/08/20 20:58 Miscellaneous Medication 1 IVPB 100 mls each/ Sodium Chloride 2100 HANSA Administration Dextrose/Sodium Chloride 1,000 mls @ 75 mls/hr 12/07/20 17:30 12/09/20 09:26 D5 0.9% Ns IV 1,000 mls .[id number] HANSA Administration Insulin Human Lispro 0 units 11/25/20 02:24 12/09/20 05:42 Humalog 300 Units/3 Ml Vial SC 4 unit .MILD SLIDING SCALE PRN Administration Mild Correctional Scale Insulin Human Lispro 0 units 11/25/20 02:24 12/05/20 23:59 Humalog 300 Units/3 Ml Vial SC 3 unit .BEDTIME SLIDING SC PRN Administration Bedtime Correctional Scale Lorazepam 2 mg 12/06/20 14:00 12/09/20 00:43 Lorazepam 2 Mg/Ml Vial SLOW IVP 01/05/21 14:00 2 mg Q1H PRN Administration Breakthrough agitation Metoprolol Tartrate 25 mg 11/27/20 09:00 12/09/20 09:19 Metoprolol Tartrate 25 Mg Tab PO 25 mg BID HANSA Administration Mometasone Furoate/Formoterol Fumar 2 puff 11/25/20 18:30 12/09/20 07:24 Mometasone 200 Mcg/Formoterol 5 Mcg 120 Puff Inhaler INH 2 puff BID-RT HANSA Administration Morphine Sulfate 2 mg 12/06/20 14:00 12/08/20 22:55 Morphine 2 Mg/Ml Vial SLOW IVP 01/05/21 14:00 2 mg Q1H PRN Administration Breakthrough Pain/Agitation Ondansetron HCl 4 mg 11/27/20 08:20 12/06/20 05:30 Ondansetron Pf 4 Mg/2 Ml Vial IVP 4 mg Q6H PRN Administration Nausea/Vomiting Pantoprazole Sodium 40 mg 12/09/20 09:00 12/09/20 08:28 Pantoprazole 40 Mg Granules Packet PO 40 mg DAILY HANSA Administration Propofol 1,000 mg 12/06/20 14:00 12/08/20 17:30 Propofol 1,000 Mg/100 Ml Vial IV 01/05/21 14:00 1,000 mg INF PRN Administration TO ACHIEVE GOAL RASS Protocol Rivaroxaban 15 mg 12/02/20 09:00 12/09/20 10:44 Rivaroxaban 15 Mg Tab PO 15 mg DAILY HANSA Administration Sodium Chloride 10 ml 11/25/20 02:07 11/27/20 20:20 Flush - Normal Saline 10 Ml Syringe IVF 10 ml Q12HR PRN Administration Saline Flush Hospitalist Exam Vitals: Vital Signs (12 hours) Pulse Resp BP Pulse Ox 12/09/20 11:12 85 119/85 12/09/20 10:00 20 12/09/20 08:28 90 155/53 H 12/09/20 08:00 21 H 12/09/20 07:24 90 20 100 12/09/20 06:00 16 12/09/20 04:00 14 12/09/20 02:47 90 12/09/20 02:00 16 Weight Admit Weight 210 lb 15.68 oz Weight 201 lb 0.985 oz Most Recent Monitor Data Heart Rate from ECG 87 NIBP 119/85 NIBP BP-Mean 96 Respiration from ECG 17 SpO2 97 General - other findings: sedate on mech vent Eye: anicteric sclera ENT: normocephalic atraumatic, no oropharyngeal lesions ENT - other findings: ETT in place Neck: supple, symmetric, no JVD, no thyromegaly, no lymphadenopathy Heart: no gallops, no rubs, normal peripheral pulses, irregular Heart - other findings: S1, S2 tachycardic Respiratory - other findings: coarse sounds bilat, diminished in bases Gastrointestinal: soft, non-tender, non-distended, normal bowel sounds, no palpable masses Extremities: no cyanosis, no edema Skin: normal turgor Musculoskeletal: generalized weakness Psychiatric: somnolent, lethargic Hosp A/P (1) Atrial fibrillation with RVR Code(s): I48.91 - UNSPECIFIED ATRIAL FIBRILLATION Status: Acute Plan: Digoxin 0.5mg IV x 1 then 0.25mg IV x 1, 2L NS bolus, hold Propofol, start Cardizem gtt 5mg/h, Consult Cardiology, Electrolytes pending (2) Hypotension Status: Acute Plan: Fluid bolus with NS x 2L, hold all antihypertensives, improved after fluid resuscitation (3) Pneumonia due to COVID-19 virus Code(s): U07.1 - COVID-19; J12.82 - PNEUMONIA DUE TO CORONAVIRUS DISEASE 2019 Status: Acute Plan: Continue pulm support (4) Acute respiratory failure with hypoxia Code(s): J96.01 - ACUTE RESPIRATORY FAILURE WITH HYPOXIA Status: Acute (5) ESRD (end stage renal disease) on dialysis Code(s): N18.6 - END STAGE RENAL DISEASE; Z99.2 - DEPENDENCE ON RENAL DIALYSIS Status: Chronic Plan: HD completed for 2 1/2hrs today, hold further HD pending stabilization of hemodynamics (6) Anemia of renal disease Code(s): N18.9 - CHRONIC KIDNEY DISEASE, UNSPECIFIED; D63.1 - ANEMIA IN CHRONIC KIDNEY DISEASE Status: Chronic (7) Diabetes type 2, controlled Code(s): E11.9 - TYPE 2 DIABETES MELLITUS WITHOUT COMPLICATIONS Status: Chronic Qualifiers: Diabetes mellitus custodial insulin use: without custodial use Diabetes mellitus complication status: with kidney complications Diabetes mellitus complication detail: with chronic kidney disease Chronic kidney disease stage: on chronic dialysis Qualified Code(s): E11.22 - Type 2 diabetes mellitus with diabetic chronic kidney disease; N18.6 - End stage renal disease; Z99.2 - Dependence on renal dialysis (8) HTN (hypertension) Code(s): I10 - ESSENTIAL (PRIMARY) HYPERTENSION Status: Chronic Qualifiers: Hypertension type: essential hypertension Qualified Code(s): I10 - Essential (primary) hypertension - Plan continue antibiotics, social worker health services, respiratory therapy, DVT proph w/SCDs Continue critical support Digoxin IV x 2 doses now IV NS x 2L bolus Start Cardizem IV 5mg/h May need low-dose Levophed Continue Cefepime Vancomycin 1gm IV x 1 Continue Dexamethasone continue Xarelto HD per Renal service Nutritional support with Nepro Consult Cardiology AM lab: BMP, CBC, TSH PCXR now Total Critical Care Time: 45min
[2020-12-09] MEDS ORDERED: Vancomycin 1 GM in Premix Bag 1 BAG IVPB SCH (14:00)
[2020-12-09] MEDS: Diltiazem 125 MG in Sodium Chloride 0.9% 100 ML IVPB SCH (14:06)
[2020-12-09] MEDS ORDERED: Albumin 25% 25 GM/100 ML BOT IVPB SCH (16:30)
[2020-12-09] MEDS: Propofol 1,000 MG/100 ML VIAL IV PRN (16:54)
--- NOTE | 2020-12-09 17:16 | PRG ---
DATE OF SERVICE: SUBJECTIVE: The patient is seen and examined did undergo dialysis today. Events of yesterday status post dialysis, today of rapid atrial fibrillation with hemodynamically instability noted. OBJECTIVE: GENERAL: Otherwise, the patient remains intubated. HEENT: Remarkable for endotracheal tube in place. CARDIOVASCULAR SYSTEM: First and second heart sounds were heard. Very irregular. RESPIRATORY SYSTEM: Vented sounds. DIGESTIVE SYSTEM: Benign overall. EXTREMITIES: There is no peripheral edema. SKIN: No new gross rash. LYMPHATICS: No peripheral lymphadenopathy. IMPRESSION: 1. End-stage renal disease, hemodialysis dependent. 2. Atrial fibrillation with rapid ventricular response. 3. Respiratory failure in the context of COVID pneumonitis. PLAN: 1. Withhold of dialyzing this patient tomorrow. 2. We will continue to monitor the hemodynamics. 3. Continue erythropoiesis stimulating agents. Job ID: [id number]
[2020-12-09] MEDS: Atorvastatin Calcium 40 MG TAB PO SCH (21:34)
[2020-12-09] MEDS: Cefepime 0.5 GM, Admixture Fee 1 EACH in Sodium Chloride 0.9% 100 ML IVPB SCH (21:50)
[2020-12-10] MEDS: Dextrose 5 % And 0.9 % NaCl 1,000 ML IV SCH ×2 (02:43→11:26)
[2020-12-10 04:09] LABS: Hemoglobin 9.3 g/dL (14.0-18.0); Mean Corpuscular HGB CONC 31.9 g/dL (32.0-36.0); Mean Corpuscular Hemoglobin 28.9 pg (27.0-31.0); Mean Corpuscular Volume 90.8 fL (78.0-98.0); Mean Platelet Volume 8.7 fL (7.4-10.4); Platelet Count 252 thou/uL (130-400); RBC Distribution Width 14.8 % (11.5-14.5); White Blood Cell (WBC) Count 35.3 thou/uL (4.8-10.8)
[2020-12-10 04:10] LABS: Band 4 % (5-11); Lymphocytes 4 % (21-51); MDiff Complete? YES; Monocytes 2 % (0-10); Neutrophil 90 % (42-75); Platelet Morphology Comment Appears Adequate
[2020-12-10 04:30] LABS: Anion Gap 25 mmol/L (10-20); BUN (Urea Nitrogen) 79 mg/dL (8.4-25.7); Calc. Creatinine Clearance 0 mL/min (70-130); Calcium 8.5 mg/dL (7.8-10.44); Carbon Dioxide 21 mmol/L (23-31); Chloride 96 mmol/L (98-107); Glucose 300 mg/dL (80-115); Potassium 5.1 mmol/L (3.5-5.1); Sodium 137 mmol/L (136-145)
[2020-12-10] MEDS: HumaLOG 300 UNITS/3 ML VIAL SC PRN (05:28)
[2020-12-10] MEDS: Mometasone 200 MCG/Formoterol 5 MCG 120 PUFF INHALER INH SCH ×2 (06:59→19:17)
--- NOTE | 2020-12-10 07:12 | EKG ---
Test Reason : Blood Pressure : / mmHG Vent. Rate : 129 BPM Atrial Rate : 133 BPM P-R Int : 000 ms QRS Dur : 120 ms QT Int : 316 ms P-R-T Axes : 000 -86 077 degrees QTc Int : 462 ms Atrial fibrillation with rapid ventricular response Right bundle branch block Left anterior fascicular block Bifascicular block Possible Lateral infarct , age undetermined ST depression cannot r/o acute ischemia/SD Abnormal ECG When compared with ECG of 24-NOV-2020 20:10, (Unconfirmed) Atrial fibrillation has replaced Sinus rhythm Right bundle branch block has replaced Incomplete right bundle branch block Borderline criteria for Lateral infarct are now Present Confirmed by DR. Yessy ALRRY ([id number]) on 12/10/2020 7:12:05 AM Referred By: KALEN Confirmed By:DR. Yessy LARRY
[2020-12-10] MEDS: Diltiazem 125 MG in Sodium Chloride 0.9% 100 ML IVPB SCH (08:03)
[2020-12-10] MEDS: Ascorbic Acid 500 mg Chewable Tablet PO SCH (08:04)
[2020-12-10] MEDS: Aspirin Chewable 81 MG TAB PO SCH (08:05)
[2020-12-10] MEDS: Insulin Glargine 15 UNITS in Pre-Filled Syringe 1 EACH SC SCH ×2 (08:05→19:52)
[2020-12-10] MEDS: Pantoprazole 40 MG GRANULES PACKET PO SCH (08:05)
[2020-12-10] MEDS: Dexamethasone 4 mg/ml Vial SLOW IVP SCH (08:07)
[2020-12-10] MEDS: Amlodipine 5 MG TAB PO SCH (08:08)
[2020-12-10] MEDS: Metoprolol Tartrate 25 MG TAB PO SCH ×2 (08:08→19:52)
--- NOTE | 2020-12-10 09:05 | RAD ---
CHEST 1 VIEW: INDICATION: History of intubation. COMPARISON: Prior exam dated 12/09/2020. IMPRESSION: Bibasilar airspace disease persists. The patient remains intubated. Gastric catheter is unchanged. No definite pneumothorax is evident. Pacer pad overlying the left chest wall is stable. Endovascul ar stents are present within the right subclavian region. POS: BH
--- NOTE | 2020-12-10 09:14 | RAD ---
CHEST 1 VIEW: Date: 12/09/2020 INDICATION: Respiratory failure. COMPARISON: Prior exam dated 12/09/2020 at 5:11 a.m. IMPRESSION: The examination was submitted for interpretation on 12/10/2020 at 5:56 a.m. Left-sided pacer pad is in place. The patient is intubated with gastric catheter placement. Bibasilar infiltrates persist. No definite pneumothorax is evident. POS: BH
--- NOTE | 2020-12-10 09:54 | PRG ---
DATE OF SERVICE: 12/10/2020 OBJECTIVE: VITAL SIGNS: Temperature 98, pulse blood pressure 100/80, sats 100% now on 70% and PEEP of 7. CHEST: Rhonchi, crackles. CARDIAC: Normal S1, S2. No gallops. ABDOMEN: Soft. LABORATORY DATA: White count is 35,000, creatinine is 5, BUN 79. X-ray shows bilateral infiltrates, though appears somewhat better. ASSESSMENT: Respiratory failure, urias positive pneumonia, leukocytosis, renal failure. He is not weanable at this stage. PLAN: Continue supportive care, PT. He is on broad-spectrum antibiotics including Maxipime and vancomycin. So far, all cultures are negative. One-half hour of critical care time. Job ID: [id number]
[2020-12-10] MEDS: Rivaroxaban 15 MG TAB PO SCH (11:27)
--- NOTE | 2020-12-10 11:53 | PDOC.HOSPP ---
- Subjective Encounter Date: 12/10/20 Encounter Time: 11:30 Subjective: f/u for COVID PNA/hypoxic resp failure/A-fib RVR now with controlled rate. Receiving Cefepime/Vancomycin and overall no new events reported. HD held today. - Objective Vital Signs & Weight: Vital Signs (12 hours) Temp Pulse Resp BP Pulse Ox 12/10/20 11:20 26 H 12/10/20 10:00 20 12/10/20 08:08 66 94/43 L 12/10/20 08:00 25 H 100 12/10/20 06:59 66 94/43 L 12/10/20 06:00 25 H 12/10/20 04:00 97.2 F L 23 H 12/10/20 02:27 90 12/10/20 02:00 24 H 12/10/20 00:12 108 H 129/44 L 12/10/20 00:00 99.2 F 24 H Weight Admit Weight 210 lb 15.68 oz Weight 3.175 oz Most Recent Monitor Data Heart Rate from ECG 66 NIBP 164/33 NIBP BP-Mean 76 Respiration from ECG 19 SpO2 100 I&O: 12/09/20 12/10/20 12/11/20 06:59 06:59 06:59 Intake Total 1301 2501.4 140 Output Total 0 Balance 1301 2501.4 140 Result Diagrams: 12/10/20 03:30 12/10/20 03:30 Additional Labs: Accuchecks 12/09/20 12/09/20 12/09/20 20:54 20:52 16:35 POC Glucose 289 H 405 H 216 H Microbiology 12/09/20 15:23 A-Line - Left Brachiocephalic vein Blood Culture - Preliminary Specimen has been received and culture in progress. No Growth to date. 12/09/20 15:10 A-Line - Left Brachiocephalic vein Blood Culture - Preliminary Specimen has been received and culture in progress. No Growth to date. Laboratory Tests 11/24/20 11/24/20 11/29/20 20:16 22:50 08:02 WBC D-Dimer 1.36 H Bicarbonate Actual ABG pH ABG pCO2 ABG pO2 ABG O2 Sat (Measured) Inspired O2 Carbon Dioxide 20 L Magnesium Ferritin Influenza A RNA INAAT Not Detected Influenza B RNA INAAT Not Detected SARS-CoV-2 Rap RNA(RT-PCR) DETECTED A* 11/29/20 11/30/20 11/30/20 08:02 11:48 11:48 WBC D-Dimer 5.04 H Bicarbonate Actual ABG pH ABG pCO2 ABG pO2 ABG O2 Sat (Measured) Inspired O2 Carbon Dioxide Magnesium Ferritin 6388.72 H 5310.39 H Influenza A RNA INAAT Influenza B RNA INAAT SARS-CoV-2 Rap RNA(RT-PCR) 12/02/20 12/02/20 12/02/20 09:16 09:16 09:16 WBC D-Dimer Greater than 20.00 H Bicarbonate Actual ABG pH ABG pCO2 ABG pO2 ABG O2 Sat (Measured) Inspired O2 Carbon Dioxide 18 L Magnesium Ferritin 5191.73 H Influenza A RNA INAAT Influenza B RNA INAAT SARS-CoV-2 Rap RNA(RT-PCR) 12/03/20 12/03/20 12/04/20 08:00 08:00 07:32 WBC 20.1 H D-Dimer Bicarbonate Actual ABG pH ABG pCO2 ABG pO2 ABG O2 Sat (Measured) Inspired O2 Carbon Dioxide 19 L Magnesium Ferritin 4062.41 H Influenza A RNA INAAT Influenza B RNA INAAT SARS-CoV-2 Rap RNA(RT-PCR) 12/04/20 12/04/20 12/04/20 07:32 07:32 07:32 WBC 17.5 H D-Dimer Greater than 20.00 H Bicarbonate Actual ABG pH ABG pCO2 ABG pO2 ABG O2 Sat (Measured) Inspired O2 Carbon Dioxide 23 Magnesium Ferritin Influenza A RNA INAAT Influenza B RNA INAAT SARS-CoV-2 Rap RNA(RT-PCR) 12/05/20 12/05/20 12/08/20 03:30 03:43 04:30 WBC 18.2 H 24.4 H D-Dimer Bicarbonate Actual ABG pH ABG pCO2 ABG pO2 ABG O2 Sat (Measured) Inspired O2 Carbon Dioxide 19 L Magnesium Ferritin Influenza A RNA INAAT Influenza B RNA INAAT SARS-CoV-2 Rap RNA(RT-PCR) 12/09/20 12/09/20 12:47 12:55 WBC D-Dimer Bicarbonate Actual 18.4 L ABG pH 7.16 L* ABG pCO2 53.1 H ABG pO2 110.8 H ABG O2 Sat (Measured) 96.3 Inspired O2 100 Carbon Dioxide Magnesium 2.1 Ferritin Influenza A RNA INAAT Influenza B RNA INAAT SARS-CoV-2 Rap RNA(RT-PCR) Laboratory Tests 12/10/20 03:30 TSH 3rd Generation 0.1417 L Radiology Reviewed by me: Yes (PCXR - lines/tubes in place, patchy infiltrates bilat) EKG Reviewed by me: Yes (Tele - A-fib with intermittent SR) Hospitalist ROS - Medication Medications: Active Medications Generic Name Dose Route Start Last Admin Trade Name Freq PRN Reason Stop Dose Admin Acetaminophen 650 mg 11/25/20 02:07 12/02/20 20:02 Acetaminophen 325 Mg Tab PO 650 mg Q4H PRN Administration Headache/Fever/Mild Pain (1-3) Albuterol Sulfate 2 puff 11/25/20 02:18 12/05/20 19:33 Albuterol 200 Puff (6.7gm Inhaler) INH 2 puff [id number] PRN Administration Wheezing Amlodipine Besylate 5 mg 12/09/20 09:00 12/10/20 08:08 Amlodipine 5 Mg Tab PO Not Given DAILY HANSA Ascorbic Acid 1,000 mg 11/25/20 09:00 12/10/20 08:04 Ascorbic Acid 500 Mg Chewable Tablet PO 1,000 mg DAILY HANSA Administration Aspirin 81 mg 12/09/20 09:00 12/10/20 08:05 Aspirin Chewable 81 Mg Tab PO 81 mg DAILY HANSA Administration Atorvastatin Calcium 40 mg 11/27/20 21:00 12/09/20 21:34 Atorvastatin Calcium 40 Mg Tab PO 40 mg HS HANSA Administration Dexamethasone 6 mg 12/09/20 09:00 12/10/20 08:07 Dexamethasone 4 Mg/Ml Vial SLOW IVP 6 mg DAILY HANSA Administration Dextrose/Water 25 gm 11/25/20 02:24 12/04/20 21:01 Dextrose 50% Abboject 50 Ml Syringe SLOW IVP 25 gm PRN PRN Administration Hypoglycemia Insulin Glargine 15 units/ 0.15 mls @ 0 mls/hr 12/04/20 21:00 12/09/20 21:33 Miscellaneous Medication SC 0.15 mls HS HANSA Administration Insulin Glargine 15 units/ 0.15 mls @ 0 mls/hr 12/05/20 09:00 12/10/20 08:05 Miscellaneous Medication SC 0.15 mls QAM HANSA Administration Cefepime HCl 0.5 gm/ 100 mls @ 0 mls/hr 12/05/20 21:00 12/09/20 21:50 Miscellaneous Medication 1 IVPB 100 mls each/ Sodium Chloride 2100 HANSA Administration Dextrose/Sodium Chloride 1,000 mls @ 75 mls/hr 12/07/20 17:30 12/10/20 11:26 D5 0.9% Ns IV Not Given .[id number] HANSA Diltiazem HCl 125 mg/ Sodium 125 mls @ 5 mls/hr 12/09/20 13:45 12/10/20 08:03 Chloride IVPB 125 mls INF HANSA Administration Protocol 5 MG/HR Insulin Human Lispro 0 units 11/25/20 02:24 12/10/20 05:28 Humalog 300 Units/3 Ml Vial SC 4 unit .MILD SLIDING SCALE PRN Administration Mild Correctional Scale Insulin Human Lispro 0 units 11/25/20 02:24 12/09/20 21:51 Humalog 300 Units/3 Ml Vial SC 3 unit .BEDTIME SLIDING SC PRN Administration Bedtime Correctional Scale Lorazepam 2 mg 12/06/20 14:00 12/09/20 16:54 Lorazepam 2 Mg/Ml Vial SLOW IVP 01/05/21 14:00 2 mg Q1H PRN Administration Breakthrough agitation Metoprolol Tartrate 25 mg 11/27/20 09:00 12/10/20 08:08 Metoprolol Tartrate 25 Mg Tab PO 25 mg BID HANSA Administration Mometasone Furoate/Formoterol Fumar 2 puff 11/25/20 18:30 12/10/20 06:59 Mometasone 200 Mcg/Formoterol 5 Mcg 120 Puff Inhaler INH 2 puff BID-RT HANSA Administration Morphine Sulfate 2 mg 12/06/20 14:00 12/08/20 22:55 Morphine 2 Mg/Ml Vial SLOW IVP 01/05/21 14:00 2 mg Q1H PRN Administration Breakthrough Pain/Agitation Ondansetron HCl 4 mg 11/27/20 08:20 12/06/20 05:30 Ondansetron Pf 4 Mg/2 Ml Vial IVP 4 mg Q6H PRN Administration Nausea/Vomiting Pantoprazole Sodium 40 mg 12/09/20 09:00 12/10/20 08:05 Pantoprazole 40 Mg Granules Packet PO 40 mg DAILY HANSA Administration Propofol 1,000 mg 12/06/20 14:00 12/09/20 16:54 Propofol 1,000 Mg/100 Ml Vial IV 01/05/21 14:00 1,000 mg INF PRN Administration TO ACHIEVE GOAL RASS Protocol Rivaroxaban 15 mg 12/02/20 09:00 12/10/20 11:27 Rivaroxaban 15 Mg Tab PO 15 mg DAILY HANSA Administration Sodium Chloride 10 ml 11/25/20 02:07 11/27/20 20:20 Flush - Normal Saline 10 Ml Syringe IVF 10 ml Q12HR PRN Administration Saline Flush Hospitalist Exam Vitals: Vital Signs (12 hours) Temp Pulse Resp BP Pulse Ox 12/10/20 11:20 26 H 12/10/20 10:00 20 12/10/20 08:08 66 94/43 L 12/10/20 08:00 25 H 100 12/10/20 06:59 66 94/43 L 12/10/20 06:00 25 H 12/10/20 04:00 97.2 F L 23 H 12/10/20 02:27 90 12/10/20 02:00 24 H 12/10/20 00:12 108 H 129/44 L 12/10/20 00:00 99.2 F 24 H Weight Admit Weight 210 lb 15.68 oz Weight 3.175 oz Most Recent Monitor Data Heart Rate from ECG 66 NIBP 164/33 NIBP BP-Mean 76 Respiration from ECG 19 SpO2 100 General - other findings: sedate on mech vent Eye: anicteric sclera ENT: normocephalic atraumatic, no oropharyngeal lesions ENT - other findings: ETT in place Neck: supple, symmetric, no JVD, no thyromegaly, no lymphadenopathy Heart: no gallops, no rubs, normal peripheral pulses, irregular Heart - other findings: S1, S2 Respiratory: no tachypnea Respiratory - other findings: diminished bilat, scattered coarse sounds Gastrointestinal: soft, non-tender, non-distended, normal bowel sounds, no palpable masses Extremities: no cyanosis, no clubbing, no edema Skin: normal turgor Neurological: no new deficit Psychiatric: somnolent, lethargic Hosp A/P (1) Atrial fibrillation with RVR Code(s): I48.91 - UNSPECIFIED ATRIAL FIBRILLATION Status: Acute Plan: Rate-controlled currently, continue Cardizem gtt, Metoprolol/Xarelto (2) Hypotension Status: Acute Plan: Improved after volume resuscitation, continue to monitor clinically (3) Pneumonia due to COVID-19 virus Code(s): U07.1 - COVID-19; J12.82 - PNEUMONIA DUE TO CORONAVIRUS DISEASE 2018 Status: Acute Plan: Continue pulmonary support, Cefepime/Dexamethasone (4) Acute respiratory failure with hypoxia Code(s): J96.01 - ACUTE RESPIRATORY FAILURE WITH HYPOXIA Status: Acute Plan: Continue mech ventilation, not weanable currently (5) ESRD (end stage renal disease) on dialysis Code(s): N18.6 - END STAGE RENAL DISEASE; Z99.2 - DEPENDENCE ON RENAL DIALYSIS Status: Chronic (6) Anemia of renal disease Code(s): N18.9 - CHRONIC KIDNEY DISEASE, UNSPECIFIED; D63.1 - ANEMIA IN CHRONIC KIDNEY DISEASE Status: Chronic (7) Diabetes type 2, controlled Code(s): E11.9 - TYPE 2 DIABETES MELLITUS WITHOUT COMPLICATIONS Status: Chronic Qualifiers: 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: without chcf use Diabetes mellitus complication status: with kidney complications Diabetes mellitus complication detail: with chronic kidney disease Chronic kidney disease stage: on chronic dialysis Qualified Code(s): E11.22 - Type 2 diabetes mellitus with diabetic chronic kidney disease; N18.6 - End stage renal disease; Z99.2 - Dependence on renal dialysis (8) HTN (hypertension) Code(s): I10 - ESSENTIAL (PRIMARY) HYPERTENSION Status: Chronic Qualifiers: Hypertension type: essential hypertension Qualified Code(s): I10 - Essential (primary) hypertension - Plan continue antibiotics, director of social services, respiratory therapy, DVT proph w/SCDs Continue critical support Continue Cardizem gtt Continue Cefepime Vancomycin 1gm IV x 1 Continue Dexamethasone continue Xarelto HD per Renal service, held today Nutritional support with Nepro Consult Cardiology AM lab: BMP, CBC, FT4
[2020-12-10] MEDS: Morphine 2 MG/ML VIAL SLOW IVP PRN (15:58)
--- NOTE | 2020-12-10 16:32 | PRG ---
DATE OF SERVICE: SUBJECTIVE: The patient was seen and examined, seems to be a little bit more stabilized today hemodynamically. His atrial fibrillation is in moderate control. OBJECTIVE: HEENT: Unremarkable. CARDIOVASCULAR SYSTEM: First and second heart sounds were heard. RESPIRATORY SYSTEM: Revealed vented sounds. DIGESTIVE SYSTEM: Revealed a benign abdomen. EXTREMITIES: No peripheral edema. SKIN: No new gross rash. LYMPHATICS: No peripheral lymphadenopathy. IMPRESSION: 1. End-stage renal disease, hemodialysis dependent. 2. Atrial fibrillation. 3. Respiratory failure in the context of #4. 4. COVID pneumonitis. PLAN: 1. Today, dialysis is being placed on hold to allow time for re-equilibration and the patient's hemodynamics to be much more stabilized and dialysis to be resumed tomorrow with persistent ultrafiltration. 2. Further management to be dependent on the clinical course. Job ID: [id number]
[2020-12-10] MEDS: Fentanyl CADD 100 ML IV SCH (18:04)
[2020-12-10] MEDS: Atorvastatin Calcium 40 MG TAB PO SCH (19:51)
[2020-12-10] MEDS: Cefepime 0.5 GM, Admixture Fee 1 EACH in Sodium Chloride 0.9% 100 ML IVPB SCH (20:14)
[2020-12-10] MEDS: Propofol 1,000 MG/100 ML VIAL IV PRN (23:26)
--- NOTE | 2020-12-11 00:19 | CON ---
DATE OF CONSULTATION: HISTORY OF PRESENT ILLNESS: Jose Guadalupe Pacheco is a 60-year-old male, currently intubated with COVID pneumonia with atrial fibrillation with fast ventricular response. I initially evaluated him in June 2017 in the office. In July 2017, he had a cardiac PET scan, which was normal. Also in July 2017, echo revealed ejection fraction of 55% to 60% with mild left atrial enlargement, mild mitral regurgitation, mild tricuspid regurgitation, mild pulmonic regurgitation. He was last seen in August 2020 without specific symptoms. He now is admitted on November 25 due to increased shortness of breath. He was hypoxic with COVID pneumonia. Currently, he is intubated and in atrial fibrillation at times with fast ventricular response, although at the present time, his heart rate is in the 70s to 80s. PAST MEDICAL HISTORY: End-stage renal disease on dialysis, diabetes, hypertension, hypercholesterolemia, history of stroke. OPERATIONS: Appendectomy, cholecystectomy, tonsillectomy. PHYSICAL EXAMINATION: VITAL SIGNS: 157/36, pulse of 66. Physical exam is deferred due to COVID pneumonia. LABORATORY DATA: EKG on admission revealed incomplete right bundle-branch block. Normal sinus rhythm. EKG from yesterday reveals atrial fibrillation with fast ventricular response of 129 per minute. Sodium 137, potassium 5.1, chloride 96, carbon dioxide 21, BUN 79, creatinine 5.46, hemoglobin 9.3, hematocrit 29.1, white count 81140, platelets 252,000. IMPRESSION: 1. Atrial fibrillation initially with fast ventricular response. Now rate is in the 70s to 80s. 2. Respiratory failure. 3. COVID positive pneumonia. 4. End-stage renal disease. 5. Hypertension. 6. Hypercholesterolemia. 7. Diabetes. 8. History of stroke. PLAN: The patient will be continued on diltiazem. In the past, he has had normal left ventricular function. However, he certainly may be compromised at this time with worsening of that. We will follow the patient with you. Job ID: [id number]
[2020-12-11] MEDS: Dextrose 5 % And 0.9 % NaCl 1,000 ML IV SCH ×2 (04:27→13:14)
[2020-12-11 04:30] LABS: Hemoglobin 9.3 g/dL (14.0-18.0); Mean Corpuscular HGB CONC 31.5 g/dL (32.0-36.0); Mean Corpuscular Hemoglobin 28.9 pg (27.0-31.0); Mean Corpuscular Volume 91.7 fL (78.0-98.0); Mean Platelet Volume 8.9 fL (7.4-10.4); Platelet Count 289 thou/uL (130-400); RBC Distribution Width 14.9 % (11.5-14.5); Red Blood Cell (RBC) Count 3.22 mill/uL (4.70-6.10); White Blood Cell (WBC) Count 42.7 thou/uL (4.8-10.8)
[2020-12-11 04:47] LABS: Band 1 % (5-11); Hypochromia SLIGHT = 6-15 cells (100X) (0-5/hpf); MDiff Complete? YES; Monocytes 11 % (0-10); Neutrophil 88 % (42-75); Platelet Morphology Comment Appears Adequate
[2020-12-11 04:59] LABS: Anion Gap 24 mmol/L (10-20); BUN (Urea Nitrogen) 119 mg/dL (8.4-25.7); Calc. Creatinine Clearance 14 mL/min (70-130); Calcium 8.8 mg/dL (7.8-10.44); Carbon Dioxide 23 mmol/L (23-31); Chloride 97 mmol/L (98-107); Glucose 257 mg/dL (80-115); Sodium 138 mmol/L (136-145)
[2020-12-11] MEDS: Mometasone 200 MCG/Formoterol 5 MCG 120 PUFF INHALER INH SCH ×2 (07:52→19:23)
[2020-12-11] MEDS: Diltiazem 125 MG in Sodium Chloride 0.9% 100 ML IVPB SCH (08:00)
[2020-12-11] MEDS: Aspirin Chewable 81 MG TAB PO SCH (08:01)
[2020-12-11] MEDS: Amlodipine 5 MG TAB PO SCH (08:02)
[2020-12-11] MEDS: Pantoprazole 40 MG GRANULES PACKET PO SCH (08:02)
[2020-12-11] MEDS: Ascorbic Acid 500 mg Chewable Tablet PO SCH (08:02)
[2020-12-11] MEDS: Dexamethasone 4 mg/ml Vial SLOW IVP SCH (08:02)
[2020-12-11] MEDS: Insulin Glargine 15 UNITS in Pre-Filled Syringe 1 EACH SC SCH ×2 (08:03→22:05)
[2020-12-11] MEDS: Metoprolol Tartrate 25 MG TAB PO SCH ×2 (08:03→21:58)
--- NOTE | 2020-12-11 08:34 | RAD ---
Exam: Chest one view HISTORY:Respiratory distress. Ventilated patient Comparison: 12/10/2020 FINDINGS: Lines and tubes: Redemonstration of endotracheal tube. Nasogastric tube is now present. Stable stent projecting along the right subclavian region Cardiac silhouette:Cardiomegaly. Aorta: Unremarkable Pulmonary vessels: Normal Costophrenic angles: This LUNGS: Diffuse interstitial opacities, unchanged Pneumothorax: None Osseous abnormalities: None IMPRESSION: Interval placement of nasogastric tube. Otherwise, no significant interval change.
[2020-12-11] MEDS: Rivaroxaban 15 MG TAB PO SCH (09:59)
[2020-12-11] MEDS ORDERED: Albumin 25% 100 ML ONE (11:02)
[2020-12-11] MEDS ORDERED: Amiodarone 150 MG, Admixture Fee 1 EACH in Dextrose 5% in Water 100 ML IVPB SCH (11:30)
[2020-12-11] MEDS: Amiodarone 450 MG, Admixture Fee 1 EACH in Dextrose 5% in Water 250 ML IVPB SCH (11:42)
[2020-12-11] MEDS: Meropenem 500 MG in Sodium Chloride 0.9% 100 ML IVPB SCH (13:15)
[2020-12-11] MEDS: Fentanyl CADD 100 ML IV SCH (14:56)
--- NOTE | 2020-12-11 17:36 | PDOC.HOSPP ---
- Subjective Encounter Date: 12/11/20 Encounter Time: 17:35 - Objective Vital Signs & Weight: Vital Signs (12 hours) Temp Pulse Resp BP Pulse Ox 12/11/20 17:29 19 12/11/20 16:00 14 12/11/20 15:00 97.8 F 12/11/20 14:59 121 H 148/57 H 12/11/20 14:00 20 12/11/20 12:00 20 12/11/20 11:09 135 H 106/54 L 12/11/20 11:00 97.3 F L 12/11/20 10:00 16 12/11/20 08:02 71 144/47 H 12/11/20 08:00 100 12/11/20 07:37 71 144/47 H 12/11/20 07:32 19 12/11/20 06:00 98.2 F 18 Weight Admit Weight 210 lb 15.68 oz Weight 198 lb 6.656 oz Most Recent Monitor Data Heart Rate from ECG 119 NIBP 149/97 NIBP BP-Mean 114 Respiration from ECG 13 SpO2 100 I&O: 12/10/20 12/11/20 12/12/20 06:59 06:59 06:59 Intake Total 2501.4 764 250 Output Total 0 0 Balance 2501.4 764 250 Result Diagrams: 12/11/20 03:45 12/11/20 03:45 Additional Labs: Accuchecks 12/11/20 12/10/20 15:35 21:02 POC Glucose 178 H 237 H Microbiology 12/09/20 15:23 A-Line - Left Brachiocephalic vein Blood Culture - Preliminary Specimen has been received and culture in progress. No Growth to date. 12/09/20 15:10 A-Line - Left Brachiocephalic vein Blood Culture - Preliminary Specimen has been received and culture in progress. No Growth to date. Laboratory Tests 11/24/20 11/24/20 11/29/20 20:16 22:50 08:02 WBC Hgb Neutrophils % (Manual) D-Dimer 1.36 H Bicarbonate Actual ABG pH ABG pCO2 ABG pO2 ABG O2 Sat (Measured) Inspired O2 Carbon Dioxide 20 L Magnesium Ferritin TSH 3rd Generation Influenza A RNA INAAT Not Detected Influenza B RNA INAAT Not Detected SARS-CoV-2 Rap RNA(RT-PCR) DETECTED A* 11/29/20 11/30/20 11/30/20 08:02 11:48 11:48 WBC Hgb Neutrophils % (Manual) D-Dimer 5.04 H Bicarbonate Actual ABG pH ABG pCO2 ABG pO2 ABG O2 Sat (Measured) Inspired O2 Carbon Dioxide Magnesium Ferritin 6388.72 H 5310.39 H TSH 3rd Generation Influenza A RNA INAAT Influenza B RNA INAAT SARS-CoV-2 Rap RNA(RT-PCR) 12/02/20 12/02/20 12/02/20 09:16 09:16 09:16 WBC Hgb Neutrophils % (Manual) D-Dimer Greater than 20.00 H Bicarbonate Actual ABG pH ABG pCO2 ABG pO2 ABG O2 Sat (Measured) Inspired O2 Carbon Dioxide 18 L Magnesium Ferritin 5191.73 H TSH 3rd Generation Influenza A RNA INAAT Influenza B RNA INAAT SARS-CoV-2 Rap RNA(RT-PCR) 12/03/20 12/03/20 12/04/20 08:00 08:00 07:32 WBC 20.1 H Hgb Neutrophils % (Manual) D-Dimer Bicarbonate Actual ABG pH ABG pCO2 ABG pO2 ABG O2 Sat (Measured) Inspired O2 Carbon Dioxide 19 L Magnesium Ferritin 4062.41 H TSH 3rd Generation Influenza A RNA INAAT Influenza B RNA INAAT SARS-CoV-2 Rap RNA(RT-PCR) 12/04/20 12/04/20 12/04/20 07:32 07:32 07:32 WBC 17.5 H Hgb Neutrophils % (Manual) D-Dimer Greater than 20.00 H Bicarbonate Actual ABG pH ABG pCO2 ABG pO2 ABG O2 Sat (Measured) Inspired O2 Carbon Dioxide 23 Magnesium Ferritin TSH 3rd Generation Influenza A RNA INAAT Influenza B RNA INAAT SARS-CoV-2 Rap RNA(RT-PCR) 12/05/20 12/05/20 12/08/20 03:30 03:43 04:30 WBC 18.2 H 24.4 H Hgb Neutrophils % (Manual) D-Dimer Bicarbonate Actual ABG pH ABG pCO2 ABG pO2 ABG O2 Sat (Measured) Inspired O2 Carbon Dioxide 19 L Magnesium Ferritin TSH 3rd Generation Influenza A RNA INAAT Influenza B RNA INAAT SARS-CoV-2 Rap RNA(RT-PCR) 12/09/20 12/09/20 12/09/20 03:30 12:47 12:55 WBC 32.8 H Hgb 10.5 L Neutrophils % (Manual) 82 H D-Dimer Bicarbonate Actual 18.4 L ABG pH 7.16 L* ABG pCO2 53.1 H ABG pO2 110.8 H ABG O2 Sat (Measured) 96.3 Inspired O2 100 Carbon Dioxide Magnesium 2.1 Ferritin TSH 3rd Generation Influenza A RNA INAAT Influenza B RNA INAAT SARS-CoV-2 Rap RNA(RT-PCR) 12/10/20 12/10/20 12/11/20 03:30 03:30 03:45 WBC 35.3 H Hgb 9.3 L Neutrophils % (Manual) 90 H 88 H D-Dimer Bicarbonate Actual ABG pH ABG pCO2 ABG pO2 ABG O2 Sat (Measured) Inspired O2 Carbon Dioxide Magnesium Ferritin TSH 3rd Generation 0.1417 L Influenza A RNA INAAT Influenza B RNA INAAT SARS-CoV-2 Rap RNA(RT-PCR) Laboratory Tests 12/11/20 03:45 Free T4 0.77 Radiology Reviewed by me: Yes (PCXR - persistent infiltrates, NGT/lines/tubes in place, no PTX) EKG Reviewed by me: Yes (Tele - A-fib in 100's) Hospitalist ROS - Medication Medications: Active Medications Generic Name Dose Route Start Last Admin Trade Name Freq PRN Reason Stop Dose Admin Acetaminophen 650 mg 11/25/20 02:07 12/02/20 20:02 Acetaminophen 325 Mg Tab PO 650 mg Q4H PRN Administration Headache/Fever/Mild Pain (1-3) Albuterol Sulfate 2 puff 11/25/20 02:18 12/05/20 19:33 Albuterol 200 Puff (6.7gm Inhaler) INH 2 puff [id number] PRN Administration Wheezing Amlodipine Besylate 5 mg 12/09/20 09:00 12/11/20 08:02 Amlodipine 5 Mg Tab PO 5 mg DAILY HANSA Administration Ascorbic Acid 1,000 mg 11/25/20 09:00 12/11/20 08:02 Ascorbic Acid 500 Mg Chewable Tablet PO 1,000 mg DAILY HANSA Administration Aspirin 81 mg 12/09/20 09:00 12/11/20 08:01 Aspirin Chewable 81 Mg Tab PO 81 mg DAILY HANSA Administration Atorvastatin Calcium 40 mg 11/27/20 21:00 12/10/20 19:51 Atorvastatin Calcium 40 Mg Tab PO 40 mg HS HANSA Administration Dexamethasone 6 mg 12/09/20 09:00 12/11/20 08:02 Dexamethasone 4 Mg/Ml Vial SLOW IVP 6 mg DAILY HANSA Administration Dextrose/Water 25 gm 11/25/20 02:24 12/04/20 21:01 Dextrose 50% Abboject 50 Ml Syringe SLOW IVP 25 gm PRN PRN Administration Hypoglycemia Insulin Glargine 15 units/ 0.15 mls @ 0 mls/hr 12/04/20 21:00 12/10/20 19:52 Miscellaneous Medication SC 0.15 mls HS HANSA Administration Insulin Glargine 15 units/ 0.15 mls @ 0 mls/hr 12/05/20 09:00 12/11/20 08:03 Miscellaneous Medication SC 0.15 mls QAM HANSA Administration Fentanyl 100 mls @ 0 mls/hr 12/06/20 14:00 12/11/20 14:56 Fentanyl Cadd IV 01/05/21 14:00 100 mls INF HANSA Administration Protocol Per Protocol Dextrose/Sodium Chloride 1,000 mls @ 75 mls/hr 12/07/20 17:30 12/11/20 13:14 D5 0.9% Ns IV 1,000 mls .[id number] HANSA Administration Diltiazem HCl 125 mg/ Sodium 125 mls @ 5 mls/hr 12/09/20 13:45 12/11/20 08:00 Chloride IVPB 125 mls INF HANSA Administration Protocol 5 MG/HR Meropenem 500 mg/ Sodium 100 mls @ 200 mls/hr 12/11/20 14:00 12/11/20 13:15 Chloride IVPB 100 mls 1400 HANSA Administration Amiodarone HCl 450 mg/ 259 mls @ 0 mls/hr 12/11/20 11:30 12/11/20 11:42 Miscellaneous Medication 1 IVPB 259 mls each/ Dextrose/Water INF HANSA Administration Protocol As Directed Insulin Human Lispro 0 units 11/25/20 02:24 12/10/20 05:28 Humalog 300 Units/3 Ml Vial SC 4 unit .MILD SLIDING SCALE PRN Administration Mild Correctional Scale Insulin Human Lispro 0 units 11/25/20 02:24 12/09/20 21:51 Humalog 300 Units/3 Ml Vial SC 3 unit .BEDTIME SLIDING SC PRN Administration Bedtime Correctional Scale Lorazepam 2 mg 12/06/20 14:00 12/09/20 16:54 Lorazepam 2 Mg/Ml Vial SLOW IVP 01/05/21 14:00 2 mg Q1H PRN Administration Breakthrough agitation Metoprolol Tartrate 25 mg 11/27/20 09:00 12/11/20 08:03 Metoprolol Tartrate 25 Mg Tab PO 25 mg BID HANSA Administration Mometasone Furoate/Formoterol Fumar 2 puff 11/25/20 18:30 12/11/20 07:52 Mometasone 200 Mcg/Formoterol 5 Mcg 120 Puff Inhaler INH 2 puff BID-RT HANSA Administration Morphine Sulfate 2 mg 12/06/20 14:00 12/10/20 15:58 Morphine 2 Mg/Ml Vial SLOW IVP 01/05/21 14:00 2 mg Q1H PRN Administration Breakthrough Pain/Agitation Ondansetron HCl 4 mg 11/27/20 08:20 12/06/20 05:30 Ondansetron Pf 4 Mg/2 Ml Vial IVP 4 mg Q6H PRN Administration Nausea/Vomiting Pantoprazole Sodium 40 mg 12/09/20 09:00 12/11/20 08:02 Pantoprazole 40 Mg Granules Packet PO 40 mg DAILY HANSA Administration Propofol 1,000 mg 12/06/20 14:00 12/10/20 23:26 Propofol 1,000 Mg/100 Ml Vial IV 01/05/21 14:00 1,000 mg INF PRN Administration TO ACHIEVE GOAL RASS Protocol Rivaroxaban 15 mg 12/02/20 09:00 12/11/20 09:59 Rivaroxaban 15 Mg Tab PO 15 mg DAILY HANSA Administration Sodium Chloride 10 ml 11/25/20 02:07 11/27/20 20:20 Flush - Normal Saline 10 Ml Syringe IVF 10 ml Q12HR PRN Administration Saline Flush Hospitalist Exam Vitals: Vital Signs (12 hours) Temp Pulse Resp BP Pulse Ox 12/11/20 17:29 19 12/11/20 16:00 14 12/11/20 15:00 97.8 F 12/11/20 14:59 121 H 148/57 H 12/11/20 14:00 20 12/11/20 12:00 20 12/11/20 11:09 135 H 106/54 L 12/11/20 11:00 97.3 F L 12/11/20 10:00 16 12/11/20 08:02 71 144/47 H 12/11/20 08:00 100 12/11/20 07:37 71 144/47 H 12/11/20 07:32 19 12/11/20 06:00 98.2 F 18 Weight Admit Weight 210 lb 15.68 oz Weight 198 lb 6.656 oz Most Recent Monitor Data Heart Rate from ECG 119 NIBP 149/97 NIBP BP-Mean 114 Respiration from ECG 13 SpO2 100 General Appearance: ill appearing General - other findings: sedate on mech vent Eye: anicteric sclera ENT: normocephalic atraumatic, no oropharyngeal lesions ENT - other findings: ETT in place Neck: supple, symmetric, no JVD, no thyromegaly, no lymphadenopathy Heart: no gallops, no rubs, normal peripheral pulses, irregular Heart - other findings: S1, S2 tachycardic Respiratory: no tachypnea Respiratory - other findings: diminished bilat, scattered rhonchi Gastrointestinal: soft, non-tender, non-distended, normal bowel sounds, no palpable masses Extremities: no cyanosis, 2+ LE edema Extremities - other findings: RUE edema/AV fistula in place Neurological - other findings: sedate on mech vent Musculoskeletal: generalized weakness Psychiatric: somnolent, lethargic Hosp A/P (1) Atrial fibrillation with RVR Code(s): I48.91 - UNSPECIFIED ATRIAL FIBRILLATION Status: Acute Plan: Continue Diltiazem/Amiodarone/Metoprolol/Xarelto (2) Hypotension Status: Acute Plan: Improved, HD held (3) Pneumonia due to COVID-19 virus Code(s): U07.1 - COVID-19; J12.82 - PNEUMONIA DUE TO CORONAVIRUS DISEASE 2018 Status: Acute Plan: Continue Meropenem/Dexamethasone/mech ventilation (4) Acute respiratory failure with hypoxia Code(s): J96.01 - ACUTE RESPIRATORY FAILURE WITH HYPOXIA Status: Acute Plan: Continue mech ventilation (5) ESRD (end stage renal disease) on dialysis Code(s): N18.6 - END STAGE RENAL DISEASE; Z99.2 - DEPENDENCE ON RENAL DIALYSIS Status: Chronic Plan: HD per Renal service if hemodynamics will support (6) Anemia of renal disease Code(s): N18.9 - CHRONIC KIDNEY DISEASE, UNSPECIFIED; D63.1 - ANEMIA IN CHRONIC KIDNEY DISEASE Status: Chronic (7) Diabetes type 2, controlled Code(s): E11.9 - TYPE 2 DIABETES MELLITUS WITHOUT COMPLICATIONS Status: Chronic Qualifiers: Diabetes mellitus intermediate frame tender insulin use: without intermediate frame tender use Diabetes mellitus complication status: with kidney complications Diabetes mellitus com plication detail: with chronic kidney disease Chronic kidney disease stage: on chronic dialysis Qualified Code(s): E11.22 - Type 2 diabetes mellitus with diabetic chronic kidney disease; N18.6 - End stage renal disease; Z99.2 - Depend ence on renal dialysis (8) HTN (hypertension) Code(s): I10 - ESSENTIAL (PRIMARY) HYPERTENSION Status: Chronic Qualifiers: Hypertension type: essential hypertension Qualified Code(s): I10 - Essential (primary) hypertension (9) Leukocytosis Code(s): D72.829 - ELEVATED WHITE BLOOD CELL COUNT, UNSPECIFIED Status: Acute Qualifiers: Leukocytosis type: leukemoid reaction Qualified Code(s): D72.823 - Leukemoid reaction Plan: Suspected leukemoid reaction, ? Dexamethasone influence, serial monitoring, consult Hematology - Plan continue antibiotics, foster care social worker, respiratory therapy, DVT proph w/SCDs Continue critical support Continue Cardizem gtt Amiodarone gtt Continue Meropenem Continue Dexamethasone continue Xarelto HD per Renal service when hemodynamics will support Nutritional support with Nepro Consult Hematology in am Bowel regimen with Dulcolax supp/Reglan Saline lock IVF AM lab: BMP, CBC
[2020-12-11] MEDS ORDERED: Bisacodyl 10 MG SUPP PR PRN (18:00)
--- NOTE | 2020-12-11 18:31 | PRG ---
DATE OF SERVICE: 12/11/2020 SUBJECTIVE: The patient is seen, still on Cardizem drip. OBJECTIVE: VITAL SIGNS: Has following vital signs; blood pressure 142/60, with pulse of 120, respiratory rate of 19. HEENT: Remarkable for endotracheal tube in place. CARDIOVASCULAR SYSTEM: First and second heart sounds were heard, irregularly irregular. RESPIRATORY SYSTEM: Revealed vented sounds. DIGESTIVE SYSTEM: Revealed a benign abdomen. EXTREMITIES: Showed some peripheral edema. LABORATORY INVESTIGATION: Showed a white count of 42,700, with hemoglobin of 9.3. Chemistry showed a potassium of 6.0, BUN of 119, with creatinine of 7.0. IMPRESSION: 1. End-stage renal disease, on hemodialysis, with profound azotemia. 2. Hyperkalemia, related to problem #1. 3. Respiratory failure in the context of problem #4. 4. COVID pneumonitis. 5. Atrial fibrillation with rapid ventricular response. PLAN: 1. The atrial fibrillation is making it very difficult for this patient to be adequately dialyzed. However, we will try to modify dialysis and will be able to dialyze this patient as much as we can to address the hyperkalemia. 2. Give the patient albumin to help with intravascular volume expansion. 3. If potassium is improved, given the significant edema in this patient, may adjust dialysis to ultrafiltration only in order to get rid of fluid without affecting this patient's hemodynamics much. 4. Further management to be dependent on the clinical course. Job ID: [id number]
[2020-12-11] MEDS: Propofol 1,000 MG/100 ML VIAL IV PRN (21:15)
--- NOTE | 2020-12-11 21:51 | PRG ---
DATE OF SERVICE: 12/11/2020 SUBJECTIVE: Mr. Pacheco remains mechanically ventilated, FiO2 is 50%. OBJECTIVE: VITAL SIGNS: Blood pressure 152/70, heart rate 117. Intake and outputs positive 764. LUNGS: Remarkable for coarse equal breath sounds. HEART: Regular rhythm. ABDOMEN: Soft and nontender. EXTREMITIES: Without asymmetry. LABORATORY DATA: White count is today, hemoglobin 9.3, platelets 289. Only has 1% bands on his peripheral smear. Sodium 130, potassium 6, chloride 97, bicarb 23, BUN 119, creatinine 7. IMPRESSION: COVID pneumonia with respiratory failure. PLAN: Continue support. Critical care time 30 min. Job ID: [id number] MTDD
[2020-12-11] MEDS: Atorvastatin Calcium 40 MG TAB PO SCH (21:58)
[2020-12-11] MEDS: HumaLOG 300 UNITS/3 ML VIAL SC PRN (22:01)
[2020-12-11] MEDS: Metoclopramide HCl 10 MG/2 ML VIAL IVP SCH (23:19)
[2020-12-12] MEDS: Metoclopramide HCl 10 MG/2 ML VIAL IVP SCH ×5 (00:26→20:07)
[2020-12-12] MEDS: Amiodarone 450 MG, Admixture Fee 1 EACH in Dextrose 5% in Water 250 ML IVPB SCH ×2 (01:19→16:40)
[2020-12-12 05:37] LABS: Band 2 % (5-11); Lymphocytes 2 % (21-51); MDiff Complete? YES; Mean Corpuscular HGB CONC 31.6 g/dL (32.0-36.0); Mean Corpuscular Hemoglobin 29.1 pg (27.0-31.0); Mean Platelet Volume 9.1 fL (7.4-10.4); Monocytes 1 % (0-10); Neutrophil 95 % (42-75); Platelet Count 273 thou/uL (130-400); RBC Distribution Width 14.9 % (11.5-14.5); Red Blood Cell (RBC) Count 3.11 mill/uL (4.70-6.10); White Blood Cell (WBC) Count 36.1 thou/uL (4.8-10.8)
[2020-12-12 05:50] LABS: Anion Gap 24 mmol/L (10-20); BUN (Urea Nitrogen) 89 mg/dL (8.4-25.7); Calc. Creatinine Clearance 19 mL/min (70-130); Carbon Dioxide 22 mmol/L (23-31); Chloride 93 mmol/L (98-107); Glucose 321 mg/dL (80-115); Potassium 5.7 mmol/L (3.5-5.1); Sodium 133 mmol/L (136-145)
[2020-12-12] MEDS: HumaLOG 300 UNITS/3 ML VIAL SC PRN ×2 (05:56→20:08)
--- NOTE | 2020-12-12 05:56 | PRG ---
DATE OF SERVICE: 12/11/2020 SUBJECTIVE: Jose Guadalupe Pacheco remains in the ICU, intubated in the vent, chronic renal failure. OBJECTIVE: VITAL SIGNS: His temperature is 98.2, pulse 71, blood pressure 144/47, his saturations are 99% on 60%, PEEP of 7. I's and O's, dialyzed. CHEST: No wheezing. No crackles. CARDIAC: Normal S1, S2. ABDOMEN: No masses. LABORATORY DATA: White count 42,000. X-ray looks good without any significant infiltrates. IMPRESSION: Respiratory failure, renal failure, urias positive pneumonia, oxygenation is improved. Marked leukocytosis. Meropenem and vancomycin on board. Continue nutrition, supportive care. Prognosis guarded. TIME SPENT: One half hour of critical care time. Job ID: [id number]
[2020-12-12] MEDS: Mometasone 200 MCG/Formoterol 5 MCG 120 PUFF INHALER INH SCH ×2 (07:16→19:14)
[2020-12-12] MEDS: Amlodipine 5 MG TAB PO SCH (08:00)
[2020-12-12] MEDS: Aspirin Chewable 81 MG TAB PO SCH (08:00)
[2020-12-12] MEDS: Insulin Glargine 15 UNITS in Pre-Filled Syringe 1 EACH SC SCH ×2 (08:00→20:13)
[2020-12-12] MEDS: Metoprolol Tartrate 25 MG TAB PO SCH ×2 (08:01→20:19)
[2020-12-12] MEDS: Ascorbic Acid 500 mg Chewable Tablet PO SCH (08:01)
[2020-12-12] MEDS: Rivaroxaban 15 MG TAB PO SCH (08:01)
[2020-12-12] MEDS: Pantoprazole 40 MG GRANULES PACKET PO SCH (08:01)
[2020-12-12] MEDS: Dexamethasone 4 mg/ml Vial SLOW IVP SCH (08:01)
--- NOTE | 2020-12-12 08:59 | RAD ---
CHEST ONE VIEW: History: Ventilated patient Comparison: Prior day FINDINGS: Anterior tube tip at the navicular level. Enteric tube tip vascular body. Airspace consolidation is similar. No pneumothorax or pneumomediastinum. Right subclavian endovascula r stent in a similar location. IMPRESSION: Similar examination of the chest. No significant improved lung aeration. POS: HOME
--- NOTE | 2020-12-12 10:08 | PRG ---
DATE OF SERVICE: SUBJECTIVE: 60-year-old gentleman. OBJECTIVE: VITAL SIGNS: Pulse 121, atrial fibrillation, blood pressure 130/73, sats 95% on 40%, PEEP of 5, being dialyzed. CHEST: No wheezing. No crackles. CARDIAC: Normal S1, S2. ABDOMEN: No masses. LABORATORY DATA: X-ray shows improvement in infiltrates. White count 36,000. H and H 9 and 28. BUN and creatinine elevated. ASSESSMENT: Respiratory failure, leukocytosis, renal failure, supraventricular tachycardia, not weanable. PLAN: Continue steroids, broad-spectrum antibiotics initiated for marked leukocytosis. Meropenem and vancomycin. TIME SPENT: One-half hour of critical care time. Job ID: [id number]
[2020-12-12] MEDS: Fentanyl CADD 100 ML IV SCH (11:13)
[2020-12-12] MEDS ORDERED: Albumin 25% 100 ML ONE (11:35)
[2020-12-12] MEDS: Meropenem 500 MG in Sodium Chloride 0.9% 100 ML IVPB SCH (14:03)
--- NOTE | 2020-12-12 15:19 | PDOC.MOPN ---
Interval History: intubated, sedated, on amiodarone gtt. - Vital Signs Vital Signs: Vital Signs (12 hours) Pulse Resp BP Pulse Ox 12/12/20 12:00 18 12/12/20 10:00 14 12/12/20 08:00 125 H 17 138/72 96 12/12/20 07:16 125 H 97 12/12/20 06:00 14 Weight Admit Weight 210 lb 15.68 oz Weight 198 lb 6.656 oz Most Recent Monitor Data Heart Rate from ECG 126 NIBP 110/59 NIBP BP-Mean 76 Respiration from ECG 3 SpO2 98 - Physical Exam General: No acute distress Lungs: Other (ventilated) Cardiovascular: Other (tachycardia) Neurological: Other (sedated) - Labs Result Diagrams: 12/12/20 03:51 12/12/20 03:51 Lab results: Laboratory Results - last 24 hr 12/12/20 05:30: POC Glucose 296 H 12/12/20 03:51: WBC 36.1 H, RBC 3.11 L, Hgb 9.0 L, Hct 28.6 L, MCV 92.0, MCH 29.1, MCHC 31.6 L, RDW 14.9 H, Plt Count 273, MPV 9.1, Neutrophils % (Manual) 95 H, Band Neuts % (Manual) 2 L, Lymphocytes % (Manual) 2 L, Monocytes % (Manual) 1 12/12/20 03:51: Sodium 133 L, Potassium 5.7 H, Chloride 93 L, Carbon Dioxide 22 L, Anion Gap 24 H, BUN 89 H, Creatinine 5.11 H, Estimated GFR (MDRD) 12, Glucose 321 H, Calcium 9.0 12/11/20 21:47: POC Glucose 273 H 12/11/20 15:35: POC Glucose 178 H Status: lab reviewed by me A/P - Problem (1) Acute respiratory failure with hypoxia Current Visit: Yes Code(s): J96.01 - ACUTE RESPIRATORY FAILURE WITH HYPOXIA Status: Acute (2) Atrial fibrillation with RVR Current Visit: Yes Code(s): I48.91 - UNSPECIFIED ATRIAL FIBRILLATION Status: Acute (3) Leukocytosis Current Visit: Yes Code(s): D72.829 - ELEVATED WHITE BLOOD CELL COUNT, UNSPECIFIED Status: Acute Qualifiers: Leukocytosis type: leukemoid reaction Qualified Code(s): D72.823 - Leukemoid reaction (4) Pneumonia due to COVID-19 virus Current Visit: Yes Code(s): U07.1 - COVID-19; J12.82 - PNEUMONIA DUE TO CORONAVIRUS DISEASE 2019 Status: Acute - Plan Plan: WBC has increased with neutrophilia, likely leukemoid reaction. counts improved overnight. would continue to monitor and provide supportive care.
[2020-12-12] MEDS: Propofol 1,000 MG/100 ML VIAL IV PRN (16:08)
--- NOTE | 2020-12-12 16:17 | PDOC.HOSPP ---
- Subjective Encounter Date: 12/12/20 Encounter Time: 16:10 Subjective: f/u for COVID PNA/ESRD on HD/Resp failure with mech ventilation/Hypotension/A- fib RVR receiving Amiodarone drip. Nursing reports hypotensive after HD with SBP's in 90's. - Objective Vital Signs & Weight: Vital Signs (12 hours) Pulse Resp BP Pulse Ox 12/12/20 14:00 17 12/12/20 12:00 18 12/12/20 10:00 14 12/12/20 08:00 125 H 17 138/72 96 12/12/20 07:16 125 H 97 12/12/20 06:00 14 Weight Admit Weight 210 lb 15.68 oz Weight 198 lb 6.656 oz Most Recent Monitor Data Heart Rate from ECG 123 NIBP 102/33 NIBP BP-Mean 56 Respiration from ECG 4 SpO2 95 I&O: 12/11/20 12/12/20 12/13/20 06:59 06:59 06:59 Intake Total 764 1187.1 Output Total 0 0 Balance 764 1187.1 Result Diagrams: 12/12/20 03:51 12/12/20 03:51 Additional Labs: Accuchecks 12/12/20 12/11/20 05:30 21:47 POC Glucose 296 H 273 H Microbiology 12/09/20 15:23 A-Line - Left Brachiocephalic vein Blood Culture - Preliminary Specimen has been received and culture in progress. No Growth to date. 12/09/20 15:10 A-Line - Left Brachiocephalic vein Blood Culture - Prelimina ry Specimen has been received and culture in progress. No Growth to date. Laboratory Tests 11/24/20 11/24/20 11/29/20 20:16 22:50 08:02 WBC Hgb Neutrophils % (Manual) D-Dimer 1.36 H Bicarbonate Actual ABG pH ABG pCO2 ABG pO2 ABG O2 Sat (Measured) Inspired O2 Carbon Dioxide 20 L Magnesium Ferritin Free T4 TSH 3rd Generation Influenza A RNA INAAT Not Detected Influenza B RNA INAAT Not Detected SARS-CoV-2 Rap RNA(RT-PCR) DETECTED A* 11/29/20 11/30/20 11/30/20 08:02 11:48 11:48 WBC Hgb Neutrophils % (Manual) D-Dimer 5.04 H Bicarbonate Actual ABG pH ABG pCO2 ABG pO2 ABG O2 Sat (Measured) Inspired O2 Carbon Dioxide Magnesium Ferritin 6388.72 H 5310.39 H Free T4 TSH 3rd Generation Influenza A RNA INAAT Influenza B RNA INAAT SARS-CoV-2 Rap RNA(RT-PCR) 12/02/20 12/02/20 12/02/20 09:16 09:16 09:16 WBC Hgb Neutrophils % (Manual) D-Dimer Greater than 20.00 H Bicarbonate Actual ABG pH ABG pCO2 ABG pO2 ABG O2 Sat (Measured) Inspired O2 Carbon Dioxide 18 L Magnesium Ferritin 5191.73 H Free T4 TSH 3rd Generation Influenza A RNA INAAT Influenza B RNA INAAT SARS-CoV-2 Rap RNA(RT-PCR) 12/03/20 12/03/20 12/04/20 08:00 08:00 07:32 WBC 20.1 H Hgb Neutrophils % (Manual) D-Dimer Bicarbonate Actual ABG pH ABG pCO2 ABG pO2 ABG O2 Sat (Measured) Inspired O2 Carbon Dioxide 19 L Magnesium Ferritin 4062.41 H Free T4 TSH 3rd Generation Influenza A RNA INAAT Influenza B RNA INAAT SARS-CoV-2 Rap RNA(RT-PCR) 12/04/20 12/04/20 12/04/20 07:32 07:32 07:32 WBC 17.5 H Hgb Neutrophils % (Manual) D-Dimer Greater than 20.00 H Bicarbonate Actual ABG pH ABG pCO2 ABG pO2 ABG O2 Sat (Measured) Inspired O2 Carbon Dioxide 23 Magnesium Ferritin Free T4 TSH 3rd Generation Influenza A RNA INAAT Influenza B RNA INAAT SARS-CoV-2 Rap RNA(RT-PCR) 12/05/20 12/05/20 12/08/20 03:30 03:43 04:30 WBC 18.2 H 24.4 H Hgb Neutrophils % (Manual) D-Dimer Bicarbonate Actual ABG pH ABG pCO2 ABG pO2 ABG O2 Sat (Measured) Inspired O2 Carbon Dioxide 19 L Magnesium Ferritin Free T4 TSH 3rd Generation Influenza A RNA INAAT Influenza B RNA INAAT SARS-CoV-2 Rap RNA(RT-PCR) 12/09/20 12/09/20 12/09/20 03:30 12:47 12:55 WBC 32.8 H Hgb 10.5 L Neutrophils % (Manual) 82 H D-Dimer Bicarbonate Actual 18.4 L ABG pH 7.16 L* ABG pCO2 53.1 H ABG pO2 110.8 H ABG O2 Sat (Measured) 96.3 Inspired O2 100 Carbon Dioxide Magnesium 2.1 Ferritin Free T4 TSH 3rd Generation Influenza A RNA INAAT Influenza B RNA INAAT SARS-CoV-2 Rap RNA(RT-PCR) 12/10/20 12/10/20 12/11/20 03:30 03:30 03:45 WBC 35.3 H Hgb 9.3 L Neutrophils % (Manual) 90 H 88 H D-Dimer Bicarbonate Actual ABG pH ABG pCO2 ABG pO2 ABG O2 Sat (Measured) Inspired O2 Carbon Dioxide Magnesium Ferritin Free T4 TSH 3rd Generation 0.1417 L Influenza A RNA INAAT Influenza B RNA INAAT SARS-CoV-2 Rap RNA(RT-PCR) 12/11/20 03:45 WBC Hgb Neutrophils % (Manual) D-Dimer Bicarbonate Actual ABG pH ABG pCO2 ABG pO2 ABG O2 Sat (Measured) Inspired O2 Carbon Dioxide Magnesium Ferritin Free T4 0.77 TSH 3rd Generation Influenza A RNA INAAT Influenza B RNA INAAT SARS-CoV-2 Rap RNA(RT-PCR) Radiology Reviewed by me: Yes (PCXR - similar appearing infiltrates, lines/tubes in place) EKG Reviewed by me: Yes (Tele - A-fib in 120's) Hospitalist ROS - Medication Medications: Active Medications Generic Name Dose Route Start Last Admin Trade Name Freq PRN Reason Stop Dose Admin Acetaminophen 650 mg 11/25/20 02:07 12/02/20 20:02 Acetaminophen 325 Mg Tab PO 650 mg Q4H PRN Administration Headache/Fever/Mild Pain (1-3) Albuterol Sulfate 2 puff 11/25/20 02:18 12/05/20 19:33 Albuterol 200 Puff (6.7gm Inhaler) INH 2 puff [id number] PRN Administration Wheezing Amlodipine Besylate 5 mg 12/09/20 09:00 12/12/20 08:00 Amlodipine 5 Mg Tab PO 5 mg DAILY [facility] Administration Ascorbic Acid 1,000 mg 11/25/20 09:00 12/12/20 08:01 Ascorbic Acid 500 Mg Chewable Tablet PO 1,000 mg DAILY [facility] Administration Aspirin 81 mg 12/09/20 09:00 12/12/20 08:00 Aspirin Chewable 81 Mg Tab PO 81 mg DAILY [facility] Administration Atorvastatin Calcium 40 mg 11/27/20 21:00 12/11/20 21:58 Atorvastatin Calcium 40 Mg Tab PO 40 mg HS [facility] Administration Dexamethasone 6 mg 12/09/20 09:00 12/12/20 08:01 Dexamethasone 4 Mg/Ml Vial SLOW IVP 6 mg DAILY [facility] Administration Dextrose/Water 25 gm 11/25/20 02:24 12/04/20 21:01 Dextrose 50% Abboject 50 Ml Syringe SLOW IVP 25 gm PRN PRN Administration Hypoglycemia Insulin Glargine 15 units/ 0.15 mls @ 0 mls/hr 12/04/20 21:00 12/11/20 22:05 Miscellaneous Medication SC 0.15 mls HS [facility] Administration Insulin Glargine 15 units/ 0.15 mls @ 0 mls/hr 12/05/20 09:00 12/12/20 08:00 Miscellaneous Medication SC 0.15 mls QAM [facility] Administration Fentanyl 100 mls @ 0 mls/hr 12/06/20 14:00 12/12/20 11:13 Fentanyl Cadd IV 01/05/21 14:00 100 mls INF [facility] Administration Protocol Per Protocol Diltiazem HCl 125 mg/ Sodium 125 mls @ 5 mls/hr 12/09/20 13:45 12/11/20 08:00 Chloride IVPB 125 mls INF [facility] Administration Protocol 5 MG/HR Meropenem 500 mg/ Sodium 100 mls @ 200 mls/hr 12/11/20 14:00 12/12/20 14:03 Chloride IVPB 100 mls 1400 [facility] Administration Amiodarone HCl 450 mg/ 259 mls @ 0 mls/hr 12/11/20 11:30 12/12/20 01:19 Miscellaneous Medication 1 IVPB 259 mls each/ Dextrose/Water INF [facility] Administration Protocol As Directed Insulin Human Lispro 0 units 11/25/20 02:24 12/12/20 05:56 Humalog 300 Units/3 Ml Vial SC 4 unit .MILD SLIDING SCALE PRN Administration Mild Correctional Scale Insulin Human Lispro 0 units 11/25/20 02:24 12/11/20 22:01 Humalog 300 Units/3 Ml Vial SC 3 unit .BEDTIME SLIDING SC PRN Administration Bedtime Correctional Scale Lorazepam 2 mg 12/06/20 14:00 12/09/20 16:54 Lorazepam 2 Mg/Ml Vial SLOW IVP 01/05/21 14:00 2 mg Q1H PRN Administration Breakthrough agitation Metoclopramide HCl 10 mg 12/11/20 18:00 12/12/20 11:13 Metoclopramide Hcl 10 Mg/2 Ml Vial IVP 10 mg Q6HR [facility] Administration Metoprolol Tartrate 25 mg 11/27/20 09:00 12/12/20 08:01 Metoprolol Tartrate 25 Mg Tab PO 25 mg BID [facility] Administration Mometasone Furoate/Formoterol Fumar 2 puff 11/25/20 18:30 12/12/20 07:16 Mometasone 200 Mcg/Formoterol 5 Mcg 120 Puff Inhaler INH 2 puff BID-RT [facility] Administration Morphine Sulfate 2 mg 12/06/20 14:00 12/10/20 15:58 Morphine 2 Mg/Ml Vial SLOW IVP 01/05/21 14:00 2 mg Q1H PRN Administration Breakthrough Pain/Agitation Ondansetron HCl 4 mg 11/27/20 08:20 12/06/20 05:30 Ondansetron Pf 4 Mg/2 Ml Vial IVP 4 mg Q6H PRN Administration Nausea/Vomiting Pantoprazole Sodium 40 mg 12/09/20 09:00 12/12/20 08:01 Pantoprazole 40 Mg Granules Packet PO 40 mg DAILY [facility] Administration Propofol 1,000 mg 12/06/20 14:00 12/12/20 16:08 Propofol 1,000 Mg/100 Ml Vial IV 01/05/21 14:00 1,000 mg INF PRN Administration TO ACHIEVE GOAL RASS Protocol Rivaroxaban 15 mg 12/02/20 09:00 12/12/20 08:01 Rivaroxaban 15 Mg Tab PO 15 mg DAILY [facility] Administration Sodium Chloride 10 ml 11/25/20 02:07 11/27/20 20:20 Flush - Normal Saline 10 Ml Syringe IVF 10 ml Q12HR PRN Administration Saline Flush Hospitalist Exam Vitals: Vital Signs (12 hours) Pulse Resp BP Pulse Ox 12/12/20 14:00 17 12/12/20 12:00 18 12/12/20 10:00 14 12/12/20 08:00 125 H 17 138/72 96 12/12/20 07:16 125 H 97 12/12/20 06:00 14 Weight Admit Weight 210 lb 15.68 oz Weight 198 lb 6.656 oz Most Recent Monitor Data Heart Rate from ECG 123 NIBP 102/33 NIBP BP-Mean 56 Respiration from ECG 4 SpO2 95 General Appearance: ill appearing General - other findings: sedate/somnolent on mech vent Eye: anicteric sclera ENT: normocephalic atraumatic, no oropharyngeal lesions ENT - other findings: ETT in place Neck: supple, symmetric, no JVD, no thyromegaly, no lymphadenopathy Heart: no gallops, no rubs, normal peripheral pulses, irregular Heart - other findings: S1, S2 tachycardic Respiratory: no tachypnea Respiratory - other findings: coarse sounds bilat, diminished in bases Gastrointestinal: soft, non-tender, non-distended, normal bowel sounds, no palpable masses Extremities: no cyanosis, no clubbing, 1+ LE edema Skin: normal turgor Neurological - other findings: sedate on mech vent Musculoskeletal: generalized weakness Psychiatric: somnolent, lethargic Hosp A/P (1) Atrial fibrillation with RVR Code(s): I48.91 - UNSPECIFIED ATRIAL FIBRILLATION Status: Acute Plan: Persistent, continue Amiodarone gtt/Metoprolol/Xarelto (2) Hypotension Status: Acute Plan: s/p HD, continue supportive mgmt, may need low-dose Levophed if progressive (3) Pneumonia due to COVID-19 virus Code(s): U07.1 - COVID-19; J12.82 - PNEUMONIA DUE TO CORONAVIRUS DISEASE 2018 Status: Acute Plan: Continue Meropenem/Dexamethasone/Vit C/Zinc/D3/Xarelto (4) Acute respiratory failure with hypoxia Code(s): J96.01 - ACUTE RESPIRATORY FAILURE WITH HYPOXIA Status: Acute (5) ESRD (end stage renal disease) on dialysis Code(s): N18.6 - END STAGE RENAL DISEASE; Z99.2 - DEPENDENCE ON RENAL DIALYSIS Status: Chronic Plan: HD per Renal service (6) Anemia of renal disease Code(s): N18.9 - CHRONIC KIDNEY DISEASE, UNSPECIFIED; D63.1 - ANEMIA IN CHRONIC KIDNEY DISEASE Status: Chronic (7) Diabetes type 2, controlled Code(s): E11.9 - TYPE 2 DIABETES MELLITUS WITHOUT COMPLICATIONS Status: Chronic Qualifiers: Diabetes mellitus local intermodal truck driver insulin use: without local intermodal truck driver use Diabetes mellitus complication status: with kidney complications Diabetes mellitus complication detail: with chronic kidney disease Chronic kidney disease stage: on chronic dialysis Qualified Code(s): E11.22 - Type 2 diabetes mellitus with diabetic chronic kidney disease; N18.6 - End stage renal disease; Z99.2 - Dependence on renal dialysis (8) HTN (hypertension) Code(s): I10 - ESSENTIAL (PRIMARY) HYPERTENSION Status: Chronic Qualifiers: Hypertension type: essential hypertension Qualified Code(s): I10 - Essential (primary) hypertension (9) Leukocytosis Code(s): D72.829 - ELEVATED WHITE BLOOD CELL COUNT, UNSPECIFIED Status: Acute Qualifiers: Leukocytosis type: leukemoid reaction Qualified Code(s): D72.823 - Leukemoid reaction Plan: Suspected reactive, continue to monitor trend - Plan continue antibiotics, health social work professor, respiratory therapy, DVT proph w/SCDs Consults: Palliative Care Continue critical support Continue low-dose Amiodarone gtt Continue Meropenem Continue Dexamethasone continue Xarelto HD per Renal service when hemodynamics will support Nutritional support with Nepro Consult Hematology in am Bowel regimen with Dulcolax supp/Reglan Add Miralax daily Saline lock IVF AM lab: BMP, CBC
[2020-12-12] MEDS ORDERED: Polyethylene Glycol 3350 17 GM Packet PER TUBE SCH (16:30)
--- NOTE | 2020-12-12 17:41 | PRG ---
DATE OF SERVICE: 12/12/2020 OBJECTIVE: VITAL SIGNS: The patient is noted with the following vital signs; blood pressure with heart rate of 123, O2 saturation of 95%. HEENT: Unremarkable. CARDIOVASCULAR: First and second heart sounds were heard. RESPIRATORY: Revealed vented sounds. DIGESTIVE: Revealed a benign abdomen. EXTREMITIES: Showed no peripheral edema. LABORATORY INVESTIGATION: Significant for potassium of 5.7. White count down to 36,000, hemoglobin 9. IMPRESSION: 1. Cardiopulmonary failure in the context of problem #2. 2. COVID pneumonitis. 3. End-stage renal disease. 4. Hyperkalemia. PLAN: 1. The patient will be dialyzed today with emphasis on ultrafiltration and also a little bit of dialysis to address the hyperkalemia. 2. Hopefully, the primary team and the Cardiology Service will have a better control of the atrial fibrillation to enable dialysis to continue. 3. Further management to be dependent on the clinical course. Job ID: [id number]
[2020-12-12] MEDS: Atorvastatin Calcium 40 MG TAB PO SCH (20:07)
[2020-12-13] MEDS: HumaLOG 300 UNITS/3 ML VIAL SC PRN ×3 (00:44→21:07)
[2020-12-13] MEDS: Propofol 1,000 MG/100 ML VIAL IV PRN ×3 (01:03→21:05)
[2020-12-13 05:17] LABS: Albumin 3.2 g/dL (3.4-4.8); Anion Gap 24 mmol/L (10-20); BUN (Urea Nitrogen) 108 mg/dL (8.4-25.7); BUN/Creatinine Ratio 20.11; Calc. Creatinine Clearance 18 mL/min (70-130); Calcium 9.3 mg/dL (7.8-10.44); Carbon Dioxide 21 mmol/L (23-31); Chloride 91 mmol/L (98-107); Glucose 287 mg/dL (80-115); Potassium 5.7 mmol/L (3.5-5.1); Sodium 130 mmol/L (136-145)
[2020-12-13 05:20] LABS: Phosphorus 9.2 mg/dL (2.3-4.7)
[2020-12-13] MEDS: Metoclopramide HCl 10 MG/2 ML VIAL IVP SCH ×4 (05:30→21:06)
[2020-12-13 05:32] LABS: Hemoglobin 9.3 g/dL (14.0-18.0); MDiff Complete? YES; Mean Corpuscular HGB CONC 31.9 g/dL (32.0-36.0); Mean Corpuscular Hemoglobin 29.5 pg (27.0-31.0); Mean Corpuscular Volume 92.4 fL (78.0-98.0); Platelet Count 284 thou/uL (130-400); RBC Distribution Width 15.1 % (11.5-14.5); Red Blood Cell (RBC) Count 3.16 mill/uL (4.70-6.10); White Blood Cell (WBC) Count 29.1 thou/uL (4.8-10.8)
[2020-12-13 05:33] LABS: Band 5 % (5-11); Lymphocytes 2 % (21-51); Monocytes 1 % (0-10); Neutrophil 92 % (42-75)
[2020-12-13] MEDS: Fentanyl CADD 100 ML IV SCH (07:34)
[2020-12-13] MEDS: Mometasone 200 MCG/Formoterol 5 MCG 120 PUFF INHALER INH SCH ×2 (07:49→19:02)
[2020-12-13] MEDS: Polyethylene Glycol 3350 17 GM Packet PER TUBE SCH (08:33)
[2020-12-13] MEDS: Insulin Glargine 15 UNITS in Pre-Filled Syringe 1 EACH SC SCH ×2 (08:33→21:05)
[2020-12-13] MEDS: Amlodipine 5 MG TAB PO SCH (08:34)
[2020-12-13] MEDS: Aspirin Chewable 81 MG TAB PO SCH (08:34)
[2020-12-13] MEDS: Pantoprazole 40 MG GRANULES PACKET PO SCH (08:34)
[2020-12-13] MEDS: Dexamethasone 4 mg/ml Vial SLOW IVP SCH (08:35)
[2020-12-13] MEDS: Amiodarone 450 MG, Admixture Fee 1 EACH in Dextrose 5% in Water 250 ML IVPB SCH (08:35)
[2020-12-13] MEDS: Metoprolol Tartrate 25 MG TAB PO SCH ×2 (08:35→21:06)
[2020-12-13] MEDS: Ascorbic Acid 500 mg Chewable Tablet PO SCH (08:35)
[2020-12-13] MEDS: Rivaroxaban 15 MG TAB PO SCH (11:00)
--- NOTE | 2020-12-13 11:31 | PRG ---
DATE OF SERVICE: 12/13/2020 SUBJECTIVE: This patient is currently receiving hemodialysis and is on mechanical ventilation. He has had severe issues with atrial fibrillation, particularly while he is on dialysis. The manufacturing engineering technician tells me that she is actually only trying to clean his blood and is not trying to pull fluid today. OBJECTIVE: VITAL SIGNS: Temperature 94.7, pulse 124, blood pressure 127/41, O2 saturation 95%. His intake for the last 24 hours was 1074, output 0. I do not see that any significant fluids have been remove since the when he had 4 L taken off. He is heavily sedated on propofol and fentanyl. HEENT: Unremarkable. NECK: No adenopathy, JVD. LUNGS: Coarse breath sounds. CARDIOVASCULAR: S1 and S2. Irregularly irregular. ABDOMEN: Soft and nontender. EXTREMITIES: Edematous. LABORATORY DATA: White blood cell count 29.1, down from 42.7 two days ago. Hematocrit 29.2, platelet count 284. Sodium 130, potassium 5.7, chloride 91, CO2 of 21, BUN 108, creatinine 5.3, glucose 287. His x-ray continues to show bilateral infiltrates. ASSESSMENT: 1. COVID-19 pneumonia. 2. Acute hypoxic respiratory failure requiring mechanical ventilation. 3. Renal failure. 4. Supraventricular tachycardia/atrial fibrillation. PLAN: Tomorrow is day 20 and he can come out of isolation. If the family wishes to continue with aggressive care, then he will need a tracheostomy early next week. He is not weanable at this time. I have reviewed his medications. He is currently on dexamethasone, Xarelto and IV antibiotics. Job ID: [id number]
[2020-12-13] MEDS: Meropenem 500 MG in Sodium Chloride 0.9% 100 ML IVPB SCH (13:24)
--- NOTE | 2020-12-13 15:27 | PDOC.CPN ---
- Subjective Date: 12/13/20 Time: 15:25 Interval history: Remains sedated and intubated. - Review of Systems ROS unobtainable: due to endotracheal tube - Objective Allergies/Adverse Reactions: Allergies Allergy/AdvReac Type Severity Reaction Status Date / Time codeine AdvReac Nausea Verified 11/25/20 01:54 heparin AdvReac EYES Verified 11/25/20 01:54 BLEEDING promethazine [From Phenergan] AdvReac Headache Verified 11/25/20 01:54 Visit Medications: Current Medications Acetaminophen (Acetaminophen 325 Mg Tab) 650 mg PO Q4H PRN PRN Reason: Headache/Fever/Mild Pain (1-3) Last Admin: 12/02/20 20:02 Dose: 650 mg Documented by: Acetaminophen (Acetaminophen 650 Mg Suppository) 650 mg FL Q4H PRN PRN Reason: Headache/Fever/Mild Pain (1-3) Albuterol Sulfate (Albuterol 200 Puff (6.7gm Inhaler)) 2 puff INH [id number] PRN PRN Reason: Wheezing Last Admin: 12/05/20 19:33 Dose: 2 puff Documented by: Amlodipine Besylate (Amlodipine 5 Mg Tab) 5 mg PO DAILY [facility] Last Admin: 12/13/20 08:34 Dose: 5 mg Documented by: Ascorbic Acid (Ascorbic Acid 500 Mg Chewable Tablet) 1,000 mg PO DAILY [facility] Last Admin: 12/13/20 08:35 Dose: 1,000 mg Documented by: Aspirin (Aspirin Chewable 81 Mg Tab) 81 mg PO DAILY [facility] Last Admin: 12/13/20 08:34 Dose: 81 mg Documented by: Atorvastatin Calcium (Atorvastatin Calcium 40 Mg Tab) 40 mg PO HS [facility] Last Admin: 12/12/20 20:07 Dose: 40 mg Documented by: Bisacodyl (Bisacodyl 10 Mg Supp) 10 mg FL Q8H PRN PRN Reason: Constipation Dexamethasone (Dexamethasone 4 Mg/Ml Vial) 6 mg SLOW IVP DAILY [facility] Last Admin: 12/13/20 08:35 Dose: 6 mg Documented by: Dextrose/Water (Dextrose 50% Abboject 50 Ml Syringe) 25 gm SLOW IVP PRN PRN PRN Reason: Hypoglycemia Last Admin: 12/04/20 21:01 Dose: 25 gm Documented by: Glucagon (Glucagon 1 Mg/Ml Vial) 1 mg IM PRN PRN PRN Reason: Hypoglycemia Dextrose/Water (D5w) 1,000 mls @ 0 mls/hr IV .Q0M PRN PRN Reason: Hypoglycemia Insulin Glargine 15 units/ (Miscellaneous Medication) 0.15 mls @ 0 mls/hr SC HS [facility] Last Admin: 12/12/20 20:13 Dose: 0.15 mls Documented by: Insulin Glargine 15 units/ (Miscellaneous Medication) 0.15 mls @ 0 mls/hr SC QAM [facility] Last Admin: 12/13/20 08:33 Dose: 0.15 mls Documented by: Fentanyl (Fentanyl Cadd) 100 mls @ 0 mls/hr IV INF [facility]AN[facility]; Protocol Stop: 01/05/21 14:00 Last Admin: 12/13/20 07:34 Dose: 100 mls Documented by: Fentanyl Citrate (Fentanyl Bolus) 250 mls @ 0 mls/hr IVPB PRN PRN PRN Reason: Breakthrough pain/agitation Stop: 01/05/21 14:00 Diltiazem HCl 125 mg/ Sodium (Chloride) 125 mls @ 5 mls/hr IVPB INF [facility]; Protocol Last Admin: 12/11/20 08:00 Dose: 125 mls Documented by: Meropenem 500 mg/ Sodium (Chloride) 100 mls @ 200 mls/hr IVPB 1400 [facility] Last Admin: 12/13/20 13:24 Dose: 100 mls Documented by: Amiodarone HCl 450 mg/Miscellaneous Medication 1 each/ Dextrose/Water 259 mls @ 0 mls/hr IVPB INF [facility]; Protocol Last Admin: 12/13/20 08:35 Dose: 259 mls Documented by: Insulin Human Lispro (Humalog 300 Units/3 Ml Vial) 0 units SC .MILD SLIDING SCALE PRN PRN Reason: Mild Correctional Scale Last Admin: 12/13/20 00:44 Dose: 4 unit Documented by: Insulin Human Lispro (Humalog 300 Units/3 Ml Vial) 0 units SC .BEDTIME SLIDING SC PRN PRN Reason: Bedtime Correctional Scale Last Admin: 12/13/20 04:21 Dose: 3 unit Documented by: Labetalol HCl (Labetalol Hcl 100 Mg/20 Ml Vial) 20 mg SLOW IVP Q4H PRN PRN Reason: SBP GREATER THAN 160 Lorazepam (Lorazepam 2 Mg/Ml Vial) 2 mg SLOW IVP Q1H PRN PRN Reason: Breakthrough agitation Stop: 01/05/21 14:00 Last Admin: 12/09/20 16:54 Dose: 2 mg Documented by: Metoclopramide HCl (Metoclopramide Hcl 10 Mg/2 Ml Vial) 10 mg IVP Q6HR [facility] Last Admin: 12/13/20 11:00 Dose: 10 mg Documented by: Metoprolol Tartrate (Metoprolol Tartrate 25 Mg Tab) 25 mg PO BID [facility] Last Admin: 12/13/20 08:35 Dose: 25 mg Documented by: Mometasone Furoate/Formoterol Fumar (Mometasone 200 Mcg/Formoterol 5 Mcg 120 Puff Inhaler) 2 puff INH BID-RT [facility] Last Admin: 12/13/20 07:49 Dose: 2 puff Documented by: Morphine Sulfate (Morphine 2 Mg/Ml Vial) 2 mg SLOW IVP Q1H PRN PRN Reason: Breakthrough Pain/Agitation Stop: 01/05/21 14:00 Last Admin: 12/10/20 15:58 Dose: 2 mg Documented by: Discontinue Previous Narcotic Pain Medications And Benzodiazepines 1 each FS .ONE [facility] Stop: 01/05/21 14:00 Ondansetron HCl (Ondansetron Pf 4 Mg/2 Ml Vial) 4 mg IVP Q6H PRN PRN Reason: Nausea/Vomiting Last Admin: 12/06/20 05:30 Dose: 4 mg Documented by: Pantoprazole Sodium (Pantoprazole 40 Mg Granules Packet) 40 mg PO DAILY [facility] Last Admin: 12/13/20 08:34 Dose: 40 mg Documented by: Polyethylene Glycol (Polyethylene Glycol 3350 17 Gm Packet) 17 gm PER TUBE DAILY [facility] Last Admin: 12/13/20 08:33 Dose: 17 gm Documented by: Propofol (Propofol 1,000 Mg/100 Ml Vial) 1,000 mg IV INF PRN; Protocol PRN Reason: TO ACHIEVE GOAL RASS Stop: 01/05/21 14:00 Last Admin: 12/13/20 08:34 Dose: 1,000 mg Documented by: Propofol (Propofol Bolus 1,000 Mg/100 Ml Vial) 20 mg IV Q5MIN PRN PRN Reason: BREAKTHROUGH AGITATION Stop: 01/05/21 14:00 Rivaroxaban (Rivaroxaban 15 Mg Tab) 15 mg PO DAILY [facility] Last Admin: 12/13/20 11:00 Dose: 15 mg Documented by: Sodium Chloride (Flush - Normal Saline 10 Ml Syringe) 10 ml IVF Q12HR PRN PRN Reason: Saline Flush Last Admin: 12/13/20 08:33 Dose: 10 ml Documented by: Vital Signs & Weight: Vital Signs Temp Pulse Resp BP Pulse Ox 12/13/20 14:58 130 H 128/110 H 12/13/20 12:00 19 12/13/20 10:00 94.7 F L 16 12/13/20 08:34 125 H 168/65 H 12/13/20 08:00 96.3 F L 100 12/13/20 07:49 125 H 96 12/13/20 07:20 25 H 12/13/20 06:00 16 12/13/20 04:00 97 F L 16 Admit Weight 210 lb 15.68 oz Weight 3.175 oz - Physical Exam General: other (not done due to acive COVID 19 infection.) - Labs Result Diagrams: 12/13/20 04:16 12/13/20 04:16 Troponin/CKMB CK-MB (CK-2) 1.7 ng/mL (0-6.6) 11/24/20 20:16 Troponin I 0.223 ng/mL (< 0.028) H 11/25/20 04:41 - Telemetry Supraventricular conduction: atrial flutter - Assessment/Plan Assessment/Plan: 1. Atrial flutter 2-1 conduction 2. Paroxysmal afib 3. COVID-19 pneumonia 4. ESRD on HD PLAN: - Continue amiodarone - Will stop amlodipine to make space and increase BB. - Recommend try to get potassium as normal as possible with HD. - Poor charge lpn prognosis. - Once off precautions may need shock if he remains in Aflutter. - Xarelto for stroke prophylaxis. - Echo next week once off precuations.
--- NOTE | 2020-12-13 15:50 | PDOC.HOSPP ---
- Subjective Subjective: Patient still remains intubated and sedated. His rate still not well controlled. Cardiology is following. He currently is on amiodarone drip, and Xarelto for stroke prophylaxis. He is not when able at this point per pu lmonologist - Objective Vital Signs & Weight: Vital Signs (12 hours) Temp Pulse Resp BP Pulse Ox 12/13/20 14:58 130 H 128/110 H 12/13/20 12:00 19 12/13/20 10:00 94.7 F L 16 12/13/20 08:34 125 H 168/65 H 12/13/20 08:00 96.3 F L 100 12/13/20 07:49 125 H 96 12/13/20 07:20 25 H 12/13/20 06:00 16 12/13/20 04:00 97 F L 16 Weight Admit Weight 210 lb 15.68 oz Weight 3.175 oz Most Recent Monitor Data Heart Rate from ECG 135 NIBP 103/67 NIBP BP-Mean 79 Respiration from ECG 18 SpO2 97 I&O: 12/12/20 12/13/20 12/14/20 06:59 06:59 06:59 Intake Total 1187.1 1074 30 Output Total 0 0 Balance 1187.1 1074 30 Result Diagrams: 12/13/20 04:16 12/13/20 04:16 Additional Labs: Accuchecks 12/13/20 12/13/20 12/13/20 11:38 04:09 00:22 POC Glucose 170 H 265 H 255 H 12/12/20 12/12/20 19:42 17:36 POC Glucose 272 H 225 H Radiology Reviewed by me: Yes EKG Reviewed by me: Yes Hospitalist ROS - Medication Medications: Active Medications Generic Name Dose Route Start Last Admin Trade Name Freq PRN Reason Stop Dose Admin Acetaminophen 650 mg 11/25/20 02:07 12/02/20 20:02 Acetaminophen 325 Mg Tab PO 650 mg Q4H PRN Administration Headache/Fever/Mild Pain (1-3) Albuterol Sulfate 2 puff 11/25/20 02:18 12/05/20 19:33 Albuterol 200 Puff (6.7gm Inhaler) INH 2 puff [id number] PRN Administration Wheezing Ascorbic Acid 1,000 mg 11/25/20 09:00 12/13/20 08:35 Ascorbic Acid 500 Mg Chewable Tablet PO 1,000 mg DAILY HANSA Administration Aspirin 81 mg 12/09/20 09:00 12/13/20 08:34 Aspirin Chewable 81 Mg Tab PO 81 mg DAILY HANSA Administration Atorvastatin Calcium 40 mg 11/27/20 21:00 12/12/20 20:07 Atorvastatin Calcium 40 Mg Tab PO 40 mg HS HANSA Administration Dexamethasone 6 mg 12/09/20 09:00 12/13/20 08:35 Dexamethasone 4 Mg/Ml Vial SLOW IVP 6 mg DAILY HANSA Administration Dextrose/Water 25 gm 11/25/20 02:24 12/04/20 21:01 Dextrose 50% Abboject 50 Ml Syringe SLOW IVP 25 gm PRN PRN Administration Hypoglycemia Insulin Glargine 15 units/ 0.15 mls @ 0 mls/hr 12/04/20 21:00 12/12/20 20:13 Miscellaneous Medication SC 0.15 mls HS HANSA Administration Insulin Glargine 15 units/ 0.15 mls @ 0 mls/hr 12/05/20 09:00 12/13/20 08:33 Miscellaneous Medication SC 0.15 mls QAM HANSA Administration Fentanyl 100 mls @ 0 mls/hr 12/06/20 14:00 12/13/20 07:34 Fentanyl Cadd IV 01/05/21 14:00 100 mls INF HANSA Administration Protocol Per Protocol Diltiazem HCl 125 mg/ Sodium 125 mls @ 5 mls/hr 12/09/20 13:45 12/11/20 08:00 Chloride IVPB 125 mls INF HANSA Administration Protocol 5 MG/HR Meropenem 500 mg/ Sodium 100 mls @ 200 mls/hr 12/11/20 14:00 12/13/20 13:24 Chloride IVPB 100 mls 1400 HANSA Administration Amiodarone HCl 450 mg/ 259 mls @ 0 mls/hr 12/11/20 11:30 12/13/20 08:35 Miscellaneous Medication 1 IVPB 259 mls each/ Dextrose/Water INF HANSA Administration Protocol As Directed Insulin Human Lispro 0 units 11/25/20 02:24 12/13/20 00:44 Humalog 300 Units/3 Ml Vial SC 4 unit .MILD SLIDING SCALE PRN Administration Mild Correctional Scale Insulin Human Lispro 0 units 11/25/20 02:24 12/13/20 04:21 Humalog 300 Units/3 Ml Vial SC 3 unit .BEDTIME SLIDING SC PRN Administration Bedtime Correctional Scale Lorazepam 2 mg 12/06/20 14:00 12/09/20 16:54 Lorazepam 2 Mg/Ml Vial SLOW IVP 01/05/21 14:00 2 mg Q1H PRN Administration Breakthrough agitation Metoclopramide HCl 10 mg 12/11/20 18:00 12/13/20 11:00 Metoclopramide Hcl 10 Mg/2 Ml Vial IVP 10 mg Q6HR HANSA Administration Mometasone Furoate/Formoterol Fumar 2 puff 11/25/20 18:30 12/13/20 07:49 Mometasone 200 Mcg/Formoterol 5 Mcg 120 Puff Inhaler INH 2 puff BID-RT HANSA Administration Morphine Sulfate 2 mg 12/06/20 14:00 12/10/20 15:58 Morphine 2 Mg/Ml Vial SLOW IVP 01/05/21 14:00 2 mg Q1H PRN Administration Breakthrough Pain/Agitation Ondansetron HCl 4 mg 11/27/20 08:20 12/06/20 05:30 Ondansetron Pf 4 Mg/2 Ml Vial IVP 4 mg Q6H PRN Administration Nausea/Vomiting Pantoprazole Sodium 40 mg 12/09/20 09:00 12/13/20 08:34 Pantoprazole 40 Mg Granules Packet PO 40 mg DAILY HANSA Administration Polyethylene Glycol 17 gm 12/13/20 09:00 12/13/20 08:33 Polyethylene Glycol 3350 17 Gm Packet PER TUBE 17 gm DAILY HANSA Administration Propofol 1,000 mg 12/06/20 14:00 12/13/20 08:34 Propofol 1,000 Mg/100 Ml Vial IV 01/05/21 14:00 1,000 mg INF PRN Administration TO ACHIEVE GOAL RASS Protocol Rivaroxaban 15 mg 12/02/20 09:00 12/13/20 11:00 Rivaroxaban 15 Mg Tab PO 15 mg DAILY HANSA Administration Sodium Chloride 10 ml 11/25/20 02:07 12/13/20 08:33 Flush - Normal Saline 10 Ml Syringe IVF 10 ml Q12HR PRN Administration Saline Flush Hospitalist Exam Vitals: Vital Signs (12 hours) Temp Pulse Resp BP Pulse Ox 12/13/20 14:58 130 H 128/110 H 12/13/20 12:00 19 12/13/20 10:00 94.7 F L 16 12/13/20 08:34 125 H 168/65 H 12/13/20 08:00 96.3 F L 100 12/13/20 07:49 125 H 96 12/13/20 07:20 25 H 12/13/20 06:00 16 12/13/20 04:00 97 F L 16 Weight Admit Weight 210 lb 15.68 oz Weight 3.175 oz Most Recent Monitor Data Heart Rate from ECG 135 NIBP 103/67 NIBP BP-Mean 79 Respiration from ECG 18 SpO2 97 General - other findings: Intubated and sedated Eye: PERRL ENT: normocephalic atraumatic Neck: supple Heart: RRR Respiratory: rhonchi Gastrointestinal: soft Extremities: no cyanosis Skin: normal turgor Neurological: cranial nerve grossly intact Musculoskeletal: normal tone Hosp A/P - Plan (1) Atrial fibrillation with RVR Code(s): I48.91 - UNSPECIFIED ATRIAL FIBRILLATION Status: Acute Plan: Persistent, continue Amiodarone gtt/Metoprolol/Xarelto (2) Hypotension Status: Acute Plan: s/p HD, continue supportive mgmt, may need low-dose Levophed if progressive (3) Pneumonia due to COVID-19 virus Code(s): U07.1 - COVID-19; J12.82 - PNEUMONIA DUE TO CORONAVIRUS DISEASE 2018 Status: Acute Plan: Continue Meropenem/Dexamethasone/Vit C/Zinc/D3/Xarelto (4) Acute respiratory failure with hypoxia Code(s): J96.01 - ACUTE RESPIRATORY FAILURE WITH HYPOXIA Status: Acute (5) ESRD (end stage renal disease) on dialysis Code(s): N18.6 - END STAGE RENAL DISEASE; Z99.2 - DEPENDENCE ON RENAL DIALYSIS Status: Chronic Plan: HD per Renal service (6) Anemia of renal disease Code(s): N18.9 - CHRONIC KIDNEY DISEASE, UNSPECIFIED; D63.1 - ANEMIA IN CHRONIC KIDNEY DISEASE Status: Chronic (7) Diabetes type 2, controlled Code(s): E11.9 - TYPE 2 DIABETES MELLITUS WITHOUT COMPLICATIONS Status: Chronic Qualifiers: 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 use: without equipment operator intermodal yard use Diabetes mellitus complication status: with kidney complications Diabetes mellitus complication detail: with chronic kidney disease Chronic kidney disease stage: on chronic dialysis Qualified Code(s): E11.22 - Type 2 diabetes mellitus with diabetic chronic kidney disease; N18.6 - End stage renal disease; Z99.2 - Dependence on renal dialysis (8) HTN (hypertension) Code(s): I10 - ESSENTIAL (PRIMARY) HYPERTENSION Status: Chronic Qualifiers: Hypertension type: essential hypertension Qualified Code(s): I10 - Essen tial (primary) hypertension (9) Leukocytosis Code(s): D72.829 - ELEVATED WHITE BLOOD CELL COUNT, UNSPECIFIED Status: Acute Qualifiers: Leukocytosis type: leukemoid reaction Qualified Code(s): D72.823 - Leukemoid reaction Plan: Suspected reactive, continue to monitor trend - Plan pt remains intubated and sedated, not weanable at this point per pulmonologis, possible trach/peg next week Cont amio gtt/xarelto, cardiology is following Nephrology assisting with dialysis Hopefully dialysis will correct his metabolic derangements prognosis is guarded cont supportive cares as per orthopaedic technologist. cont Decadron and empiric abx.
--- NOTE | 2020-12-13 16:03 | RAD ---
EXAM: Single view of the chest HISTORY: Ventilated patient with respiratory failure COMPARISON: 12/12/2020 FINDINGS: Single view of the chest shows a normal sized cardiomediastinal silhouette. The lines and tubes are unchanged in position. Scattered multifocal mixed infiltrates are seen. Stents are seen in the right subclavian region. No acute osseous abnormality. IMPRESSION: Stable multifocal pneumonia
[2020-12-13] MEDS: Atorvastatin Calcium 40 MG TAB PO SCH (21:06)
[2020-12-14] MEDS: HumaLOG 300 UNITS/3 ML VIAL SC PRN ×4 (00:18→21:37)
[2020-12-14] MEDS: Amiodarone 450 MG, Admixture Fee 1 EACH in Dextrose 5% in Water 250 ML IVPB SCH ×2 (00:19→16:51)
[2020-12-14] MEDS: Propofol 1,000 MG/100 ML VIAL IV PRN ×3 (01:02→23:07)
[2020-12-14] MEDS ORDERED: Fentanyl CADD 100 ML ONE (01:05)
[2020-12-14] MEDS: Fentanyl CADD 100 ML IV SCH (01:07)
[2020-12-14 05:06] LABS: Albumin 2.9 g/dL (3.4-4.8)
[2020-12-14 05:07] LABS: Chloride 95 mmol/L (98-107); Potassium 5.5 mmol/L (3.5-5.1); Sodium 135 mmol/L (136-145)
[2020-12-14 05:09] LABS: Globulin 3.5 g/dL (2.4-3.5); Glucose 213 mg/dL (80-115); Protein, Total 6.4 g/dL (5.8-8.1)
[2020-12-14 05:10] LABS: Anion Gap 21 mmol/L (10-20); Bilirubin, Total 0.6 mg/dL (0.2-1.2); Carbon Dioxide 25 mmol/L (23-31)
[2020-12-14 05:11] LABS: Alkaline Phosphatase 532 U/L (40-110)
[2020-12-14 05:12] LABS: Calc. Creatinine Clearance 0 mL/min (70-130); Phosphorus 8.1 mg/dL (2.3-4.7)
[2020-12-14 05:13] LABS: BUN (Urea Nitrogen) 73 mg/dL (8.4-25.7); BUN/Creatinine Ratio 18.25
[2020-12-14 05:14] LABS: ALT (SGPT) 127 U/L (8-55); AST (SGOT) 29 U/L (5-34)
[2020-12-14 05:15] LABS: Band 4 % (5-11); Hemoglobin 9.4 g/dL (14.0-18.0); Large Platelets SLIGHT; Lymphocytes 1 % (21-51); MDiff Complete? YES; Mean Corpuscular HGB CONC 32.7 g/dL (32.0-36.0); Mean Corpuscular Hemoglobin 29.9 pg (27.0-31.0); Mean Corpuscular Volume 91.6 fL (78.0-98.0); Mean Platelet Volume 9.2 fL (7.4-10.4); Monocytes 2 % (0-10); Neutrophil 93 % (42-75); Platelet Count 327 thou/uL (130-400); Platelet Morphology Comment Appears Adequate; RBC Distribution Width 15.3 % (11.5-14.5); Red Blood Cell (RBC) Count 3.13 mill/uL (4.70-6.10); White Blood Cell (WBC) Count 24.3 thou/uL (4.8-10.8)
[2020-12-14] MEDS: Metoclopramide HCl 10 MG/2 ML VIAL IVP SCH ×4 (05:15→23:08)
--- NOTE | 2020-12-14 06:10 | PRG ---
DATE OF SERVICE: 12/13/2020 SUBJECTIVE: The patient is still on life support, is not yet rate controlled, in atrial fibrillation with the following vital signs. OBJECTIVE: VITAL SIGNS: Temperature is 97.5, respirations 22, pulse of 129, blood pressure . HEENT: Remarkable for endotracheal tube still in place. CARDIOVASCULAR: First and second heart sounds were heard, very irregular. RESPIRATORY: Revealed vented sounds. DIGESTIVE: Revealed a benign abdomen. EXTREMITIES: Showed some peripheral edema. SKIN EXAMINATION: No new gross rash. LYMPHATICS: No peripheral lymphadenopathy. LABORATORY INVESTIGATION: Showed a potassium of 5.7, BUN 108. IMPRESSION: 1. End-stage renal disease, on hemodialysis. 2. Hyperkalemia, persistent, in the context of poor clearance with dialysis, probably limited because of the unstable hemodynamics. 3. Anemia of chronic kidney disease. 4. Severe hyperphosphatemia related to end-stage renal disease. PLAN: 1. The patient to be dialyzed up to 4 hours today as tolerated by the heart rate with ultrafiltration as tolerated also. 2. Renally dose all medications and avoid potentially nephrotoxic agents. 3. . 4. We will continue erythropoiesis stimulating agent. 5. We will defer the management of atrial fibrillation to Cardiology Service on board as well as the primary team. Job ID: [id number]
[2020-12-14] MEDS: Mometasone 200 MCG/Formoterol 5 MCG 120 PUFF INHALER INH SCH ×2 (06:45→18:57)
[2020-12-14] MEDS: Polyethylene Glycol 3350 17 GM Packet PER TUBE SCH (07:58)
[2020-12-14] MEDS: Ascorbic Acid 500 mg Chewable Tablet PO SCH (07:58)
[2020-12-14] MEDS: Pantoprazole 40 MG GRANULES PACKET PO SCH (07:58)
[2020-12-14] MEDS: Aspirin Chewable 81 MG TAB PO SCH (07:59)
[2020-12-14] MEDS: Rivaroxaban 15 MG TAB PO SCH (07:59)
[2020-12-14] MEDS: Dexamethasone 4 mg/ml Vial SLOW IVP SCH (07:59)
[2020-12-14] MEDS: Metoprolol Tartrate 25 MG TAB PO SCH ×2 (09:00→21:34)
[2020-12-14] MEDS: Insulin Glargine 15 UNITS in Pre-Filled Syringe 1 EACH SC SCH ×2 (09:00→21:30)
--- NOTE | 2020-12-14 10:49 | RAD ---
EXAM: Chest one view: HISTORY: Respiratory insufficiency COMPARISON: 12/13/2020 FINDINGS: Stable life-support tubes. Heart size: Within normal limits. Lungs: Extensive bilateral interstitial and alveolar opacity changes, overall stable No pneumothorax. IMPRESSION: Stable exam. Continued short-term follow-up.
--- NOTE | 2020-12-14 14:29 | PDOC.HOSPP ---
- Subjective Subjective: remains intubated, rates still not well controlled, afib. no fever - Objective Vital Signs & Weight: Vital Signs (12 hours) Temp Pulse Resp BP Pulse Ox 12/14/20 10:52 132 H 129/69 12/14/20 08:00 97 12/14/20 06:46 121 H 98/44 L 12/14/20 06:45 121 H 98 12/14/20 05:32 21 H 12/14/20 04:51 97.1 F L 12/14/20 03:54 21 H 12/14/20 03:00 97.2 F L 12/14/20 02:38 103 H 119/73 Weight Admit Weight 210 lb 15.68 oz Weight 187 lb 13.341 oz Most Recent Monitor Data Heart Rate from ECG 131 NIBP 73/57 NIBP BP-Mean 62 Respiration from ECG 11 SpO2 95 I&O: 12/13/20 12/14/20 12/15/20 06:59 06:59 06:59 Intake Total 1074 1172 60 Output Total 0 0 Balance 1074 1172 60 Result Diagrams: 12/14/20 03:00 12/14/20 04:28 Additional Labs: Accuchecks 12/14/20 12/14/20 12/13/20 09:33 00:10 19:45 POC Glucose 178 H 188 H 182 H 12/13/20 16:12 POC Glucose 149 H Radiology Reviewed by me: Yes EKG Reviewed by me: Yes Hospitalist ROS - Medication Medications: Active Medications Generic Name Dose Route Start Last Admin Trade Name Freq PRN Reason Stop Dose Admin Acetaminophen 650 mg 11/25/20 02:07 12/02/20 20:02 Acetaminophen 325 Mg Tab PO 650 mg Q4H PRN Administration Headache/Fever/Mild Pain (1-3) Albuterol Sulfate 2 puff 11/25/20 02:18 12/05/20 19:33 Albuterol 200 Puff (6.7gm Inhaler) INH 2 puff [id number] PRN Administration Wheezing Ascorbic Acid 1,000 mg 11/25/20 09:00 12/14/20 07:58 Ascorbic Acid 500 Mg Chewable Tablet PO 1,000 mg DAILY HANSA Administration Aspirin 81 mg 12/09/20 09:00 12/14/20 07:59 Aspirin Chewable 81 Mg Tab PO 81 mg DAILY HANSA Administration Atorvastatin Calcium 40 mg 11/27/20 21:00 12/13/20 21:06 Atorvastatin Calcium 40 Mg Tab PO 40 mg HS HANSA Administration Dexamethasone 6 mg 12/09/20 09:00 12/14/20 07:59 Dexamethasone 4 Mg/Ml Vial SLOW IVP 6 mg DAILY HANSA Administration Dextrose/Water 25 gm 11/25/20 02:24 12/04/20 21:01 Dextrose 50% Abboject 50 Ml Syringe SLOW IVP 25 gm PRN PRN Administration Hypoglycemia Insulin Glargine 15 units/ 0.15 mls @ 0 mls/hr 12/04/20 21:00 12/13/20 21:05 Miscellaneous Medication SC 0.15 mls HS HANSA Administration Insulin Glargine 15 units/ 0.15 mls @ 0 mls/hr 12/05/20 09:00 12/14/20 09:00 Miscellaneous Medication SC Not Given QAM HANSA Fentanyl 100 mls @ 0 mls/hr 12/06/20 14:00 12/14/20 01:07 Fentanyl Cadd IV 01/05/21 14:00 100 mls INF HANSA Administration Protocol Per Protocol Diltiazem HCl 125 mg/ Sodium 125 mls @ 5 mls/hr 12/09/20 13:45 12/11/20 08:00 Chloride IVPB 125 mls INF HANSA Administration Protocol 5 MG/HR Meropenem 500 mg/ Sodium 100 mls @ 200 mls/hr 12/11/20 14:00 12/13/20 13:24 Chloride IVPB 100 mls 1400 HANSA Administration Amiodarone HCl 450 mg/ 259 mls @ 0 mls/hr 12/11/20 11:30 12/14/20 00:19 Miscellaneous Medication 1 IVPB 259 mls each/ Dextrose/Water INF HANSA Administration Protocol As Directed Insulin Human Lispro 0 units 11/25/20 02:24 12/14/20 06:01 Humalog 300 Units/3 Ml Vial SC 3 unit .MILD SLIDING SCALE PRN Administration Mild Correctional Scale Insulin Human Lispro 0 units 11/25/20 02:24 12/13/20 04:21 Humalog 300 Units/3 Ml Vial SC 3 unit .BEDTIME SLIDING SC PRN Administration Bedtime Correctional Scale Lorazepam 2 mg 12/06/20 14:00 12/09/20 16:54 Lorazepam 2 Mg/Ml Vial SLOW IVP 01/05/21 14:00 2 mg Q1H PRN Administration Breakthrough agitation Metoclopramide HCl 10 mg 12/11/20 18:00 12/14/20 12:47 Metoclopramide Hcl 10 Mg/2 Ml Vial IVP 10 mg Q6HR HANSA Administration Metoprolol Tartrate 50 mg 12/13/20 21:00 12/14/20 09:00 Metoprolol Tartrate 25 Mg Tab PO Not Given BID HANSA Mometasone Furoate/Formoterol Fumar 2 puff 11/25/20 18:30 12/14/20 06:45 Mometasone 200 Mcg/Formoterol 5 Mcg 120 Puff Inhaler INH 2 puff BID-RT HANSA Administration Morphine Sulfate 2 mg 12/06/20 14:00 12/10/20 15:58 Morphine 2 Mg/Ml Vial SLOW IVP 01/05/21 14:00 2 mg Q1H PRN Administration Breakthrough Pain/Agitation Ondansetron HCl 4 mg 11/27/20 08:20 12/06/20 05:30 Ondansetron Pf 4 Mg/2 Ml Vial IVP 4 mg Q6H PRN Administration Nausea/Vomiting Pantoprazole Sodium 40 mg 12/09/20 09:00 12/14/20 07:58 Pantoprazole 40 Mg Granules Packet PO 40 mg DAILY HANSA Administration Polyethylene Glycol 17 gm 12/13/20 09:00 12/14/20 07:58 Polyethylene Glycol 3350 17 Gm Packet PER TUBE 17 gm DAILY HANSA Administration Propofol 1,000 mg 12/06/20 14:00 12/14/20 12:46 Propofol 1,000 Mg/100 Ml Vial IV 01/05/21 14:00 1,000 mg INF PRN Administration TO ACHIEVE GOAL RASS Protocol Rivaroxaban 15 mg 12/02/20 09:00 12/14/20 07:59 Rivaroxaban 15 Mg Tab PO 15 mg DAILY HANSA Administration Sodium Chloride 10 ml 11/25/20 02:07 12/13/20 08:33 Flush - Normal Saline 10 Ml Syringe IVF 10 ml Q12HR PRN Administration Saline Flush Hospitalist Exam Vitals: Vital Signs (12 hours) Temp Pulse Resp BP Pulse Ox 12/14/20 10:52 132 H 129/69 12/14/20 08:00 97 12/14/20 06:46 121 H 98/44 L 12/14/20 06:45 121 H 98 12/14/20 05:32 21 H 12/14/20 04:51 97.1 F L 12/14/20 03:54 21 H 12/14/20 03:00 97.2 F L 12/14/20 02:38 103 H 119/73 Weight Admit Weight 210 lb 15.68 oz Weight 187 lb 13.341 oz Most Recent Monitor Data Heart Rate from ECG 131 NIBP 73/57 NIBP BP-Mean 62 Respiration from ECG 11 SpO2 95 General - other findings: remains intubated Eye: PERRL ENT: normocephalic atraumatic Neck: supple Heart: RRR Respiratory: CTAB, no wheezes Gastrointestinal: soft Extremities: no cyanosis, no clubbing Skin: normal turgor Neurological: cranial nerve grossly intact Hosp A/P - Plan (1) Atrial fibrillation with RVR Code(s): I48.91 - UNSPECIFIED ATRIAL FIBRILLATION Status: Acute Plan: Persistent, continue Amiodarone gtt/Metoprolol/Xarelto. Cardiology i following (2) Hypotension Status: Acute Plan: s/p HD, continue supportive mgmt (3) Pneumonia due to COVID-19 virus Code(s): U07.1 - COVID-19; J12.82 - PNEUMONIA DUE TO CORONAVIRUS DISEASE 2018 Status: Acute Plan: Continue Meropenem/Dexamethasone/Vit C/Zinc/D3/Xarelto (4) Acute respiratory failure with hypoxia Code(s): J96.01 - ACUTE RESPIRATORY FAILURE WITH HYPOXIA Status: Acute (5) ESRD (end stage renal disease) on dialysis Code(s): N18.6 - END STAGE RENAL DISEASE; Z99.2 - DEPENDENCE ON RENAL DIALYSIS Status: Chronic Plan: HD per Renal service (6) Anemia of renal disease Code(s): N18.9 - CHRONIC KIDNEY DISEASE, UNSPECIFIED; D63.1 - ANEMIA IN CHRONIC KIDNEY DISEASE Status: Chronic (7) Diabetes type 2, controlled Code(s): E11.9 - TYPE 2 DIABETES MELLITUS WITHOUT COMPLICATIONS Status: Chron ic Qualifiers: Diabetes mellitus senior living insulin use: without senior living use Diabetes mellitus complication status: with kidney complications Diabetes mellitus complication detail: with chronic kidney disease Chronic kidney disease stage: on chronic dialysis Qualified Code(s): E11.22 - Type 2 diabetes mellitus with diabetic chronic kidney disease; N18.6 - End stage renal disease; Z99.2 - Dependence on renal dialysis (8) HTN (hypertension) Code(s): I10 - ESSENTIAL (PRIMARY) HYPERTENSION Status: Chronic Qualifiers: Hypertension type: essential hypertension Qualified Code(s): I10 - Essential (primary) hypertension (9) Leukocytosis Code(s): D72.829 - ELEVATED WHITE BLOOD CELL COUNT, UNSPECIFIED Status: Acute Qualifiers: Leukocytosis type: leukemoid reaction Qualified Code(s): D72.823 - Leukemoid reaction Plan: Suspected reactive, continue to monitor trend - Plan pt remains intubated and sedated, not weanable at this point per pulmonologis, possible trach/peg next week Cont amio gtt/xarelto/and metoprolol for rate control, cardiology is following Nephrology is assisting with dialysis Hopefully dialysis will correct his metabolic derangements prognosis is guarded cont supportive cares as per engine inspector. cont Decadron and empiric abx. Pt is able to d/c isolation as he is into hospital day #20
--- NOTE | 2020-12-14 14:52 | PDOC.CPN ---
- Subjective Date: 12/14/20 Time: 14:52 Interval history: No new issues. Remains intubated, sedated. - Review of Systems ROS unobtainable: due to endotracheal tube - Objective Allergies/Adverse Reactions: Allergies Allergy/AdvReac Type Severity Reaction Status Date / Time codeine AdvReac Nausea Verified 11/25/20 01:54 heparin AdvReac EYES Verified 11/25/20 01:54 BLEEDING promethazine [From Phenergan] AdvReac Headache Verified 11/25/20 01:54 Visit Medications: Current Medications Acetaminophen (Acetaminophen 325 Mg Tab) 650 mg PO Q4H PRN PRN Reason: Headache/Fever/Mild Pain (1-3) Last Admin: 12/02/20 20:02 Dose: 650 mg Documented by: Acetaminophen (Acetaminophen 650 Mg Suppository) 650 mg [place] Q4H PRN PRN Reason: Headache/Fever/Mild Pain (1-3) Albuterol Sulfate (Albuterol 200 Puff (6.7gm Inhaler)) 2 puff INH [id number] PRN PRN Reason: Wheezing Last Admin: 12/05/20 19:33 Dose: 2 puff Documented by: Ascorbic Acid (Ascorbic Acid 500 Mg Chewable Tablet) 1,000 mg PO DAILY [facility] Last Admin: 12/14/20 07:58 Dose: 1,000 mg Documented by: Aspirin (Aspirin Chewable 81 Mg Tab) 81 mg PO DAILY [facility] Last Admin: 12/14/20 07:59 Dose: 81 mg Documented by: Atorvastatin Calcium (Atorvastatin Calcium 40 Mg Tab) 40 mg PO HS [facility] Last Admin: 12/13/20 21:06 Dose: 40 mg Documented by: Bisacodyl (Bisacodyl 10 Mg Supp) 10 mg [place] Q8H PRN PRN Reason: Constipation Dexamethasone (Dexamethasone 4 Mg/Ml Vial) 6 mg SLOW IVP DAILY [facility] Last Admin: 12/14/20 07:59 Dose: 6 mg Documented by: Dextrose/Water (Dextrose 50% Abboject 50 Ml Syringe) 25 gm SLOW IVP PRN PRN PRN Reason: Hypoglycemia Last Admin: 12/04/20 21:01 Dose: 25 gm Documented by: Glucagon (Glucagon 1 Mg/Ml Vial) 1 mg IM PRN PRN PRN Reason: Hypoglycemia Dextrose/Water (D5w) 1,000 mls @ 0 mls/hr IV .Q0M PRN PRN Reason: Hypoglycemia Insulin Glargine 15 units/ (Miscellaneous Medication) 0.15 mls @ 0 mls/hr SC HS [facility]AN[facility] Last Admin: 12/13/20 21:05 Dose: 0.15 mls Documented by: Insulin Glargine 15 units/ (Miscellaneous Medication) 0.15 mls @ 0 mls/hr SC QAM [facility] Last Admin: 12/14/20 09:00 Dose: Not Given Documented by: Fentanyl (Fentanyl Cadd) 100 mls @ 0 mls/hr IV INF HANSA; Protocol Stop: 01/05/21 14:00 Last Admin: 12/14/20 01:07 Dose: 100 mls Documented by: Fentanyl Citrate (Fentanyl Bolus) 250 mls @ 0 mls/hr IVPB PRN PRN PRN Reason: Breakthrough pain/agitation Stop: 01/05/21 14:00 Diltiazem HCl 125 mg/ Sodium (Chloride) 125 mls @ 5 mls/hr IVPB INF [facility]ANSA; Protocol Last Admin: 12/11/20 08:00 Dose: 125 mls Documented by: Meropenem 500 mg/ Sodium (Chloride) 100 mls @ 200 mls/hr IVPB 1400 [facility]ANSA Last Admin: 12/13/20 13:24 Dose: 100 mls Documented by: Amiodarone HCl 450 mg/Miscellaneous Medication 1 each/ Dextrose/Water 259 mls @ 0 mls/hr IVPB INF HANSA; Protocol Last Admin: 12/14/20 00:19 Dose: 259 mls Documented by: Insulin Human Lispro (Humalog 300 Units/3 Ml Vial) 0 units SC .MILD SLIDING SCALE PRN PRN Reason: Mild Correctional Scale Last Admin: 12/14/20 06:01 Dose: 3 unit Documented by: Insulin Human Lispro (Humalog 300 Units/3 Ml Vial) 0 units SC .BEDTIME SLIDING SC PRN PRN Reason: Bedtime Correctional Scale Last Admin: 12/13/20 04:21 Dose: 3 unit Documented by: Labetalol HCl (Labetalol Hcl 100 Mg/20 Ml Vial) 20 mg SLOW IVP Q4H PRN PRN Reason: SBP GREATER THAN 160 Lorazepam (Lorazepam 2 Mg/Ml Vial) 2 mg SLOW IVP Q1H PRN PRN Reason: Breakthrough agitation Stop: 01/05/21 14:00 Last Admin: 12/09/20 16:54 Dose: 2 mg Documented by: Metoclopramide HCl (Metoclopramide Hcl 10 Mg/2 Ml Vial) 10 mg IVP Q6HR [facility] Last Admin: 12/14/20 12:47 Dose: 10 mg Documented by: Metoprolol Tartrate (Metoprolol Tartrate 25 Mg Tab) 50 mg PO BID [facility] Last Admin: 12/14/20 09:00 Dose: Not Given Documented by: Mometasone Furoate/Formoterol Fumar (Mometasone 200 Mcg/Formoterol 5 Mcg 120 Puff Inhaler) 2 puff INH BID-RT [facility] Last Admin: 12/14/20 06:45 Dose: 2 puff Documented by: Morphine Sulfate (Morphine 2 Mg/Ml Vial) 2 mg SLOW IVP Q1H PRN PRN Reason: Breakthrough Pain/Agitation Stop: 01/05/21 14:00 Last Admin: 12/10/20 15:58 Dose: 2 mg Documented by: Discontinue Previous Narcotic Pain Medications And Benzodiazepines 1 each FS .ONE [facility] Stop: 01/05/21 14:00 Ondansetron HCl (Ondansetron Pf 4 Mg/2 Ml Vial) 4 mg IVP Q6H PRN PRN Reason: Nausea/Vomiting Last Admin: 12/06/20 05:30 Dose: 4 mg Documented by: Pantoprazole Sodium (Pantoprazole 40 Mg Granules Packet) 40 mg PO DAILY [facility] Last Admin: 12/14/20 07:58 Dose: 40 mg Documented by: Polyethylene Glycol (Polyethylene Glycol 3350 17 Gm Packet) 17 gm PER TUBE DAILY [facility] Last Admin: 12/14/20 07:58 Dose: 17 gm Documented by: Propofol (Propofol 1,000 Mg/100 Ml Vial) 1,000 mg IV INF PRN; Protocol PRN Reason: TO ACHIEVE GOAL RASS Stop: 01/05/21 14:00 Last Admin: 12/14/20 12:46 Dose: 1,000 mg Documented by: Propofol (Propofol Bolus 1,000 Mg/100 Ml Vial) 20 mg IV Q5MIN PRN PRN Reason: BREAKTHROUGH AGITATION Stop: 01/05/21 14:00 Rivaroxaban (Rivaroxaban 15 Mg Tab) 15 mg PO DAILY [facility] Last Admin: 12/14/20 07:59 Dose: 15 mg Documented by: Sodium Chloride (Flush - Normal Saline 10 Ml Syringe) 10 ml IVF Q12HR PRN PRN Reason: Saline Flush Last Admin: 12/13/20 08:33 Dose: 10 ml Documented by: Vital Signs & Weight: Vital Signs Temp Pulse Resp BP Pulse Ox 12/14/20 14:38 132 H 113/39 L 12/14/20 14:00 98.1 F 22 H 12/14/20 12:00 20 12/14/20 10:52 132 H 129/69 12/14/20 10:00 20 12/14/20 09:00 98.6 F 12/14/20 08:00 20 97 12/14/20 06:46 121 H 98/44 L 12/14/20 06:45 121 H 98 12/14/20 05:32 21 H 12/14/20 04:51 97.1 F L 12/14/20 03:54 21 H 12/14/20 03:00 97.2 F L Admit Weight 210 lb 15.68 oz Weight 187 lb 13.341 oz - Physical Exam General: other (Not done due to acute covid-19 infection.) - Labs Result Diagrams: 12/14/20 03:00 12/14/20 04:28 Troponin/CKMB CK-MB (CK-2) 1.7 ng/mL (0-6.6) 11/24/20 20:16 Troponin I 0.223 ng/mL (< 0.028) H 11/25/20 04:41 - Telemetry Supraventricular conduction: atrial flutter - Assessment/Plan Assessment/Plan: 1. Atrial flutter variable AV conduction 2. Paroxysmal afib 3. COVID-19 pneumonia 4. ESRD on HD PLAN: - Continue amiodarone - Off amlodipine to make space for increase BB dose. - Poor group home prognosis. - Once off precautions may need shock if he remains in Aflutter. - Xarelto for stroke prophylaxis. - Echo next week once off precautions.
--- NOTE | 2020-12-14 15:30 | PRG ---
DATE OF SERVICE: 12/14/2020 SUBJECTIVE: The patient remains intubated on mechanical ventilation. There have been no acute changes overnight. OBJECTIVE: VITAL SIGNS: Temperature in 97.1, pulse 129, blood pressure 115/46. Intake for 24 hours 1172. Output; now, he has undergone dialysis, I am not sure how much fluid they have removed. HEENT: Unremarkable. NECK: No JVD. LUNGS: Inspiratory crackles. CARDIAC: S1 and S2. Regular. ABDOMEN: Soft. EXTREMITIES: Edematous. IMAGING: His chest x-ray shows bilateral infiltrates. ET tube in good position. LABORATORY DATA: Sodium 135, potassium 5.5, chloride 95, CO2 of 25, BUN 73, creatinine 4.0, glucose 213. White blood cell count 24.3, hematocrit 28.6, and platelet count 327. ASSESSMENT: 1. COVID-19 pneumonia. 2. Acute hypoxic respiratory failure, requiring mechanical ventilation. 3. Acute renal failure. 4. Supraventricular tachycardia/atrial fibrillation. PLAN: Today the patient is on hospital day #20 and can come out of isolation. We are continuing current ventilation parameters. He will need tracheostomy soon. Job ID: [id number]
[2020-12-14] MEDS: Meropenem 500 MG in Sodium Chloride 0.9% 100 ML IVPB SCH (16:23)
[2020-12-14] MEDS: Atorvastatin Calcium 40 MG TAB PO SCH (21:30)
[2020-12-15] MEDS ORDERED: Fentanyl CADD 100 ML ONE (00:27)
[2020-12-15] MEDS: Fentanyl CADD 100 ML IV SCH (00:29)
[2020-12-15 04:17] LABS: MDiff Complete? YES
[2020-12-15] MEDS: Metoclopramide HCl 10 MG/2 ML VIAL IVP SCH ×3 (04:57→20:51)
[2020-12-15] MEDS: HumaLOG 300 UNITS/3 ML VIAL SC PRN ×4 (04:58→20:52)
[2020-12-15 05:32] LABS: Albumin 2.8 g/dL (3.4-4.8); Anion Gap 24 mmol/L (10-20); BUN (Urea Nitrogen) 97 mg/dL (8.4-25.7); BUN/Creatinine Ratio 21.32; Calc. Creatinine Clearance 20 mL/min (70-130); Calcium 8.8 mg/dL (7.8-10.44); Carbon Dioxide 22 mmol/L (23-31); Chloride 95 mmol/L (98-107); Glucose 303 mg/dL (80-115); Phosphorus 8.8 mg/dL (2.3-4.7); Potassium 5.9 mmol/L (3.5-5.1); Sodium 135 mmol/L (136-145)
[2020-12-15 05:36] LABS: White Blood Cell (WBC) Count 24.1 thou/uL (4.8-10.8)
[2020-12-15 05:38] LABS: Red Blood Cell (RBC) Count 3.38 mill/uL (4.70-6.10)
[2020-12-15 05:39] LABS: Hemoglobin 10.1 g/dL (14.0-18.0)
[2020-12-15 05:40] LABS: Mean Corpuscular HGB CONC 32.6 g/dL (32.0-36.0); Mean Corpuscular Hemoglobin 29.9 pg (27.0-31.0); Mean Corpuscular Volume 91.9 fL (78.0-98.0); RBC Distribution Width 15.1 % (11.5-14.5)
[2020-12-15 05:41] LABS: Mean Platelet Volume 8.8 fL (7.4-10.4); Platelet Count 254 thou/uL (130-400)
[2020-12-15 06:08] LABS: Neutrophil 90 % (42-75)
[2020-12-15 06:09] LABS: Band 5 % (5-11); Eosinophils 0 % (0-10); Lymphocytes 3 % (21-51); Monocytes 2 % (0-10)
[2020-12-15] MEDS: Dexamethasone 4 mg/ml Vial SLOW IVP SCH (07:43)
[2020-12-15] MEDS: Ascorbic Acid 500 mg Chewable Tablet PO SCH (07:43)
[2020-12-15] MEDS: Propofol 1,000 MG/100 ML VIAL IV PRN (07:43)
[2020-12-15] MEDS: Insulin Glargine 15 UNITS in Pre-Filled Syringe 1 EACH SC SCH ×2 (07:44→20:51)
[2020-12-15] MEDS: Pantoprazole 40 MG GRANULES PACKET PO SCH (07:44)
[2020-12-15] MEDS: Aspirin Chewable 81 MG TAB PO SCH (07:44)
[2020-12-15] MEDS: Rivaroxaban 15 MG TAB PO SCH (07:45)
[2020-12-15] MEDS: Mometasone 200 MCG/Formoterol 5 MCG 120 PUFF INHALER INH SCH ×2 (07:50→18:52)
[2020-12-15] MEDS: Amiodarone 450 MG, Admixture Fee 1 EACH in Dextrose 5% in Water 250 ML IVPB SCH ×2 (08:29→22:56)
[2020-12-15] MEDS: Metoprolol Tartrate 25 MG TAB PO SCH ×3 (09:00→20:51)
[2020-12-15] MEDS: Polyethylene Glycol 3350 17 GM Packet PER TUBE SCH (09:00)
--- NOTE | 2020-12-15 09:52 | PRG ---
DATE OF SERVICE: 12/15/2020 SUBJECTIVE: Jose Guadalupe Pacheco being dialyzed today. X-ray looks much improved. He is in SVT. I think once we can get him rate controlled we should be able to get him off the vent. OBJECTIVE: VITAL SIGNS: Pulse 121, blood pressure 119/33, 40% FiO2, PEEP of 5, and sats of 98%. CHEST: No wheezing. No crackles. CARDIAC: Normal S1, S2. ABDOMEN: No masses. LABORATORY DATA: White count 24,000. Renal function, creatinine 4, BUN 97. X-ray looks much improved. IMPRESSION: Respiratory failure, urias positive pneumonia, SVT, renal failure. He is slowly getting better. Once we are able to control his heart rate, I think we should be able to try and get him off the vent. One-half hour of critical care time. Job ID: [id number]
[2020-12-15] MEDS: Meropenem 500 MG in Sodium Chloride 0.9% 100 ML IVPB SCH (13:30)
--- NOTE | 2020-12-15 17:10 | PRG ---
DATE OF SERVICE: 12/15/2020 SUBJECTIVE: The patient was seen and examined, still on life support, noted with the following vital signs. OBJECTIVE: VITAL SIGNS: Afebrile, blood pressure of 179/76 HEENT: Unremarkable. CARDIOVASCULAR SYSTEM: First and second heart sounds were heard. RESPIRATORY SYSTEM: Clear to auscultation. DIGESTIVE SYSTEM: Revealed a benign abdomen with positive bowel sounds. EXTREMITIES: No peripheral edema. SKIN: No new gross rash. LYMPHATICS: No peripheral lymphadenopathy. IMPRESSION: 1. End-stage renal disease. 2. COVID infection. 3. Cardiopulmonary failure. 4. Hyperkalemia. PLAN: 1. The patient to be dialyzed today as much as can be tolerated by hemodynamics. 2. Heart rate of this patient needs to be better controlled. We will defer to monotype caster on this. 3. Further management to be dependent on the clinical course. Job ID: [id number]
--- NOTE | 2020-12-15 17:21 | PRG ---
DATE OF SERVICE: 12/14/2020 SUBJECTIVE: The patient was seen, still on life support stable blood pressure. OBJECTIVE: HEENT: Remarkable for endotracheal tube in place. CARDIOVASCULAR SYSTEM: First and second heart sounds were heard, irregularly irregular. RESPIRATORY SYSTEM: Revealed vented sounds. DIGESTIVE SYSTEM: Revealed a benign abdomen. EXTREMITIES: Showed no peripheral edema with right upper extremity edema noted. LYMPHATICS: No peripheral lymphadenopathy. IMPRESSION: 1. Cardiopulmonary failure in the context of problem #2. 2. COVID infection. 3. End-stage renal disease. PLAN: 1. The patient could not tolerate very well hemodialysis ahead and try as much as possible given the hyperkalemia in this patient. 2. Further management to be dependent on the clinical course. Job ID: [id number]
--- NOTE | 2020-12-15 18:01 | PDOC.HOSPP ---
- Subjective Subjective: Patient was seen examined at bedside. He converted back into normal sinus rhythm. Rate currently controlled. Patient had dialysis today. No fluid removed per nursing staff. - Objective Vital Signs & Weight: Vital Signs (12 hours) Temp Pulse Resp BP Pulse Ox 12/15/20 14:40 82 12/15/20 14:00 23 H 12/15/20 12:00 97.6 F 26 H 12/15/20 10:36 123 H 12/15/20 10:00 23 H 12/15/20 08:00 21 H 93 L 12/15/20 07:51 121 H 119/33 L Weight Admit Weight 210 lb 15.68 oz Weight 181 lb 10.574 oz Most Recent Monitor Data Heart Rate from ECG 87 NIBP 179/76 NIBP BP-Mean 110 Respiration from ECG 26 SpO2 95 I&O: 12/14/20 12/15/20 12/16/20 06:59 06:59 06:59 Intake Total 1172 2289.0 240 Output Total 0 Balance 1172 2289.0 240 Result Diagrams: 12/15/20 05:00 12/15/20 05:00 Additional Labs: Accuchecks 12/15/20 12/15/20 12/15/20 16:55 07:50 04:48 POC Glucose 287 H 241 H 260 H 12/14/20 12/12/20 21:23 12:17 POC Glucose 286 H 221 H Radiology Reviewed by me: Yes EKG Reviewed by me: Yes Hospitalist ROS - Medication Medications: Active Medications Generic Name Dose Route Start Last Admin Trade Name Freq PRN Reason Stop Dose Admin Acetaminophen 650 mg 11/25/20 02:07 12/02/20 20:02 Acetaminophen 325 Mg Tab PO 650 mg Q4H PRN Administration Headache/Fever/Mild Pain (1-3) Albuterol Sulfate 2 puff 11/25/20 02:18 12/05/20 19:33 Albuterol 200 Puff (6.7gm Inhaler) INH 2 puff [id number] PRN Administration Wheezing Ascorbic Acid 1,000 mg 11/25/20 09:00 12/15/20 07:43 Ascorbic Acid 500 Mg Chewable Tablet PO 1,000 mg DAILY [facility] Administration Aspirin 81 mg 12/09/20 09:00 12/15/20 07:44 Aspirin Chewable 81 Mg Tab PO 81 mg DAILY [facility] Administration Atorvastatin Calcium 40 mg 11/27/20 21:00 12/14/20 21:30 Atorvastatin Calcium 40 Mg Tab PO 40 mg HS [facility] Administration Dexamethasone 6 mg 12/09/20 09:00 12/15/20 07:43 Dexamethasone 4 Mg/Ml Vial SLOW IVP 6 mg DAILY [facility] Administration Dextrose/Water 25 gm 11/25/20 02:24 12/04/20 21:01 Dextrose 50% Abboject 50 Ml Syringe SLOW IVP 25 gm PRN PRN Administration Hypoglycemia Insulin Glargine 15 units/ 0.15 mls @ 0 mls/hr 12/04/20 21:00 12/14/20 21:30 Miscellaneous Medication SC 0.15 mls HS HANSA Administration Insulin Glargine 15 units/ 0.15 mls @ 0 mls/hr 12/05/20 09:00 12/15/20 07:44 Miscellaneous Medication SC 0.15 mls QAM [facility]AN[facility] Administration Fentanyl 100 mls @ 0 mls/hr 12/06/20 14:00 12/15/20 00:29 Fentanyl Cadd IV 01/05/21 14:00 100 mls INF [facility] Administration Protocol Per Protocol Diltiazem HCl 125 mg/ Sodium 125 mls @ 5 mls/hr 12/09/20 13:45 12/11/20 08:00 Chloride IVPB 125 mls INF [facility] Administration Protocol 5 MG/HR Meropenem 500 mg/ Sodium 100 mls @ 200 mls/hr 12/11/20 14:00 12/15/20 13:30 Chloride IVPB 100 mls 1400 [facility]AN[facility] Administration Amiodarone HCl 450 mg/ 259 mls @ 0 mls/hr 12/11/20 11:30 12/15/20 08:29 Miscellaneous Medication 1 IVPB 259 mls each/ Dextrose/Water INF [facility]AN[facility] Administration Protocol As Directed Insulin Human Lispro 0 units 11/25/20 02:24 12/15/20 17:26 Humalog 300 Units/3 Ml Vial SC 4 unit .MILD SLIDING SCALE PRN Administration Mild Correctional Scale Insulin Human Lispro 0 units 11/25/20 02:24 12/13/20 04:21 Humalog 300 Units/3 Ml Vial SC 3 unit .BEDTIME SLIDING SC PRN Administration Bedtime Correctional Scale Lorazepam 2 mg 12/06/20 14:00 12/09/20 16:54 Lorazepam 2 Mg/Ml Vial SLOW IVP 01/05/21 14:00 2 mg Q1H PRN Administration Breakthrough agitation Metoclopramide HCl 10 mg 12/11/20 18:00 12/15/20 13:32 Metoclopramide Hcl 10 Mg/2 Ml Vial IVP Not Given Q6HR [facility]AN[facility] Metoprolol Tartrate 50 mg 12/13/20 21:00 12/15/20 13:30 Metoprolol Tartrate 25 Mg Tab PO 50 mg BID [facility] Administration Mometasone Furoate/Formoterol Fumar 2 puff 11/25/20 18:30 12/15/20 07:50 Mometasone 200 Mcg/Formoterol 5 Mcg 120 Puff Inhaler INH 2 puff BID-RT [facility] Administration Morphine Sulfate 2 mg 12/06/20 14:00 12/10/20 15:58 Morphine 2 Mg/Ml Vial SLOW IVP 01/05/21 14:00 2 mg Q1H PRN Administration Breakthrough Pain/Agitation Ondansetron HCl 4 mg 11/27/20 08:20 12/06/20 05:30 Ondansetron Pf 4 Mg/2 Ml Vial IVP 4 mg Q6H PRN Administration Nausea/Vomiting Pantoprazole Sodium 40 mg 12/09/20 09:00 12/15/20 07:44 Pantoprazole 40 Mg Granules Packet PO 40 mg DAILY [facility] Administration Polyethylene Glycol 17 gm 12/13/20 09:00 12/15/20 09:00 Polyethylene Glycol 3350 17 Gm Packet PER TUBE Not Given DAILY [facility] Propofol 1,000 mg 12/06/20 14:00 12/15/20 07:43 Propofol 1,000 Mg/100 Ml Vial IV 01/05/21 14:00 1,000 mg INF PRN Administration TO ACHIEVE GOAL RASS Protocol Rivaroxaban 15 mg 12/02/20 09:00 12/15/20 07:45 Rivaroxaban 15 Mg Tab PO 15 mg DAILY [facility] Administration Sodium Chloride 10 ml 11/25/20 02:07 12/13/20 08:33 Flush - Normal Saline 10 Ml Syringe IVF 10 ml Q12HR PRN Administration Saline Flush Hospitalist Exam Vitals: Vital Signs (12 hours) Temp Pulse Resp BP Pulse Ox 12/15/20 14:40 82 12/15/20 14:00 23 H 12/15/20 12:00 97.6 F 26 H 12/15/20 10:36 123 H 12/15/20 10:00 23 H 12/15/20 08:00 21 H 93 L 12/15/20 07:51 121 H 119/33 L Weight Admit Weight 210 lb 15.68 oz Weight 181 lb 10.574 oz Most Recent Monitor Data Heart Rate from ECG 87 NIBP 179/76 NIBP BP-Mean 110 Respiration from ECG 26 SpO2 95 General - other findings: remains intubated Eye: PERRL ENT: normocephalic atraumatic Neck: supple Heart: RRR Respiratory: rhonchi Gastrointestinal: soft Extremities: no cyanosis Skin: normal turgor Neurological: cranial nerve grossly intact Musculoskeletal: normal tone Psychiatric: normal affect, normal behavior, A&O x 3 Hosp A/P - Plan (1) Atrial fibrillation with RVR Code(s): I48.91 - UNSPECIFIED ATRIAL FIBRILLATION Status: Acute Plan: Persistent, continue Amiodarone gtt/Metoprolol/Xarelto. Cardiology i following (2) Hypotension Status: Acute Plan: s/p HD, continue supportive mgmt (3) Pneumonia due to COVID-19 virus Code(s): U07.1 - COVID-19; J12.82 - PNEUMONIA DUE TO CORONAVIRUS DISEASE 2019 Status: Acute Plan: Continue Meropenem/Dexamethasone/Vit C/Zinc/D3/Xarelto (4) Acute respiratory failure with hypoxia Code(s): J96.01 - ACUTE RESPIRATORY FAILURE WITH HYPOXIA Status: Acute (5) ESRD (end stage renal disease) on dialysis Code(s): N18.6 - END STAGE RENAL DISEASE; Z99.2 - DEPENDENCE ON RENAL DIALYSIS Status: Chronic Plan: HD per Renal service (6) Anemia of renal disease Code(s): N18.9 - CHRONIC KIDNEY DISEASE, UNSPECIFIED; D63.1 - ANEMIA IN CHRONIC KIDNEY DISEASE Status: Chronic (7) Diabetes type 2, controlled Code(s): E11.9 - TYPE 2 DIABETES MELLITUS WITHOUT COMPLICATIONS Status: Chronic Qualifiers: Diabetes mellitus long-term insulin use: without long-term use Diabetes mellitus complication status: with kidney complications Diabetes mellitus complication detail: with chronic kidney disease Chronic kidney disease stage: on chronic dialysis Qualified Code(s): E11.22 - Type 2 diabetes mellitus with diabetic chronic kidney disease; N18.6 - End stage renal disease; Z99.2 - Dependence on renal dialysis (8) HTN (hypertension) Code(s): I10 - ESSENTIAL (PRIMARY) HYPERTENSION Status: Chronic Qualifiers: Hypertension type: essential hypertension Qualified Code(s): I10 - Essential (primary) hypertension (9) Leukocytosis Code(s): D72.829 - ELEVATED WHITE BLOOD CELL COUNT, UNSPECIFIED Status: Acute Qualifiers: Leukocytosis type: leukemoid reaction Qualified Code(s): D72.823 - Leukemoid reaction Plan: Suspected reactive, continue to monitor trend - Plan Patient converted to normal sinus rhythm, rate is controlled. Status post dialysis today. Continue supportive care. Pulmonology is following. Cont Decadron. Pt is on Xarelto for afib/stroke ppx
[2020-12-15] MEDS: Atorvastatin Calcium 40 MG TAB PO SCH (20:51)
[2020-12-16] MEDS: Lorazepam 2 MG/ML VIAL SLOW IVP PRN ×3 (01:02→23:24)
[2020-12-16 01:11] LABS: Actual Bicarbonate (HCO3a) 25.5 mEq/L (22-28); Base Excess (BEa) 1.2 mEq/L (-2.0 to +3.0); CO2 Tension 39.1 mmHg (35.0-45.0); Calcium, Ionized (arterial) 1.15 mmol/L (1.12-1.30); Carboxyhemoglobin (COHb) 0.6 gm% (0.0-3.0); O2 Tension (PaO2), arterial 60.3 mmHg (> 80.0); Potassium - ABG Lab 4.62 mmol/L (3.70-5.30); pH, Arterial 7.43 (7.35-7.45)
[2020-12-16 01:14] LABS: Puncture Site LBA
[2020-12-16 01:15] LABS: ALV-art Gradient 247.325 mmHg (0-20)
[2020-12-16] MEDS: Metoclopramide HCl 10 MG/2 ML VIAL IVP SCH ×5 (02:42→23:24)
[2020-12-16] MEDS: HumaLOG 300 UNITS/3 ML VIAL SC PRN ×4 (03:59→19:58)
[2020-12-16 05:26] LABS: Band 2 % (5-11); Hemoglobin 9.9 g/dL (14.0-18.0); Lymphocytes 1 % (21-51); MDiff Complete? YES; Mean Corpuscular HGB CONC 31.9 g/dL (32.0-36.0); Mean Corpuscular Volume 90.8 fL (78.0-98.0); Mean Platelet Volume 8.9 fL (7.4-10.4); Monocytes 2 % (0-10); Neutrophil 95 % (42-75); Platelet Count 312 thou/uL (130-400); RBC Distribution Width 15.1 % (11.5-14.5); Red Blood Cell (RBC) Count 3.41 mill/uL (4.70-6.10); White Blood Cell (WBC) Count 24.9 thou/uL (4.8-10.8)
[2020-12-16 05:42] LABS: Albumin 2.7 g/dL (3.4-4.8); Anion Gap 19 mmol/L (10-20); BUN (Urea Nitrogen) 77 mg/dL (8.4-25.7); BUN/Creatinine Ratio 21.04; Calc. Creatinine Clearance 24 mL/min (70-130); Calcium 8.8 mg/dL (7.8-10.44); Carbon Dioxide 27 mmol/L (23-31); Chloride 96 mmol/L (98-107); Glucose 253 mg/dL (80-115); Phosphorus 6.9 mg/dL (2.3-4.7); Potassium 4.5 mmol/L (3.5-5.1); Sodium 137 mmol/L (136-145)
[2020-12-16] MEDS: Mometasone 200 MCG/Formoterol 5 MCG 120 PUFF INHALER INH SCH ×2 (07:08→19:45)
[2020-12-16] MEDS ORDERED: Digoxin 0.5 MG/2 ML AMP SLOW IVP SCH (09:00)
[2020-12-16] MEDS: Rivaroxaban 15 MG TAB PO SCH (09:08)
[2020-12-16] MEDS: Aspirin Chewable 81 MG TAB PO SCH (09:08)
[2020-12-16] MEDS: Ascorbic Acid 500 mg Chewable Tablet PO SCH (09:08)
[2020-12-16] MEDS: Pantoprazole 40 MG GRANULES PACKET PO SCH (09:09)
[2020-12-16] MEDS: Dexamethasone 4 mg/ml Vial SLOW IVP SCH (09:09)
[2020-12-16] MEDS: Metoprolol Tartrate 25 MG TAB PO SCH ×2 (09:10→19:53)
[2020-12-16] MEDS: Polyethylene Glycol 3350 17 GM Packet PER TUBE SCH (09:10)
[2020-12-16] MEDS: Amiodarone 200 MG TAB PER TUBE SCH ×2 (09:13→19:52)
[2020-12-16] MEDS: Insulin Glargine 15 UNITS in Pre-Filled Syringe 1 EACH SC SCH ×2 (09:13→20:15)
--- NOTE | 2020-12-16 11:06 | PRG ---
DATE OF SERVICE: 12/16/2020 SUBJECTIVE: This morning, he is off all sedation. Unfortunately, appears to be very encephalopathic. He is unresponsive. OBJECTIVE: VITAL SIGNS: Respiratory rate of 18, sats are 98% on 50% FiO2, blood pressure . CHEST: No wheezing. No crackles. CARDIAC: Normal S1, S2. No gallops. LABORATORY DATA: White count 24,000. Renal function, creatinine 3, BUN 77. PO2 of 60, pCO2 of 39, 50%, rate of 12, and PEEP of 5. ASSESSMENT: Multiorgan failure, respiratory failure, probably anoxic injury. PLAN: Family is to discuss with palliative Care. Clearly, he has sustained some kind of a cerebral event on top of his underlying coronavirus infection as well as chronic renal failure. We will continue supportive care and discuss with family. One-half hour of critical time. Job ID: [id number]
[2020-12-16 13:41] VITALS: BMI 27.3
--- NOTE | 2020-12-16 14:13 | PRG ---
DATE OF SERVICE: 12/16/2020 SUBJECTIVE: The patient was seen and examined. Off sedative, but not yet awake. OBJECTIVE: VITAL SIGNS: Noted with the following vital signs; respiratory rate of 18, O2 saturation of 98% on 50% FiO2, blood pressure of , heart rate of 75. HEENT: Remarkable for endotracheal tube in place. CARDIOVASCULAR SYSTEM: First and second heart sounds were heard. RESPIRATORY SYSTEM: Revealed vented sounds. LABORATORY INVESTIGATION: Showed a white count of 24,000, hemoglobin 9.9. Chemistry showed a potassium of 4.5, BUN of 77, creatinine 3.66, phosphorus of 6.9. C-reactive protein 6.12. IMPRESSION: 1. End-stage renal disease. 2. Cardiopulmonary failure in the context of problem #3. 3. COVID pneumonitis. 4. Atrial fibrillation, back to sinus. PLAN: 1. No hemodialysis today, allow the body to and probably attempt dialysis tomorrow. 2. Further management will be dependent on the clinical course. Job ID: [id number]
[2020-12-16] MEDS ORDERED: Fentanyl BOLUS 250 ML IVPB PRN (14:47)
[2020-12-16] MEDS ORDERED: Morphine 2 MG/ML VIAL SLOW IVP PRN (14:48)
[2020-12-16] MEDS: Meropenem 500 MG in Sodium Chloride 0.9% 100 ML IVPB SCH (14:48)
[2020-12-16] MEDS ORDERED: Fentanyl CADD 100 ML IV SCH (15:00)
--- NOTE | 2020-12-16 16:16 | PDOC.FMACP ---
Advance Care Planning - Problem (1) Palliative care encounter Status: Acute Code(s): Z51.5 - ENCOUNTER FOR PALLIATIVE CARE (2) Acute respiratory failure with hypoxia Status: Acute Code(s): J96.01 - ACUTE RESPIRATORY FAILURE WITH HYPOXIA (3) Atrial fibrillation with RVR Status: Acute Code(s): I48.91 - UNSPECIFIED ATRIAL FIBRILLATION (4) Pneumonia due to COVID-19 virus Status: Acute Code(s): U07.1 - COVID-19; J12.82 - PNEUMONIA DUE TO CORONAVIRUS DISEASE 2019 (5) History of CVA with residual deficit Status: Chronic Code(s): I69.30 - UNSPECIFIED SEQUELAE OF CEREBRAL INFARCTION (6) Anemia of renal disease Status: Chronic Code(s): N18.9 - CHRONIC KIDNEY DISEASE, UNSPECIFIED; D63.1 - ANEMIA IN CHRONIC KIDNEY DISEASE (7) Diabetes type 2, controlled Status: Chronic Code(s): E11.9 - TYPE 2 DIABETES MELLITUS WITHOUT COMPLICATIONS Qualifiers: Diabetes mellitus termite exterminator insulin use: without termite exterminator use Diabetes mellitus complication status: with kidney complications Diabetes mellitus com plication detail: with chronic kidney disease Chronic kidney disease stage: on chronic dialysis Qualified Code(s): E11.22 - Type 2 diabetes mellitus with diabetic chronic kidney disease; N18.6 - End stage renal disease; Z99.2 - Dependence on renal dialysis (8) ESRD (end stage renal disease) on dialysis Status: Chronic Code(s): N18.6 - END STAGE RENAL DISEASE; Z99.2 - DEPENDENCE ON RENAL DIALYSIS - Note Participants: family, surrogate decision-maker, palliative care Summary: Palliative care revisited Advanced Care Planning with patient family. The diagnosis, prognosis and goals of care were discussed. Appropriate forms and documentation to accomplish the goals of care were discussed. All questions were answered. Reviewed poor prognosis secondary to Covid paired with multiple morbidities Extensive family conversation. Transition to DNAR Electing to compassionately extubate 2/3 at 11:[address] Maria R Ham notified. CM aware DNAR consent obtained and placed on chart Emotional support and therapeutic listening Please also refer to Palliative Care notes in note section Time Spent (mins): 60
--- NOTE | 2020-12-16 18:05 | PDOC.HOSPP ---
- Subjective Subjective: Patient was seen examined at bedside. No acute changes overnight. Palliative care had a family meeting with family, plan for compassionate extubation tomorrow. - Objective Vital Signs & Weight: Vital Signs (12 hours) Temp Pulse Resp BP Pulse Ox 12/16/20 16:00 19 12/16/20 14:10 66 141/35 H 12/16/20 14:00 17 12/16/20 12:00 97.5 F L 21 H 12/16/20 10:43 66 12/16/20 10:00 18 12/16/20 08:10 95 12/16/20 08:00 97.7 F 17 12/16/20 07:10 73 Weight Admit Weight 210 lb 15.68 oz Weight 179 lb 10.828 oz Most Recent Monitor Data Heart Rate from ECG 66 NIBP 154/53 NIBP BP-Mean 86 Respiration from ECG 17 SpO2 97 I&O: 12/15/20 12/16/20 12/17/20 06:59 06:59 06:59 Intake Total 2289.0 1714.5 240 Output Total 0 Balance 2289.0 1714.5 240 Result Diagrams: 12/16/20 03:50 12/16/20 03:50 Additional Labs: Accuchecks 12/16/20 12/16/20 12/16/20 16:04 10:05 03:56 POC Glucose 220 H 281 H 228 H 12/15/20 20:49 POC Glucose 260 H Radiology Reviewed by me: Yes EKG Reviewed by me: Yes Hospitalist ROS - Medication Medications: Active Medications Generic Name Dose Route Start Last Admin Trade Name Freq PRN Reason Stop Dose Admin Acetaminophen 650 mg 11/25/20 02:07 12/02/20 20:02 Acetaminophen 325 Mg Tab PO 650 mg Q4H PRN Administration Headache/Fever/Mild Pain (1-3) Albuterol Sulfate 2 puff 11/25/20 02:18 12/05/20 19:33 Albuterol 200 Puff (6.7gm Inhaler) INH 2 puff [id number] PRN Administration Wheezing Amiodarone HCl 400 mg 12/16/20 09:00 12/16/20 09:13 Amiodarone 200 Mg Tab PER TUBE 400 mg BID HANSA Administration Ascorbic Acid 1,000 mg 11/25/20 09:00 12/16/20 09:08 Ascorbic Acid 500 Mg Chewable Tablet PO 1,000 mg DAILY HANSA Administration Aspirin 81 mg 12/09/20 09:00 12/16/20 09:08 Aspirin Chewable 81 Mg Tab PO 81 mg DAILY HANSA Administration Atorvastatin Calcium 40 mg 11/27/20 21:00 12/15/20 20:51 Atorvastatin Calcium 40 Mg Tab PO 40 mg HS HANSA Administration Dexamethasone 6 mg 12/09/20 09:00 12/16/20 09:09 Dexamethasone 4 Mg/Ml Vial SLOW IVP 6 mg DAILY HANSA Administration Dextrose/Water 25 gm 11/25/20 02:24 12/04/20 21:01 Dextrose 50% Abboject 50 Ml Syringe SLOW IVP 25 gm PRN PRN Administration Hypoglycemia Insulin Glargine 15 units/ 0.15 mls @ 0 mls/hr 12/04/20 21:00 12/15/20 20:51 Miscellaneous Medication SC 0.15 mls HS HANSA Administration Insulin Glargine 15 units/ 0.15 mls @ 0 mls/hr 12/05/20 09:00 12/16/20 09:13 Miscellaneous Medication SC 0.15 mls QAM HANSA Administration Meropenem 500 mg/ Sodium 100 mls @ 200 mls/hr 12/11/20 14:00 12/16/20 14:48 Chloride IVPB 100 mls 1400 HANSA Administration Insulin Human Lispro 0 units 11/25/20 02:24 12/16/20 16:06 Humalog 300 Units/3 Ml Vial SC 3 unit .MILD SLIDING SCALE PRN Administration Mild Correctional Scale Insulin Human Lispro 0 units 11/25/20 02:24 12/13/20 04:21 Humalog 300 Units/3 Ml Vial SC 3 unit .BEDTIME SLIDING SC PRN Administration Bedtime Correctional Scale Metoclopramide HCl 10 mg 12/11/20 18:00 12/16/20 12:44 Metoclopramide Hcl 10 Mg/2 Ml Vial IVP 10 mg Q6HR HANSA Administration Metoprolol Tartrate 50 mg 12/13/20 21:00 12/16/20 09:10 Metoprolol Tartrate 25 Mg Tab PO 50 mg BID HANSA Administration Mometasone Furoate/Formoterol Fumar 2 puff 11/25/20 18:30 12/16/20 07:08 Mometasone 200 Mcg/Formoterol 5 Mcg 120 Puff Inhaler INH 2 puff BID-RT HANSA Administration Ondansetron HCl 4 mg 11/27/20 08:20 12/06/20 05:30 Ondansetron Pf 4 Mg/2 Ml Vial IVP 4 mg Q6H PRN Administration Nausea/Vomiting Pantoprazole Sodium 40 mg 12/09/20 09:00 12/16/20 09:09 Pantoprazole 40 Mg Granules Packet PO 40 mg DAILY HANSA Administration Polyethylene Glycol 17 gm 12/13/20 09:00 12/16/20 09:10 Polyethylene Glycol 3350 17 Gm Packet PER TUBE Not Given DAILY HANSA Propofol 1,000 mg 12/06/20 14:00 12/15/20 07:43 Propofol 1,000 Mg/100 Ml Vial IV 01/05/21 14:00 1,000 mg INF PRN Administration TO ACHIEVE GOAL RASS Protocol Rivaroxaban 15 mg 12/02/20 09:00 12/16/20 09:08 Rivaroxaban 15 Mg Tab PO 15 mg DAILY HANSA Administration Sodium Chloride 10 ml 11/25/20 02:07 12/13/20 08:33 Flush - Normal Saline 10 Ml Syringe IVF 10 ml Q12HR PRN Administration Saline Flush Hospitalist Exam Vitals: Vital Signs (12 hours) Temp Pulse Resp BP Pulse Ox 12/16/20 16:00 19 12/16/20 14:10 66 141/35 H 12/16/20 14:00 17 12/16/20 12:00 97.5 F L 21 H 12/16/20 10:43 66 12/16/20 10:00 18 12/16/20 08:10 95 12/16/20 08:00 97.7 F 17 12/16/20 07:10 73 Weight Admit Weight 210 lb 15.68 oz Weight 179 lb 10.828 oz Most Recent Monitor Data Heart Rate from ECG 66 NIBP 154/53 NIBP BP-Mean 86 Respiration from ECG 17 SpO2 97 General - other findings: remains intuated Eye: PERRL ENT: normocephalic atraumatic Neck: supple Heart: RRR Respiratory: CTAB Gastrointestinal: soft Extremities: no cyanosis Skin: normal turgor Hosp A/P - Plan (1) Atrial fibrillation with RVR Code(s): I48.91 - UNSPECIFIED ATRIAL FIBRILLATION Status: Acute Plan: Persistent, continue Amiodarone gtt/Metoprolol/Xarelto. Cardiology i following (2) Hypotension Status: Acute Plan: s/p HD, continue supportive mgmt (3) Pneumonia due to COVID-19 virus Code(s): U07.1 - COVID-19; J12.82 - PNEUMONIA DUE TO CORONAVIRUS DISEASE 2019 Status: Acute Plan: Continue Meropenem/Dexamethasone/Vit C/Zinc/D3/Xarelto (4) Acute respiratory failure with hypoxia Code(s): J96.01 - ACUTE RESPIRATORY FAILURE WITH HYPOXIA Status: Acute (5) ESRD (end stage renal disease) on dialysis Code(s): N18.6 - END STAGE RENAL DISEASE; Z99.2 - DEPENDENCE ON RENAL DIALYSIS Status: Chronic Plan: HD per Renal service (6) Anemia of renal disease Code(s): N18.9 - CHRONIC KIDNEY DISEASE, UNSPECIFIED; D63.1 - ANEMIA IN CHRONIC KIDNEY DISEASE Status: Chronic (7) Diabetes type 2, controlled Code(s): E11.9 - TYPE 2 DIABETES MELLITUS WITHOUT COMPLICATIONS Status: Chronic Qualifiers: Diabetes mellitus half-way insulin use: without long term care pharmacist use Diabetes mellitus complication status: with kidney complications Diabetes mellitus complication detail: with chronic kidney disease Chronic kidney disease stage: on chronic dialysis Qualified Code(s): E11.22 - Type 2 diabetes mellitus with diabetic chronic kidney disease; N18.6 - End stage renal disease; Z99.2 - Dependence on renal dialysis (8) HTN (hypertension) Code(s): I10 - ESSENTIAL (PRIMARY) HYPERTENSION Status: Chronic Qualifiers: Hypertension type: essential hypertension Qualified Code(s): I10 - Essential (primary) hypertension (9) Leukocytosis Code(s): D72.829 - ELEVATED WHITE BLOOD CELL COUNT, UNSPECIFIED Status: Acute Qualifiers: Leukocytosis type: leukemoid reaction Qualified Code(s): D72.823 - Leukemoid reaction Plan: Suspected reactive, continue to monitor trend - Plan No significant changes or meaningful recovery. Family plans to withdraw cares tomorrow Appreciate Palliative care april cont supportive cares
[2020-12-16] MEDS: Atorvastatin Calcium 40 MG TAB PO SCH (19:53)
[2020-12-17] MEDS: Metoclopramide HCl 10 MG/2 ML VIAL IVP SCH (07:13)
[2020-12-17 07:25] LABS: Digoxin 1.42 ng/mL (0.8-2.0)
[2020-12-17 07:34] LABS: Hemoglobin 9.1 g/dL (14.0-18.0); Mean Corpuscular HGB CONC 32.2 g/dL (32.0-36.0); Mean Corpuscular Hemoglobin 29.3 pg (27.0-31.0); Mean Corpuscular Volume 90.9 fL (78.0-98.0); Platelet Count 319 thou/uL (130-400); White Blood Cell (WBC) Count 23.8 thou/uL (4.8-10.8)
[2020-12-17 08:20] LABS: Band 4 % (5-11); MDiff Complete? YES; Monocytes 3 % (0-10); Neutrophil 93 % (42-75); Platelet Morphology Comment Appears Adequate; Polychromasia SLIGHT = 2-3 cells (100X) (0-2/hpf)
[2020-12-17] MEDS: Mometasone 200 MCG/Formoterol 5 MCG 120 PUFF INHALER INH SCH (08:37)
[2020-12-17] MEDS: Rivaroxaban 15 MG TAB PO SCH (09:18)
[2020-12-17] MEDS: Aspirin Chewable 81 MG TAB PO SCH (09:18)
[2020-12-17] MEDS: Pantoprazole 40 MG GRANULES PACKET PO SCH (09:18)
[2020-12-17] MEDS: Polyethylene Glycol 3350 17 GM Packet PER TUBE SCH (09:18)
[2020-12-17] MEDS: Amiodarone 200 MG TAB PER TUBE SCH (09:18)
[2020-12-17] MEDS: Metoprolol Tartrate 25 MG TAB PO SCH (09:18)
[2020-12-17] MEDS: Ascorbic Acid 500 mg Chewable Tablet PO SCH (09:18)
[2020-12-17] MEDS: Insulin Glargine 15 UNITS in Pre-Filled Syringe 1 EACH SC SCH (09:19)
[2020-12-17] MEDS: Dexamethasone 4 mg/ml Vial SLOW IVP SCH (09:19)
--- NOTE | 2020-12-17 09:41 | PRG ---
DATE OF SERVICE: 12/17/2020 SUBJECTIVE: He remains encephalopathic. Palliative Care saw the patient yesterday. Family is to get Hospice involvement today. He is made DNR. OBJECTIVE: VITAL SIGNS: Pulse 71, blood pressure 140/73, saturations are 96% at 60% FiO2. CHEST: Anterior rhonchi. CARDIAC: Normal S1 and S2. No gallops. ABDOMEN: No masses. LABORATORY DATA: White count 26,000. ASSESSMENT: 1. Encephalopathy. 2. Supraventricular tachycardia. 3. Renal failure. 4. Hair positive pneumonia. PLAN: As per the family's wishes, Hospice will be seeing the patient today. Job ID: [id number]
[2020-12-17 11:17] VITALS: BP 159/32
[2020-12-17 12:08] VITALS: TEMP 97.2
--- NOTE | 2020-12-17 12:32 | PDOC.DS.DS ---
Provider Date of Admission: 11/24/20 22:43 Date of Discharge: 12/17/20 Admitting Provider: Dagoberto Christie MD Primary Care Physician: Unknown Course Hospital Course: The patient is very unfortunate 60 years gentleman who has multiple comorbidities including diabetes type 2, hypertension, history of CVA with residual right-sided paralysis, PVD with multiple toes amputation, end-stage renal disease on dialysis, who presented with short of breath. He was admitted on November 25, 2020. He was found to have Covid pneumonia. Patient was started on Decadron, empiric antibiotic, and other ancillary treatment. Nephrology was consulted for dialysis. Unfortunately, despite aggressive management, patient with ultimately deteriorated, and intubated due to respiratory failure secondary to COVID-19 pneumonia. During his hospital stay, he also went into atrial fibrillation with RVR, which was very difficult to control as well as limiting his dialysis, patient seemed to not tolerated well. Multiple specialists on the case including pulmonology, cardiology, and nephrology. Despite aggressive cares, patient was unweanable and highly dependent on ventilator. His prognosis was poor. Palliative care was consulted. Ultimately, family decided to withdraw care. He will be transitioned to hospice for comfort and symptomatic management. Resuscitation Status: 12/16/20 16:02 Resuscitation Status Routine Co-Sign Provider: Resuscitation Status: DNAR: NO Resuscitation Discussed with: spouse Additional comments: Patient spouse and sons elected to transition to DNAR Lab Results: 12/17/20 03:30 12/16/20 03:50 Abnormal Lab Results - Last 48 hrs 12/16/20 01:06: ABG O2 Sat (Measured) 90.1 L, ABG O2 Content 13.8 L, ABG Hematocrit 32.0 L, ABG Hemoglobin 11.0 L, ABG Oxyhemoglobin 89.3 L, ABG Deoxyhemoglobin 9.8 H, A-a O2 Gradient 247.325 H, Chloride 97 L 12/16/20 03:50: Chloride 96 L, BUN 77 H, Creatinine 3.66 H, Phosphorus 6.9 H, Albumin 2.7 L 12/16/20 03:50: C-Reactive Protein 6.12 H 12/16/20 03:50: WBC 24.9 H, RBC 3.41 L, Hgb 9.9 L, Hct 31.0 L, MCHC 31.9 L, RDW 15.1 H, Neutrophils % (Manual) 95 H, Band Neuts % (Manual) 2 L, Lymphocytes % (Manual) 1 L 12/17/20 03:30: WBC 23.8 H, RBC 3.10 L, Hgb 9.1 L, Hct 28.2 L, RDW 15.0 H, Neutrophils % (Manual) 93 H, Band Neuts % (Manual) 4 L Microbiology - Entire Visit 12/09/20 15:23 A-Line - Left Brachiocephalic vein Blood Culture - Final NO GROWTH IN 5 DAYS 12/09/20 15:10 A-Line - Left Brachiocephalic vein Blood Culture - Final NO GROWTH IN 5 DAYS 11/24/20 20:43 Venous blood - Left Arm Blood Culture - Final NO GROWTH IN 5 DAYS 11/24/20 21:03 Venous blood - Left Arm Blood Culture - Final NO GROWTH IN 5 DAYS Vitals: Vital Signs (12 hours) Temp Pulse Resp BP Pulse Ox 12/17/20 12:00 97.2 F L 21 H 12/17/20 11:15 67 159/32 H 12/17/20 10:00 20 12/17/20 08:30 71 140/37 L 12/17/20 08:00 19 97 12/17/20 07:00 97.5 F L Weight Admit Weight 210 lb 15.68 oz Weight 179 lb 3.773 oz Most Recent Monitor Data Heart Rate from ECG 68 NIBP 141/45 NIBP BP-Mean 77 Respiration from ECG 22 SpO2 98 Physical Exam: The patient was seen and examined on the day of discharge. Problem (1) Acute respiratory failure with hypoxia Code(s): J96.01 - ACUTE RESPIRATORY FAILURE WITH HYPOXIA Status: Acute (2) Atrial fibrillation with RVR Code(s): I48.91 - UNSPECIFIED ATRIAL FIBRILLATION Status: Acute (3) Hypotension Status: Acute (4) Pneumonia due to COVID-19 virus Code(s): U07.1 - COVID-19; J12.82 - PNEUMONIA DUE TO CORONAVIRUS DISEASE 2019 Status: Acute (5) Sepsis Code(s): A41.9 - SEPSIS, UNSPECIFIED ORGANISM Status: Acute (6) Sepsis associated hypotension Code(s): A41.9 - SEPSIS, UNSPECIFIED ORGANISM; I95.9 - HYPOTENSION, UNSPECIFIED Status: Acute (7) Anemia of renal disease Code(s): N18.9 - CHRONIC KIDNEY DISEASE, UNSPECIFIED; D63.1 - ANEMIA IN CHRONIC KIDNEY DISEASE Status: Chronic (8) Diabetes type 2, controlled Code(s): E11.9 - TYPE 2 DIABETES MELLITUS WITHOUT COMPLICATIONS Status: Chronic Qualifiers: 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 insulin use: without chcf use Diabetes mellitus complication status: with kidney complications Diabetes mellitus complication detail: with chronic kidney disease Chronic kidney disease stage: on chronic dialysis Qualified Code(s): E11.22 - Type 2 diabetes mellitus with diabetic chronic kidney disease; N18.6 - End stage renal disease; Z99.2 - Dependence on renal dialysis (9) ESRD (end stage renal disease) on dialysis Code(s): N18.6 - END STAGE RENAL DISEASE; Z99.2 - DEPENDENCE ON RENAL DIALYSIS Status: Chronic (10) HLD (hyperlipidemia) Code(s): E78.5 - HYPERLIPIDEMIA, UNSPECIFIED Status: Chronic (11) HTN (hypertension) Code(s): I10 - ESSENTIAL (PRIMARY) HYPERTENSION Status: Chronic Qualifiers: Hypertension type: essential hypertension Qualified Code(s): I10 - Essentia l (primary) hypertension (12) History of CVA with residual deficit Code(s): I69.30 - UNSPECIFIED SEQUELAE OF CEREBRAL INFARCTION Status: Chronic Time Spent in discharge related activities (mins): 25 Plan Home Medications: Medication Instructions Recorded Confirmed Type Aspirin [Aspirin EC] 325 mg PO QAM 03/06/14 11/25/20 History Metoprolol Tartrate [Lopressor] 100 mg PO BID 03/06/14 11/25/20 History glipiZIDE [Glucotrol XL] 2 tab PO BID 03/06/14 11/25/20 History Atorvastatin Calcium [Lipitor] 1 tab PO HS 06/06/18 11/25/20 History NIFEdipine [Nifedipine ER] 30 mg PO DAILY 06/06/18 11/25/20 History cloNIDine [Catapres] 1 tab PO PRN PRN 06/06/18 11/25/20 History Amlodipine [Norvasc] 5 mg PO DAILY 11/25/20 11/25/20 History Lisinopril [Zestril] 20 mg PO BID 11/25/20 11/25/20 History Allergies: codeine Adverse Reaction (Verified 11/25/20 01:54) Nausea PER PATIENT heparin Adverse Reaction (Verified 11/25/20 01:54) EYES BLEEDING HX RETINAL DETACHMENT BOTH EYES WITH BLEEDING. PER AND PATIENT promethazine [From Phenergan] Adverse Reaction (Verified 11/25/20 01:54) Headache TANYA PER PATIENT Referrals: Unknown,Unknown [Primary Care Provider] - Disposition: [facility] Quality CORE MEASURES:: N/A
--- NOTE | 2020-12-19 06:00 | PQF ---
CLINICAL DOCUMENTATION CLARIFICATION FORM: Dear : Kvng Heck Date / Time: 12/19/20 0559 Please exercise your independent, professional judgment in responding to the clarification form. Clinical indicators are provided on the bottom of this form for your review Based on the clinical indicators on admit, can you determine if Sepsis was present at the time of admission? Diagnosis: Sepsis Present on Admission (POA): [ X ] Yes [ ] No [ ] Unable to determine Physician Signature: Date/Time: For continuity of documentation, please document condition throughout progress notes and discharge summary. Thank You To be completed by CDI/Coding staff for physician review: Present Clinical Indicators - Signs / Symptoms / Labs Results and Location in Medical Record [X] WBC 5.8; 4.8 Plt count 195; 206, Neutrophils 86; 85, Band 1; Lactic acid 1.9; 1.2 Laboratory 11/24-11/25 [X] SARS-Cov 2 rap RNA Detected Serology 11/24 Blood culture: no growth Microbiology 11/24 [X] BP 135/60, Pulse 92, Resp 22, Temp 99.9 Vital signs 11/24 [X] SIRS scoring: pt did meet criteria ED notes p4 11/24 [X] Acute on chronic respiratory failure H&P p4 11/10 Green PA-C [X] Covid Pneumonia H&P p4 11/10 Green PA-C [X] Sepsis associated hypotension DS p3 12/17 Dr Heck [X] Encephalopathy PN 12/17 [X] Chest Xray: right perihilar groundglass opacity Chest Xray 11/24 Present Risk Factors Results and Location in Medical Record [X] 60 year-old Male H&P p1 11/10 Green PA-C [X] Covid Pneumonia H&P p1 11/10 Green PA-C [X] DM H&P p1 11/10 Green PA-C [X] ESRD ED Notes 11/10 Present Treatments Results and Location in Medical Record [X] IVF NS 1L JAN 12 [X] IVF Ceftriaxone Sodium 1 gm JAN 12 [X] IV Levophed 250 ml JAN 12 [X] Cefepime 2 gm IV JAN 12 [X] Bipap Respiratory panel 12/02 [X] Mechanical ventilator Respiratory panel 12/06 [X] Respiratory consult Consult Dr Ham 11/25 [X] Levaquin 500mg IV JAN 12 [X] Doxycycline 100mg IV JAN 12 CDS/Research Group Director Signature: Sol Sargent Phone #: ext [phone] Date/Time: 12/19/20 0559 This is a permanent part of the Medical Record [facility]
== END 2020-12-17 12:13 | disposition hospice, inpatient (51) | DRG 870 ==
LOC: ERS 19:40 → T4-A 22:43 → IMCU/EMU 12-02 23:34
PROVIDERS: ADMIT Internal Medicine; ATTEND Family Medicine
PROC: 8E0ZXY6 Isolation (ICD-10-PCS; 2020-11-24)
PROC: XW13325 Transfusion of Convalescent Plasma (Nonautologous) into Peripheral Vein, Percutaneous Approach, New Technology Group 5 (ICD-10-PCS; principal; 2020-11-25)
PROC: 5A1D70Z Performance of Urinary Filtration, Intermittent, Less than 6 Hours Per Day (ICD-10-PCS; 2020-11-25)
PROC: 5A09457 Assistance with Respiratory Ventilation, 24-96 Consecutive Hours, Continuous Positive Airway Pressure (ICD-10-PCS; 2020-12-02)
PROC: 5A1955Z Respiratory Ventilation, Greater than 96 Consecutive Hours (ICD-10-PCS; 2020-12-06)
PROC: 0BH17EZ Insertion of Endotracheal Airway into Trachea, Via Natural or Artificial Opening (ICD-10-PCS; 2020-12-06)
PROC: 3E033XZ Introduction of Vasopressor into Peripheral Vein, Percutaneous Approach (ICD-10-PCS; 2020-12-09)
DX: A41.89 Other specified sepsis (principal); U07.1 COVID-19; N18.6 End stage renal disease; J12.82 Pneumonia due to coronavirus disease 2019; J96.01 Acute respiratory failure with hypoxia; I12.0 Hypertensive chronic kidney disease with stage 5 chronic kidney disease or end stage renal disease; I69.351 Hemiplegia and hemiparesis following cerebral infarction affecting right dominant side; T82.858A Stenosis of other vascular prosthetic devices, implants and grafts, initial encounter; I47.1 Supraventricular tachycardia; I48.92 Unspecified atrial flutter; I48.19 Other persistent atrial fibrillation; G93.40 Encephalopathy, unspecified; Z66 Do not resuscitate; Z51.5 Encounter for palliative care; E78.5 Hyperlipidemia, unspecified; D63.1 Anemia in chronic kidney disease; E11.22 Type 2 diabetes mellitus with diabetic chronic kidney disease; I08.3 Combined rheumatic disorders of mitral, aortic and tricuspid valves; E11.65 Type 2 diabetes mellitus with hyperglycemia; E11.51 Type 2 diabetes mellitus with diabetic peripheral angiopathy without gangrene; E11.649 Type 2 diabetes mellitus with hypoglycemia without coma; R13.10 Dysphagia, unspecified; E87.5 Hyperkalemia; D72.823 Leukemoid reaction; E83.39 Other disorders of phosphorus metabolism; Z99.2 Dependence on renal dialysis; Z90.49 Acquired absence of other specified parts of digestive tract; Z98.42 Cataract extraction status, left eye; Z98.41 Cataract extraction status, right eye; Z78.1 Physical restraint status; Z89.411 Acquired absence of right great toe; Z79.899 Other long term (current) drug therapy; Z79.82 Long term (current) use of aspirin; Z79.84 Long term (current) use of oral hypoglycemic drugs; Z88.5 Allergy status to narcotic agent; Z88.2 Allergy status to sulfonamides; Z88.8 Allergy status to other drugs, medicaments and biological substances; Z89.429 Acquired absence of other toe(s), unspecified side; I95.3 Hypotension of hemodialysis; Y83.8 Other surgical procedures as the cause of abnormal reaction of the patient, or of later complication, without mention of misadventure at the time of the procedure
CPT/HCPCS: 0240U; 36415; 36416; 36430; 36600; 71045; 71275; 80048; 80053; 80069; 80162; 82550; 82553; 82728; 82805; 83540; 83550; 83605; 83690; 83735; 83880; 84100; 84439; 84443; 84484; 85007; 85025; 85027; 85379; 86038; 86140; 86225; 86850; 86900; 86901; 87040; 90935; 93005; 93010; 93970; 94002; 94003; 94660; 94760; 96365; 96366; 96367; 96368; 96372; G0257; J0282; J0692; J1100; J1160; J1650; J1815; J1956; J2060; J2185; J2270; J2405; J2704; J2765; J3010; J3370; J3490; J7070; P9017; P9047; Q9967

== ENCOUNTER 2020-12-17 12:26 | Inpatient (IN) | payer OTHER ==
[2020-12-17 12:32] VITALS: BMI 27.2
[2020-12-17] MEDS ORDERED: Morphine 4 MG/ML VIAL ONE ×3 (12:41→12:55)
[2020-12-17] MEDS ORDERED: Lorazepam 2 MG/ML VIAL ONE ×3 (12:41→12:55)
[2020-12-17] MEDS ORDERED: Lorazepam 2 MG/ML VIAL SLOW IVP PRN ×2 (13:04→13:06)
[2020-12-17] MEDS ORDERED: Morphine 4 MG/ML VIAL SLOW IVP PRN ×2 (13:04→13:08)
[2020-12-17] MEDS ORDERED: Haloperidol Lactate 5 MG/ML VIAL SLOW IVP PRN (13:05)
[2020-12-17] MEDS ORDERED: Dexamethasone 4 mg/ml Vial SLOW IVP PRN (13:05)
[2020-12-17] MEDS ORDERED: Ondansetron PF 4 MG/2 ML Vial IVP PRN (13:05)
[2020-12-17] MEDS ORDERED: Acetaminophen 325 MG TAB PO PRN (13:07)
[2020-12-17] MEDS ORDERED: Acetaminophen 650 MG Suppository PR PRN (13:07)
[2020-12-17] MEDS ORDERED: Morphine 2 MG/ML VIAL SLOW IVP PRN (13:08)
[2020-12-17] MEDS ORDERED: diphenhydrAMINE 25 MG CAP PO PRN (13:09)
[2020-12-17] MEDS ORDERED: diphenhydrAMINE 50 MG/ML VIAL IVP PRN (13:09)
[2020-12-17] MEDS ORDERED: Morphine 4 MG/ML VIAL SLOW IVP SCH (13:15)
[2020-12-17] MEDS ORDERED: Lorazepam 2 MG/ML VIAL SLOW IVP SCH (13:15)
[2020-12-17 13:31] VITALS: BP 141/45; TEMP 97.2
[2020-12-17] MEDS ORDERED: Scopolamine 1.5 mg/72 hour Patch TOP SCH (14:00)
== END 2020-12-17 13:20 | disposition expired | DRG 951 ==
LOC: IMCU/EMU 12:26
PROVIDERS: ADMIT Internal Medicine Nephrology; ATTEND Internal Medicine Nephrology
PROC: 0BH17EZ Insertion of Endotracheal Airway into Trachea, Via Natural or Artificial Opening (ICD-10-PCS; principal; 2020-12-17)
PROC: 5A1935Z Respiratory Ventilation, Less than 24 Consecutive Hours (ICD-10-PCS; 2020-12-17)
DX: Z51.5 Encounter for palliative care (principal); J96.01 Acute respiratory failure with hypoxia; N18.6 End stage renal disease; U07.1 COVID-19; J12.82 Pneumonia due to coronavirus disease 2019; I69.351 Hemiplegia and hemiparesis following cerebral infarction affecting right dominant side; I12.0 Hypertensive chronic kidney disease with stage 5 chronic kidney disease or end stage renal disease; E78.5 Hyperlipidemia, unspecified; E11.22 Type 2 diabetes mellitus with diabetic chronic kidney disease; Z99.2 Dependence on renal dialysis; Z90.49 Acquired absence of other specified parts of digestive tract; Z90.89 Acquired absence of other organs; Z88.5 Allergy status to narcotic agent; Z88.8 Allergy status to other drugs, medicaments and biological substances; Z79.82 Long term (current) use of aspirin
CPT/HCPCS: J2060; J2270